=== PATIENT | male | born 1935 | race Caucasian/White ===

== ENCOUNTER 2022-02-17 16:32 | Inpatient (IN) ==
--- NOTE | 2022-02-17 17:02 | Emergency Department Note ---
Weakness HPI General Chief complaint: Weakness Stated complaint: Eval for assisted living Time Seen by Provider: 02/17/22 16:40 Source: EMS Mode of arrival: EMS Limitations: altered mental status History of Present Illness HPI Narrative: Narrative: 86-year-old male presents the emergency department via EMS from home as they are worried that they are unable to care for him at home anymore. Patient has very bad dementia and he actually tries to care for his who is actually wheelchair-bound she says she is actually unable to care for him sound like he has been getting more weak and just not acting as normal they said it is getting harder and harder for him to care for himself as well as care for her at home. It sounds like they had their tipping point here as they wanted him to come to the emergency department for evaluation. Related Data Home Medications Medication Instructions Recorded Confirmed amlodipine 10 mg tablet 5 mg PO DAILY 06/23/17 03/07/19 cetirizine 10 mg capsule (Zyrtec) 10 mg PO PRN PRN Allergy Symptoms 06/23/17 03/07/19 fluoxetine 20 mg tablet (Sarafem) 20 mg PO BID 06/23/17 03/07/19 furosemide 20 mg tablet (Lasix) 20 mg PO DAILY 06/23/17 03/07/19 ipratropium 20 mcg-albuterol 100 2 puff INH TIDP PRN Shortness Of 06/23/17 03/07/19 mcg/actuation mist for inhalation Breath (Combivent Respimat) losartan 100 mg tablet (Cozaar) 100 mg PO DAILY 06/23/17 03/07/19 methocarbamol 750 mg tablet 750 mg PO BID 06/23/17 03/07/19 (Robaxin-750) metoprolol tartrate 50 mg tablet 150 mg PO DAILY 06/23/17 03/07/19 multivit,Ca,min-folic acid 400 1 ea PO DAILY 06/23/17 06/23/17 mcg-vit K 30 was-awvsreqk-orvftk tablet (Century Mature) pravastatin 20 mg tablet 40 mg PO DAILY 06/23/17 03/07/19 (Pravachol) vitamin B comp with C no.4 150 mg 150 mg PO DAILY 06/23/17 03/07/19 tablet (Super B Complex + C) Vitamin D3 400 unit PO DAILY 03/07/19 03/07/19 acetaminophen 300 mg-codeine 30 mg 1 tab PO BID PRN Pain 03/07/19 03/07/19 tablet budesonide-formoterol HFA 80 2 puff IH BID 03/07/19 03/07/19 mcg-4.5 mcg/actuation aerosol inhaler cetirizine 10 mg capsule 10 mg PO DAILY 03/07/19 03/07/19 tiotropium bromide 18 mcg capsule 18 mcg INH BID 03/07/19 03/07/19 with inhalation device Allergies Allergy/AdvReac Type Severity Reaction Status Date / Time Penicillins Allergy Severe Anaphylaxis Verified 02/17/22 16:38 morphine Allergy Intermediate Vomiting Verified 02/17/22 16:38 Review of Systems ROS ROS Narrative: Narrative: All systems ED: reviewed and negative except as stated. PFSH Narrative Patient History Narrative: Narrative: Medical/Surgical/Family History All Active Problems (Updated 02/17/22 @ 18:26 by Abilio Hunt DO) Weakness (Acute) Social History Smoking Status: Never smoker Exam Narrative Narrative: Narrative: Vital signs noted General: Awake. Alert. No distress. Obviously confused Skin: Warm. Dry. No rash. HEENT: NCAT. PERRL. EOMI. No conjunctivitis. No nystagmus. No pharyngitis. Membranes moist. Neck: No PTP. Good ROM. No meningeal signs. No stridor. No thyromegaly. No JVD. Cardiovascular: Tachycardic but regular. No murmur. No rubs. No gallops. Respiratory: No respiratory distress. Breath sounds equal. Lungs clear. Gastrointestinal: Abdomen soft. No tenderness. No distention. Normal bowel sounds. No palpable organomegaly or masses. Back: No deformity. No CVAT. Musculoskeletal: No tenderness. No swelling. No erythema. No edema. Good peripheral pulses x 4 Lymphatic: No palpable adenopathy. Neurological: No focal neurological deficits observed. General Limitations: altered mental status Course Vital Signs Vital signs: Vital Signs Temperature 97.7 F 02/17/22 16:35 Pulse Rate 121 H 02/17/22 16:35 Respiratory Rate 16 02/17/22 16:35 Blood Pressure 127/60 02/17/22 16:35 Pulse Oximetry (%) 97 02/17/22 16:35 Oxygen Delivery Method 02/17/22 16:35 Temperature 97.7 F 02/17/22 16:35 Pulse Rate 131 H 02/17/22 18:17 Respiratory Rate 15 02/17/22 18:17 Blood Pressure 109/83 02/17/22 18:17 Pulse Oximetry (%) 97 02/17/22 18:17 Oxygen Delivery Method 02/17/22 16:35 MDM MDM Narrative Medical decision making narrative: BelievedNarrative: Patient actually looks well on exam but he is obviously confused does have baseline dementia. Is tachycardic otherwise no other acute findings. Does have a hard time caring for himself. I do not understand how he can actually care for himself at home. He does have severe dementia and also has diabetes multiple chronic problems. We will going get basic labs including urinalysis. Labs came back just with mild leukocytosis. He actually we looked and was diagnosed with a urinary tract infection. He is already already on antibiotics after he talked with further. Social work actually got really involved in the case and was able to speak with and the decision was actually made to go hospice so hospice is actually going to talk to them tomorrow and get him admitted into the hospice care center. I think this is actually the best mode o f action for this patient family is happy with this plan. Patient will be discharged home in stable condition. Lab Data Result diagrams: 02/17/22 17:10 Labs: Lab Results 02/17/22 02/17/22 Range/Units 17:10 17:50 WBC 12.9 H (4.5-11.0) K/mcL RBC 4.43 L (4.63-6.08) M/mcL Hgb 12.6 L (13.7-17.5) g/dL Hct 39.8 L (40.1-51.0) % POC Hct 39.0 L (41-55) MCV 89.8 (80.0-100.0) fL MCH 28.4 (26.0-34.0) pg MCHC 31.7 (31.0-36.0) g/dL RDW 13.0 (11.5-14.5) % Plt Count 374 (140-440) K/mcL MPV 9.1 (8.8-12.5) fL Immature Gran % (Auto) 0.5 (0.0-0.5) % Neut % (Auto) 76.4 (38.0-78.0) % Lymph % (Auto) 7.9 L (15.5-49.0) % [place] % (Auto) 12.1 H (1.0-12.0) % Eos % (Auto) 2.9 (0.0-7.0) % Baso % (Auto) 0.2 (0.0-2.0) % Lymph # (Auto) 1.02 L (1.50-4.80) K/mcL [place] # (Auto) 1.55 H (0.10-0.90) K/mcL Eos # (Auto) 0.37 (0.00-0.70) K/mcL Baso # (Auto) 0.03 (0.00-0.30) K/mcL Immature Gran # 0.07 H (0.00-0.05) K/mcl Absolute Neutrophils 9.82 H (1.80-8.00) K/mcL POC Sodium 140 (133-145) POC Potassium 4.1 (3.3-5.1) POC Chloride 100 (96-108) POC Total CO2 29.0 (22-30) POC BUN 22 H (6-20) POC Creatinine 0.9 (0.6-1.2) POC Glucose 76 (70-105) POC WB Ioniz Calcium 1.14 L (1.16-1.32) Discharge Plan Patient/Caregiver Discharge Instructions Pt seen by NEGATIVE DEVELOPER/PA only: No Clinical Impression: Weakness Activity: increase activity as tolerated Instructions: Weakness (ED) Activity Restrictions/Additional Instructions: 1.The examination and treatment you have received in the emergency department was on an emergency basis only. Care in the emergency department does not take the place of regular medical care with a primary care provider. 2.Please contact your primary care provider for further follow up instructions. 3.Return to the emergency department immediately if you become worse, if you develop any new symptoms, or if any problems occur. 4.Call if questions. 5. Hospice should meet with you tomorrow to get him admitted into the hospice program. If anything changes or worsens you know is return to the emergency department Patient Disposition: Hospice - Home Condition: Good Follow up with: Tessa Gayle ARNP [Primary Care Provider] - Prescriptions: No Action methocarbamol [Robaxin-750] 750 MG Tablet 750 mg PO BID amlodipine 10 MG Tablet 5 mg PO DAILY fluoxetine [Sarafem] 20 MG Tablet 20 mg PO BID metoprolol tartrate 50 MG Tablet 150 mg PO DAILY pravastatin [Pravachol] 20 MG Tablet 40 mg PO DAILY furosemide [Lasix] 20 MG Tablet 20 mg PO DAILY losartan [Cozaar] 100 MG Tablet 100 mg PO DAILY vitamin B comp with C no.4 [Super B Complex + C] 150 MG Tablet 150 mg PO DAILY cetirizine [Zyrtec] 10 MG Capsule 10 mg PO PRN PRN (Reason: Allergy Symptoms) ipratropium-albuterol [Combivent Respimat] 1 PUFF Inhaler 2 puff INH TIDP PRN (Reason: Shortness Of Breath) mv,Ca,aup-BR-R2-lycopene-lutn [Century Mature] 1 EACH Tablet 1 ea PO DAILY acetaminophen-codeine 1 TAB tablet 1 tab PO BID PRN (Reason: Pain) tiotropium bromide 18 MCG capsule, w/inhalation device 18 mcg INH BID budesonide-formoterol 10.2 GM HFA aerosol inhaler 2 puff IH BID Vitamin D3 400 UNIT tablet 400 unit PO DAILY cetirizine 10 MG capsule 10 mg PO DAILY
[2022-02-17 17:51] LABS: POC Calcium, Ionized 1.14 (1.16-1.32); POC Creatinine 0.9 (0.6-1.2); POC Potassium 4.1 (3.3-5.1)
[2022-02-17 17:53] LABS: Basophils # (Auto) 0.03 K/mcL (0.00-0.30); Basophils % (Auto) 0.2 % (0.0-2.0); Eosinophils # (Auto) 0.37 K/mcL (0.00-0.70); Eosinophils % (Auto) 2.9 % (0.0-7.0); Hematocrit 39.8 % (40.1-51.0); Hemoglobin 12.6 g/dL (13.7-17.5); Lymphocytes # (Auto) 1.02 K/mcL (1.50-4.80); Lymphocytes % (Auto) 7.9 % (15.5-49.0); Mean Cell Volume 89.8 fL (80.0-100.0); Mean Corpuscular HGB Conc 31.7 g/dL (31.0-36.0); Mean Platelet Volume 9.1 fL (8.8-12.5); Monocytes # (Auto) 1.55 K/mcL (0.10-0.90); Monocytes % (Auto) 12.1 % (1.0-12.0); Neutrophils % (Auto) 76.4 % (38.0-78.0); Platelet Count 374 K/mcL (140-440); RBC 4.43 M/mcL (4.63-6.08); WBC 12.9 K/mcL (4.5-11.0)
[2022-02-17 18:45] LABS: Appearance,Urine CLEAR (Clear); Bilirubin,Urine Negative (Negative); Color,Urine YELLOW; Culture Indicated,Urine No; Glucose,Urine (UA) Negative (Negative); Ketones,Urine Negative (Negative); Leukocyte Esterase,Urine Negative /uL (Negative); Nitrate,Urine Negative (Negative); Protein,Urine Negative (Negative); Specific Gravity,Urine 1.011 (1.000-1.035); Urine Blood Negative (Negative); Urobilinogen,Urine Negative
[2022-02-17] MEDS ORDERED: ACETAMINOPHEN W/CODEINE #3 1 TABLET PO ONE (20:07)
[2022-02-17] MEDS ORDERED: METHOCARBAMOL 750 MG TABLET PO PRN (20:09)
[2022-02-17] MEDS ORDERED: PRAVASTATIN 40 MG TABLET PO SCH (21:00)
--- NOTE | 2022-02-18 11:01 | XRay Report ---
CLINICAL INFORMATION: Elevated white blood cell count COMPARISON: None. TECHNIQUE: Portable FINDINGS: The heart is moderately enlarged. Mediastinum and pulmonary vessels are unremarkable. Moderate patchy infiltrate in the left upper lobe and small patchy infiltrate right upper lobe appreciated. No effusions IMPRESSION: Moderate left upper lobe and small right upper lobe infiltrates. Moderate cardiomegaly Interpreted and Authenticated by: Hima Thapa 02/18/22
[2022-02-18] MEDS ORDERED: 0.9 % SODIUM CHLORIDE 500 ML IV ONE (11:04)
[2022-02-18] MEDS ORDERED: cefTRIAXone 1 GM VIAL IV ONE (11:04)
[2022-02-18] MEDS ORDERED: AZITHROMYCIN 500 MG in DEXTROSE 5% IN WATER 250 ML IV ONE ×2 (11:04→11:18)
--- NOTE | 2022-02-18 11:29 | Emergency Department Note ---
Course Course Course Narrative: Patient is an 86-year-old male signed out to me by Dr. Hunt. Briefly, patient presented due to worsening confusion and weakness. It was reported that patient's labs were reassuring overall, and that hospice as well as placement were discussed. Hospice had not been decided on, and it was reported by case management that they would prefer treatment if there is anything treatable. Vital Signs Vital signs: Vital Signs Temperature 97.7 F 02/17/22 16:35 Pulse Rate 121 H 02/17/22 16:35 Respiratory Rate 16 02/17/22 16:35 Blood Pressure 127/60 02/17/22 16:35 Pulse Oximetry (%) 97 02/17/22 16:35 Oxygen Delivery Method 02/17/22 16:35 Temperature 97.8 F 02/18/22 06:30 Pulse Rate 110 H 02/18/22 10:01 Respiratory Rate 20 02/18/22 03:22 Blood Pressure 109/73 02/18/22 10:01 Pulse Oximetry (%) 95 02/18/22 10:01 Oxygen Delivery Method 02/18/22 06:30 [facility] MDM Narrative Medical decision making narrative: Narrative: Patient is a an 86-year-old male who presents to the emergency department due to weakness. Upon reassessment of labs and vitals there is concern for potential sepsis. A chest x-ray had not been performed, so this was performed. Patient has right-sided infiltrates, and nursing noted that when he was drinking water he did cough, so they became concerned for the possibility of aspiration. It is possible that patient has an aspiration pneumonia at this time. Antibiotics have been ordered. Fluids have also been ordered. We will speak to hospitalist about admission. I have spoken to Dr. Barnes who was agreed to see and evaluate patient for admission. Lab Data Result diagrams: 02/17/22 17:10 02/18/22 12:16 Labs: Lab Results 02/17/22 02/17/22 02/17/22 Range/Units 17:10 17:50 18:06 WBC 12.9 H (4.5-11.0) K/mcL RBC 4.43 L (4.63-6.08) M/mcL Hgb 12.6 L (13.7-17.5) g/dL Hct 39.8 L (40.1-51.0) % POC Hct 39.0 L (41-55) MCV 89.8 (80.0-100.0) fL MCH 28.4 (26.0-34.0) pg MCHC 31.7 (31.0-36.0) g/dL RDW 13.0 (11.5-14.5) % Plt Count 374 (140-440) K/mcL MPV 9.1 (8.8-12.5) fL Immature Gran % (Auto) 0.5 (0.0-0.5) % Neut % (Auto) 76.4 (38.0-78.0) % Lymph % (Auto) 7.9 L (15.5-49.0) % [place] % (Auto) 12.1 H (1.0-12.0) % Eos % (Auto) 2.9 (0.0-7.0) % Baso % (Auto) 0.2 (0.0-2.0) % Lymph # (Auto) 1.02 L (1.50-4.80) K/mcL [place] # (Auto) 1.55 H (0.10-0.90) K/mcL Eos # (Auto) 0.37 (0.00-0.70) K/mcL Baso # (Auto) 0.03 (0.00-0.30) K/mcL Immature Gran # 0.07 H (0.00-0.05) K/mcl Absolute Neutrophils 9.82 H (1.80-8.00) K/mcL POC VBG pH (7.32-7.42) POC VBG pCO2 at Temp (41-51) POC VBG pO2 (25-40) POC VBG HCO3 (24-28) POC VBG Total CO2 (25-29) POC Venous O2 Sat (40-70) POC VBG Base Excess (-2-2) VBG Lactic Acid (0.5-2) POC Sodium 140 (133-145) POC Potassium 4.1 (3.3-5.1) POC Chloride 100 (96-108) POC Total CO2 29.0 (22-30) POC BUN 22 H (6-20) POC Creatinine 0.9 (0.6-1.2) POC Glucose 76 (70-105) POC WB Ioniz Calcium 1.14 L (1.16-1.32) Urine Color Yellow Urine Appearance Clear (Clear) Urine pH 6.0 (5.0-9.0) Ur Specific [place] 1.011 (1.000-1.035) Urine Protein Negative (Negative) mg/dL Urine Glucose (UA) Negative (Negative) mg/dL Urine Ketones Negative (Negative) mg/dL Urine Occult Blood Negative (Negative) mg/dL Urine Nitrate Negative (Negative) Urine Bilirubin Negative (Negative) mg/dL Urine Urobilinogen Negative mg/dL Ur Leukocyte Esterase Negative (Negative) /uL Ur Culture Indicated? No 02/18/22 Range/Units 12:20 WBC (4.5-11.0) K/mcL RBC (4.63-6.08) M/mcL Hgb (13.7-17.5) g/dL Hct (40.1-51.0) % POC Hct (41-55) MCV (80.0-100.0) fL MCH (26.0-34.0) pg MCHC (31.0-36.0) g/dL RDW (11.5-14.5) % Plt Count (140-440) K/mcL MPV (8.8-12.5) fL Immature Gran % (Auto) (0.0-0.5) % Neut % (Auto) (38.0-78.0) % Lymph % (Auto) (15.5-49.0) % [place] % (Auto) (1.0-12.0) % Eos % (Auto) (0.0-7.0) % Baso % (Auto) (0.0-2.0) % Lymph # (Auto) (1.50-4.80) K/mcL [place] # (Auto) (0.10-0.90) K/mcL Eos # (Auto) (0.00-0.70) K/mcL Baso # (Auto) (0.00-0.30) K/mcL Immature Gran # (0.00-0.05) K/mcl Absolute Neutrophils (1.80-8.00) K/mcL POC VBG pH 7.41 (7.32-7.42) POC VBG pCO2 at Temp 44.3 (41-51) POC VBG pO2 20 L (25-40) POC VBG HCO3 27.8 (24-28) POC VBG Total CO2 29.0 (25-29) POC Venous O2 Sat 31.0 L (40-70) POC VBG Base Excess 3.0 H (-2-2) VBG Lactic Acid 0.7 (0.5-2) POC Sodium (133-145) POC Potassium (3.3-5.1) POC Chloride (96-108) POC Total CO2 (22-30) POC BUN (6-20) POC Creatinine (0.6-1.2) POC Glucose (70-105) POC WB Ioniz Calcium (1.16-1.32) Urine Color Urine Appearance (Clear) Urine pH (5.0-9.0) Ur Specific [place] (1.000-1.035) Urine Protein (Negative) mg/dL Urine Glucose (UA) (Negative) mg/dL Urine Ketones (Negative) mg/dL Urine Occult Blood (Negative) mg/dL Urine Nitrate (Negative) Urine Bilirubin (Negative) mg/dL Urine Urobilinogen mg/dL Ur Leukocyte Esterase (Negative) /uL Ur Culture Indicated? Discharge Plan Patient/Caregiver Discharge Instructions Pt seen by LADLE PULLER/PA only: No Clinical Impression: Weakness Activity: increase activity as tolerated Instructions: Weakness (ED) Activity Restrictions/Additional Instructions: 1.The examination and treatment you have received in the emergency department was on an emergency basis only. Care in the emergency department does not take the place of regular medical care with a primary care provider. 2.Please contact your primary care provider for further follow up instructions. 3.Return to the emergency department immediately if you become worse, if you develop any new symptoms, or if any problems occur. 4.Call if questions. 5. Hospice should meet with you tomorrow to get him admitted into the hospice program. If anything changes or worsens you know is return to the emergency department Patient Disposition: Still a Patient Condition: Good Follow up with: Tessa Gayle ARNP [Primary Care Provider] - Prescriptions: No Action methocarbamol [Robaxin-750] 750 MG Tablet 750 mg PO BID amlodipine 10 MG Tablet 5 mg PO DAILY fluoxetine [Sarafem] 20 MG Tablet 20 mg PO BID metoprolol tartrate 50 MG Tablet 150 mg PO DAILY pravastatin [Pravachol] 20 MG Tablet 40 mg PO DAILY furosemide [Lasix] 20 MG Tablet 20 mg PO DAILY losartan [Cozaar] 100 MG Tablet 100 mg PO DAILY vitamin B comp with C no.4 [Super B Complex + C] 150 MG Tablet 150 mg PO DAILY cetirizine [Zyrtec] 10 MG Capsule 10 mg PO PRN PRN (Reason: Allergy Symptoms) ipratropium-albuterol [Combivent Respimat] 1 PUFF Inhaler 2 puff INH TIDP PRN (Reason: Shortness Of Breath) mv,Ca,waf-UW-E0-lycopene-lutn [Century Mature] 1 EACH Tablet 1 ea PO DAILY acetaminophen-codeine 1 TAB tablet 1 tab PO BID PRN (Reason: Pain) tiotropium bromide 18 MCG capsule, w/inhalation device 18 mcg INH BID budesonide-formoterol 10.2 GM HFA aerosol inhaler 2 puff IH BID Vitamin D3 400 UNIT tablet 400 unit PO DAILY cetirizine 10 MG capsule 10 mg PO DAILY
--- NOTE | 2022-02-18 12:36 | Internal Med History&Physical ---
HPI History of Present Illness Patient information: Note initiated : 02/18/22 at 12:30 pm Service Date, if different from initiated Date: [] Patient: Edmond Salas 86 y/o M admitted on for Eval for assisted living. Chief Complaint: [] History of present illness: Mr. Salas is a 86 year old M Presents the ED with worsening confusion on top of dementia and weakness. Recently treated for UTI but the urine looks clear here. Original plan was for home with hospice out of the ED. But it sounds like the family was not comfortable with patient being home felt to be unsafe conditions and they have been try to get APS involved. Further work-up in the ED today they got a chest x-ray which showed infiltrate on left side and mild right. Was noted to have some transient mild hypoxia, unknown baseline but has copd. Sounds like after further discussion with family hospice does not think finally decided on and is reported that they would prefer treatment for anything if possible first. Patient reports a chronic cough and some shortness of breath but at baseline. Patient is a poor historian most history obtained from the chart. Medical history includes dementia COPD hypertension chronic anemia and diastolic heart failure grade 1 with good ejection fraction on an echo in 2019. Review of Systems: Pertinent positives as above. Denies headache/fever/chills/nausea/vomiting/chest or abdominal pain//diarrhea. Remaining 10 point review of system reviewed negative PFSH PFSH All Active Problems (Updated 02/17/22 @ 18:26 by Abilio Hunt DO) Weakness (Acute) Social History smoking status: Never smoker MEDS/ALLERGIES Home Medications and Allergies Home Medications Medication Instructions Recorded Confirmed Type amlodipine 10 mg tablet 5 mg PO DAILY 06/23/17 03/07/19 History cetirizine 10 mg capsule (Zyrtec) 10 mg PO PRN PRN Allergy Symptoms 06/23/17 03/07/19 History fluoxetine 20 mg tablet (Sarafem) 20 mg PO BID 06/23/17 03/07/19 History furosemide 20 mg tablet (Lasix) 20 mg PO DAILY 06/23/17 03/07/19 History ipratropium 20 mcg-albuterol 100 2 puff INH TIDP PRN Shortness Of 06/23/17 03/07/19 History mcg/actuation mist for inhalation Breath (Combivent Respimat) losartan 100 mg tablet (Cozaar) 100 mg PO DAILY 06/23/17 03/07/19 History methocarbamol 750 mg tablet 750 mg PO BID 06/23/17 03/07/19 History (Robaxin-750) metoprolol tartrate 50 mg tablet 150 mg PO DAILY 06/23/17 03/07/19 History multivit,Ca,min-folic acid 400 1 ea PO DAILY 06/23/17 06/23/17 History mcg-vit K 30 yve-parhmfyn-erdfnv tablet ([employer]) pravastatin 20 mg tablet 40 mg PO DAILY 06/23/17 03/07/19 History (Pravachol) vitamin B comp with C no.4 150 mg 150 mg PO DAILY 06/23/17 03/07/19 History tablet (Super B Complex + C) Vitamin D3 400 unit PO DAILY 03/07/19 03/07/19 History acetaminophen 300 mg-codeine 30 mg 1 tab PO BID PRN Pain 03/07/19 03/07/19 History tablet budesonide-formoterol HFA 80 2 puff IH BID 03/07/19 03/07/19 History mcg-4.5 mcg/actuation aerosol inhaler cetirizine 10 mg capsule 10 mg PO DAILY 03/07/19 03/07/19 History tiotropium bromide 18 mcg capsule 18 mcg INH BID 03/07/19 03/07/19 History with inhalation device Allergies Allergy/AdvReac Type Severity Reaction Status Date / Time Penicillins Allergy Severe Anaphylaxis Verified 02/17/22 16:38 morphine AdvReac Mild Vomiting Verified 02/18/22 13:42 EXAM Constitutional Vitals: Temp Pulse Resp BP Pulse Ox O2 Del Method 97.8 F 110 H 20 109/73 95 02/18/22 06:30 02/18/22 10:01 02/18/22 03:22 02/18/22 10:01 02/18/22 10:01 02/18/22 06:30 Exam: General: Alert, Awake, No acute Distress, obese Eyes/N/T: EOMI, PERRL, Head/Neck: neck supple, normocephalic atraumatic CV: Tacky and regular with occasional irregularity,, No murmurs, normal s1/s2 Pulm: Clear b/l, no wheezing/rhonchi/rales Abd: soft, nontender, +BS x4 Ext: no clubbing/cyanosis, 2+ b/l LE edema and LE chronic wounds/ulcers Neuro: Alert, no focal deficits, moves all extremities, CN 2-12 grossly intact, Skin: warm/dry DATA Data Completed and Pending Labs: Labs from last 24 hours 02/18/22 02/18/22 02/18/22 12:20 12:16 12:16 WBC Pending RBC Pending Hgb Pending Hct Pending POC Hct MCV Pending MCH Pending MCHC Pending RDW Pending Plt Count Pending MPV Pending Immature Gran % (Auto) Neut % (Auto) Lymph % (Auto) [place] % (Auto) Eos % (Auto) Baso % (Auto) Lymph # (Auto) [place] # (Auto) Eos # (Auto) Baso # (Auto) Immature Gran # Absolute Neutrophils Platelet Estimate Pending RBC Morphology Pending POC VBG pH 7.41 POC VBG pCO2 at Temp 44.3 POC VBG pO2 20 L POC VBG HCO3 27.8 POC VBG Total CO2 29.0 POC Venous O2 Sat 31.0 L POC VBG Base Excess 3.0 H VBG Lactic Acid 0.7 POC Sodium Sodium Pending POC Potassium Potassium Pending POC Chloride Chloride Pending Carbon Dioxide Pending POC Total CO2 Anion Gap Pending POC BUN BUN Pending Creatinine Pending POC Creatinine GFR Calculation Pending Glucose Pending POC Glucose Uric Acid Pending Calcium Pending POC WB Ioniz Calcium Phosphorus Pending Magnesium Pending Total Bilirubin Pending Direct Bilirubin Pending GGT Pending AST Pending ALT Pending Alkaline Phosphatase Pending Lactate Dehydrogenase Pending C-Reactive Protein Pending Total Protein Pending Albumin Pending Globulin Pending Albumin/Globulin Ratio Pending Triglycerides Pending Procalcitonin Urine Color Urine Appearance Urine pH Ur Specific [place] Urine Protein Urine Glucose (UA) Urine Ketones Urine Occult Blood Urine Nitrate Urine Bilirubin Urine Urobilinogen Ur Leukocyte Esterase Ur Culture Indicated? 02/18/22 02/17/22 02/17/22 12:15 18:06 17:50 WBC RBC Hgb Hct POC Hct 39.0 L MCV MCH MCHC RDW Plt Count MPV Immature Gran % (Auto) Neut % (Auto) Lymph % (Auto) [place] % (Auto) Eos % (Auto) Baso % (Auto) Lymph # (Auto) [place] # (Auto) Eos # (Auto) Baso # (Auto) Immature Gran # Absolute Neutrophils Platelet Estimate RBC Morphology POC VBG pH POC VBG pCO2 at Temp POC VBG pO2 POC VBG HCO3 POC VBG Total CO2 POC Venous O2 Sat POC VBG Base Excess VBG Lactic Acid POC Sodium 140 Sodium POC Potassium 4.1 Potassium POC Chloride 100 Chloride Carbon Dioxide POC Total CO2 29.0 Anion Gap POC BUN 22 H BUN Creatinine POC Creatinine 0.9 GFR Calculation Glucose POC Glucose 76 Uric Acid Calcium POC WB Ioniz Calcium 1.14 L Phosphorus Magnesium Total Bilirubin Direct Bilirubin GGT AST ALT Alkaline Phosphatase Lactate Dehydrogenase C-Reactive Protein Total Protein Albumin Globulin Albumin/Globulin Ratio Triglycerides Procalcitonin Pending Urine Color Yellow Urine Appearance Clear Urine pH 6.0 Ur Specific [place] 1.011 Urine Protein Negative Urine Glucose (UA) Negative Urine Ketones Negative Urine Occult Blood Negative Urine Nitrate Negative Urine Bilirubin Negative Urine Urobilinogen Negative Ur Leukocyte Esterase Negative Ur Culture Indicated? No 02/17/22 17:10 WBC 12.9 H RBC 4.43 L Hgb 12.6 L Hct 39.8 L POC Hct MCV 89.8 MCH 28.4 MCHC 31.7 RDW 13.0 Plt Count 374 MPV 9.1 Immature Gran % (Auto) 0.5 Neut % (Auto) 76.4 Lymph % (Auto) 7.9 L [place] % (Auto) 12.1 H Eos % (Auto) 2.9 Baso % (Auto) 0.2 Lymph # (Auto) 1.02 L [place] # (Auto) 1.55 H Eos # (Auto) 0.37 Baso # (Auto) 0.03 Immature Gran # 0.07 H Absolute Neutrophils 9.82 H Platelet Estimate RBC Morphology POC VBG pH POC VBG pCO2 at Temp POC VBG pO2 POC VBG HCO3 POC VBG Total CO2 POC Venous O2 Sat POC VBG Base Excess VBG Lactic Acid POC Sodium Sodium POC Potassium Potassium POC Chloride Chloride Carbon Dioxide POC Total CO2 Anion Gap POC BUN BUN Creatinine POC Creatinine GFR Calculation Glucose POC Glucose Uric Acid Calcium POC WB Ioniz Calcium Phosphorus Magnesium Total Bilirubin Direct Bilirubin GGT AST ALT Alkaline Phosphatase Lactate Dehydrogenase C-Reactive Protein Total Protein Albumin Globulin Albumin/Globulin Ratio Triglycerides Procalcitonin Urine Color Urine Appearance Urine pH Ur Specific [place] Urine Protein Urine Glucose (UA) Urine Ketones Urine Occult Blood Urine Nitrate Urine Bilirubin Urine Urobilinogen Ur Leukocyte Esterase Ur Culture Indicated? A/P Narrative A/P Narrative: A: *CAP: *Acute hypoxic respiratory failure: transient, on room air *COPD(not on home O2): *Sepsis: *Encephalopathy, acute on chronic, underlying Dementia: 2/2 above *h/o diastlic CHF: *Dementia: *HTN: *Anemia, chronic: *Generalized weakness/deconditioning/failure to thrive *LE wounds/uclers *Obesity: BMI 34 P: -Antibiotics -IS/Acapella, home meds and prn nebs, RT -Wound care -check pct -Home medication reconciliation -PT/OT -CM for placement -ppx: Lovenox Time Spent With Patient Time: Total time spent is greater than 50% in coordination of care (as documented) at patient's floor/unit and/or counseling patient: Total time spent with greater than 50% in coordination of care (as documented) at patient's floor/unit and/or counseling patient:: Greater than 70 minutes
[2022-02-18 13:05] LABS: Hemoglobin 10.8 g/dL (13.7-17.5); Mean Cell Volume 91.1 fL (80.0-100.0); Mean Corpuscular HGB Conc 30.9 g/dL (31.0-36.0); Mean Platelet Volume 9.1 fL (8.8-12.5); Platelet Count 300 K/mcL (140-440); RBC 3.84 M/mcL (4.63-6.08); Red Cell Distribution Width 13.3 % (11.5-14.5); WBC 10.3 K/mcL (4.5-11.0)
[2022-02-18 13:27] LABS: ALT/SGPT 36 U/L (<40); AST/SGOT 66 U/L (<40); Albumin 2.7 gm/dL (3.2-5.2); Albumin/Globulin Ratio 0.7 (1.0-2.3); Alkaline Phosphatase 128 U/L (39-117); Bilirubin,Direct 0.3 mg/dL (<0.3); Bilirubin,Total 0.6 mg/dL (0.1-1.0); Blood Urea Nitrogen 15 mg/dL (8-23); Calcium 8.2 mg/dL (8.6-10.4); Carbon Dioxide 28 mmol/L (22-30); Chloride 99 mmol/L (96-108); Globulin 3.7 gm/dL (2.2-3.7); Glomerular Filtration Rate 76; Glucose 111 mg/dL (70-105); Lactate Dehydrogenase 288 U/L (135-225); Phosphorous 3.2 mg/dL (2.5-4.5); Triglycerides 76 mg/dL (<150); Uric Acid 5.4 mg/dL (2.5-8.0)
[2022-02-18] MEDS ORDERED: POTASSIUM CHLORIDE 40 MEQ in DEXTROSE 5% IN WATER 500 ML IV PRN (13:40)
[2022-02-18] MEDS ORDERED: POLYETHYLENE GLYCOL 3350 17 GM PACKET PO PRN (13:40)
[2022-02-18] MEDS ORDERED: MAGNESIUM SULFATE 2 GM/50 ML BAG IV PRN (13:40)
[2022-02-18] MEDS ORDERED: cefTRIAXone 1 GM in DEXTROSE 5% IN WATER 50 ML IV SCH (13:40)
[2022-02-18] MEDS ORDERED: POTASSIUM CHLORIDE 20 MEQ TABLET PO PRN ×2 (13:40)
[2022-02-18] MEDS ORDERED: ONDANSETRON 4 MG/2 ML VIAL IV PRN (13:40)
[2022-02-18 14:00] LABS: Eosinophils % (Manual) 2 % (0-7); Lymphocytes % 8 % (15-49); Monocytes % (Manual) 10 % (1-12); Platelet Estimate NORMAL (Normal); RBC Morphology NORMAL (Normal); Reactive Lymphocytes 1 % (0-2); Segmented Neutrophils % 79 % (38-78)
[2022-02-18] MEDS: 0.9 % SODIUM CHLORIDE 10 ML SYRINGE IV SCH ×2 (16:38→21:18)
[2022-02-18] MEDS: ACETAMINOPHEN 325 MG TABLET PO PRN (21:17)
[2022-02-18] MEDS: DOCUSATE SODIUM 100 MG CAPSULE PO SCH (21:18)
[2022-02-18] MEDS ORDERED: HALOPERIDOL LACTATE 5 MG/ML VIAL IV PRN (23:48)
[2022-02-19] MEDS: HALOPERIDOL LACTATE 5 MG/ML VIAL IV PRN ×3 (00:04→22:22)
[2022-02-19] MEDS: 0.9 % SODIUM CHLORIDE 10 ML SYRINGE IV SCH ×4 (00:05→20:09)
[2022-02-19] MEDS: HALOPERIDOL LACTATE 5 MG/ML VIAL ONE ×2 (00:16→00:25)
[2022-02-19] MEDS ORDERED: HALOPERIDOL LACTATE 5 MG/ML VIAL ONE (00:27)
[2022-02-19 06:53] LABS: Basophils # (Auto) 0.03 K/mcL (0.00-0.30); Basophils % (Auto) 0.3 % (0.0-2.0); Eosinophils # (Auto) 0.34 K/mcL (0.00-0.70); Eosinophils % (Auto) 3.5 % (0.0-7.0); Hematocrit 34.8 % (40.1-51.0); Hemoglobin 11.2 g/dL (13.7-17.5); Lymphocytes # (Auto) 1.17 K/mcL (1.50-4.80); Lymphocytes % (Auto) 12.1 % (15.5-49.0); Mean Cell Volume 92.6 fL (80.0-100.0); Mean Corpuscular HGB Conc 32.2 g/dL (31.0-36.0); Mean Platelet Volume 9.3 fL (8.8-12.5); Monocytes # (Auto) 1.55 K/mcL (0.10-0.90); Monocytes % (Auto) 16.1 % (1.0-12.0); Neutrophils % (Auto) 67.5 % (38.0-78.0); Platelet Count 290 K/mcL (140-440); RBC 3.76 M/mcL (4.63-6.08); Red Cell Distribution Width 13.7 % (11.5-14.5); WBC 9.6 K/mcL (4.5-11.0)
[2022-02-19 07:13] LABS: ALT/SGPT 38 U/L (<40); AST/SGOT 55 U/L (<40); Albumin 2.9 gm/dL (3.2-5.2); Alkaline Phosphatase 129 U/L (39-117); Bilirubin,Direct 0.2 mg/dL (<0.3); Bilirubin,Total 0.6 mg/dL (0.1-1.0); Blood Urea Nitrogen 15 mg/dL (8-23); Calcium 8.1 mg/dL (8.6-10.4); Carbon Dioxide 28 mmol/L (22-30); Chloride 100 mmol/L (96-108); Glomerular Filtration Rate 67; Glucose 178 mg/dL (70-105); Lactate Dehydrogenase 207 U/L (135-225); Phosphorous 3.2 mg/dL (2.5-4.5); Triglycerides 78 mg/dL (<150); Uric Acid 5.6 mg/dL (2.5-8.0)
[2022-02-19] MEDS: ACETAMINOPHEN 325 MG TABLET PO PRN ×2 (07:27→20:11)
--- NOTE | 2022-02-19 07:51 | Internal Med Progress Note ---
SUBJECTIVE Subjective Patient information: Note initiated : 02/19/22 at 7:47 am Service Date, if different from initiated Date: [] Patient: Edmond Salas 86 y/o M admitted on 02/18/22 for Eval for assisted living. Chief Complaint: [] Interval history: History of present illness: Mr. Salas is a 86 year old M Presents the ED with worsening confusion on top of dementia and weakness. Recently treated for UTI but the urine looks clear here. Original plan was for home with hospice out of the ED. But it sounds like the family was not comfortable with patient being home felt to be unsafe conditions and they have been try to get APS involved. Further work-up in the ED today they got a chest x-ray which showed infiltrate on left side and mild right. Was noted to have some transient mild hypoxia, unknown baseline but has copd. Sounds like after further discussion with family hospice does not think finally decided on and is reported that they would prefer treatment for anything if possible first. Patient reports a chronic cough and some shortness of breath but at baseline. Patient is a poor historian most history obtained from the chart. Medical history includes dementia COPD hypertension chronic anemia and diastolic heart failure grade 1 with good ejection fraction on an echo in 2019. 02/19 Patient sleeping. Likely result from Haldol last night. Haldol was given for sundowning and severe agitation and pulling at lines. Nurse also reports that she feels he is aspirating with liquids. We will place on dysphagia diet order speech therapy evaluation. Likely is infiltrates on chest x-ray from aspiration. Constitutional Vitals: Vital Signs Temp Pulse Resp BP Pulse Ox O2 Del Method 97.4 F 123 H 20 134/73 93 02/19/22 07:12 02/19/22 07:12 02/19/22 07:12 02/19/22 07:12 02/19/22 07:12 02/19/22 07:12 Period Temp Pulse Resp BP Sys/Meza Pulse Ox O2 Del Method O2 Flow Rate Last 24 Hr 97.4 F-98.6 F 81-126 16-20 92-139/51-79 93-100 Room Air-Room Air Intake and Output 02/18/22 02/19/22 02/19/22 21:59 05:59 13:59 Intake Total 480 Output Total 250 575 Balance 230 -575 Weight 122.101 kg Intake & Output: Intake & Output 02/18/22 02/19/22 02/19/22 21:59 05:59 13:59 Intake Total 480 Output Total 250 575 Balance 230 -575 Weight 122.101 kg Intake: Oral 480 Output: Urine Catheter Amount 250 200 Void Amount 375 Other: Meal Dinner Percent of Meal Consumed 75% Feeding Ability Independent Urine Appearance Clear Clear Willis Clear Clear Sediment Urine Color Yellow Yellow [place] Yellow Bright Yellow Urine Odor Normal Normal Willis Normal Exam: General: sleeping, No acute Distress, obese Eyes/N/T: EOMI, Head/Neck: neck supple, CV: irreg irreg, No murmurs, Pulm: Clear b/l, no wheezing/rhonchi/rales Abd: soft, nontender, +BS x4 Ext: no clubbing/cyanosis, 1-2+ b/l LE edema and LE chronic wounds/ulcers Neuro: sleeping, no focal deficits, spontaneously moves all extremities, Skin: warm/dry OBJ DATA Labs CBC & Chem 7: 02/19/22 05:07 02/19/22 05:07 Labs: Abnormal Lab Results 02/19/22 02/19/22 02/18/22 05:07 05:07 12:20 WBC RBC 3.76 L Hgb 11.2 L Hct 34.8 L POC Hct MCHC Lymph % (Auto) 12.1 L [place] % (Auto) 16.1 H Lymph # (Auto) 1.17 L [place] # (Auto) 1.55 H Seg Neutrophils % Lymphocytes % Immature Gran # Absolute Neutrophils POC VBG pO2 20 L POC Venous O2 Sat 31.0 L POC VBG Base Excess 3.0 H POC BUN Glucose 178 H Calcium 8.1 L POC WB Ioniz Calcium Direct Bilirubin AST 55 H Alkaline Phosphatase 129 H Lactate Dehydrogenase C-Reactive Protein Albumin 2.9 L Albumin/Globulin Ratio Procalcitonin 02/18/22 02/18/22 02/18/22 12:16 12:16 12:15 WBC RBC 3.84 L Hgb 10.8 L Hct 35.0 L POC Hct MCHC 30.9 L Lymph % (Auto) [place] % (Auto) Lymph # (Auto) [place] # (Auto) Seg Neutrophils % 79 H Lymphocytes % 8 L Immature Gran # Absolute Neutrophils POC VBG pO2 POC Venous O2 Sat POC VBG Base Excess POC BUN Glucose 111 H Calcium 8.2 L POC WB Ioniz Calcium Direct Bilirubin 0.3 H AST 66 H Alkaline Phosphatase 128 H Lactate Dehydrogenase 288 H C-Reactive Protein 13.70 H Albumin 2.7 L Albumin/Globulin Ratio 0.7 L Procalcitonin 0.11 H 02/17/22 02/17/22 17:50 17:10 WBC 12.9 H RBC 4.43 L Hgb 12.6 L Hct 39.8 L POC Hct 39.0 L MCHC Lymph % (Auto) 7.9 L [place] % (Auto) 12.1 H Lymph # (Auto) 1.02 L [place] # (Auto) 1.55 H Seg Neutrophils % Lymphocytes % Immature Gran # 0.07 H Absolute Neutrophils 9.82 H POC VBG pO2 POC Venous O2 Sat POC VBG Base Excess POC BUN 22 H Glucose Calcium POC WB Ioniz Calcium 1.14 L Direct Bilirubin AST Alkaline Phosphatase Lactate Dehydrogenase C-Reactive Protein Albumin Albumin/Globulin Ratio Procalcitonin Meds: Medications Acetaminophen (Acetaminophen 325 Mg Tablet) 650 mg PO Q6HP PRN; Protocol PRN Reason: Per Pain Protocol/Fever > 101 Last Admin: 02/19/22 07:27 Dose: 650 mg Albuterol/Ipratropium (Ipratropium/Albuterol 3 Ml Ampul.Neb) 3 ml NEB Q4HP PRN PRN Reason: Shortness Of Breath Ceftriaxone Sodium (Ceftriaxone 1 Gm Vial) 1 gm IV Q24H [facility] Docusate Sodium (Docusate Sodium 100 Mg Capsule) 100 mg PO BID [facility] Last Admin: 02/18/22 21:18 Dose: 100 mg Enoxaparin Sodium (Enoxaparin 40 Mg/0.4 Ml Syringe) 40 mg SQ DAILY [facility] Haloperidol Lactate (Haloperidol Lactate 5 Mg/Ml Vial) 2 - 5 mg IV Q4HP PRN PRN Reason: ANXIETY/SEDATION Last Admin: 02/19/22 00:04 Dose: 5 mg Potassium Chloride 40 meq/ (Dextrose) 520 mls @ 130 mls/hr IV UD PRN PRN Reason: Potassium < 3 Magnesium Sulfate (Magnesium Sulfate) 2 gm in 50 mls @ 50 mls/hr IV UD PRN PRN Reason: Magnesium </= 1.6 Azithromycin 500 mg/ Dextrose 250 mls @ 250 mls/hr IV Q24H [facility]; Protocol Stop: 02/20/22 10:59 Ondansetron HCl (Ondansetron 4 Mg/2 Ml Vial) 4 mg IV Q4HP PRN PRN Reason: Nausea And Vomiting Polyethylene Glycol (Polyethylene Glycol 3350 17 Gm Packet) 17 gm PO DAILYP PRN PRN Reason: Constipation Potassium Chloride (Potassium Chloride 20 Meq Tablet) 40 meq PO UD PRN PRN Reason: Potssium is 3-3.5 Potassium Chloride (Potassium Chloride 20 Meq Tablet) 40 meq PO UD PRN PRN Reason: Potassium < 3 Senna (Sennosides 1 Tablet) 2 tab PO DAILYP PRN PRN Reason: Constipation Sodium Chloride (0.9 % Sodium Chloride 10 Ml Syringe) 10 ml IV Q8 GAIL Last Admin: 02/19/22 05:04 Dose: 10 ml A/P Narrative A/P Narrative: A: *Generalized weakness/deconditioning/failure to thrive: *Encephalopathy, acute on chronic, underlying Dementia: 2/2 above *Dementia: *CAP, likely Aspiration: *?Sepsis: *Acute hypoxic respiratory failure: transient in ED, on room air *Afib, suspect chronic vs paroxysmal (new diagnosis) w/RVR: -CHADSVASC=3 *COPD(not on home O2): *h/o diastlic CHF: *Pre-Diabetes: a1c 6.4 *HTN: *CKD II: *Anemia, chronic: *LE wounds/uclers *Obesity: BMI 34 P: -Antibiotics -IS/Acapella, home meds and prn nebs, RT -Wound care -ekg, echo, tele -discuss anticoagulation with pt -cont BB/norvasc -hold lasix and ARB for now -SSI, hold home basal for now and f/u accuchecks -PT/OT -ST eval, dysphagia diet -CM for placement -ppx: Lovenox DNR Time Spent With Patient Time: Total time spent is greater than 50% in coordination of care (as documented) at patient's floor/unit and/or counseling patient: Total time spent with greater than 50% in coordination of care (as documented) at patient's floor/unit and/or counseling patient:: 25 - 35 minutes
[2022-02-19] MEDS ORDERED: DEXTROSE 31 GM ORAL.SUSP PO PRN (07:53)
[2022-02-19] MEDS ORDERED: DEXTROSE 50% 50 ML VIAL IV PRN (07:53)
[2022-02-19] MEDS: IPRATROPIUM/ALBUTEROL 3 ML AMPUL.NEB NEB PRN ×2 (08:35→22:27)
[2022-02-19 08:37] LABS: Hemoglobin A1C 6.4 % Hgb (4.0-6.0)
[2022-02-19] MEDS ORDERED: PRAVASTATIN 20 MG TABLET PO SCH (09:00)
[2022-02-19] MEDS: cefTRIAXone 1 GM VIAL IV SCH (09:35)
[2022-02-19] MEDS: BISOPROLOL 5 MG TABLET PO SCH (09:36)
[2022-02-19] MEDS: amLODIPine 10 MG TABLET PO SCH (09:36)
[2022-02-19] MEDS: MEMANTINE 10 MG TABLET PO SCH ×2 (09:37→20:10)
[2022-02-19] MEDS: METHOCARBAMOL 750 MG TABLET PO SCH (09:37)
[2022-02-19] MEDS: DOCUSATE SODIUM 100 MG CAPSULE PO SCH ×2 (09:38→20:11)
[2022-02-19] MEDS: ENOXAPARIN 40 MG/0.4 ML SYRINGE SQ SCH (09:38)
[2022-02-19] MEDS: OMEPRAZOLE 20 MG CAPSULE PO SCH (09:52)
[2022-02-19] MEDS: TAMSULOSIN 0.4 MG CAPSULE PO SCH ×2 (09:52→20:11)
[2022-02-19] MEDS ORDERED: AZITHROMYCIN 500 MG in DEXTROSE 5% IN WATER 250 ML IV SCH (10:00)
[2022-02-19] MEDS: INSULIN LISPRO 1 UNIT/0.01 ML UNIT SQ SCH ×3 (10:48→20:10)
[2022-02-19] MEDS: FLUoxetine HCL 20 MG CAPSULE PO SCH (10:51)
[2022-02-19] MEDS: ACETAMINOPHEN W/CODEINE #3 1 TABLET PO PRN (13:38)
[2022-02-19] MEDS: METOPROLOL TARTRATE 5 MG/5 ML VIAL IV PRN ×2 (15:08→22:21)
[2022-02-19] MEDS ORDERED: OLANZapine 5 MG TABLET PO PRN (16:00)
[2022-02-19] MEDS ORDERED: OLANZapine 2.5 MG TABLET PO ONE (16:28)
[2022-02-20] MEDS: 0.9 % SODIUM CHLORIDE 10 ML SYRINGE IV SCH ×3 (05:07→20:07)
[2022-02-20 06:33] LABS: Blood Urea Nitrogen 22 mg/dL (8-23); Calcium 8.5 mg/dL (8.6-10.4); Carbon Dioxide 25 mmol/L (22-30); Chloride 102 mmol/L (96-108); Glomerular Filtration Rate 67; Glucose 155 mg/dL (70-105)
[2022-02-20] MEDS: INSULIN LISPRO 1 UNIT/0.01 ML UNIT SQ SCH ×4 (07:52→20:05)
[2022-02-20] MEDS: OMEPRAZOLE 20 MG CAPSULE PO SCH (08:30)
[2022-02-20] MEDS: FLUoxetine HCL 20 MG CAPSULE PO SCH (08:30)
[2022-02-20] MEDS: BISOPROLOL 5 MG TABLET PO SCH (08:30)
[2022-02-20] MEDS: TAMSULOSIN 0.4 MG CAPSULE PO SCH ×2 (08:30→20:07)
[2022-02-20] MEDS: DOCUSATE SODIUM 100 MG CAPSULE PO SCH ×2 (08:31→20:06)
[2022-02-20] MEDS: amLODIPine 10 MG TABLET PO SCH (08:31)
[2022-02-20] MEDS: METHOCARBAMOL 750 MG TABLET PO SCH (08:31)
[2022-02-20] MEDS: ENOXAPARIN 40 MG/0.4 ML SYRINGE SQ SCH (08:32)
[2022-02-20] MEDS: MEMANTINE 10 MG TABLET PO SCH ×2 (08:37→20:06)
[2022-02-20] MEDS: cefTRIAXone 1 GM VIAL IV SCH (08:38)
[2022-02-20] MEDS ORDERED: AZITHROMYCIN 250 MG TABLET PO SCH (09:00)
--- NOTE | 2022-02-20 09:02 | Internal Med Progress Note ---
SUBJECTIVE Subjective Patient information: Note initiated : 02/20/22 at 8:58 am Service Date, if different from initiated Date: [] Patient: Edmond Salas 86 y/o M admitted on 02/18/22 for Eval for assisted living. Chief Complaint: [] Interval history: History of present illness: Mr. Salas is a 86 year old M Presents the ED with worsening confusion on top of dementia and weakness. Recently treated for UTI but the urine looks clear here. Original plan was for home with hospice out of the ED. But it sounds like the family was not comfortable with patient being home felt to be unsafe conditions and they have been try to get APS involved. Further work-up in the ED today they got a chest x-ray which showed infiltrate on left side and mild right. Was noted to have some transient mild hypoxia, unknown baseline but has copd. Sounds like after further discussion with family hospice does not think finally decided on and is reported that they would prefer treatment for anything if possible first. Patient reports a chronic cough and some shortness of breath but at baseline. Patient is a poor historian most history obtained from the chart. Medical history includes dementia COPD hypertension chronic anemia and diastolic heart failure grade 1 with good ejection fraction on an echo in 2019. 02/19 Patient sleeping. Likely result from Haldol last night. Haldol was given for sundowning and severe agitation and pulling at lines. Nurse also reports that she feels he is aspirating with liquids. We will place on dysphagia diet order speech therapy evaluation. Likely is infiltrates on chest x-ray from aspiration. 02/20 Patient sitting up in bed eating breakfast. Did get some Zyprexa last night for agitation. No new complaints this morning. Try to talk with him about his atrial fibrillation but given his dementia patient does not seem to comprehend. Review of Systems: denies headache/fever/chills/nausea/vomiting/chest or abdominal pain/cough/dyspnea/diarrhea. Otherwise see above. Constitutional Vitals: Vital Signs Temp Pulse Resp BP Pulse Ox O2 Del Method 97.8 F 105 H 20 127/65 94 02/20/22 07:43 02/20/22 07:43 02/20/22 07:43 02/20/22 07:43 02/20/22 07:43 02/20/22 07:43 Period Temp Pulse Resp BP Sys/Meza Pulse Ox O2 Del Method O2 Flow Rate Last 24 Hr 97.8 F-99.7 F 93-114 15-20 105-141/59-70 94-96 Room Air-Room Air Intake and Output 02/19/22 02/20/22 02/20/22 21:59 05:59 13:59 Intake Total 350 Output Total 375 750 Balance -375 -400 Weight 123.014 kg Intake & Output: Intake & Output 02/19/22 02/20/22 02/20/22 21:59 05:59 13:59 Intake Total 350 Output Total 375 750 Balance -375 -400 Weight 123.014 kg Intake: GI Tube Flush 350 Output: Urine Catheter Amount 375 750 Other: Urine Appearance Clear Willis Clear Urine Color Yellow Yellow Willis Yellow Urine Odor Normal Exam: General: Awake, no acute Distress, obese Eyes/N/T: EOMI, Head/Neck: neck supple, CV: irreg irreg, No murmurs, Pulm: Clear b/l, no wheezing/rhonchi/rales Abd: soft, nontender, +BS x4 Ext: no clubbing/cyanosis, 1+ b/l LE edema and LE chronic wounds/ulcers Neuro: Alert, no focal deficits, spontaneously moves all extremities, Skin: warm/dry OBJ DATA Labs CBC & Chem 7: 02/19/22 05:07 02/20/22 05:20 Labs: Abnormal Lab Results 02/20/22 02/19/22 02/19/22 05:20 05:07 05:07 WBC RBC Hgb Hct POC Hct MCHC Lymph % (Auto) Parke % (Auto) Lymph # (Auto) Parke # (Auto) Seg Neutrophils % Lymphocytes % Immature Gran # Absolute Neutrophils POC VBG pO2 POC Venous O2 Sat POC VBG Base Excess POC BUN Glucose 155 H 178 H Hemoglobin A1c 6.4 H Calcium 8.5 L 8.1 L POC WB Ioniz Calcium Direct Bilirubin AST 55 H Alkaline Phosphatase 129 H Lactate Dehydrogenase C-Reactive Protein 11.40 H Albumin 2.9 L Albumin/Globulin Ratio Procalcitonin 02/19/22 02/18/22 02/18/22 05:07 12:20 12:16 WBC RBC 3.76 L Hgb 11.2 L Hct 34.8 L POC Hct MCHC Lymph % (Auto) 12.1 L Parke % (Auto) 16.1 H Lymph # (Auto) 1.17 L Parke # (Auto) 1.55 H Seg Neutrophils % Lymphocytes % Immature Gran # Absolute Neutrophils POC VBG pO2 20 L POC Venous O2 Sat 31.0 L POC VBG Base Excess 3.0 H POC BUN Glucose 111 H Hemoglobin A1c Calcium 8.2 L POC WB Ioniz Calcium Direct Bilirubin 0.3 H AST 66 H Alkaline Phosphatase 128 H Lactate Dehydrogenase 288 H C-Reactive Protein 13.70 H Albumin 2.7 L Albumin/Globulin Ratio 0.7 L Procalcitonin 02/18/22 02/18/22 02/17/22 12:16 12:15 17:50 WBC RBC 3.84 L Hgb 10.8 L Hct 35.0 L POC Hct 39.0 L MCHC 30.9 L Lymph % (Auto) Parke % (Auto) Lymph # (Auto) Parke # (Auto) Seg Neutrophils % 79 H Lymphocytes % 8 L Immature Gran # Absolute Neutrophils POC VBG pO2 POC Venous O2 Sat POC VBG Base Excess POC BUN 22 H Glucose Hemoglobin A1c Calcium POC WB Ioniz Calcium 1.14 L Direct Bilirubin AST Alkaline Phosphatase Lactate Dehydrogenase C-Reactive Protein Albumin Albumin/Globulin Ratio Procalcitonin 0.11 H 02/17/22 17:10 WBC 12.9 H RBC 4.43 L Hgb 12.6 L Hct 39.8 L POC Hct MCHC Lymph % (Auto) 7.9 L Parke % (Auto) 12.1 H Lymph # (Auto) 1.02 L Parke # (Auto) 1.55 H Seg Neutrophils % Lymphocytes % Immature Gran # 0.07 H Absolute Neutrophils 9.82 H POC VBG pO2 POC Venous O2 Sat POC VBG Base Excess POC BUN Glucose Hemoglobin A1c Calcium POC WB Ioniz Calcium Direct Bilirubin AST Alkaline Phosphatase Lactate Dehydrogenase C-Reactive Protein Albumin Albumin/Globulin Ratio Procalcitonin Meds: Medications Acetaminophen (Acetaminophen 325 Mg Tablet) 650 mg PO Q6HP PRN; Protocol PRN Reason: Per Pain Protocol/Fever > 101 Last Admin: 02/19/22 20:11 Dose: 650 mg Acetaminophen/Codeine Phosphate (Acetaminophen W/Codeine #3 1 Tablet) 1 tab PO BIDP PRN; Protocol PRN Reason: Pain Last Admin: 02/19/22 13:38 Dose: 1 tab Albuterol/Ipratropium (Ipratropium/Albuterol 3 Ml Ampul.Neb) 3 ml NEB Q4HP PRN PRN Reason: Shortness Of Breath Last Admin: 02/19/22 22:27 Dose: 3 ml Amlodipine Besylate (Amlodipine 10 Mg Tablet) 5 mg PO DAILY FOR[facility]LY [facility], [facility] Last Admin: 02/20/22 08:31 Dose: 5 mg Azithromycin (Azithromycin 250 Mg Tablet) 500 mg PO DAILY [facility]1983 Stop: 02/20/22 12:00 Last Admin: 02/20/22 08:30 Dose: 500 mg Bisoprolol Fumarate (Bisoprolol 5 Mg Tablet) 10 mg PO DAILY [facility] Last Admin: 02/20/22 08:30 Dose: 10 mg Ceftriaxone Sodium (Ceftriaxone 1 Gm Vial) 1 gm IV Q24H [facility] Last Admin: 02/20/22 08:38 Dose: 1 gm Dextrose (Dextrose 50% 50 Ml Vial) 0 ml IV UD PRN PRN Reason: Per Sliding Scale Diagnostic Test (Pha) (Accu-Chek 1 Each Strip) 1 each FS ACHS [facility] Last Admin: 02/20/22 07:51 Dose: 1 each Docusate Sodium (Docusate Sodium 100 Mg Capsule) 100 mg PO BID [facility] Last Admin: 02/20/22 08:31 Dose: 100 mg Enoxaparin Sodium (Enoxaparin 40 Mg/0.4 Ml Syringe) 40 mg SQ DAILY [facility] Last Admin: 02/20/22 08:32 Dose: 40 mg Fluoxetine HCl (Fluoxetine Hcl 20 Mg Capsule) 20 mg PO DAILY [facility] Last Admin: 02/20/22 08:30 Dose: 20 mg Glucose (Dextrose 31 Gm Oral.Susp) 15 gm PO PRN PRN PRN Reason: Hypoglycemia Haloperidol Lactate (Haloperidol Lactate 5 Mg/Ml Vial) 2 - 5 mg IV Q4HP PRN PRN Reason: ANXIETY/SEDATION Last Admin: 02/19/22 22:22 Dose: 2 mg Potassium Chloride 40 meq/ (Dextrose) 520 mls @ 130 mls/hr IV UD PRN PRN Reason: Potassium < 3 Magnesium Sulfate (Magnesium Sulfate) 2 gm in 50 mls @ 50 mls/hr IV UD PRN PRN Reason: Magnesium </= 1.6 Insulin Human Lispro (Insulin Lispro 1 Unit/0.01 Ml Unit) 0 unit SQ ACHS [facility], [facility]; Protocol Last Admin: 02/20/22 07:52 Dose: Not Given Memantine (Memantine 10 Mg Tablet) 5 mg PO BID [facility] Last Admin: 02/20/22 08:37 Dose: 5 mg Methocarbamol (Methocarbamol 750 Mg Tablet) 750 mg PO DAILY [facility] Last Admin: 02/20/22 08:31 Dose: 750 mg Metoprolol Tartrate (Metoprolol Tartrate 5 Mg/5 Ml Vial) 5 mg IV Q2HP PRN PRN Reason: Tachyarrhythmias HR>110 Last Admin: 02/19/22 22:21 Dose: 5 mg Olanzapine (Olanzapine 5 Mg Tablet) 5 mg PO Q8HP PRN PRN Reason: Agitation Last Admin: 02/19/22 20:12 Dose: 5 mg Omeprazole (Omeprazole 20 Mg Capsule) 20 mg PO ACB [facility] Last Admin: 02/20/22 08:30 Dose: 20 mg Ondansetron HCl (Ondansetron 4 Mg/2 Ml Vial) 4 mg IV Q4HP PRN PRN Reason: Nausea And Vomiting Polyethylene Glycol (Polyethylene Glycol 3350 17 Gm Packet) 17 gm PO DAILYP PRN PRN Reason: Constipation Potassium Chloride (Potassium Chloride 20 Meq Tablet) 40 meq PO UD PRN PRN Reason: Potssium is 3-3.5 Potassium Chloride (Potassium Chloride 20 Meq Tablet) 40 meq PO UD PRN PRN Reason: Potassium < 3 Senna (Sennosides 1 Tablet) 2 tab PO DAILYP PRN PRN Reason: Constipation Sodium Chloride (0.9 % Sodium Chloride 10 Ml Syringe) 10 ml IV Q8 [facility] Last Admin: 02/20/22 05:07 Dose: 10 ml Tamsulosin HCl (Tamsulosin 0.4 Mg Capsule) 0.4 mg PO BID [facility] Last Admin: 02/20/22 08:30 Dose: 0.4 mg A/P Narrative A/P Narrative: A: *Generalized weakness/deconditioning/failure to thrive: *Encephalopathy, acute on chronic, underlying Dementia: 2/2 above *Dementia: *CAP, likely Aspiration: *?Sepsis: *Acute hypoxic respiratory failure: transient in ED, on room air *Afib, suspect chronic vs paroxysmal (new diagnosis) w/RVR: -CHADSVASC=5-6 *COPD(not on home O2): *h/o diastlic CHF: *Pre-Diabetes: a1c 6.4 *HTN: *CKD II: *Anemia, chronic: *LE wounds/uclers *Obesity: BMI 34 P: -Antibiotics -IS/Acapella, home IH's and prn nebs, RT -Wound care -echo pending -will initiate anticoagulation for now and defer further decision making to f/u with between pt/famly and PCP -cont BB/norvasc -cont home lasix -SSI, hold home basal for now and f/u accuchecks (minimal coverage needed w/o home lantus) -PT/OT -ST eval, dysphagia diet -CM for placement -ppx: Lovenox DNR Time Spent With Patient Time: Total time spent is greater than 50% in coordination of care (as documented) at patient's floor/unit and/or counseling patient: Total time spent with greater than 50% in coordination of care (as documented) at patient's floor/unit and/or counseling patient:: 25 - 35 minutes
[2022-02-20] MEDS: FUROSEMIDE 20 MG TABLET PO SCH (10:06)
[2022-02-20] MEDS: IPRATROPIUM/ALBUTEROL 3 ML AMPUL.NEB NEB PRN ×2 (10:38→22:53)
--- NOTE | 2022-02-20 11:02 | Discharge Summary ---
Discharge Provider Provider IMPORTANT FOLLOW-UP INFORMATION FOR PCP: Patient information: Note initiated : 02/20/22 at 11:00 am Service Date, if different from initiated Date: [] Patient: Edmond Salas a 86 y/o M admitted on 02/18/22 for Eval for assisted living. Chief Complaint: [] Date of admission: 02/18/22 13:16 Primary care physician: Tessa Gayle Consults: 02/18/22 Consult to Physician [CONS] Stat Comment: Consulting Provider: Ferny Ibarra Reason For Exam: Physician to Consult Consult to Physician [CONS] Stat Comment: Consulting Provider: Ferny Ibarra Reason For Exam: Physician to Consult COURSE Hospital Course Hospital course: History of present illness: Mr. Salas is a 86 year old M Presents the ED with worsening confusion on top of dementia and weakness. Recently treated for UTI but the urine looks clear here. Original plan was for home with hospice out of the ED. But it sounds like the family was not comfortable with patient being home felt to be unsafe conditions and they have been try to get APS involved. Further work-up in the ED today they got a chest x-ray which showed infiltrate on left side and mild right. Was noted to have some transient mild hypoxia, unknown baseline but has copd. Sounds like after further discussion with family hospice does not think finally decided on and is reported that they would prefer treatment for anything if possible first. Patient reports a chronic cough and some shortness of breath but at baseline. Patient is a poor historian most history obtained from the chart. Medical history includes dementia COPD hypertension chronic anemia and diastolic heart failure grade 1 with good ejection fraction on an echo in 2019. 02/19 Patient sleeping. Likely result from Haldol last night. Haldol was given for sundowning and severe agitation and pulling at lines. Nurse also reports that she feels he is aspirating with liquids. We will place on dysphagia diet order speech therapy evaluation. Likely is infiltrates on chest x-ray from aspiration. 02/20 Patient sitting up in bed eating breakfast. Did get some Zyprexa last night for agitation. No new complaints this morning. Try to talk with him about his atrial fibrillation but given his dementia patient does not seem to comprehend. A: *Generalized weakness/deconditioning/failure to thrive: *Encephalopathy, acute on chronic, underlying Dementia: 2/2 above *Dementia: *CAP, likely Aspiration: *?Sepsis: *Acute hypoxic respiratory failure: transient in ED, on room air *Afib, suspect chronic vs paroxysmal (new diagnosis) w/RVR: -CHADSVASC=5-6 *COPD(not on home O2): *h/o diastlic CHF: *Pre-Diabetes: a1c 6.4 *HTN: *CKD II: *Anemia, chronic: *LE wounds/uclers *Obesity: BMI 34 P: -Antibiotics -echo pending -will initiate anticoagulation for now and defer further decision making to f/u with between pt/famly and PCP -ST contreras, dysphagia diet Discharge diagnosis: Generalized weakness deconditioning failure to thrive Secondary discharge diagnosis: Encephalopathy acute on chronic dementia aspiration pneumonia possible sepsis atrial fibrillation COPD diastolic heart failure prediabetes hypertension chronic kidney disease chronic anemia lower extremity wounds obesity Time Spent with Patient Time attestation: Total time spent providing and/or coordinating discharge services: Time spent: Greater than 30 minutes EXAM Constitutional Vitals: Temp Pulse Resp BP Pulse Ox O2 Del Method 97.8 F 105 H 20 127/65 94 02/20/22 07:43 02/20/22 07:43 02/20/22 07:43 02/20/22 07:43 02/20/22 07:43 02/20/22 07:43 Discharge Data Data Completed and Pending Labs on day of discharge: Labs from last 24 hours 02/20/22 05:20 Sodium 139 Potassium 4.3 Chloride 102 Carbon Dioxide 25 Anion Gap 12.0 BUN 22 Creatinine 1.0 GFR Calculation 67 Glucose 155 H Calcium 8.5 L C-Reactive Protein 11.40 H Discharge Plan Patient/Caregiver Discharge Instructions Activity: increase activity as tolerated Diet: Consistent Carbohydrate Instructions: Weakness (ED) Activity Restrictions/Additional Instructions: 1.The examination and treatment you have received in the emergency department was on an emergency basis only. Care in the emergency department does not take the place of regular medical care with a primary care provider. 2.Please contact your primary care provider for further follow up instructions. 3.Return to the emergency department immediately if you become worse, if you develop any new symptoms, or if any problems occur. 4.Call if questions. 5. Hospice should meet with you tomorrow to get him admitted into the hospice program. If anything changes or worsens you know is return to the emergency department Prescriptions: New Eliquis 5 mg Tablet 5 mg PO BID Qty: 60 0RF Continued methocarbamol [Robaxin-750] 750 MG tablet 750 mg PO DAILY amlodipine 10 MG tablet 5 mg PO DAILY fluoxetine [Sarafem] 20 MG tablet 20 mg PO TID pravastatin [Pravachol] 20 MG tablet 40 mg PO DAILY furosemide [Lasix] 20 MG tablet 40 mg PO DAILY Super B Complex + C 150 MG tablet 150 mg PO WEEKLY Combivent Respimat 1 PUFF mist 2 puff INH TIDP PRN (Reason: Shortness Of Breath) Century Mature 1 EACH tablet 1 ea PO DAILY acetaminophen-codeine 1 TAB tablet 1 tab PO BID PRN (Reason: Pain) tiotropium bromide 18 MCG capsule, w/inhalation device 18 mcg INH BID budesonide-formoterol 10.2 GM HFA aerosol inhaler 2 puff IH BID Vitamin D3 400 UNIT tablet 400 unit PO WEEKLY tamsulosin 0.4 mg Capsule 0.4 mg PO BID memantine [Namenda] 5 mg Tablet 5 mg PO BID omeprazole 20 mg Tablet,Delayed Release (Dr/Ec) 20 mg PO QDAY duloxetine 20 mg Capsule, Delayed Rel Sprinkle 20 mg PO BID bisoprolol fumarate 10 mg Tablet 10 mg PO DAILY Discontinued losartan [Cozaar] 100 MG tablet 100 mg PO DAILY cephalexin 500 mg capsule 1 cap PO Q6 No Action insulin glargine [Lantus U-100 Insulin] 100 unit/mL Solution 60 unit SUBCUT QPM Follow Up Plan Follow up with: Tessa Gayle ARNP [Primary Care Provider] - Patient Disposition: Xfer SNF Prognosis: Undetermined Rehab Potential: Fair I certify that the patient requires SNF services: Yes Overall status at discharge: patient is progressing back to baseline
[2022-02-20] MEDS: APIXABAN 5 MG TABLET PO SCH (20:06)
[2022-02-21] MEDS: HALOPERIDOL LACTATE 5 MG/ML VIAL IV PRN (00:16)
[2022-02-21] MEDS: 0.9 % SODIUM CHLORIDE 10 ML SYRINGE IV SCH ×3 (05:08→21:52)
--- NOTE | 2022-02-21 07:04 | EKG ---
[facility] Test Date: 2022-02-19 Pat Name: Edmond Salas Department: MED[facility] Room: 125 Gender: Male [employer]: : 1935 Requested By: Ferny Ibarra Order Number: [id number] Reading MD: Hima Hanson M.D. Measurements Intervals [place] Rate: 121 P: OK: QRS: 50 QRSD: 104 T: 13 QT: 332 QTc: 471 Interpretive Statements Atrial fibrillation with RVR Ventricular premature complex Possible Inferior infarct, old Electronically Signed On 02-21-2022 7:04:34 PDT by Hima Hanson M.D. /[id number]
[2022-02-21] MEDS: INSULIN LISPRO 1 UNIT/0.01 ML UNIT SQ SCH ×4 (07:34→21:53)
--- NOTE | 2022-02-21 07:39 | Internal Med Progress Note ---
SUBJECTIVE Subjective Patient information: Note initiated : 02/21/22 at 7:36 am Service Date, if different from initiated Date: [] Patient: Edmond Salas 86 y/o M admitted on 02/18/22 for Eval for assisted living. Chief Complaint: [] Interval history: History of present illness: Mr. Salas is a 86 year old M Presents the ED with worsening confusion on top of dementia and weakness. Recently treated for UTI but the urine looks clear here. Original plan was for home with hospice out of the ED. But it sounds like the family was not comfortable with patient being home felt to be unsafe conditions and they have been try to get APS involved. Further work-up in the ED today they got a chest x-ray which showed infiltrate on left side and mild right. Was noted to have some transient mild hypoxia, unknown baseline but has copd. Sounds like after further discussion with family hospice does not think finally decided on and is reported that they would prefer treatment for anything if possible first. Patient reports a chronic cough and some shortness of breath but at baseline. Patient is a poor historian most history obtained from the chart. Medical history includes dementia COPD hypertension chronic anemia and diastolic heart failure grade 1 with good ejection fraction on an echo in 2019. 02/19 Patient sleeping. Likely result from Haldol last night. Haldol was given for sundowning and severe agitation and pulling at lines. Nurse also reports that she feels he is aspirating with liquids. We will place on dysphagia diet order speech therapy evaluation. Likely is infiltrates on chest x-ray from aspiration. 02/20 Patient sitting up in bed eating breakfast. Did get some Zyprexa last night for agitation. No new complaints this morning. Try to talk with him about his atrial fibrillation but given his dementia patient does not seem to comprehend. 02/21 Patient sitting up in bed eating breakfast. More talkative today. No overnight event or new complaints. Did not require any Zyprexa last night. Review of Systems: denies headache/fever/chills/nausea/vomiting/chest or abdominal pain/cough/dyspnea/diarrhea. Otherwise see above. Constitutional Vitals: Vital Signs Temp Pulse Resp BP Pulse Ox O2 Del Method 100 F H 95 H 15 132/111 96 02/21/22 03:55 02/21/22 03:55 02/21/22 03:55 02/21/22 03:55 02/21/22 03:55 02/21/22 03:55 Period Temp Pulse Resp BP Sys/Meza Pulse Ox O2 Del Method O2 Flow Rate Last 24 Hr 97.6 F-100 F 95-108 15- 105-132/55-111 92-96 Room Air-Room Air Intake and Output 02/20/22 02/21/22 02/21/22 21:59 05:59 13:59 Intake Total 550 Output Total 250 650 Balance -250 -100 Weight 124.103 kg Intake & Output: Intake & Output 02/20/22 02/21/22 02/21/22 21:59 05:59 13:59 Intake Total 550 Output Total 250 650 Balance -250 -100 Weight 124.103 kg Intake: GI Tube Flush 550 Output: Urine Catheter Amount 650 Void Amount 250 Other: Meal Dinner Percent of Meal Consumed 100% Feeding Ability Assist with Tray Set Up Urine Appearance Clear Clear Urine Color Yellow Yellow Urine Odor Normal Exam: General: Awake, no acute Distress, obese Eyes/N/T: EOMI, Head/Neck: neck supple, CV: irreg irreg, No murmurs, Pulm: Clear b/l, no wheezing/rhonchi/rales Abd: soft, nontender, +BS x4 Ext: no clubbing/cyanosis, 1-2+ b/l LE edema and LE chronic wounds/ulcers Neuro: Alert, no focal deficits, spontaneously moves all extremities, Skin: warm/dry OBJ DATA Labs CBC & Chem 7: 02/19/22 05:07 02/20/22 05:20 Labs: Abnormal Lab Results 02/20/22 02/19/22 02/19/22 05:20 05:07 05:07 RBC Hgb Hct MCHC Lymph % (Auto) Trinity % (Auto) Lymph # (Auto) Trinity # (Auto) Seg Neutrophils % Lymphocytes % POC VBG pO2 POC Venous O2 Sat POC VBG Base Excess Glucose 155 H 178 H Hemoglobin A1c 6.4 H Calcium 8.5 L 8.1 L Direct Bilirubin AST 55 H Alkaline Phosphatase 129 H Lactate Dehydrogenase C-Reactive Protein 11.40 H Albumin 2.9 L Albumin/Globulin Ratio Procalcitonin 02/19/22 02/18/22 02/18/22 05:07 12:20 12:16 RBC 3.76 L Hgb 11.2 L Hct 34.8 L MCHC Lymph % (Auto) 12.1 L Trinity % (Auto) 16.1 H Lymph # (Auto) 1.17 L Trinity # (Auto) 1.55 H Seg Neutrophils % Lymphocytes % POC VBG pO2 20 L POC Venous O2 Sat 31.0 L POC VBG Base Excess 3.0 H Glucose 111 H Hemoglobin A1c Calcium 8.2 L Direct Bilirubin 0.3 H AST 66 H Alkaline Phosphatase 128 H Lactate Dehydrogenase 288 H C-Reactive Protein 13.70 H Albumin 2.7 L Albumin/Globulin Ratio 0.7 L Procalcitonin 02/18/22 02/18/22 12:16 12:15 RBC 3.84 L Hgb 10.8 L Hct 35.0 L MCHC 30.9 L Lymph % (Auto) Trinity % (Auto) Lymph # (Auto) Trinity # (Auto) Seg Neutrophils % 79 H Lymphocytes % 8 L POC VBG pO2 POC Venous O2 Sat POC VBG Base Excess Glucose Hemoglobin A1c Calcium Direct Bilirubin AST Alkaline Phosphatase Lactate Dehydrogenase C-Reactive Protein Albumin Albumin/Globulin Ratio Procalcitonin 0.11 H Meds: Medications Acetaminophen (Acetaminophen 325 Mg Tablet) 650 mg PO Q6HP PRN; Protocol PRN Reason: Per Pain Protocol/Fever > 101 Last Admin: 02/19/22 20:11 Dose: 650 mg Acetaminophen/Codeine Phosphate (Acetaminophen W/Codeine #3 1 Tablet) 1 tab PO BIDP PRN; Protocol PRN Reason: Pain Last Admin: 02/19/22 13:38 Dose: 1 tab Albuterol/Ipratropium (Ipratropium/Albuterol 3 Ml Ampul.Neb) 3 ml NEB Q4HP PRN PRN Reason: Shortness Of Breath Last Admin: 02/20/22 22:53 Dose: 3 ml Amlodipine Besylate (Amlodipine 10 Mg Tablet) 5 mg PO DAILY [facility] Last Admin: 02/20/22 08:31 Dose: 5 mg Apixaban (Apixaban 5 Mg Tablet) 5 mg PO BID [facility] Last Admin: 02/20/22 20:06 Dose: 5 mg Bisoprolol Fumarate (Bisoprolol 5 Mg Tablet) 10 mg PO DAILY [facility] Last Admin: 02/20/22 08:30 Dose: 10 mg Ceftriaxone Sodium (Ceftriaxone 1 Gm Vial) 1 gm IV Q24H [facility] Last Admin: 02/20/22 08:38 Dose: 1 gm Dextrose (Dextrose 50% 50 Ml Vial) 0 ml IV UD PRN PRN Reason: Per Sliding Scale Diagnostic Test (Pha) (Accu-Chek 1 Each Strip) 1 each FS ACHS [facility] Last Admin: 02/21/22 07:29 Dose: 1 each Docusate Sodium (Docusate Sodium 100 Mg Capsule) 100 mg PO BID [facility] Last Admin: 02/20/22 20:06 Dose: 100 mg Fluoxetine HCl (Fluoxetine Hcl 20 Mg Capsule) 20 mg PO DAILY [facility] Last Admin: 02/20/22 08:30 Dose: 20 mg Furosemide (Furosemide 20 Mg Tablet) 40 mg PO DAILY [facility] Last Admin: 02/20/22 10:06 Dose: 40 mg Glucose (Dextrose 31 Gm Oral.Susp) 15 gm PO PRN PRN PRN Reason: Hypoglycemia Haloperidol Lactate (Haloperidol Lactate 5 Mg/Ml Vial) 2 - 5 mg IV Q4HP PRN PRN Reason: ANXIETY/SEDATION Last Admin: 02/21/22 00:16 Dose: 2 mg Potassium Chloride 40 meq/ (Dextrose) 520 mls @ 130 mls/hr IV UD PRN PRN Reason: Potassium < 3 Magnesium Sulfate (Magnesium Sulfate) 2 gm in 50 mls @ 50 mls/hr IV UD PRN PRN Reason: Magnesium </= 1.6 Insulin Human Lispro (Insulin Lispro 1 Unit/0.01 Ml Unit) 0 unit SQ ACHS [facility]; Protocol Last Admin: 02/21/22 07:34 Dose: 2 units Memantine (Memantine 10 Mg Tablet) 5 mg PO BID [facility] Last Admin: 02/20/22 20:06 Dose: 5 mg Methocarbamol (Methocarbamol 750 Mg Tablet) 750 mg PO DAILY [facility] Last Admin: 02/20/22 08:31 Dose: 750 mg Metoprolol Tartrate (Metoprolol Tartrate 5 Mg/5 Ml Vial) 5 mg IV Q2HP PRN PRN Reason: Tachyarrhythmias HR>110 Last Admin: 02/19/22 22:21 Dose: 5 mg Olanzapine (Olanzapine 5 Mg Tablet) 5 mg PO Q8HP PRN PRN Reason: Agitation Last Admin: 02/19/22 20:12 Dose: 5 mg Omeprazole (Omeprazole 20 Mg Capsule) 20 mg PO ACB [facility] Last Admin: 02/20/22 08:30 Dose: 20 mg Ondansetron HCl (Ondansetron 4 Mg/2 Ml Vial) 4 mg IV Q4HP PRN PRN Reason: Nausea And Vomiting Polyethylene Glycol (Polyethylene Glycol 3350 17 Gm Packet) 17 gm PO DAILYP PRN PRN Reason: Constipation Potassium Chloride (Potassium Chloride 20 Meq Tablet) 40 meq PO UD PRN PRN Reason: Potssium is 3-3.5 Potassium Chloride (Potassium Chloride 20 Meq Tablet) 40 meq PO UD PRN PRN Reason: Potassium < 3 Senna (Sennosides 1 Tablet) 2 tab PO DAILYP PRN PRN Reason: Constipation Sodium Chloride (0.9 % Sodium Chloride 10 Ml Syringe) 10 ml IV Q8 [facility] Last Admin: 02/21/22 05:08 Dose: 10 ml Tamsulosin HCl (Tamsulosin 0.4 Mg Capsule) 0.4 mg PO BID [facility] Last Admin: 02/20/22 20:07 Dose: 0.4 mg A/P Narrative A/P Narrative: A: *Generalized weakness/deconditioning/failure to thrive: *Encephalopathy, acute on chronic, underlying Dementia: 2/2 above *Dementia: *CAP, likely Aspiration: *?Sepsis: *Acute hypoxic respiratory failure: transient in ED, on room air *Afib, suspect chronic vs paroxysmal (new diagnosis) w/RVR: -CHADSVASC=5-6 *COPD(not on home O2): *h/o diastlic CHF: *Pre-Diabetes: a1c 6.4 *HTN: *CKD II: *Anemia, chronic: *LE wounds/uclers *Obesity: BMI 34 P: -Antibiotics -IS/Acapella, home IH's and prn nebs, RT -Wound care -echo pending -will initiate anticoagulation for now and defer further decision making to f/u with between pt/famly and PCP -cont BB/norvasc -cont home lasix -SSI, restart home basal at lower dose -PT/OT -ST eval, dysphagia diet -CM for placement -ppx: Lovenox DNR Time Spent With Patient Time: Total time spent is greater than 50% in coordination of care (as documented) at patient's floor/unit and/or counseling patient: Total time spent with greater than 50% in coordination of care (as documented) at patient's floor/unit and/or counseling patient:: 25 - 35 minutes
[2022-02-21] MEDS: METHOCARBAMOL 750 MG TABLET PO SCH (09:02)
[2022-02-21] MEDS: TAMSULOSIN 0.4 MG CAPSULE PO SCH ×2 (09:02→22:11)
[2022-02-21] MEDS: BISOPROLOL 5 MG TABLET PO SCH (09:02)
[2022-02-21] MEDS: DOCUSATE SODIUM 100 MG CAPSULE PO SCH ×3 (09:02→22:02)
[2022-02-21] MEDS: OMEPRAZOLE 20 MG CAPSULE PO SCH (09:02)
[2022-02-21] MEDS: APIXABAN 5 MG TABLET PO SCH ×2 (09:02→22:02)
[2022-02-21] MEDS: MEMANTINE 10 MG TABLET PO SCH ×2 (09:02→22:02)
[2022-02-21] MEDS: FLUoxetine HCL 20 MG CAPSULE PO SCH (09:02)
[2022-02-21] MEDS: amLODIPine 10 MG TABLET PO SCH (09:04)
[2022-02-21] MEDS: FUROSEMIDE 20 MG TABLET PO SCH (09:05)
[2022-02-21] MEDS: cefTRIAXone 1 GM VIAL IV SCH (09:46)
[2022-02-21] MEDS ORDERED: QUEtiapine 25 MG TABLET PO SCH ×2 (15:30→21:00)
--- NOTE | 2022-02-21 17:49 | General Surgery Consult Note ---
HPI Date of Consult Consult Date: 02/21/22 Requesting physician: Ferny Ibarra Primary Care Provider: Tessa Gayle Consult Narrative Patient Information: Note initiated : 02/21/22 at 5:49 pm Service Date, if different from initiated Date: [] Patient: Edmond Salas 86 y/o M admitted on 02/18/22 for Weakness/Eval for assisted living. Chief Complaint: [] Reason for consult: Evaluation for posterior buttock and sacral skin wounds. cc:: 86/M I saw this gentleman along with nursing staff in room 125. Examined wounds. Reviewed admission HP and subsequent progress notes: CC: Ferny Ibarra PFSH PFSH All Active Problems Weakness (Acute) Social History smoking status: Never smoker MEDS/ALLERGIES Home Medications and Allergies Home Medications Medication Instructions Recorded Confirmed Type amlodipine 10 mg tablet 5 mg PO DAILY 06/23/17 02/18/22 History fluoxetine 20 mg tablet (Sarafem) 20 mg PO TID 06/23/17 02/18/22 History furosemide 20 mg tablet (Lasix) 40 mg PO DAILY 06/23/17 02/18/22 History ipratropium 20 mcg-albuterol 100 2 puff INH TIDP PRN Shortness Of 06/23/17 02/18/22 History mcg/actuation mist for inhalation Breath (Combivent Respimat) methocarbamol 750 mg tablet 750 mg PO DAILY 06/23/17 02/18/22 History (Robaxin-750) multivit,Ca,min-folic acid 400 1 ea PO DAILY 06/23/17 02/18/22 History mcg-vit K 30 [id number]-[id number] tablet ([employer]) pravastatin 20 mg tablet 40 mg PO DAILY 06/23/17 02/18/22 History (Pravachol) vitamin B comp with C no.4 150 mg 150 mg PO WEEKLY 06/23/17 02/18/22 History tablet (Super B Complex + C) Vitamin D3 400 unit PO WEEKLY 03/07/19 02/18/22 History acetaminophen 300 mg-codeine 30 mg 1 tab PO BID PRN Pain 03/07/19 02/18/22 History tablet budesonide-formoterol HFA 80 2 puff IH BID 03/07/19 03/07/19 History mcg-4.5 mcg/actuation aerosol inhaler tiotropium bromide 18 mcg capsule 18 mcg INH BID 03/07/19 03/07/19 History with inhalation device bisoprolol fumarate 10 mg tablet 10 mg PO DAILY 02/18/22 02/18/22 History duloxetine 20 mg capsule,delayed 20 mg PO BID 02/18/22 02/18/22 History release sprinkle insulin glargine 100 unit/mL 60 unit subcut QPM 02/18/22 02/18/22 History subcutaneous solution (Lantus U-100 Insulin) memantine 5 mg tablet (Namenda) 5 mg PO BID 02/18/22 02/18/22 History omeprazole 20 mg tablet,delayed 20 mg PO QDAY 02/18/22 02/18/22 History release tamsulosin 0.4 mg capsule 0.4 mg PO BID 02/18/22 02/18/22 History apixaban 5 mg tablet (Eliquis) 5 mg PO BID #60 tabs 02/20/22 Rx Allergies Allergy/AdvReac Type Severity Reaction Status Date / Time Penicillins Allergy Severe Anaphylaxis Verified 02/17/22 16:38 morphine AdvReac Mild Vomiting Verified 02/18/22 13:42 Physical Examination Vital Signs Vital signs: Temp Pulse Resp BP Pulse Ox O2 Del Method 98.8 F 93 H 22 111/79 95 02/21/22 16:00 02/21/22 16:00 02/21/22 11:43 02/21/22 16:00 02/21/22 16:00 02/21/22 16:00 General physical appearance General physical exam: well developed, well nourished, no distress and no pain Eyes Eye exam: PERRL ENT ENT exam: normal pinna, normal nares and no congestion Head Head exam IM: Present atraumatic and normocephalic Neck Neck exam: no masses and no venous distension Cardiovascular Cardiovascular exam IM: Present normal rate and rhythm Respiratory Respiratory exam: normal respiratory effort and clear to auscultation Abdomen Abdomen: Present soft, non tender and bowel sounds Genitourinary Genitourinary (Male): Present normal penis with no external lesions and other (Willis catheter, Clear urine.) Integumentary Integumentary: Present other (Moisture associated stage 1 dermatitis / epidermal ulcers both posterior buttocks scrotal skin) Neurologic Neurologic: Present confused and other (Heavy set, deconditioning, moves all limbs. ) Psychiatric Psychiatric: Present other (Responds to simple questions. Wants to be left alone.) Results Labs Result diagrams: 02/19/22 05:07 02/20/22 05:20 Labs: All other labs normal. A/P Narrative A/P Narrative: assessment: Multiple comorbidities optimally managed. Patient's family want all treatment given to him. Awaits placement ?? Plan of Treatment: Plan: Agree with current skin care, Off loading TAPS (Turn and position schedule) Clean with Chlorhexidine or Hibiclens buttocks, genitalia and perineal skin daily and PRN Antifungal powder on bedsheets Antifungal creme to skin of affected sites BID Will reassess with wound care nurse in AM Time Spent With Patient Time: Total time spent is greater than 50% in coordination of care (as documented) at patient's floor/unit and/or counseling patient: Total time spent with greater than 50% in coordination of care (as documented) at patient's floor/unit and/or counseling patient:: 25 - 35 minutes
[2022-02-21] MEDS: INSULIN GLARGINE, HUMAN 1 UNIT/0.01 ML SQ SCH (22:10)
[2022-02-21] MEDS: QUEtiapine 25 MG TABLET PO SCH (22:38)
[2022-02-21] MEDS: ACETAMINOPHEN 325 MG TABLET PO PRN (22:42)
[2022-02-22] MEDS: 0.9 % SODIUM CHLORIDE 10 ML SYRINGE IV SCH ×3 (05:12→21:53)
--- NOTE | 2022-02-22 07:39 | Internal Med Progress Note ---
SUBJECTIVE Subjective Patient information: Note initiated : 02/22/22 at 7:38 am Service Date, if different from initiated Date: [] Patient: Edmond Salas 86 y/o M admitted on 02/18/22 for Weakness/Eval for assisted living. Chief Complaint: [] Interval history: History of present illness: Mr. Salas is a 86 year old M Presents the ED with worsening confusion on top of dementia and weakness. Recently treated for UTI but the urine looks clear here. Original plan was for home with hospice out of the ED. But it sounds like the family was not comf ortable with patient being home felt to be unsafe conditions and they have been try to get APS involved. Further work-up in the ED today they got a chest x-ray which showed infiltrate on left side and mild right. Was noted to have some transient mild hypoxia, unknown baseline but has copd. Sounds like after further discussion with family hospice does not think finally decided on and is reported that they would prefer treatment for anything if possible first. Patient reports a chronic cough and some shortness of breath but at baseline. Patient is a poor historian most history obtained from the chart. Medical history includes dementia COPD hypertension chronic anemia and diastolic heart failure grade 1 with good ejection fraction on an echo in 2019. 02/19 Patient sleeping. Likely result from Haldol last night. Haldol was given for and severe agitation and pulling at lines. Nurse also reports that she feels he is aspirating with liquids. We will place on dysphagia diet order speech therapy evaluation. Likely is infiltrates on chest x-ray from aspiration. 02/20 Patient sitting up in bed eating breakfast. Did get some Zyprexa last night for agitation. No new complaints this morning. Try to talk with him about his atrial fibrillation but given his dementia patien t does not seem to comprehend. 02/21 Patient sitting up in bed eating breakfast. More talkative today. No overnight event or new complaints. Did not require any Zyprexa last night. 02/22 Patient sleeping. Calm overnight. Started Seroquel yesterday evening seem to respond well to it. Review of Systems: denies headache/fever/chills/nausea/vomiting/chest or abdominal pain/cough/dyspnea/diarrhea. Otherwise see above. Constitutional Vitals: Vital Signs Temp Pulse Resp BP Pulse Ox O2 Del Method 97.6 F 97 H 16 98/60 92 02/22/22 03:21 02/22/22 03:21 02/22/22 03:21 02/22/22 03:21 02/22/22 03:21 02/22/22 03:21 Period Temp Pulse Resp BP Sys/Meza Pulse Ox O2 Del Method O2 Flow Rate Last 24 Hr 97.6 F-98.8 F 88-104 16- 98-121/58-79 92-96 Room Air-Room Air Intake and Output 02/21/22 02/22/22 02/22/22 21:59 05:59 13:59 Intake Total 20 Output Total 600 375 Balance -600 -355 Weight 127.414 kg Intake & Output: Intake & Output 02/21/22 02/22/22 02/22/22 21:59 05:59 13:59 Intake Total 20 Output Total 600 375 Balance -600 -355 Weight 127.414 kg Intake: Oral 20 Output: Urine Catheter Amount 600 375 Other: Urine Appearance Clear Cloudy Sediment Willis Clear Urine Color Yellow Light Joan Willis Dark Yellow Urine Odor Willis Normal Exam: General: Sleeping, no acute Distress, obese Eyes/N/T: EOMI, Head/Neck: neck supple, CV: irreg irreg, No murmurs, Pulm: Clear b/l, no wheezing/rhonchi/rales Abd: soft, nontender, +BS x4 Ext: no clubbing/cyanosis, 1+ b/l LE edema and LE chronic wounds/ulcers Neuro: Sleeping, no focal deficits, spontaneously moves all extremities, Skin: warm/dry OBJ DATA Labs CBC & Chem 7: 02/19/22 05:07 02/20/22 05:20 Labs: Abnormal Lab Results 02/20/22 02/19/22 05:20 05:07 Glucose 155 H Hemoglobin A1c 6.4 H Calcium 8.5 L C-Reactive Protein 11.40 H Meds: Medications Acetaminophen (Acetaminophen 325 Mg Tablet) 650 mg PO Q6HP PRN; Protocol PRN Reason: Per Pain Protocol/Fever > 101 Last Admin: 02/21/22 22:42 Dose: 650 mg Acetaminophen/Codeine Phosphate (Acetaminophen W/Codeine #3 1 Tablet) 1 tab PO BIDP PRN; Protocol PRN Reason: Pain Last Admin: 02/19/22 13:38 Dose: 1 tab Albuterol/Ipratropium (Ipratropium/Albuterol 3 Ml Ampul.Neb) 3 ml NEB Q4HP PRN PRN Reason: Shortness Of Breath Last Admin: 02/20/22 22:53 Dose: 3 ml Amlodipine Besylate (Amlodipine 10 Mg Tablet) 5 mg PO DAILY [facility] Last Admin: 02/21/22 09:04 Dose: Not Given Apixaban (Apixaban 5 Mg Tablet) 5 mg PO BID [facility] Last Admin: 02/21/22 22:02 Dose: 5 mg Bisoprolol Fumarate (Bisoprolol 5 Mg Tablet) 10 mg PO DAILY [facility] Last Admin: 02/21/22 09:02 Dose: 10 mg Ceftriaxone Sodium (Ceftriaxone 1 Gm Vial) 1 gm IV Q24H [facility] Last Admin: 02/21/22 09:46 Dose: 1 gm Dextrose (Dextrose 50% 50 Ml Vial) 0 ml IV UD PRN PRN Reason: Per Sliding Scale Diagnostic Test (Pha) (Accu-Chek 1 Each Strip) 1 each FS ACHS [facility] Last Admin: 02/21/22 21:53 Dose: 1 each Docusate Sodium (Docusate Sodium 100 Mg Capsule) 100 mg PO BID [facility] Last Admin: 02/21/22 22:02 Dose: 100 mg Fluoxetine HCl (Fluoxetine Hcl 20 Mg Capsule) 20 mg PO DAILY [facility] Last Admin: 02/21/22 09:02 Dose: 20 mg Furosemide (Furosemide 20 Mg Tablet) 40 mg PO DAILY [facility] Last Admin: 02/21/22 09:05 Dose: Not Given Glucose (Dextrose 31 Gm Oral.Susp) 15 gm PO PRN PRN PRN Reason: Hypoglycemia Potassium Chloride 40 meq/ (Dextrose) 520 mls @ 130 mls/hr IV UD PRN PRN Reason: Potassium < 3 Magnesium Sulfate (Magnesium Sulfate) 2 gm in 50 mls @ 50 mls/hr IV UD PRN PRN Reason: Magnesium </= 1.6 Insulin Glargine (Insulin Glargine, Human 1 Unit/0.01 Ml) 10 unit SQ QPM [facility] Last Admin: 02/21/22 22:10 Dose: 10 units Insulin Human Lispro (Insulin Lispro 1 Unit/0.01 Ml Unit) 0 unit SQ ACHS [facility]; Protocol Last Admin: 02/21/22 21:53 Dose: 4 units Memantine (Memantine 10 Mg Tablet) 5 mg PO BID [facility] Last Admin: 02/21/22 22:02 Dose: 5 mg Methocarbamol (Methocarbamol 750 Mg Tablet) 750 mg PO DAILY [facility] Last Admin: 02/21/22 09:02 Dose: 750 mg Metoprolol Tartrate (Metoprolol Tartrate 5 Mg/5 Ml Vial) 5 mg IV Q2HP PRN PRN Reason: Tachyarrhythmias HR>110 Last Admin: 02/19/22 22:21 Dose: 5 mg Omeprazole (Omeprazole 20 Mg Capsule) 20 mg PO ACB [facility] Last Admin: 02/21/22 09:02 Dose: 20 mg Ondansetron HCl (Ondansetron 4 Mg/2 Ml Vial) 4 mg IV Q4HP PRN PRN Reason: Nausea And Vomiting Polyethylene Glycol (Polyethylene Glycol 3350 17 Gm Packet) 17 gm PO DAILYP PRN PRN Reason: Constipation Potassium Chloride (Potassium Chloride 20 Meq Tablet) 40 meq PO UD PRN PRN Reason: Potssium is 3-3.5 Potassium Chloride (Potassium Chloride 20 Meq Tablet) 40 meq PO UD PRN PRN Reason: Potassium < 3 Quetiapine Fumarate (Quetiapine 25 Mg Tablet) 25 mg PO HS [facility] Last Admin: 02/21/22 22:38 Dose: 25 mg Senna (Sennosides 1 Tablet) 2 tab PO DAILYP PRN PRN Reason: Constipation Sodium Chloride (0.9 % Sodium Chloride 10 Ml Syringe) 10 ml IV Q8 [facility] Last Admin: 02/22/22 05:12 Dose: 10 ml Tamsulosin HCl (Tamsulosin 0.4 Mg Capsule) 0.4 mg PO BID [facility] Last Admin: 02/21/22 22:11 Dose: 0.4 mg A/P Narrative A/P Narrative: A: *Generalized weakness/deconditioning/failure to thrive: *Encephalopathy, acute on chronic, underlying Dementia: 2/2 above *Dementia with sundowning: *CAP, likely Aspiration: *Oropharyngeal Dysphagia, Mod: *?Sepsis: *Acute hypoxic respiratory failure: transient in ED, on room air *Afib, suspect chronic vs paroxysmal (new diagnosis) w/RVR: -CHADSVASC=5-6 -echo with good EF *COPD(not on home O2): *h/o diastlic CHF: *Pre-Diabetes: a1c 6.4 *HTN: *CKD II: *Anemia, chronic: *LE wounds/uclers *Obesity: BMI 34 P: -Antibiotics -IS/Acapella, home IH's and prn nebs, RT -Wound care -seroquel qhs -will initiate anticoagulation for now and defer further decision making to f/u between family and PCP, pt unable to participate in his own medical decision making -cont BB/norvasc -cont home lasix -SSI, restart home basal at lower dose -PT/OT -ST eval, dysphagia diet -CM for placement -ppx: Lovenox DNR Time Spent With Patient Time: Total time spent is greater than 50% in coordination of care (as documented) at patient's floor/unit and/or counseling patient: Total time spent with greater than 50% in coordination of care (as documented) at patient's floor/unit and/or counseling patient:: 25 - 35 minutes
[2022-02-22] MEDS: INSULIN LISPRO 1 UNIT/0.01 ML UNIT SQ SCH ×4 (08:42→21:53)
[2022-02-22] MEDS: cefTRIAXone 1 GM VIAL IV SCH (08:42)
[2022-02-22] MEDS: MEMANTINE 10 MG TABLET PO SCH ×2 (08:43→21:53)
[2022-02-22] MEDS: BISOPROLOL 5 MG TABLET PO SCH (08:43)
[2022-02-22] MEDS: ACETAMINOPHEN 325 MG TABLET PO PRN (08:43)
[2022-02-22] MEDS: FLUoxetine HCL 20 MG CAPSULE PO SCH (08:43)
[2022-02-22] MEDS: OMEPRAZOLE 20 MG CAPSULE PO SCH (08:44)
[2022-02-22] MEDS: SENNOSIDES 1 TABLET PO PRN (08:44)
[2022-02-22] MEDS: DOCUSATE SODIUM 100 MG CAPSULE PO SCH (08:44)
[2022-02-22] MEDS: amLODIPine 10 MG TABLET PO SCH (08:44)
[2022-02-22] MEDS: FUROSEMIDE 20 MG TABLET PO SCH (08:44)
[2022-02-22] MEDS: APIXABAN 5 MG TABLET PO SCH ×2 (08:44→21:53)
[2022-02-22] MEDS: METHOCARBAMOL 750 MG TABLET PO SCH (08:44)
[2022-02-22] MEDS: TAMSULOSIN 0.4 MG CAPSULE PO SCH ×2 (08:44→21:53)
[2022-02-22] MEDS: ACETAMINOPHEN W/CODEINE #3 1 TABLET PO PRN (13:20)
--- NOTE | 2022-02-22 13:43 | General Surgery Progress Note ---
SUBJECTIVE Subjective Patient information: Note initiated : 02/22/22 at 1:38 pm Service Date, if different from initiated Date: [] Patient: Edmond Salas 86 y/o M admitted on 02/18/22 for Weakness/Eval for assisted living. Chief Complaint: [] Additional PMFSH (Level 3 Only): 02/22/2022 No changes JUAREZ. Patient at his baseline. Constitutional Vitals: Vital Signs Temp Pulse Resp BP Pulse Ox O2 Del Method 97.6 F 97 H 16 130/71 92 02/22/22 12:00 02/22/22 12:00 02/22/22 12:00 02/22/22 12:00 02/22/22 12:00 02/22/22 12:00 Period Temp Pulse Resp BP Sys/Meza Pulse Ox O2 Del Method O2 Flow Rate Last 24 Hr 97.3 F-98.8 F 88-97 16-20 98-130/58-79 92-97 Room Air-Room Air Intake and Output 02/21/22 02/22/22 02/22/22 21:59 05:59 13:59 Intake Total 20 840 Output Total 600 375 Balance -600 -355 840 Weight 280 lb 14.4 oz Intake & Output: Intake & Output 02/21/22 02/22/22 02/22/22 21:59 05:59 13:59 Intake Total 20 840 Output Total 600 375 Balance -600 -355 840 Weight 280 lb 14.4 oz Intake: Oral 20 360 GI Tube Flush 480 Output: Urine Catheter Amount 600 375 Other: Meal Lunch Percent of Meal Consumed 50% Feeding Ability Assist with Tray Set Up Urine Appearance Clear Cloudy Sediment Willis Clear Clear Urine Color Yellow Light Joan Willis Dark Yellow Dark Yellow Urine Odor Willis Normal Stool Size Large Stool Color Brown Stool Consistency Formed # Bowel Movements 1 Exam: 02/22/2022 No changes JUAREZ. Moisture associated Stage 1 dermatitis Buttocks and scrotal region Responding to skin care. A/P Narrative A/P Narrative: Assessment. Moisture associated dermatitis, Epidermal skin tear / abrasion Lower buttocks, scrtoum and perineal region. Plan of Treatment: Plan: Continue topical skin care as per wound care nurse. Time Spent With Patient Time: Total time spent is greater than 50% in coordination of care (as documented) at patient's floor/unit and/or counseling patient:
[2022-02-22] MEDS: INSULIN GLARGINE, HUMAN 1 UNIT/0.01 ML SQ SCH (21:52)
[2022-02-22] MEDS: QUEtiapine 25 MG TABLET PO SCH (21:53)
[2022-02-23] MEDS: DOCUSATE SODIUM 100 MG CAPSULE PO SCH ×3 (00:07→20:02)
[2022-02-23] MEDS: ACETAMINOPHEN W/CODEINE #3 1 TABLET PO PRN ×2 (02:05→21:35)
[2022-02-23] MEDS: 0.9 % SODIUM CHLORIDE 10 ML SYRINGE IV SCH ×3 (05:15→20:03)
[2022-02-23 06:58] LABS: Basophils # (Auto) 0.04 K/mcL (0.00-0.30); Basophils % (Auto) 0.5 % (0.0-2.0); Eosinophils # (Auto) 0.58 K/mcL (0.00-0.70); Eosinophils % (Auto) 7.7 % (0.0-7.0); Hematocrit 33.6 % (40.1-51.0); Hemoglobin 10.6 g/dL (13.7-17.5); Lymphocytes # (Auto) 0.89 K/mcL (1.50-4.80); Lymphocytes % (Auto) 11.8 % (15.5-49.0); Mean Cell Volume 90.6 fL (80.0-100.0); Mean Corpuscular HGB Conc 31.5 g/dL (31.0-36.0); Mean Platelet Volume 9.4 fL (8.8-12.5); Monocytes # (Auto) 1.15 K/mcL (0.10-0.90); Monocytes % (Auto) 15.3 % (1.0-12.0); Neutrophils % (Auto) 63.9 % (38.0-78.0); Platelet Count 315 K/mcL (140-440); RBC 3.71 M/mcL (4.63-6.08); Red Cell Distribution Width 13.3 % (11.5-14.5); WBC 7.5 K/mcL (4.5-11.0)
[2022-02-23 07:38] LABS: ALT/SGPT 22 U/L (<40); AST/SGOT 23 U/L (<40); Albumin 2.7 gm/dL (3.2-5.2); Alkaline Phosphatase 109 U/L (39-117); Bilirubin,Total 0.3 mg/dL (0.1-1.0); Blood Urea Nitrogen 16 mg/dL (8-23); Calcium 8.2 mg/dL (8.6-10.4); Carbon Dioxide 29 mmol/L (22-30); Chloride 104 mmol/L (96-108); Globulin 2.6 gm/dL (2.2-3.7); Glomerular Filtration Rate 80; Glucose 160 mg/dL (70-105)
[2022-02-23] MEDS: INSULIN LISPRO 1 UNIT/0.01 ML UNIT SQ SCH ×4 (07:50→20:02)
[2022-02-23] MEDS: OMEPRAZOLE 20 MG CAPSULE PO SCH (07:50)
[2022-02-23] MEDS: FLUoxetine HCL 20 MG CAPSULE PO SCH (08:56)
[2022-02-23] MEDS: FUROSEMIDE 20 MG TABLET PO SCH (08:59)
[2022-02-23] MEDS: TAMSULOSIN 0.4 MG CAPSULE PO SCH ×2 (08:59→20:02)
[2022-02-23] MEDS: APIXABAN 5 MG TABLET PO SCH ×2 (09:01→20:02)
[2022-02-23] MEDS: MEMANTINE 10 MG TABLET PO SCH ×2 (09:01→20:03)
[2022-02-23] MEDS: amLODIPine 10 MG TABLET PO SCH (09:03)
[2022-02-23] MEDS: BISOPROLOL 5 MG TABLET PO SCH ×2 (09:06→13:35)
[2022-02-23] MEDS: METHOCARBAMOL 750 MG TABLET PO SCH (09:08)
[2022-02-23] MEDS: cefTRIAXone 1 GM VIAL IV SCH (09:33)
[2022-02-23] MEDS: ACETAMINOPHEN 325 MG TABLET PO PRN (13:36)
--- NOTE | 2022-02-23 14:06 | Internal Med Progress Note ---
SUBJECTIVE Subjective Patient information: Note initiated : 02/23/22 at 1:58 pm Service Date, if different from initiated Date: [] Patient: Edmond Salas 86 y/o M admitted on 02/18/22 for Weakness/Eval for assisted living. Chief Complaint: [] Interval history: Mr. Salas is a 86 year old M Presents the ED with worsening confusion on top of dementia and weakness. Recently treated for UTI but the urine looks clear here. Original plan was for home with hospice out of the ED. But it sounds like the family was not comfortable with patient being home felt to be unsafe conditions and they have been try to get APS involved. Further work-up in the ED today they got a chest x-ray which showed infiltrate on left side and mild right. Was noted to have some transient mild hypoxia, unknown baseline but has copd. Sounds like after further discussion with family hospice does not think finally decided on and is reported that they would prefer treatment for anything if possible first. Patient reports a chronic cough and some shortness of breath but at baseline. Patient is a poor historian most history obtained from the chart. Medical history includes dementia COPD hypertension chronic anemia and diastolic heart failure grade 1 with good ejection fraction on an echo in 2019. 02/19 Patient sleeping. Likely result from Haldol last night. Haldol was given for sundowning and severe agitation and pulling at lines. Nurse also reports that she feels he is aspirating with liquids. We will place on dysphagia diet order speech therapy evaluation. Likely is infiltrates on chest x-ray from aspiration. 02/20 Patient sitting up in bed eating breakfast. Did get some Zyprexa last night for agitation. No new complaints this morning. Try to talk with him about his atrial fibrillation but given his dementia patient does not seem to comprehend. 02/21 Patient sitting up in bed eating breakfast. More talkative today. No overnight event or new complaints. Did not require any Zyprexa last night. 02/22 Patient sleeping. Calm overnight. Started Seroquel yesterday evening seem to respond well to it. 02/23: Afebrile overnight. No major overnight events. Subjective not obtained due to patient's clinical situations. Medically stable awaiting placement. Constitutional Vitals: Vital Signs Temp Pulse Resp BP Pulse Ox O2 Del Method 36.4 C 92 H 20 113/75 98 02/23/22 12:00 02/23/22 12:00 02/23/22 12:00 02/23/22 12:00 02/23/22 12:00 02/23/22 12:00 Period Temp Pulse Resp BP Sys/Meza Pulse Ox O2 Del Method O2 Flow Rate Last 24 Hr 36.2 C-36.7 C 86-98 20-24 110-136/57-82 95-98 Room Air-Room Air Intake and Output 02/22/22 02/23/22 02/23/22 21:59 05:59 13:59 Intake Total 480 Output Total 475 475 Balance -475 5 Weight 130 kg Intake & Output: Intake & Output 02/22/22 02/23/22 02/23/22 21:59 05:59 13:59 Intake Total 480 Output Total 475 475 Balance -475 5 Weight 130 kg Intake: Oral 480 Output: Urine Catheter Amount 475 475 Other: Meal Dinner Percent of Meal Consumed Refused Urine Appearance Clear Cloudy Sediment Willis Clear Urine Color Yellow Yellow Willis Yellow Urine Odor Normal Stool Size Smear Large Stool Color Brown Brown Stool Consistency Soft Soft Formed # Bowel Movements 1 1 Head Head exam: Present atraumatic and normal inspection Eye Eye exam: Present normal appearance ENT ENT exam: Present mucous membranes moist, normal exam and normal external ear exam Neck Neck exam: Present normal inspection Respiratory Respiratory exam: Present normal respiratory exam Cardiovascular Cardiovascular exam: Present irregular rhythm GI/Abdominal GI/Abdominal exam: Present normal bowel sounds Back Exam Back exam: Present normal inspection Neurological Exam Neurological exam: Present alert and altered; Absent oriented X3 Additional comments: oriented X1 to person only Skin Skin exam: Present intact and warm Additional comments: Stage 1 decubitus ulcer in buttlock OBJ DATA Labs CBC & Chem 7: 02/23/22 05:06 02/23/22 05:06 Labs: Abnormal Lab Results 02/23/22 02/23/22 05:06 05:06 RBC 3.71 L Hgb 10.6 L Hct 33.6 L Immature Gran % (Auto) 0.8 H Lymph % (Auto) 11.8 L [place] % (Auto) 15.3 H Eos % (Auto) 7.7 H Lymph # (Auto) 0.89 L [place] # (Auto) 1.15 H Immature Gran # 0.06 H Glucose 160 H Calcium 8.2 L Total Protein 5.3 L Albumin 2.7 L Meds: Medications Acetaminophen (Acetaminophen 325 Mg Tablet) 650 mg PO Q6HP PRN; Protocol PRN Reason: Per Pain Protocol/Fever > 101 Last Admin: 02/23/22 13:36 Dose: 650 mg Acetaminophen/Codeine Phosphate (Acetaminophen W/Codeine #3 1 Tablet) 1 tab PO BIDP PRN; Protocol PRN Reason: Pain Last Admin: 02/23/22 02:05 Dose: 1 tab Albuterol/Ipratropium (Ipratropium/Albuterol 3 Ml Ampul.Neb) 3 ml NEB Q4HP PRN PRN Reason: Shortness Of Breath Last Admin: 02/20/22 22:53 Dose: 3 ml Amlodipine Besylate (Amlodipine 10 Mg Tablet) 5 mg PO DAILY [facility] Last Admin: 02/23/22 09:03 Dose: Not Given Apixaban (Apixaban 5 Mg Tablet) 5 mg PO BID [facility] Last Admin: 02/23/22 09:01 Dose: 5 mg Bisoprolol Fumarate (Bisoprolol 5 Mg Tablet) 10 mg PO DAILY [facility] Last Admin: 02/23/22 13:35 Dose: 10 mg Ceftriaxone Sodium (Ceftriaxone 1 Gm Vial) 1 gm IV Q24H [facility] Stop: 02/24/22 09:01 Last Admin: 02/23/22 09:33 Dose: 1 gm Dextrose (Dextrose 50% 50 Ml Vial) 0 ml IV UD PRN PRN Reason: Per Sliding Scale Diagnostic Test (Pha) (Accu-Chek 1 Each Strip) 1 each FS ACHS [facility] Last Admin: 02/23/22 11:42 Dose: 1 each Docusate Sodium (Docusate Sodium 100 Mg Capsule) 100 mg PO BID [facility] Last Admin: 02/23/22 09:06 Dose: 100 mg Fluoxetine HCl (Fluoxetine Hcl 20 Mg Capsule) 20 mg PO DAILY [facility] Last Admin: 02/23/22 08:56 Dose: 20 mg Furosemide (Furosemide 20 Mg Tablet) 40 mg PO DAILY [facility] Last Admin: 02/23/22 08:59 Dose: 40 mg Glucose (Dextrose 31 Gm Oral.Susp) 15 gm PO PRN PRN PRN Reason: Hypoglycemia Potassium Chloride 40 meq/ (Dextrose) 520 mls @ 130 mls/hr IV UD PRN PRN Reason: Potassium < 3 Magnesium Sulfate (Magnesium Sulfate) 2 gm in 50 mls @ 50 mls/hr IV UD PRN PRN Reason: Magnesium </= 1.6 Insulin Glargine (Insulin Glargine, Human 1 Unit/0.01 Ml) 10 unit SQ QPM [facility] Last Admin: 02/22/22 21:52 Dose: 10 units Insulin Human Lispro (Insulin Lispro 1 Unit/0.01 Ml Unit) 0 unit SQ ACHS [facility]; Protocol Last Admin: 02/23/22 11:52 Dose: 2 units Memantine (Memantine 10 Mg Tablet) 5 mg PO BID [facility] Last Admin: 02/23/22 09:01 Dose: 5 mg Methocarbamol (Methocarbamol 750 Mg Tablet) 750 mg PO DAILY [facility] Last Admin: 02/23/22 09:08 Dose: 750 mg Metoprolol Tartrate (Metoprolol Tartrate 5 Mg/5 Ml Vial) 5 mg IV Q2HP PRN PRN Reason: Tachyarrhythmias HR>110 Last Admin: 02/19/22 22:21 Dose: 5 mg Omeprazole (Omeprazole 20 Mg Capsule) 20 mg PO ACB [facility] Last Admin: 02/23/22 07:50 Dose: 20 mg Ondansetron HCl (Ondansetron 4 Mg/2 Ml Vial) 4 mg IV Q4HP PRN PRN Reason: Nausea And Vomiting Polyethylene Glycol (Polyethylene Glycol 3350 17 Gm Packet) 17 gm PO DAILYP PRN PRN Reason: Constipation Last Admin: 02/22/22 08:43 Dose: 17 gm Potassium Chloride (Potassium Chloride 20 Meq Tablet) 40 meq PO UD PRN PRN Reason: Potssium is 3-3.5 Potassium Chloride (Potassium Chloride 20 Meq Tablet) 40 meq PO UD PRN PRN Reason: Potassium < 3 Quetiapine Fumarate (Quetiapine 25 Mg Tablet) 50 mg PO [facility] Senna (Sennosides 1 Tablet) 2 tab PO DAILYP PRN PRN Reason: Constipation Last Admin: 02/22/22 08:44 Dose: 2 tab Sodium Chloride (0.9 % Sodium Chloride 10 Ml Syringe) 10 ml IV Q8 [facility] Last Admin: 02/23/22 12:54 Dose: Not Given Tamsulosin HCl (Tamsulosin 0.4 Mg Capsule) 0.4 mg PO BID [facility] Last Admin: 02/23/22 08:59 Dose: 0.4 mg A/P Assessment and plan (1) Obesity (BMI 30.0-34.9): Status: Acute (2) Decubitus ulcer of buttock, stage 1: Status: Acute (3) Failure to thrive in adult: Status: Acute (4) Dementia: Status: Acute (5) Anemia, normocytic normochromic: Status: Acute (6) Paroxysmal atrial fibrillation with RVR: Status: Acute (7) Essential hypertension: Status: Acute (8) Aspiration pneumonia: Status: Acute (9) Prediabetes: Status: Acute (10) Diastolic CHF: Status: Acute Narrative A/P Narrative: Assessment and Plans: 1. Dementia and adult failure to thrive: Dietitian consulted Physical therapy recs. SNF placement, pending Reached medical stability Memantine 2. Aspiration pneumonia: SLT recs. level 6 dysphagia diet Tolerating room air Cultures no growth to date Day 10/05 Rocephin cbc w/ auto diff in the morning to trend WBC 3. Stage 1 decubitus ulcer in buttock: Wound care team consulted. Dr. Soares to assisted wound cleaning and wound care 4. Anemia, normocytic normochromic: cbc w/ auto diff in the morning to trend H/H 5. Paroxysmal atrial fibrillation: Bisoprolol as rate control Eliquis 6. h/o Diastolic CHF: Bisoprolol Lasix PO 7. h/o essential hypertension: Currently borderline low blood pressure: holding Amlodipine Continue Bisoprolol as part of the treatment for atrial fibrillation and for CHF , respectively 8. Prediabetes: HgA1c 6.4 Lantus 10 unit qPM SSI AC HS Accu Chek AC HS Hypoglycemia protocol 9. Obesity: Not possible to corporate counselor patient regarding life style modifications due to dementia GI ppx: Prilosec DVT ppx: Eliquis Code status: DNR Prognosis: stable Disposition: inpatient med surg; pending SNF placement Plan of Treatment: Plan: Continue topical skin care as per wound care nurse. Time Spent With Patient Time: Total time spent is greater than 50% in coordination of care (as documented) at patient's floor/unit and/or counseling patient: Total time spent with greater than 50% in coordination of care (as documented) at patient's floor/unit and/or counseling patient:: 35 - 50 minutes
[2022-02-23] MEDS: INSULIN GLARGINE, HUMAN 1 UNIT/0.01 ML SQ SCH (20:02)
[2022-02-23] MEDS: QUEtiapine 25 MG TABLET PO SCH (20:03)
[2022-02-24] MEDS: 0.9 % SODIUM CHLORIDE 10 ML SYRINGE IV SCH ×3 (05:42→22:00)
[2022-02-24 06:24] LABS: Basophils # (Auto) 0.02 K/mcL (0.00-0.30); Basophils % (Auto) 0.3 % (0.0-2.0); Eosinophils % (Auto) 7.8 % (0.0-7.0); Hematocrit 35.2 % (40.1-51.0); Hemoglobin 10.9 g/dL (13.7-17.5); Lymphocytes # (Auto) 1.22 K/mcL (1.50-4.80); Lymphocytes % (Auto) 15.8 % (15.5-49.0); Mean Cell Volume 89.6 fL (80.0-100.0); Mean Platelet Volume 9.2 fL (8.8-12.5); Monocytes # (Auto) 1.12 K/mcL (0.10-0.90); Monocytes % (Auto) 14.5 % (1.0-12.0); Neutrophils % (Auto) 61.1 % (38.0-78.0); Platelet Count 308 K/mcL (140-440); RBC 3.93 M/mcL (4.63-6.08); Red Cell Distribution Width 13.2 % (11.5-14.5); WBC 7.7 K/mcL (4.5-11.0)
[2022-02-24 06:54] LABS: ALT/SGPT 20 U/L (<40); AST/SGOT 20 U/L (<40); Albumin 2.8 gm/dL (3.2-5.2); Alkaline Phosphatase 107 U/L (39-117); Bilirubin,Total 0.3 mg/dL (0.1-1.0); Blood Urea Nitrogen 12 mg/dL (8-23); Calcium 8.6 mg/dL (8.6-10.4); Carbon Dioxide 30 mmol/L (22-30); Chloride 101 mmol/L (96-108); Globulin 2.8 gm/dL (2.2-3.7); Glomerular Filtration Rate 80; Glucose 138 mg/dL (70-105)
[2022-02-24] MEDS: INSULIN LISPRO 1 UNIT/0.01 ML UNIT SQ SCH ×4 (07:07→21:52)
[2022-02-24] MEDS: OMEPRAZOLE 20 MG CAPSULE PO SCH (07:39)
[2022-02-24] MEDS: BISOPROLOL 5 MG TABLET PO SCH (07:59)
[2022-02-24] MEDS: APIXABAN 5 MG TABLET PO SCH ×2 (07:59→19:47)
[2022-02-24] MEDS: FLUoxetine HCL 20 MG CAPSULE PO SCH (07:59)
[2022-02-24] MEDS: TAMSULOSIN 0.4 MG CAPSULE PO SCH ×2 (07:59→19:47)
[2022-02-24] MEDS: METHOCARBAMOL 750 MG TABLET PO SCH (07:59)
[2022-02-24] MEDS: FUROSEMIDE 20 MG TABLET PO SCH (07:59)
[2022-02-24] MEDS: MEMANTINE 10 MG TABLET PO SCH ×2 (07:59→19:47)
[2022-02-24] MEDS: DOCUSATE SODIUM 100 MG CAPSULE PO SCH ×2 (07:59→19:46)
[2022-02-24] MEDS: cefTRIAXone 1 GM VIAL IV SCH (09:47)
--- NOTE | 2022-02-24 10:49 | Internal Med Progress Note ---
SUBJECTIVE Subjective Patient information: Note initiated : 02/24/22 at 10:46 am Service Date, if different from initiated Date: [] Patient: Edmond Salas a 86 y/o M admitted on 02/18/22 for Weakness/Eval for assisted living. Chief Complaint: [] Interval history: Mr. Salas is a 86 year old M Presents the ED with worsening confusion on top of dementia and weakness. Recently treated for UTI but the urine looks clear here. Original plan was for home with hospice out of the ED. But it sounds like the family was not comfortable with patient being home felt to be unsafe conditions and they have been try to get APS involved. Further work-up in the ED today they got a chest x-ray which showed infiltrate on left side and mild right. Was noted to have some transient mild hypoxia, unknown baseline but has copd. Sounds like after further discussion with family hospice does not think finally decided on and is reported that they would prefer treatment for anything if possible first. Patient reports a chronic cough and some shortness of breath but at baseline. Patient is a poor historian most history obtained from the chart. Medical history includes dementia COPD hypertension chronic anemia and diastolic heart failure grade 1 with good ejection fraction on an echo in 2019. 02/19 Patient sleeping. Likely result from Haldol last night. Haldol was given for sundowning and severe agitation and pulling at lines. Nurse also reports that she feels he is aspirating with liquids. We will place on dysphagia diet order speech therapy evaluation. Likely is infiltrates on chest x-ray from aspiration. 02/20 Patient sitting up in bed eating breakfast. Did get some Zyprexa last night for agitation. No new complaints this morning. Try to talk with him about his atrial fibrillation but given his dementia patient does not seem to comprehend. 02/21 Patient sitting up in bed eating breakfast. More talkative today. No overnight event or new complaints. Did not require any Zyprexa last night. 02/22 Patient sleeping. Calm overnight. Started Seroquel yesterday evening seem to respond well to it. 02/23: Afebrile overnight. No major overnight events. Subjective not obtained due to patient's clinical situations. Medically stable awaiting placement. 02/24: Afebrile overnight. No major overnight events. Subjective not obtained due to patient's clinical situations. Medically stable awaiting placement. Constitutional Vitals: Vital Signs Temp Pulse Resp BP Pulse Ox O2 Del Method 36.4 C 83 20 124/53 94 02/24/22 08:00 02/24/22 08:00 02/24/22 08:00 02/24/22 08:00 02/24/22 08:00 02/24/22 08:00 Period Temp Pulse Resp BP Sys/Meza Pulse Ox O2 Del Method O2 Flow Rate Last 24 Hr 36.4 C-36.8 C 76-110 14-22 106-133/53-79 94-98 Room Air-Room Air Intake and Output 02/23/22 02/24/22 02/24/22 21:59 05:59 13:59 Intake Total 1920 0 Output Total 1200 700 Balance 720 -700 Weight 130.272 kg Intake & Output: Intake & Output 02/23/22 02/24/22 02/24/22 21:59 05:59 13:59 Intake Total 1920 0 Output Total 1200 700 Balance 720 -700 Weight 130.272 kg Intake: Oral 1920 0 Output: Urine Catheter Amount 700 Void Amount 1200 Other: Meal Lunch Percent of Meal Consumed 25% Feeding Ability Assist with Tray Set Up Urine Appearance Clear Clear Sediment Willis Clear Clear Urine Color Yellow Dark Yellow Willis Yellow Yellow Urine Odor Normal # Bowel Movements 0 Head Head exam: Present atraumatic and normal inspection Eye Eye exam: Present normal appearance ENT ENT exam: Present mucous membranes moist, normal exam and normal external ear exam Neck Neck exam: Present normal inspection Respiratory Respiratory exam: Present normal respiratory exam Cardiovascular Cardiovascular exam: Present irregular rhythm GI/Abdominal GI/Abdominal exam: Present normal bowel sounds Back Exam Back exam: Present normal inspection Neurological Exam Neurological exam: Present alert and altered; Absent oriented X3 Additional comments: Oriented X1 to person only Skin Skin exam: Present intact and warm OBJ DATA Labs CBC & Chem 7: 02/24/22 05:25 02/24/22 05:25 Labs: Abnormal Lab Results 02/24/22 02/24/22 02/23/22 05:25 05:25 05:06 RBC 3.93 L Hgb 10.9 L Hct 35.2 L Immature Gran % (Auto) Lymph % (Auto) [place] % (Auto) 14.5 H Eos % (Auto) 7.8 H Lymph # (Auto) 1.22 L [place] # (Auto) 1.12 H Immature Gran # Anion Gap 6.0 L Glucose 138 H 160 H Calcium 8.2 L Total Protein 5.6 L 5.3 L Albumin 2.8 L 2.7 L 02/23/22 05:06 RBC 3.71 L Hgb 10.6 L Hct 33.6 L Immature Gran % (Auto) 0.8 H Lymph % (Auto) 11.8 L [place] % (Auto) 15.3 H Eos % (Auto) 7.7 H Lymph # (Auto) 0.89 L [place] # (Auto) 1.15 H Immature Gran # 0.06 H Anion Gap Glucose Calcium Total Protein Albumin Meds: Medications Acetaminophen (Acetaminophen 325 Mg Tablet) 650 mg PO Q6HP PRN; Protocol PRN Reason: Per Pain Protocol/Fever > 101 Last Admin: 02/23/22 13:36 Dose: 650 mg Acetaminophen/Codeine Phosphate (Acetaminophen W/Codeine #3 1 Tablet) 1 tab PO BIDP PRN; Protocol PRN Reason: Pain Last Admin: 02/23/22 21:35 Dose: 1 tab Albuterol/Ipratropium (Ipratropium/Albuterol 3 Ml Ampul.Neb) 3 ml NEB Q4HP PRN PRN Reason: Shortness Of Breath Last Admin: 02/20/22 22:53 Dose: 3 ml Apixaban (Apixaban 5 Mg Tablet) 5 mg PO BID [facility] Last Admin: 02/24/22 07:59 Dose: 5 mg Bisoprolol Fumarate (Bisoprolol 5 Mg Tablet) 10 mg PO DAILY [facility] Last Admin: 02/24/22 07:59 Dose: 10 mg Dextrose (Dextrose 50% 50 Ml Vial) 0 ml IV UD PRN PRN Reason: Per Sliding Scale Diagnostic Test (Pha) (Accu-Chek 1 Each Strip) 1 each FS ACHS [facility] Last Admin: 02/24/22 07:07 Dose: 1 each Docusate Sodium (Docusate Sodium 100 Mg Capsule) 100 mg PO BID [facility] Last Admin: 02/24/22 07:59 Dose: 100 mg Fluoxetine HCl (Fluoxetine Hcl 20 Mg Capsule) 20 mg PO DAILY [facility] Last Admin: 02/24/22 07:59 Dose: 20 mg Furosemide (Furosemide 20 Mg Tablet) 40 mg PO DAILY [facility] Last Admin: 02/24/22 07:59 Dose: 40 mg Glucose (Dextrose 31 Gm Oral.Susp) 15 gm PO PRN PRN PRN Reason: Hypoglycemia Potassium Chloride 40 meq/ (Dextrose) 520 mls @ 130 mls/hr IV UD PRN PRN Reason: Potassium < 3 Magnesium Sulfate (Magnesium Sulfate) 2 gm in 50 mls @ 50 mls/hr IV UD PRN PRN Reason: Magnesium </= 1.6 Insulin Glargine (Insulin Glargine, Human 1 Unit/0.01 Ml) 10 unit SQ QPM [facility] Last Admin: 02/23/22 20:02 Dose: 10 units Insulin Human Lispro (Insulin Lispro 1 Unit/0.01 Ml Unit) 0 unit SQ ACHS [facility]; Protocol Last Admin: 02/24/22 07:07 Dose: Not Given Memantine (Memantine 10 Mg Tablet) 5 mg PO BID [facility] Last Admin: 02/24/22 07:59 Dose: 5 mg Methocarbamol (Methocarbamol 750 Mg Tablet) 750 mg PO DAILY [facility] Last Admin: 02/24/22 07:59 Dose: 750 mg Metoprolol Tartrate (Metoprolol Tartrate 5 Mg/5 Ml Vial) 5 mg IV Q2HP PRN PRN Reason: Tachyarrhythmias HR>110 Last Admin: 02/19/22 22:21 Dose: 5 mg Omeprazole (Omeprazole 20 Mg Capsule) 20 mg PO ACB [facility] Last Admin: 02/24/22 07:39 Dose: 20 mg Ondansetron HCl (Ondansetron 4 Mg/2 Ml Vial) 4 mg IV Q4HP PRN PRN Reason: Nausea And Vomiting Polyethylene Glycol (Polyethylene Glycol 3350 17 Gm Packet) 17 gm PO DAILYP PRN PRN Reason: Constipation Last Admin: 02/22/22 08:43 Dose: 17 gm Potassium Chloride (Potassium Chloride 20 Meq Tablet) 40 meq PO UD PRN PRN Reason: Potssium is 3-3.5 Potassium Chloride (Potassium Chloride 20 Meq Tablet) 40 meq PO UD PRN PRN Reason: Potassium < 3 Quetiapine Fumarate (Quetiapine 25 Mg Tablet) 50 mg PO HS [facility] Last Admin: 02/23/22 20:03 Dose: 50 mg Senna (Sennosides 1 Tablet) 2 tab PO DAILYP PRN PRN Reason: Constipation Last Admin: 02/22/22 08:44 Dose: 2 tab Sodium Chloride (0.9 % Sodium Chloride 10 Ml Syringe) 10 ml IV Q8 [facility] Last Admin: 02/24/22 05:42 Dose: 10 ml Tamsulosin HCl (Tamsulosin 0.4 Mg Capsule) 0.4 mg PO BID [facility] Last Admin: 02/24/22 07:59 Dose: 0.4 mg A/P Assessment and plan (1) Obesity (BMI 30.0-34.9): Status: Acute (2) Decubitus ulcer of buttock, stage 1: Status: Acute (3) Failure to thrive in adult: Status: Acute (4) Dementia: Status: Acute (5) Anemia, normocytic normochromic: Status: Acute (6) Paroxysmal atrial fibrillation with RVR: Status: Acute (7) Essential hypertension: Status: Acute (8) Aspiration pneumonia: Status: Acute (9) Prediabetes: Status: Acute (10) Diastolic CHF: Status: Acute Narrative A/P Narrative: Assessment and Plans: 1. Dementia and adult failure to thrive: Dietitian consulted Physical therapy recs. SNF placement, pending Reached medical stability Memantine 2. Aspiration pneumonia: SLT recs. level 6 dysphagia diet Tolerating room air Cultures no growth to date Day 11/04 Rocephin cbc w/ auto diff in the morning to trend WBC 3. Stage 1 decubitus ulcer in buttock: Wound care team consulted. Dr. Soares to assisted wound cleaning and wound care 4. Anemia, normocytic normochromic: cbc w/ auto diff in the morning to trend H/H 5. Paroxysmal atrial fibrillation: Bisoprolol as rate control Eliquis 6. h/o Diastolic CHF: Bisoprolol Lasix PO 7. h/o essential hypertension: Currently borderline low blood pressure: holding Amlodipine Continue Bisoprolol as part of the treatment for atrial fibrillation and for CHF, respectively 8. Prediabetes: HgA1c 6.4 Lantus 10 unit qPM SSI AC HS Accu Chek AC HS Hypoglycemia protocol 9. Obesity: Not possible to general counselor patient regarding life style modifications due to phong ntia GI ppx: Prilosec DVT ppx: Eliquis Code status: DNR Prognosis: stable Disposition: inpatient med surg; pending SNF placement Plan of Treatment: Plan: Continue topical skin care as per wound care nurse. Time Spent With Patient Time: Total time spent is greater than 50% in coordination of care (as documented) at patient's floor/unit and/or counseling patient: Total time spent with greater than 50% in coordination of care (as documented) at patient's floor/unit and/or counseling patient:: 25 - 35 minutes
[2022-02-24] MEDS: QUEtiapine 25 MG TABLET PO SCH (19:46)
[2022-02-24] MEDS: ACETAMINOPHEN W/CODEINE #3 1 TABLET PO PRN (19:56)
[2022-02-24] MEDS: INSULIN GLARGINE, HUMAN 1 UNIT/0.01 ML SQ SCH (21:52)
[2022-02-25] MEDS: 0.9 % SODIUM CHLORIDE 10 ML SYRINGE IV SCH ×3 (05:33→20:16)
[2022-02-25 06:53] LABS: Basophils # (Auto) 0.03 K/mcL (0.00-0.30); Basophils % (Auto) 0.4 % (0.0-2.0); Eosinophils # (Auto) 0.52 K/mcL (0.00-0.70); Eosinophils % (Auto) 6.4 % (0.0-7.0); Hematocrit 36.3 % (40.1-51.0); Hemoglobin 11.2 g/dL (13.7-17.5); Lymphocytes # (Auto) 1.21 K/mcL (1.50-4.80); Lymphocytes % (Auto) 14.9 % (15.5-49.0); Mean Cell Volume 89.9 fL (80.0-100.0); Mean Corpuscular HGB Conc 30.9 g/dL (31.0-36.0); Mean Platelet Volume 9.5 fL (8.8-12.5); Monocytes # (Auto) 1.08 K/mcL (0.10-0.90); Monocytes % (Auto) 13.3 % (1.0-12.0); Neutrophils % (Auto) 64.6 % (38.0-78.0); Platelet Count 327 K/mcL (140-440); RBC 4.04 M/mcL (4.63-6.08); Red Cell Distribution Width 13.2 % (11.5-14.5); WBC 8.1 K/mcL (4.5-11.0)
[2022-02-25 07:31] LABS: ALT/SGPT 19 U/L (<40); AST/SGOT 19 U/L (<40); Albumin 2.9 gm/dL (3.2-5.2); Albumin/Globulin Ratio 0.8 (1.0-2.3); Alkaline Phosphatase 128 U/L (39-117); Bilirubin,Total 0.4 mg/dL (0.1-1.0); Blood Urea Nitrogen 9 mg/dL (8-23); Calcium 8.7 mg/dL (8.6-10.4); Carbon Dioxide 31 mmol/L (22-30); Chloride 100 mmol/L (96-108); Globulin 3.7 gm/dL (2.2-3.7); Glomerular Filtration Rate 80; Glucose 142 mg/dL (70-105)
[2022-02-25] MEDS: OMEPRAZOLE 20 MG CAPSULE PO SCH (08:10)
[2022-02-25] MEDS: INSULIN LISPRO 1 UNIT/0.01 ML UNIT SQ SCH ×4 (08:15→20:17)
[2022-02-25] MEDS: MEMANTINE 10 MG TABLET PO SCH ×2 (10:12→20:18)
[2022-02-25] MEDS: TAMSULOSIN 0.4 MG CAPSULE PO SCH ×2 (10:12→20:18)
[2022-02-25] MEDS: METHOCARBAMOL 750 MG TABLET PO SCH (10:12)
[2022-02-25] MEDS: BISOPROLOL 5 MG TABLET PO SCH (10:12)
[2022-02-25] MEDS: FLUoxetine HCL 20 MG CAPSULE PO SCH (10:12)
[2022-02-25] MEDS: DOCUSATE SODIUM 100 MG CAPSULE PO SCH ×2 (10:12→20:18)
[2022-02-25] MEDS: FUROSEMIDE 20 MG TABLET PO SCH (10:12)
[2022-02-25] MEDS: APIXABAN 5 MG TABLET PO SCH ×2 (10:13→20:18)
--- NOTE | 2022-02-25 11:17 | Internal Med Progress Note ---
SUBJECTIVE Subjective Patient information: Note initiated : 02/25/22 at 11:15 am Service Date, if different from initiated Date: [] Patient: Edmond Salas a 86 y/o M admitted on 02/18/22 for Weakness/Eval for assisted living. Chief Complaint: [] Interval history: Mr. Salas is a 86 year old M Presents the ED with worsening confusion on top of dementia and weakness. Recently treated for UTI but the urine looks clear here. Original plan was for home with hospice out of the ED. But it sounds like the family was not comfortable with patient being home felt to be unsafe conditions and they have been try to get APS involved. Further work-up in the ED today they got a chest x-ray which showed infiltrate on left side and mild right. Was noted to have some transient mild hypoxia, unknown baseline but has copd. Sounds like after further discussion with family hospice does not think finally decided on and is reported that they would prefer treatment for anything if possible first. Patient reports a chronic cough and some shortness of breath but at baseline. Patient is a poor historian most history obtained from the chart. Medical history includes dementia COPD hypertension chronic anemia and diastolic heart failure grade 1 with good ejection fraction on an echo in 2019. 02/19 Patient sleeping. Likely result from Haldol last night. Haldol was given for sundowning and severe agitation and pulling at lines. Nurse also reports that she feels he is aspirating with liquids. We will place on dysphagia diet order speech therapy evaluation. Likely is infiltrates on chest x-ray from aspiration. 02/20 Patient sitting up in bed eating breakfast. Did get some Zyprexa last night for agitation. No new complaints this morning. Try to talk with him about his atrial fibrillation but given his dementia patient does not seem to comprehend. 02/21 Patient sitting up in bed eating breakfast. More talkative today. No overnight event or new complaints. Did not require any Zyprexa last night. 02/22 Patient sleeping. Calm overnight. Started Seroquel yesterday evening seem to respond well to it. 02/23: Afebrile overnight. No major overnight events. Subjective not obtained due to patient's clinical situations. Medically stable awaiting placement. 02/24: Afebrile overnight. No major overnight events. Subjective not obtained due to patient's clinical situations. Medically stable awaiting placement. 10/28: Afebrile overnight. No major overnight events. Subjective not obtained due to patient's clinical situations. Medically stable awaiting placement. Constitutional Vitals: Vital Signs Temp Pulse Resp BP Pulse Ox O2 Del Method O2 Flow Rate 36.5 C 84 16 122/59 97 0 02/25/22 07:10 02/24/22 16:00 02/25/22 07:10 02/25/22 07:10 02/25/22 07:10 02/25/22 07:10 02/25/22 04:00 Period Temp Pulse Resp BP Sys/Meza Pulse Ox O2 Del Method O2 Flow Rate Last 24 Hr 36.3 C-36.8 C 80-84 16-20 107-128/55-65 93-97 Room Air-Room Air 0-0 Intake and Output 02/24/22 02/25/22 02/25/22 21:59 05:59 13:59 Intake Total 1040 50 Output Total 250 Balance 1040 -200 Weight 126.099 kg Intake & Output: Intake & Output 02/24/22 02/25/22 02/25/22 21:59 05:59 13:59 Intake Total 1040 50 Output Total 250 Balance 1040 -200 Weight 126.099 kg Intake: Oral 1040 50 Output: Urine Catheter Amount 250 Other: Meal Lunch Percent of Meal Consumed 100% Urine Appearance Clear Clear Willis Clear Urine Color Dark Yellow Dark Yellow [place] Dark Yellow Head Head exam: Present atraumatic and normal inspection Eye Eye exam: Present normal appearance ENT ENT exam: Present mucous membranes moist, normal exam and normal external ear e xam Neck Neck exam: Present normal inspection Respiratory Respiratory exam: Present normal respiratory exam Cardiovascular Cardiovascular exam: Present irregular rhythm GI/Abdominal GI/Abdominal exam: Present normal bowel sounds Back Exam Back exam: Present normal inspection Neurological Exam Neurological exam: Present alert and altered; Absent oriented X3 Additional comments: oriented X 1 to person only Skin Skin exam: Present intact and warm OBJ DATA Labs CBC & Chem 7: 02/25/22 05:30 02/25/22 05:30 Labs: Abnormal Lab Results 02/25/22 02/25/22 02/24/22 05:30 05:30 05:25 RBC 4.04 L Hgb 11.2 L Hct 36.3 L MCHC 30.9 L Immature Gran % (Auto) Lymph % (Auto) 14.9 L [place] % (Auto) 13.3 H Eos % (Auto) Lymph # (Auto) 1.21 L [place] # (Auto) 1.08 H Immature Gran # Carbon Dioxide 31 H Anion Gap 6.0 L 6.0 L Glucose 142 H 138 H Calcium Alkaline Phosphatase 128 H Total Protein 5.6 L Albumin 2.9 L 2.8 L Albumin/Globulin Ratio 0.8 L 02/24/22 02/23/22 02/23/22 05:25 05:06 05:06 RBC 3.93 L 3.71 L Hgb 10.9 L 10.6 L Hct 35.2 L 33.6 L MCHC Immature Gran % (Auto) 0.8 H Lymph % (Auto) 11.8 L [place] % (Auto) 14.5 H 15.3 H Eos % (Auto) 7.8 H 7.7 H Lymph # (Auto) 1.22 L 0.89 L [place] # (Auto) 1.12 H 1.15 H Immature Gran # 0.06 H Carbon Dioxide Anion Gap Glucose 160 H Calcium 8.2 L Alkaline Phosphatase Total Protein 5.3 L Albumin 2.7 L Albumin/Globulin Ratio Meds: Medications Acetaminophen (Acetaminophen 325 Mg Tablet) 650 mg PO Q6HP PRN; Protocol PRN Reason: Per Pain Protocol/Fever > 101 Last Admin: 02/23/22 13:36 Dose: 650 mg Acetaminophen/Codeine Phosphate (Acetaminophen W/Codeine #3 1 Tablet) 1 tab PO BIDP PRN; Protocol PRN Reason: Pain Last Admin: 02/24/22 19:56 Dose: 1 tab Albuterol/Ipratropium (Ipratropium/Albuterol 3 Ml Ampul.Neb) 3 ml NEB Q4HP PRN PRN Reason: Shortness Of Breath Last Admin: 02/20/22 22:53 Dose: 3 ml Apixaban (Apixaban 5 Mg Tablet) 5 mg PO BID GAIL Last Admin: 02/25/22 10:13 Dose: 5 mg Bisoprolol Fumarate (Bisoprolol 5 Mg Tablet) 10 mg PO DAILY REPLACED BY [facility] Last Admin: 02/25/22 10:12 Dose: 10 mg Dextrose (Dextrose 50% 50 Ml Vial) 0 ml IV UD PRN PRN Reason: Per Sliding Scale Diagnostic Test (Pha) (Accu-Chek 1 Each Strip) 1 each FS ACHS REPLACED BY [facility] Last Admin: 02/25/22 08:11 Dose: 1 each Docusate Sodium (Docusate Sodium 100 Mg Capsule) 100 mg PO BID REPLACED BY [facility] Last Admin: 02/25/22 10:12 Dose: 100 mg Fluoxetine HCl (Fluoxetine Hcl 20 Mg Capsule) 20 mg PO DAILY REPLACED BY [facility] Last Admin: 02/25/22 10:12 Dose: 20 mg Furosemide (Furosemide 20 Mg Tablet) 40 mg PO DAILY REPLACED BY [facility] Last Admin: 02/25/22 10:12 Dose: 40 mg Glucose (Dextrose 31 Gm Oral.Susp) 15 gm PO PRN PRN PRN Reason: Hypoglycemia Potassium Chloride 40 meq/ (Dextrose) 520 mls @ 130 mls/hr IV UD PRN PRN Reason: Potassium < 3 Magnesium Sulfate (Magnesium Sulfate) 2 gm in 50 mls @ 50 mls/hr IV UD PRN PRN Reason: Magnesium </= 1.6 Insulin Glargine (Insulin Glargine, Human 1 Unit/0.01 Ml) 10 unit SQ QPM REPLACED BY [facility] Last Admin: 02/24/22 21:52 Dose: 10 units Insulin Human Lispro (Insulin Lispro 1 Unit/0.01 Ml Unit) 0 unit SQ [facility]; Protocol Last Admin: 02/25/22 08:15 Dose: Not Given Memantine (Memantine 10 Mg Tablet) 5 mg PO BID REPLACED BY [facility] Last Admin: 02/25/22 10:12 Dose: 5 mg Methocarbamol (Methocarbamol 750 Mg Tablet) 750 mg PO DAILY REPLACED BY [facility] Last Admin: 02/25/22 10:12 Dose: 750 mg Metoprolol Tartrate (Metoprolol Tartrate 5 Mg/5 Ml Vial) 5 mg IV Q2HP PRN PRN Reason: Tachyarrhythmias HR>110 Last Admin: 02/19/22 22:21 Dose: 5 mg Omeprazole (Omeprazole 20 Mg Capsule) 20 mg PO ACB REPLACED BY [facility] Last Admin: 02/25/22 08:10 Dose: 20 mg Ondansetron HCl (Ondansetron 4 Mg/2 Ml Vial) 4 mg IV Q4HP PRN PRN Reason: Nausea And Vomiting Polyethylene Glycol (Polyethylene Glycol 3350 17 Gm Packet) 17 gm PO DAILYP PRN PRN Reason: Constipation Last Admin: 02/22/22 08:43 Dose: 17 gm Potassium Chloride (Potassium Chloride 20 Meq Tablet) 40 meq PO UD PRN PRN Reason: Potssium is 3-3.5 Potassium Chloride (Potassium Chloride 20 Meq Tablet) 40 meq PO UD PRN PRN Reason: Potassium < 3 Quetiapine Fumarate (Quetiapine 25 Mg Tablet) 50 mg PO HS REPLACED BY [facility] Last Admin: 02/24/22 19:46 Dose: 50 mg Senna (Sennosides 1 Tablet) 2 tab PO DAILYP PRN PRN Reason: Constipation Last Admin: 02/22/22 08:44 Dose: 2 tab Sodium Chloride (0.9 % Sodium Chloride 10 Ml Syringe) 10 ml IV Q8 REPLACED BY [facility] Last Admin: 02/25/22 05:33 Dose: Not Given Tamsulosin HCl (Tamsulosin 0.4 Mg Capsule) 0.4 mg PO BID REPLACED BY [facility] Last Admin: 02/25/22 10:12 Dose: 0.4 mg A/P Assessment and plan (1) Obesity (BMI 30.0-34.9): Status: Acute (2) Decubitus ulcer of buttock, stage 1: Status: Acute (3) Failure to thrive in adult: Status: Acute (4) Dementia: Status: Acute (5) Anemia, normocytic normochromic: Status: Acute (6) Paroxysmal atrial fibrillation with RVR: Status: Acute (7) Essential hypertension: Status: Acute (8) Aspiration pneumonia: Status: Acute (9) Prediabetes: Status: Acute (10) Diastolic CHF: Status: Acute Narrative A/P Narrative: Assessment and Plans: 1. Dementia and adult failure to thrive: Dietitian consulted Physical therapy recs. SNF placement, pending Reached medical stability Memantine 2. Aspiration pneumonia: SLT recs. level 6 dysphagia diet Tolerating room air Cultures no growth to date Day 11/04 Rocephin cbc w/ auto diff in the morning to trend WBC 3. Stage 1 decubitus ulcer in buttock: Wound care team consulted. Dr. Rodger jarvis assisted wound cleaning and wound care 4. Anemia, normocytic normochromic: cbc w/ auto diff in the morning to trend H/H 5. Paroxysmal atrial fibrillation: Bisoprolol as rate control Eliquis 6. h/o Diastolic CHF: Bisoprolol Lasix PO 7. h/o essential hypertension: Currently borderline low blood pressure: holding Amlodipine Continue Bisoprolol as part of the treatment for atrial fibrillation and for CHF, respectively 8. Prediabetes: HgA1c 6.4 Lantus 10 unit qPM SSI AC HS Accu Chek AC HS Hypoglycemia protocol 9. Obesity: Not possible to industrial relations counselor patient regarding life style modifications due to dementia GI ppx: Prilosec DVT ppx: Eliquis Code status: DNR Prognosis: stable Disposition: inpatient med surg; pending SNF placement Plan of Treatment: Plan: Continue topical skin care as per wound care nurse. Time Spent With Patient Time: Total time spent is greater than 50% in coordination of care (as documented) at patient's floor/unit and/or counseling patient: Total time spent with greater than 50% in coordination of care (as documented) at patient's floor/unit and/or counseling patient:: 25 - 35 minutes
[2022-02-25] MEDS: ACETAMINOPHEN W/CODEINE #3 1 TABLET PO PRN (11:49)
[2022-02-25] MEDS: INSULIN GLARGINE, HUMAN 1 UNIT/0.01 ML SQ SCH (20:17)
[2022-02-25] MEDS: QUEtiapine 25 MG TABLET PO SCH (20:19)
[2022-02-26] MEDS: 0.9 % SODIUM CHLORIDE 10 ML SYRINGE IV SCH ×3 (05:03→20:08)
[2022-02-26 06:58] LABS: Basophils # (Auto) 0.05 K/mcL (0.00-0.30); Basophils % (Auto) 0.6 % (0.0-2.0); Eosinophils % (Auto) 5.8 % (0.0-7.0); Hematocrit 35.3 % (40.1-51.0); Hemoglobin 10.8 g/dL (13.7-17.5); Lymphocytes # (Auto) 1.17 K/mcL (1.50-4.80); Lymphocytes % (Auto) 13.5 % (15.5-49.0); Mean Cell Volume 91.2 fL (80.0-100.0); Mean Corpuscular HGB Conc 30.6 g/dL (31.0-36.0); Mean Platelet Volume 9.5 fL (8.8-12.5); Monocytes # (Auto) 1.18 K/mcL (0.10-0.90); Monocytes % (Auto) 13.6 % (1.0-12.0); Neutrophils % (Auto) 66.2 % (38.0-78.0); Platelet Count 335 K/mcL (140-440); RBC 3.87 M/mcL (4.63-6.08); Red Cell Distribution Width 13.2 % (11.5-14.5); WBC 8.7 K/mcL (4.5-11.0)
[2022-02-26 07:36] LABS: ALT/SGPT 14 U/L (<40); AST/SGOT 20 U/L (<40); Albumin 2.6 gm/dL (3.2-5.2); Albumin/Globulin Ratio 0.7 (1.0-2.3); Alkaline Phosphatase 118 U/L (39-117); Bilirubin,Total 0.4 mg/dL (0.1-1.0); Blood Urea Nitrogen 9 mg/dL (8-23); Calcium 8.6 mg/dL (8.6-10.4); Carbon Dioxide 27 mmol/L (22-30); Chloride 99 mmol/L (96-108); Globulin 3.6 gm/dL (2.2-3.7); Glomerular Filtration Rate 80; Glucose 110 mg/dL (70-105)
[2022-02-26] MEDS: INSULIN LISPRO 1 UNIT/0.01 ML UNIT SQ SCH ×4 (08:01→20:07)
[2022-02-26] MEDS: OMEPRAZOLE 20 MG CAPSULE PO SCH (08:01)
[2022-02-26] MEDS: METHOCARBAMOL 750 MG TABLET PO SCH (08:33)
[2022-02-26] MEDS: MEMANTINE 10 MG TABLET PO SCH ×2 (08:33→20:08)
[2022-02-26] MEDS: TAMSULOSIN 0.4 MG CAPSULE PO SCH ×2 (08:33→20:08)
[2022-02-26] MEDS: BISOPROLOL 5 MG TABLET PO SCH (08:33)
[2022-02-26] MEDS: FUROSEMIDE 20 MG TABLET PO SCH (08:33)
[2022-02-26] MEDS: FLUoxetine HCL 20 MG CAPSULE PO SCH (08:33)
[2022-02-26] MEDS: ACETAMINOPHEN W/CODEINE #3 1 TABLET PO PRN (08:34)
[2022-02-26] MEDS: APIXABAN 5 MG TABLET PO SCH ×2 (08:35→20:08)
[2022-02-26] MEDS: DOCUSATE SODIUM 100 MG CAPSULE PO SCH ×2 (08:35→20:08)
--- NOTE | 2022-02-26 10:55 | Internal Med Progress Note ---
SUBJECTIVE Subjective Patient information: Note initiated : 02/26/22 at 10:52 am Service Date, if different from initiated Date: [] Patient: Edmond Salas a 86 y/o M admitted on 02/18/22 for Weakness/Eval for assisted living. Chief Complaint: [] Interval history: Mr. Salas is a 86 year old M Presents the ED with worsening confusion on top of dementia and weakness. Recently treated for UTI but the urine looks clear here. Original plan was for home with hospice out of the ED. But it sounds like the family was not comfortable with patient being home felt to be unsafe conditions and they have been try to get APS involved. Further work-up in the ED today they got a chest x-ray which showed infiltrate on left side and mild right. Was noted to have some transient mild hypoxia, unknown baseline but has copd. Sounds like after further discussion with family hospice does not think finally decided on and is reported that they would prefer treatment for anything if possible first. Patient reports a chronic cough and some shortness of breath but at baseline. Patient is a poor historian most history obtained from the chart. Medical history includes dementia COPD hypertension chronic anemia and diastolic heart failure grade 1 with good ejection fraction on an echo in 2019. 02/19 Patient sleeping. Likely result from Haldol last night. Haldol was given for sundowning and severe agitation and pulling at lines. Nurse also reports that she feels he is aspirating with liquids. We will place on dysphagia diet order speech therapy evaluation. Likely is infiltrates on chest x-ray from aspiration. 02/20 Patient sitting up in bed eating breakfast. Did get some Zyprexa last night for agitation. No new complaints this morning. Try to talk with him about his atrial fibrillation but given his dementia patient does not seem to comprehend. 02/21 Patient sitting up in bed eating breakfast. More talkative today. No overnight event or new complaints. Did not require any Zyprexa last night. 02/22 Patient sleeping. Calm overnight. Started Seroquel yesterday evening seem to respond well to it. 02/23: Afebrile overnight. No major overnight events. Subjective not obtained due to patient's clinical situations. Medically stable awaiting placement. 02/24: Afebrile overnight. No major overnight events. Subjective not obtained due to patient's clinical situations. Medically stable awaiting placement. 02/25: Afebrile overnight. No major overnight events. Subjective not obtained due to patient's clinical situations. Medically stable awaiting placement. 02/26: Afebrile overnight. No major overnight events. Subjective not obtained due to patient's clinical situations. Medically stable awaiting placement. Constitutional Vitals: Vital Signs Temp Pulse Resp BP Pulse Ox O2 Del Method O2 Flow Rate 36.6 C 95 H 14 129/59 97 0 02/26/22 07:00 02/26/22 07:00 02/26/22 07:00 02/26/22 07:00 02/26/22 07:00 02/26/22 03:14 02/25/22 04:00 Period Temp Pulse Resp BP Sys/Meza Pulse Ox O2 Del Method O2 Flow Rate Last 24 Hr 36.5 C-36.7 C 85-100 14-20 98-140/56-84 97-99 Room Air-Room Air Intake and Output 02/25/22 02/26/22 02/26/22 21:59 05:59 13:59 Intake Total 500 Output Total 800 650 Balance -800 -150 Weight 126.189 kg Intake & Output: Intake & Output 02/25/22 02/26/22 02/26/22 21:59 05:59 13:59 Intake Total 500 Output Total 800 650 Balance -800 -150 Weight 126.189 kg Intake: GI Tube Flush 500 Output: Urine Catheter Amount 800 650 Other: Urine Appearance Clear Urine Color Yellow Yellow Urine Odor Normal Head Head exam: Present atraumatic and normal inspection Eye Eye exam: Present normal appearance ENT ENT exam: Present mucous membranes moist, normal exam and normal external ear exam Neck Neck exam: Present normal inspection Respiratory Respiratory exam: Present normal respiratory exam Cardiovascular Cardiovascular exam: Present irregular rhythm GI/Abdominal GI/Abdominal exam: Present normal bowel sounds Back Exam Back exam: Present normal inspection Neurological Exam Neurological exam: Present alert and altered; Absent oriented X3 Additional comments: oriented X1 to person only Skin Skin exam: Present warm; Absent intact Additional comments: Stage 1 buttock ulcer OBJ DATA Labs CBC & Chem 7: 02/26/22 05:57 02/26/22 05:57 Labs: Abnormal Lab Results 02/26/22 02/26/22 02/25/22 05:57 05:57 05:30 RBC 3.87 L Hgb 10.8 L Hct 35.3 L MCHC 30.6 L Lymph % (Auto) 13.5 L [place] % (Auto) 13.6 H Eos % (Auto) Lymph # (Auto) 1.17 L [place] # (Auto) 1.18 H Carbon Dioxide 31 H Anion Gap 6.0 L Glucose 110 H 142 H Alkaline Phosphatase 118 H 128 H Total Protein Albumin 2.6 L 2.9 L Albumin/Globulin Ratio 0.7 L 0.8 L 02/25/22 02/24/22 02/24/22 05:30 05:25 05:25 RBC 4.04 L 3.93 L Hgb 11.2 L 10.9 L Hct 36.3 L 35.2 L MCHC 30.9 L Lymph % (Auto) 14.9 L [place] % (Auto) 13.3 H 14.5 H Eos % (Auto) 7.8 H Lymph # (Auto) 1.21 L 1.22 L [place] # (Auto) 1.08 H 1.12 H Carbon Dioxide Anion Gap 6.0 L Glucose 138 H Alkaline Phosphatase Total Protein 5.6 L Albumin 2.8 L Albumin/Globulin Ratio Meds: Medications Acetaminophen (Acetaminophen 325 Mg Tablet) 650 mg PO Q6HP PRN; Protocol PRN Reason: Per Pain Protocol/Fever > 101 Last Admin: 02/23/22 13:36 Dose: 650 mg Acetaminophen/Codeine Phosphate (Acetaminophen W/Codeine #3 1 Tablet) 1 tab PO BIDP PRN; Protocol PRN Reason: Pain Last Admin: 02/26/22 08:34 Dose: 1 tab Albuterol/Ipratropium (Ipratropium/Albuterol 3 Ml Ampul.Neb) 3 ml NEB Q4HP PRN PRN Reason: Shortness Of Breath Last Admin: 02/20/22 22:53 Dose: 3 ml Apixaban (Apixaban 5 Mg Tablet) 5 mg PO BID GAIL Last Admin: 02/26/22 08:35 Dose: 5 mg Bisoprolol Fumarate (Bisoprolol 5 Mg Tablet) 10 mg PO DAILY [facility] Last Admin: 02/26/22 08:33 Dose: 10 mg Dextrose (Dextrose 50% 50 Ml Vial) 0 ml IV UD PRN PRN Reason: Per Sliding Scale Diagnostic Test (Pha) (Accu-Chek 1 Each Strip) 1 each FS ACHS [facility] Last Admin: 02/26/22 08:00 Dose: 1 each Docusate Sodium (Docusate Sodium 100 Mg Capsule) 100 mg PO BID [facility] Last Admin: 02/26/22 08:35 Dose: 100 mg Fluoxetine HCl (Fluoxetine Hcl 20 Mg Capsule) 20 mg PO DAILY [facility] Last Admin: 02/26/22 08:33 Dose: 20 mg Furosemide (Furosemide 20 Mg Tablet) 40 mg PO DAILY [facility] Last Admin: 02/26/22 08:33 Dose: 40 mg Glucose (Dextrose 31 Gm Oral.Susp) 15 gm PO PRN PRN PRN Reason: Hypoglycemia Potassium Chloride 40 meq/ (Dextrose) 520 mls @ 130 mls/hr IV UD PRN PRN Reason: Potassium < 3 Magnesium Sulfate (Magnesium Sulfate) 2 gm in 50 mls @ 50 mls/hr IV UD PRN PRN Reason: Magnesium </= 1.6 Insulin Glargine (Insulin Glargine, Human 1 Unit/0.01 Ml) 10 unit SQ QPM [facility] Last Admin: 02/25/22 20:17 Dose: 10 units Insulin Human Lispro (Insulin Lispro 1 Unit/0.01 Ml Unit) 0 unit SQ ACHS [facility]; Protocol Last Admin: 02/26/22 08:01 Dose: Not Given Memantine (Memantine 10 Mg Tablet) 5 mg PO BID [facility] Last Admin: 02/26/22 08:33 Dose: 5 mg Methocarbamol (Methocarbamol 750 Mg Tablet) 750 mg PO DAILY [facility] Last Admin: 02/26/22 08:33 Dose: 750 mg Metoprolol Tartrate (Metoprolol Tartrate 5 Mg/5 Ml Vial) 5 mg IV Q2HP PRN PRN Reason: Tachyarrhythmias HR>110 Last Admin: 02/19/22 22:21 Dose: 5 mg Omeprazole (Omeprazole 20 Mg Capsule) 20 mg PO ACB [facility] Last Admin: 02/26/22 08:01 Dose: 20 mg Ondansetron HCl (Ondansetron 4 Mg/2 Ml Vial) 4 mg IV Q4HP PRN PRN Reason: Nausea And Vomiting Polyethylene Glycol (Polyethylene Glycol 3350 17 Gm Packet) 17 gm PO DAILYP PRN PRN Reason: Constipation Last Admin: 02/22/22 08:43 Dose: 17 gm Potassium Chloride (Potassium Chloride 20 Meq Tablet) 40 meq PO UD PRN PRN Reason: Potssium is 3-3.5 Potassium Chloride (Potassium Chloride 20 Meq Tablet) 40 meq PO UD PRN PRN Reason: Potassium < 3 Quetiapine Fumarate (Quetiapine 25 Mg Tablet) 50 mg PO HS [facility] Last Admin: 02/25/22 20:19 Dose: 50 mg Senna (Sennosides 1 Tablet) 2 tab PO DAILYP PRN PRN Reason: Constipation Last Admin: 02/22/22 08:44 Dose: 2 tab Sodium Chloride (0.9 % Sodium Chloride 10 Ml Syringe) 10 ml IV Q8 [facility] Last Admin: 02/26/22 05:03 Dose: 10 ml Tamsulosin HCl (Tamsulosin 0.4 Mg Capsule) 0.4 mg PO BID [facility] Last Admin: 02/26/22 08:33 Dose: 0.4 mg A/P Assessment and plan (1) Obesity (BMI 30.0-34.9): Status: Acute (2) Decubitus ulcer of buttock, stage 1: Status: Acute (3) Failure to thrive in adult: Status: Acute (4) Dementia: Status: Acute (5) Anemia, normocytic normochromic: Status: Acute (6) Paroxysmal atrial fibrillation with RVR: Status: Acute (7) Essential hypertension: Status: Acute (8) Aspiration pneumonia: Status: Acute (9) Prediabetes: Status: Acute (10) Diastolic CHF: Status: Acute Narrative A/P Narrative: Assessment and Plans: 1. Dementia and adult failure to thrive: Dietitian consulted Physical therapy recs. SNF placement, pending Reached medical stability Continue Memantine 2. Aspiration pneumonia: SLT recs. level 6 dysphagia diet Tolerating room air Cultures no growth to date Finished 7 days of Rocephin therapy cbc w/ auto diff in the morning to trend WBC 3. Stage 1 decubitus ulcer in buttock: Wound care team consulted. Dr. Rodger jarvis assisted wound cleaning and wound care 4. Anemia, normocytic normochromic: cbc w/ auto diff in the morning to trend H/H 5. Paroxysmal atrial fibrillation: Bisoprolol as rate control Eliquis 6. h/o Diastolic CHF: Bisoprolol Lasix PO 7. h/o essential hypertension: Currently borderline low blood pressure: holding Amlodipine Continue Bisoprolol as part of the treatment for atrial fibrillation and for CHF, respectively 8. Prediabetes: HgA1c 6.4 Lantus 10 unit qPM SSI AC HS Accu Chek AC HS Hypoglycemia protocol 9. Obesity: Not possible to counseling center director patient regarding life style modifications due to dementia GI ppx: Prilosec DVT ppx: Eliquis Code status: DNR Prognosis: stable Disposition: inpatient med surg; pending SNF placement Plan of Treatment: Plan: Continue topical skin care as per wound care nurse. Time Spent With Patient Time: Total time spent is greater than 50% in coordination of care (as documented) at patient's floor/unit and/or counseling patient: Total time spent with greater than 50% in coordination of care (as documented) at patient's floor/unit and/or counseling patient:: 25 - 35 minutes
[2022-02-26] MEDS: INSULIN GLARGINE, HUMAN 1 UNIT/0.01 ML SQ SCH (20:07)
[2022-02-26] MEDS: QUEtiapine 25 MG TABLET PO SCH (20:08)
[2022-02-27] MEDS: 0.9 % SODIUM CHLORIDE 10 ML SYRINGE IV SCH ×3 (05:08→20:03)
[2022-02-27 07:13] LABS: Basophils # (Auto) 0.05 K/mcL (0.00-0.30); Basophils % (Auto) 0.6 % (0.0-2.0); Eosinophils # (Auto) 0.58 K/mcL (0.00-0.70); Eosinophils % (Auto) 6.9 % (0.0-7.0); Hematocrit 39.6 % (40.1-51.0); Lymphocytes # (Auto) 1.28 K/mcL (1.50-4.80); Lymphocytes % (Auto) 15.2 % (15.5-49.0); Mean Cell Volume 91.9 fL (80.0-100.0); Mean Corpuscular HGB Conc 30.3 g/dL (31.0-36.0); Mean Platelet Volume 9.4 fL (8.8-12.5); Monocytes # (Auto) 1.16 K/mcL (0.10-0.90); Monocytes % (Auto) 13.8 % (1.0-12.0); Neutrophils % (Auto) 63.1 % (38.0-78.0); Platelet Count 374 K/mcL (140-440); RBC 4.31 M/mcL (4.63-6.08); Red Cell Distribution Width 13.3 % (11.5-14.5); WBC 8.4 K/mcL (4.5-11.0)
[2022-02-27] MEDS: INSULIN LISPRO 1 UNIT/0.01 ML UNIT SQ SCH ×4 (07:52→20:01)
[2022-02-27] MEDS: OMEPRAZOLE 20 MG CAPSULE PO SCH (07:54)
[2022-02-27 07:56] LABS: ALT/SGPT 15 U/L (<40); AST/SGOT 20 U/L (<40); Albumin 2.9 gm/dL (3.2-5.2); Albumin/Globulin Ratio 0.7 (1.0-2.3); Alkaline Phosphatase 132 U/L (39-117); Bilirubin,Total 0.3 mg/dL (0.1-1.0); Blood Urea Nitrogen 11 mg/dL (8-23); Calcium 8.8 mg/dL (8.6-10.4); Carbon Dioxide 30 mmol/L (22-30); Chloride 100 mmol/L (96-108); Glomerular Filtration Rate 80; Glucose 125 mg/dL (70-105)
[2022-02-27] MEDS: MEMANTINE 10 MG TABLET PO SCH ×2 (09:02→20:02)
[2022-02-27] MEDS: BISOPROLOL 5 MG TABLET PO SCH (09:02)
[2022-02-27] MEDS: FUROSEMIDE 20 MG TABLET PO SCH (09:03)
[2022-02-27] MEDS: FLUoxetine HCL 20 MG CAPSULE PO SCH (09:03)
[2022-02-27] MEDS: DOCUSATE SODIUM 100 MG CAPSULE PO SCH ×2 (09:03→20:02)
[2022-02-27] MEDS: ACETAMINOPHEN W/CODEINE #3 1 TABLET PO PRN ×2 (09:03→17:42)
[2022-02-27] MEDS: METHOCARBAMOL 750 MG TABLET PO SCH (09:03)
[2022-02-27] MEDS: TAMSULOSIN 0.4 MG CAPSULE PO SCH ×2 (09:03→20:02)
[2022-02-27] MEDS: APIXABAN 5 MG TABLET PO SCH ×2 (09:03→20:02)
--- NOTE | 2022-02-27 11:33 | Internal Med Progress Note ---
SUBJECTIVE Subjective Patient information: Note initiated : 02/27/22 at 11:31 am Service Date, if different from initiated Date: [] Patient: Edmond Salas a 86 y/o M admitted on 02/18/22 for Weakness/Eval for assisted living. Chief Complaint: [] Interval history: Mr. Salas is a 86 year old M Presents the ED with worsening confusion on top of dementia and weakness. Recently treated for UTI but the urine looks clear here. Original plan was for home with hospice out of the ED. But it sounds like the family was not comfortable with patient being home felt to be unsafe conditions and they have been try to get APS involved. Further work-up in the ED today they got a chest x-ray which showed infiltrate on left side and mild right. Was noted to have some transient mild hypoxia, unknown baseline but has copd. Sounds like after further discussion with family hospice does not think finally decided on and is reported that they would prefer treatment for anything if possible first. Patient reports a chronic cough and some shortness of breath but at baseline. Patient is a poor historian most history obtained from the chart. Medical history includes dementia COPD hypertension chronic anemia and diastolic heart failure grade 1 with good ejection fraction on an echo in 2019. 02/19 Patient sleeping. Likely result from Haldol last night. Haldol was given for sundowning and severe agitation and pulling at lines. Nurse also reports that she feels he is aspirating with liquids. We will place on dysphagia diet order speech therapy evaluation. Likely is infiltrates on chest x-ray from aspiration. 02/20 Patient sitting up in bed eating breakfast. Did get some Zyprexa last night for agitation. No new complaints this morning. Try to talk with him about his atrial fibrillation but given his dementia patient does not seem to comprehend. 02/21 Patient sitting up in bed eating breakfast. More talkative today. No overnight event or new complaints. Did not require any Zyprexa last night. 02/22 Patient sleeping. Calm overnight. Started Seroquel yesterday evening seem to respond well to it. 02/23: Afebrile overnight. No major overnight events. Subjective not obtained due to patient's clinical situations. Medically stable awaiting placement. 02/24: Afebrile overnight. No major overnight events. Subjective not obtained due to patient's clinical situations. Medically stable awaiting placement. 02/25: Afebrile overnight. No major overnight events. Subjective not obtained due to patient's clinical situations. Medically stable awaiting placement. 02/26: Afebrile overnight. No major overnight events. Subjective not obtained due to patient's clinical situations. Medically stable awaiting placement. 02/27: Afebrile overnight. No major overnight events. Subjective not obtained due to patient's clinical situations. Medically stable awaiting placement. Constitutional Vitals: Vital Signs Temp Pulse Resp BP Pulse Ox O2 Del Method O2 Flow Rate 35.9 C L 95 H 20 170/73 97 0 02/27/22 07:00 02/27/22 02:59 02/27/22 07:00 02/27/22 07:00 02/27/22 07:00 02/27/22 07:00 02/25/22 04:00 Period Temp Pulse Resp BP Sys/Meza Pulse Ox O2 Del Method O2 Flow Rate Last 24 Hr 35.9 C-37.3 C 84-95 14-20 123-170/56-81 97-98 Room Air-Room Air Intake and Output 02/26/22 02/27/22 02/27/22 21:59 05:59 13:59 Intake Total 300 150 Output Total 1200 750 Balance -900 -600 Weight 126.325 kg Intake & Output: Intake & Output 02/26/22 02/27/22 02/27/22 21:59 05:59 13:59 Intake Total 300 150 Output Total 1200 750 Balance -900 -600 Weight 126.325 kg Intake: GI Tube Flush 300 150 Output: Urine Catheter Amount 1200 Void Amount 750 Other: Urine Appearance Clear Urine Color Yellow Head Head exam: Present atraumatic and normal inspection Eye Eye exam: Present normal appearance ENT ENT exam: Present mucous membranes moist, normal exam and normal external ear exam Neck Neck exam: Present normal inspection Respiratory Respiratory exam: Present normal respiratory exam Cardiovascular Cardiovascular exam: Present irregular rhythm GI/Abdominal GI/Abdominal exam: Present normal bowel sounds Back Exam Back exam: Present normal inspection Neurological Exam Neurological exam: Present alert and altered; Absent oriented X3 Additional comments: oriented X1 to person only Skin Skin exam: Present intact and warm OBJ DATA Labs CBC & Chem 7: 02/27/22 05:35 02/27/22 05:35 Labs: Abnormal Lab Results 02/27/22 02/27/22 02/26/22 05:35 05:35 05:57 RBC 4.31 L Hgb 12.0 L Hct 39.6 L MCHC 30.3 L Lymph % (Auto) 15.2 L [place] % (Auto) 13.8 H Lymph # (Auto) 1.28 L [place] # (Auto) 1.16 H Carbon Dioxide Anion Gap Glucose 125 H 110 H Alkaline Phosphatase 132 H 118 H Albumin 2.9 L 2.6 L Globulin 4.0 H Albumin/Globulin Ratio 0.7 L 0.7 L 02/26/22 02/25/22 02/25/22 05:57 05:30 05:30 RBC 3.87 L 4.04 L Hgb 10.8 L 11.2 L Hct 35.3 L 36.3 L MCHC 30.6 L 30.9 L Lymph % (Auto) 13.5 L 14.9 L [place] % (Auto) 13.6 H 13.3 H Lymph # (Auto) 1.17 L 1.21 L [place] # (Auto) 1.18 H 1.08 H Carbon Dioxide 31 H Anion Gap 6.0 L Glucose 142 H Alkaline Phosphatase 128 H Albumin 2.9 L Globulin Albumin/Globulin Ratio 0.8 L Meds: Medications Acetaminophen (Acetaminophen 325 Mg Tablet) 650 mg PO Q6HP PRN; Protocol PRN Reason: Per Pain Protocol/Fever > 101 Last Admin: 02/23/22 13:36 Dose: 650 mg Acetaminophen/Codeine Phosphate (Acetaminophen W/Codeine #3 1 Tablet) 1 tab PO BIDP PRN; Protocol PRN Reason: Pain Last Admin: 02/27/22 09:03 Dose: 1 tab Albuterol/Ipratropium (Ipratropium/Albuterol 3 Ml Ampul.Neb) 3 ml NEB Q4HP PRN PRN Reason: Shortness Of Breath Last Admin: 02/20/22 22:53 Dose: 3 ml Apixaban (Apixaban 5 Mg Tablet) 5 mg PO BID GAIL Last Admin: 02/27/22 09:03 Dose: 5 mg Bisoprolol Fumarate (Bisoprolol 5 Mg Tablet) 10 mg PO DAILY GAIL Last Admin: 02/27/22 09:02 Dose: 10 mg Dextrose (Dextrose 50% 50 Ml Vial) 0 ml IV UD PRN PRN Reason: Per Sliding Scale Diagnostic Test (Pha) (Accu-Chek 1 Each Strip) 1 each FS ACHS GAIL Last Admin: 02/27/22 07:51 Dose: 1 each Docusate Sodium (Docusate Sodium 100 Mg Capsule) 100 mg PO BID [facility] Last Admin: 02/27/22 09:03 Dose: 100 mg Fluoxetine HCl (Fluoxetine Hcl 20 Mg Capsule) 20 mg PO DAILY [facility] Last Admin: 02/27/22 09:03 Dose: 20 mg Furosemide (Furosemide 20 Mg Tablet) 40 mg PO DAILY [facility] Last Admin: 02/27/22 09:03 Dose: 40 mg Glucose (Dextrose 31 Gm Oral.Susp) 15 gm PO PRN PRN PRN Reason: Hypoglycemia Potassium Chloride 40 meq/ (Dextrose) 520 mls @ 130 mls/hr IV UD PRN PRN Reason: Potassium < 3 Magnesium Sulfate (Magnesium Sulfate) 2 gm in 50 mls @ 50 mls/hr IV UD PRN PRN Reason: Magnesium </= 1.6 Insulin Glargine (Insulin Glargine, Human 1 Unit/0.01 Ml) 10 unit SQ QPM [facility] Last Admin: 02/26/22 20:07 Dose: 10 units Insulin Human Lispro (Insulin Lispro 1 Unit/0.01 Ml Unit) 0 unit SQ [facility]; Protocol Last Admin: 02/27/22 07:52 Dose: Not Given Memantine (Memantine 10 Mg Tablet) 5 mg PO BID [facility] Last Admin: 02/27/22 09:02 Dose: 5 mg Methocarbamol (Methocarbamol 750 Mg Tablet) 750 mg PO DAILY [facility] Last Admin: 02/27/22 09:03 Dose: 750 mg Metoprolol Tartrate (Metoprolol Tartrate 5 Mg/5 Ml Vial) 5 mg IV Q2HP PRN PRN Reason: Tachyarrhythmias HR>110 Last Admin: 02/19/22 22:21 Dose: 5 mg Omeprazole (Omeprazole 20 Mg Capsule) 20 mg PO ACB [facility] Last Admin: 02/27/22 07:54 Dose: 20 mg Ondansetron HCl (Ondansetron 4 Mg/2 Ml Vial) 4 mg IV Q4HP PRN PRN Reason: Nausea And Vomiting Polyethylene Glycol (Polyethylene Glycol 3350 17 Gm Packet) 17 gm PO DAILYP PRN PRN Reason: Constipation Last Admin: 02/22/22 08:43 Dose: 17 gm Potassium Chloride (Potassium Chloride 20 Meq Tablet) 40 meq PO UD PRN PRN Reason: Potssium is 3-3.5 Potassium Chloride (Potassium Chloride 20 Meq Tablet) 40 meq PO UD PRN PRN Reason: Potassium < 3 Quetiapine Fumarate (Quetiapine 25 Mg Tablet) 50 mg PO HS [facility] Last Admin: 02/26/22 20:08 Dose: 50 mg Senna (Sennosides 1 Tablet) 2 tab PO DAILYP PRN PRN Reason: Constipation Last Admin: 02/22/22 08:44 Dose: 2 tab Sodium Chloride (0.9 % Sodium Chloride 10 Ml Syringe) 10 ml IV Q8 [facility] Last Admin: 02/27/22 05:08 Dose: 10 ml Tamsulosin HCl (Tamsulosin 0.4 Mg Capsule) 0.4 mg PO BID [facility] Last Admin: 02/27/22 09:03 Dose: 0.4 mg A/P Assessment and plan (1) Obesity (BMI 30.0-34.9): Status: Acute (2) Decubitus ulcer of buttock, stage 1: Status: Acute (3) Failure to thrive in adult: Status: Acute (4) Dementia: Status: Acute (5) Anemia, normocytic normochromic: Status: Acute (6) Paroxysmal atrial fibrillation with RVR: Status: Acute (7) Essential hypertension: Status: Acute (8) Aspiration pneumonia: Status: Acute (9) Prediabetes: Status: Acute (10) Diastolic CHF: Status: Acute Narrative A/P Narrative: Assessment and Plans: 1. Dementia and adult failure to thrive: Dietitian consulted Physical therapy recs. SNF placement, pending Reached medical stability Continue Memantine 2. Aspiration pneumonia: SLT recs. level 6 dysphagia diet Tolerating room air Cultures no growth to date Finished 7 days of Rocephin therapy cbc w/ auto diff in the morning to trend WBC 3. Stage 1 decubitus ulcer in buttock: Wound care team consulted. Dr. Rodger jarvis assisted wound cleaning and wound care 4. Anemia, normocytic normochromic: cbc w/ auto diff in the morning to trend H/H 5. Paroxysmal atrial fibrillation: Bisoprolol as rate control Eliquis 6. h/o Diastolic CHF: Bisoprolol Lasix PO 7. h/o essential hypertension: Resume Amlodipine Continue Bisoprolol as part of the treatment for atrial fibrillation and for CHF, respectively 8. Prediabetes: HgA1c 6.4 Lantus 10 unit qPM SSI AC HS Accu Chek AC HS Hypoglycemia protocol 9. Obesity: Not possible to retirement plan counselor patient regarding life style modifications due to dementia GI ppx: Prilosec DVT ppx: Eliquis Code status: DNR Prognosis: stable Disposition: inpatient med surg; pending SNF placement Plan of Treatment: Plan: Continue topical skin care as per wound care nurse. Time Spent With Patient Time: Total time spent is greater than 50% in coordination of care (as documented) at patient's floor/unit and/or counseling patient: Total time spent with greater than 50% in coordination of care (as documented) at patient's floor/unit and/or counseling patient:: 25 - 35 minutes
[2022-02-27] MEDS: amLODIPine 5 MG TABLET PO SCH (12:33)
[2022-02-27] MEDS: INSULIN GLARGINE, HUMAN 1 UNIT/0.01 ML SQ SCH (20:01)
[2022-02-27] MEDS: QUEtiapine 25 MG TABLET PO SCH (20:02)
[2022-02-27] MEDS: Budesonide-Formoterol 10.2 GM HFA aerosol inhaler INH SCH (20:03)
[2022-02-28] MEDS: 0.9 % SODIUM CHLORIDE 10 ML SYRINGE IV SCH ×3 (05:04→20:12)
[2022-02-28 07:01] LABS: Basophils # (Auto) 0.05 K/mcL (0.00-0.30); Basophils % (Auto) 0.5 % (0.0-2.0); Eosinophils % (Auto) 5.2 % (0.0-7.0); Hematocrit 36.8 % (40.1-51.0); Hemoglobin 11.7 g/dL (13.7-17.5); Lymphocytes # (Auto) 1.27 K/mcL (1.50-4.80); Lymphocytes % (Auto) 13.2 % (15.5-49.0); Mean Cell Volume 89.1 fL (80.0-100.0); Mean Corpuscular HGB Conc 31.8 g/dL (31.0-36.0); Mean Platelet Volume 9.3 fL (8.8-12.5); Monocytes # (Auto) 1.23 K/mcL (0.10-0.90); Monocytes % (Auto) 12.8 % (1.0-12.0); Platelet Count 382 K/mcL (140-440); RBC 4.13 M/mcL (4.63-6.08); Red Cell Distribution Width 13.2 % (11.5-14.5); WBC 9.6 K/mcL (4.5-11.0)
[2022-02-28] MEDS: INSULIN LISPRO 1 UNIT/0.01 ML UNIT SQ SCH ×4 (07:22→20:10)
[2022-02-28] MEDS: OMEPRAZOLE 20 MG CAPSULE PO SCH (07:30)
[2022-02-28 07:49] LABS: ALT/SGPT 14 U/L (<40); AST/SGOT 20 U/L (<40); Albumin 2.7 gm/dL (3.2-5.2); Albumin/Globulin Ratio 0.7 (1.0-2.3); Alkaline Phosphatase 125 U/L (39-117); Bilirubin,Total 0.3 mg/dL (0.1-1.0); Blood Urea Nitrogen 13 mg/dL (8-23); Calcium 8.7 mg/dL (8.6-10.4); Carbon Dioxide 31 mmol/L (22-30); Chloride 100 mmol/L (96-108); Globulin 3.8 gm/dL (2.2-3.7); Glomerular Filtration Rate 76; Glucose 120 mg/dL (70-105)
[2022-02-28] MEDS: DOCUSATE SODIUM 100 MG CAPSULE PO SCH ×2 (08:52→20:11)
[2022-02-28] MEDS: MEMANTINE 10 MG TABLET PO SCH ×2 (08:52→20:12)
[2022-02-28] MEDS: amLODIPine 5 MG TABLET PO SCH (08:52)
[2022-02-28] MEDS: APIXABAN 5 MG TABLET PO SCH ×2 (08:52→20:11)
[2022-02-28] MEDS: METHOCARBAMOL 750 MG TABLET PO SCH (08:52)
[2022-02-28] MEDS: FLUoxetine HCL 20 MG CAPSULE PO SCH (08:52)
[2022-02-28] MEDS: TAMSULOSIN 0.4 MG CAPSULE PO SCH ×2 (08:53→20:11)
[2022-02-28] MEDS: FUROSEMIDE 20 MG TABLET PO SCH (08:53)
[2022-02-28] MEDS: BISOPROLOL 5 MG TABLET PO SCH (08:53)
[2022-02-28] MEDS: ACETAMINOPHEN W/CODEINE #3 1 TABLET PO PRN (08:54)
[2022-02-28] MEDS: Budesonide-Formoterol 10.2 GM HFA aerosol inhaler INH SCH ×2 (08:54→20:13)
--- NOTE | 2022-02-28 12:18 | Internal Med Progress Note ---
SUBJECTIVE Subjective Patient information: Note initiated : 02/28/22 at 12:17 pm Service Date, if different from initiated Date: [] Patient: Edmond Salas a 86 y/o M admitted on 02/18/22 for Weakness/Eval for assisted living. Chief Complaint: [] Interval history: Mr. Salas is a 86 year old M Presents the ED with worsening confusion on top of dementia and weakness. Recently treated for UTI but the urine looks clear here. Original plan was for home with hospice out of the ED. But it sounds like the family was not comfortable with patient being home felt to be unsafe conditions and they have been try to get APS involved. Further work-up in the ED today they got a chest x-ray which showed infiltrate on left side and mild right. Was noted to have some transient mild hypoxia, unknown baseline but has copd. Sounds like after further discussion with family hospice does not think finally decided on and is reported that they would prefer treatment for anything if possible first. Patient reports a chronic cough and some shortness of breath but at baseline. Patient is a poor historian most history obtained from the chart. Medical history includes dementia COPD hypertension chronic anemia and diastolic heart failure grade 1 with good ejection fraction on an echo in 2019. 02/19 Patient sleeping. Likely result from Haldol last night. Haldol was given for sundowning and severe agitation and pulling at lines. Nurse also reports that she feels he is aspirating with liquids. We will place on dysphagia diet order speech therapy evaluation. Likely is infiltrates on chest x-ray from aspiration. 02/20 Patient sitting up in bed eating breakfast. Did get some Zyprexa last night for agitation. No new complaints this morning. Try to talk with him about his atrial fibrillation but given his dementia patient does not seem to comprehend. 02/21 Patient sitting up in bed eating breakfast. More talkative today. No overnight event or new complaints. Did not require any Zyprexa last night. 02/22 Patient sleeping. Calm overnight. Started Seroquel yesterday evening seem to respond well to it. 02/23: Afebrile overnight. No major overnight events. Subjective not obtained due to patient's clinical situations. Medically stable awaiting placement. 02/24: Afebrile overnight. No major overnight events. Subjective not obtained due to patient's clinical situations. Medically stable awaiting placement. 02/25: Afebrile overnight. No major overnight events. Subjective not obtained due to patient's clinical situations. Medically stable awaiting placement. 02/26: Afebrile overnight. No major overnight events. Subjective not obtained due to patient's clinical situations. Medically stable awaiting placement. 02/27: Afebrile overnight. No major overnight events. Subjective not obtained due to patient's clinical situations. Medically stable awaiting placement. 02/28: Afebrile overnight. No major overnight events. Subjective not obtained due to patient's clinical situations. Medically stable awaiting placement. Constitutional Vitals: Vital Signs Temp Pulse Resp BP Pulse Ox O2 Del Method O2 Flow Rate 36.2 C 98 H 16 113/51 94 0 02/28/22 11:23 02/28/22 11:23 02/28/22 11:23 02/28/22 11:23 02/28/22 11:23 02/28/22 11:23 02/25/22 04:00 Period Temp Pulse Resp BP Sys/Meza Pulse Ox O2 Del Method O2 Flow Rate Last 24 Hr 36.2 C-36.8 C 89-98 15-20 96-134/43-59 92-98 Room Air-Room Air Intake and Output 02/27/22 02/28/22 02/28/22 21:59 05:59 13:59 Intake Total 200 200 50 Output Total 750 Balance 200 -550 50 Weight 127.505 kg Intake & Output: Intake & Output 02/27/22 02/28/22 02/28/22 21:59 05:59 13:59 Intake Total 200 200 50 Output Total 750 Balance 200 -550 50 Weight 127.505 kg Intake: Oral 200 50 GI Tube Flush 200 Output: Urine Catheter Amount 750 Other: Meal Dinner Breakfast Percent of Meal Consumed 100% 5% Feeding Ability Independent Needs Supervision Urine Appearance Clear Willis Sediment Urine Color Yellow Yellow [place] Dark Yellow Head Head exam: Present atraumatic and normal inspection Eye Eye exam: Present normal appearance ENT ENT exam: Present mucous membranes moist, normal exam and normal external ear exam Neck Neck exam: Present normal inspection Respiratory Respiratory exam: Present normal respiratory exam Cardiovascular Cardiovascular exam: Present irregular rhythm GI/Abdominal GI/Abdominal exam: Present normal bowel sounds Back Exam Back exam: Present normal inspection Neurological Exam Neurological exam: Present alert and altered; Absent oriented X3 Additional comments: oriented X1 to person only Skin Skin exam: Present intact and warm OBJ DATA Labs CBC & Chem 7: 02/28/22 05:49 02/28/22 05:49 Labs: Abnormal Lab Results 02/28/22 02/28/22 02/27/22 05:49 05:49 05:35 RBC 4.13 L Hgb 11.7 L Hct 36.8 L MCHC Lymph % (Auto) 13.2 L [place] % (Auto) 12.8 H Lymph # (Auto) 1.27 L [place] # (Auto) 1.23 H Carbon Dioxide 31 H Glucose 120 H 125 H Alkaline Phosphatase 125 H 132 H Albumin 2.7 L 2.9 L Globulin 3.8 H 4.0 H Albumin/Globulin Ratio 0.7 L 0.7 L 02/27/22 02/26/22 02/26/22 05:35 05:57 05:57 RBC 4.31 L 3.87 L Hgb 12.0 L 10.8 L Hct 39.6 L 35.3 L MCHC 30.3 L 30.6 L Lymph % (Auto) 15.2 L 13.5 L [place] % (Auto) 13.8 H 13.6 H Lymph # (Auto) 1.28 L 1.17 L [place] # (Auto) 1.16 H 1.18 H Carbon Dioxide Glucose 110 H Alkaline Phosphatase 118 H Albumin 2.6 L Globulin Albumin/Globulin Ratio 0.7 L Meds: Medications Acetaminophen (Acetaminophen 325 Mg Tablet) 650 mg PO Q6HP PRN; Protocol PRN Reason: Per Pain Protocol/Fever > 101 Last Admin: 02/23/22 13:36 Dose: 650 mg Acetaminophen/Codeine Phosphate (Acetaminophen W/Codeine #3 1 Tablet) 1 tab PO BIDP PRN; Protocol PRN Reason: Pain Last Admin: 02/28/22 08:54 Dose: 1 tab Albuterol/Ipratropium (Ipratropium/Albuterol 3 Ml Ampul.Neb) 3 ml NEB Q4HP PRN PRN Reason: Shortness Of Breath Last Admin: 02/20/22 22:53 Dose: 3 ml Amlodipine Besylate (Amlodipine 5 Mg Tablet) 5 mg PO DAILY [facility] Last Admin: 02/28/22 08:52 Dose: 5 mg Apixaban (Apixaban 5 Mg Tablet) 5 mg PO BID [facility] Last Admin: 02/28/22 08:52 Dose: 5 mg Bisoprolol Fumarate (Bisoprolol 5 Mg Tablet) 10 mg PO DAILY [facility] Last Admin: 02/28/22 08:53 Dose: 10 mg Dextrose (Dextrose 50% 50 Ml Vial) 0 ml IV UD PRN PRN Reason: Per Sliding Scale Diagnostic Test (Pha) (Accu-Chek 1 Each Strip) 1 each FS ACHS [facility] Last Admin: 02/28/22 12:07 Dose: 1 each Docusate Sodium (Docusate Sodium 100 Mg Capsule) 100 mg PO BID [facility] Last Admin: 02/28/22 08:52 Dose: 100 mg Fluoxetine HCl (Fluoxetine Hcl 20 Mg Capsule) 20 mg PO DAILY [facility] Last Admin: 02/28/22 08:52 Dose: 20 mg Furosemide (Furosemide 20 Mg Tablet) 40 mg PO DAILY [facility] Last Admin: 02/28/22 08:53 Dose: 40 mg Glucose (Dextrose 31 Gm Oral.Susp) 15 gm PO PRN PRN PRN Reason: Hypoglycemia Potassium Chloride 40 meq/ (Dextrose) 520 mls @ 130 mls/hr IV UD PRN PRN Reason: Potassium < 3 Magnesium Sulfate (Magnesium Sulfate) 2 gm in 50 mls @ 50 mls/hr IV UD PRN PRN Reason: Magnesium </= 1.6 Insulin Glargine (Insulin Glargine, Human 1 Unit/0.01 Ml) 10 unit SQ QPM [facility] Last Admin: 02/27/22 20:01 Dose: 10 units Insulin Human Lispro (Insulin Lispro 1 Unit/0.01 Ml Unit) 0 unit SQ ACHS [facility]; Protocol Last Admin: 02/28/22 12:08 Dose: Not Given Memantine (Memantine 10 Mg Tablet) 5 mg PO BID [facility] Last Admin: 02/28/22 08:52 Dose: 5 mg Methocarbamol (Methocarbamol 750 Mg Tablet) 750 mg PO DAILY [facility] Last Admin: 02/28/22 08:52 Dose: 750 mg Metoprolol Tartrate (Metoprolol Tartrate 5 Mg/5 Ml Vial) 5 mg IV Q2HP PRN PRN Reason: Tachyarrhythmias HR>110 Last Admin: 02/19/22 22:21 Dose: 5 mg Omeprazole (Omeprazole 20 Mg Capsule) 20 mg PO ACB [facility] Last Admin: 02/28/22 07:30 Dose: 20 mg Ondansetron HCl (Ondansetron 4 Mg/2 Ml Vial) 4 mg IV Q4HP PRN PRN Reason: Nausea And Vomiting Budesonide- Formoterol 10.2 Gm Hfa Aerosol Inhaler 2 dose INH BID [facility] Last Admin: 02/28/22 08:54 Dose: Not Given Polyethylene Glycol (Polyethylene Glycol 3350 17 Gm Packet) 17 gm PO DAILYP PRN PRN Reason: Constipation Last Admin: 02/22/22 08:43 Dose: 17 gm Potassium Chloride (Potassium Chloride 20 Meq Tablet) 40 meq PO UD PRN PRN Reason: Potssium is 3-3.5 Potassium Chloride (Potassium Chloride 20 Meq Tablet) 40 meq PO UD PRN PRN Reason: Potassium < 3 Quetiapine Fumarate (Quetiapine 25 Mg Tablet) 50 mg PO HS [facility] Last Admin: 02/27/22 20:02 Dose: 50 mg Senna (Sennosides 1 Tablet) 2 tab PO DAILYP PRN PRN Reason: Constipation Last Admin: 02/22/22 08:44 Dose: 2 tab Sodium Chloride (0.9 % Sodium Chloride 10 Ml Syringe) 10 ml IV Q8 [facility] Last Admin: 02/28/22 05:04 Dose: 10 ml Tamsulosin HCl (Tamsulosin 0.4 Mg Capsule) 0.4 mg PO BID [facility] Last Admin: 02/28/22 08:53 Dose: 0.4 mg A/P Assessment and plan (1) Obesity (BMI 30.0-34.9): Status: Acute (2) Decubitus ulcer of buttock, stage 1: Status: Acute (3) Failure to thrive in adult: Status: Acute (4) Dementia: Status: Acute (5) Anemia, normocytic normochromic: Status: Acute (6) Paroxysmal atrial fibrillation with RVR: Status: Acute (7) Essential hypertension: Status: Acute (8) Aspiration pneumonia: Status: Acute (9) Prediabetes: Status: Acute (10) Diastolic CHF: Status: Acute Narrative A/P Narrative: Assessment and Plans: 1. Dementia and adult failure to thrive: Dietitian consulted Physical therapy recs. SNF placement, pending Reached medical stability Continue Memantine 2. Aspiration pneumonia: SLT recs. level 6 dysphagia diet Tolerating room air Cultures no growth to date Finished 7 days of Rocephin therapy 3. Stage 1 decubitus ulcer in buttock: Wound care team consulted. Dr. Soares to assisted wound cleaning and wound care 4. Anemia, normocytic normochromic: H/H stable 5. Paroxysmal atrial fibrillation: Bisoprolol as rate control Eliquis 6. h/o Diastolic CHF: Bisoprolol Lasix PO 7. h/o essential hypertension: Resume Amlodipine Continue Bisoprolol as part of the treatment for atrial fibrillation and for CHF, respectively 8. Prediabetes: HgA1c 6.4 Lantus 10 unit qPM SSI AC HS Accu Chek AC HS Hypoglycemia protocol 9. Obesity: Not possible to alcohol and drug counselor patient regarding life style modifications due to dementia GI ppx: Prilosec DVT ppx: Eliquis Code status: DNR Prognosis: stable Disposition: inpatient med surg; pending SNF placement Plan of Treatment: Plan: Continue topical skin care as per wound care nurse. Time Spent With Patient Time: Total time spent is greater than 50% in coordination of care (as documented) at patient's floor/unit and/or counseling patient: Total time spent with greater than 50% in coordination of care (as documented) at patient's floor/unit and/or counseling patient:: 25 - 35 minutes
[2022-02-28] MEDS: INSULIN GLARGINE, HUMAN 1 UNIT/0.01 ML SQ SCH (20:11)
[2022-02-28] MEDS: QUEtiapine 25 MG TABLET PO SCH (20:11)
[2022-02-28] MEDS: ACETAMINOPHEN 325 MG TABLET PO PRN (20:16)
[2022-03-01] MEDS: 0.9 % SODIUM CHLORIDE 10 ML SYRINGE IV SCH ×3 (05:13→20:40)
[2022-03-01] MEDS: INSULIN LISPRO 1 UNIT/0.01 ML UNIT SQ SCH ×4 (07:49→20:39)
[2022-03-01] MEDS: OMEPRAZOLE 20 MG CAPSULE PO SCH (07:49)
[2022-03-01] MEDS: DOCUSATE SODIUM 100 MG CAPSULE PO SCH ×2 (08:47→20:38)
[2022-03-01] MEDS: MEMANTINE 10 MG TABLET PO SCH ×2 (08:47→20:40)
[2022-03-01] MEDS: amLODIPine 5 MG TABLET PO SCH (08:47)
[2022-03-01] MEDS: FUROSEMIDE 20 MG TABLET PO SCH (08:47)
[2022-03-01] MEDS: METHOCARBAMOL 750 MG TABLET PO SCH (08:48)
[2022-03-01] MEDS: TAMSULOSIN 0.4 MG CAPSULE PO SCH ×2 (08:48→20:44)
[2022-03-01] MEDS: BISOPROLOL 5 MG TABLET PO SCH (08:48)
[2022-03-01] MEDS: FLUoxetine HCL 20 MG CAPSULE PO SCH (08:48)
[2022-03-01] MEDS: APIXABAN 5 MG TABLET PO SCH ×2 (08:48→20:37)
[2022-03-01] MEDS: Budesonide-Formoterol 10.2 GM HFA aerosol inhaler INH SCH ×2 (08:49→20:40)
[2022-03-01] MEDS: ACETAMINOPHEN W/CODEINE #3 1 TABLET PO PRN (09:17)
--- NOTE | 2022-03-01 10:09 | Internal Med Progress Note ---
SUBJECTIVE Subjective Patient information: Note initiated : 03/01/22 at 10:07 am Service Date, if different from initiated Date: [] Patient: Edmond Salas a 86 y/o M admitted on 02/18/22 for Weakness/Eval for assisted living. Chief Complaint: [] Interval history: Mr. Salas is a 86 year old M Presents the ED with worsening confusion on top of dementia and weakness. Recently treated for UTI but the urine looks clear here. Original plan was for home with hospice out of the ED. But it sounds like the family was not comfortable with patient being home felt to be unsafe conditions and they have been try to get APS involved. Further work-up in the ED today they got a chest x-ray which showed infiltrate on left side and mild right. Was noted to have some transient mild hypoxia, unknown baseline but has copd. Sounds like after further discussion with family hospice does not think finally decided on and is reported that they would prefer treatment for anything if possible first. Patient reports a chronic cough and some shortness of breath but at baseline. Patient is a poor historian most history obtained from the chart. Medical history includes dementia COPD hypertension chronic anemia and diastolic heart failure grade 1 with good ejection fraction on an echo in 2019. 02/19 Patient sleeping. Likely result from Haldol last night. Haldol was given for sundowning and severe agitation and pulling at lines. Nurse also reports that she feels he is aspirating with liquids. We will place on dysphagia diet order speech therapy evaluation. Likely is infiltrates on chest x-ray from aspiration. 02/20 Patient sitting up in bed eating breakfast. Did get some Zyprexa last night for agitation. No new complaints this morning. Try to talk with him about his atrial fibrillation but given his dementia patient does not seem to comprehend. 02/21 Patient sitting up in bed eating breakfast. More talkative today. No overnight event or new complaints. Did not require any Zyprexa last night. 02/22 Patient sleeping. Calm overnight. Started Seroquel yesterday evening seem to respond well to it. 02/23: Afebrile overnight. No major overnight events. Subjective not obtained due to patient's clinical situations. Medically stable awaiting placement. 02/24: Afebrile overnight. No major overnight events. Subjective not obtained due to patient's clinical situations. Medically stable awaiting placement. 02/25: Afebrile overnight. No major overnight events. Subjective not obtained due to patient's clinical situations. Medically stable awaiting placement. 02/26: Afebrile overnight. No major overnight events. Subjective not obtained due to patient's clinical situations. Medically stable awaiting placement. 02/27: Afebrile overnight. No major overnight events. Subjective not obtained due to patient's clinical situations. Medically stable awaiting placement. 02/28: Afebrile overnight. No major overnight events. Subjective not obtained due to patient's clinical situations. Medically stable awaiting placement. 03/01: Patient is very pleasant to stuffs. Not posting danger to self or stuffs. Medically ready to be discharged to SNF. Constitutional Vitals: Vital Signs Temp Pulse Resp BP Pulse Ox O2 Del Method O2 Flow Rate 36.1 C L 91 H 16 131/98 97 0 03/01/22 07:51 03/01/22 07:51 03/01/22 07:51 03/01/22 07:51 03/01/22 07:51 03/01/22 07:51 02/25/22 04:00 Period Temp Pulse Resp BP Sys/Meza Pulse Ox O2 Del Method O2 Flow Rate Last 24 Hr 35.9 C-36.5 C 91-98 14-20 98-131/51-98 93-98 Room Air-Room Air Intake and Output 02/28/22 03/01/22 03/01/22 21:59 05:59 13:59 Intake Total 250 200 Output Total 207 300 Balance -1825 -100 Weight 120.519 kg Intake & Output: Intake & Output 02/28/22 03/01/22 03/01/22 21:59 05:59 13:59 Intake Total 250 200 Output Total 2074 300 Balance -1825 -100 Weight 120.519 kg Intake: Nourishment/Supplement quantity 200 (ml) Oral 50 200 Output: Urine Catheter Amount 2074 300 Other: Meal Lunch Breakfast Percent of Meal Consumed 15% 25% Feeding Ability Needs Supervision Needs Supervision Nourishment/Supplement name Ensure Enlive Urine Appearance Clear Clear Sediment Urine Color Yellow Dark Yellow Urine Odor Normal Strong Head Head exam: Present atraumatic and normal inspection Eye Eye exam: Present normal appearance ENT ENT exam: Present mucous membranes moist, normal exam and normal external ear exam Neck Neck exam: Present normal inspection Respiratory Respiratory exam: Present normal respiratory exam Cardiovascular Cardiovascular exam: Present irregular rhythm GI/Abdominal GI/Abdominal exam: Present normal bowel sounds Back Exam Back exam: Present normal inspection Neurological Exam Neurological exam: Present alert; Absent oriented X3 Additional comments: oriented X1 to person only Skin Skin exam: Present intact and warm OBJ DATA Labs CBC & Chem 7: 02/28/22 05:49 02/28/22 05:49 Labs: Abnormal Lab Results 02/28/22 02/28/22 02/27/22 05:49 05:49 05:35 RBC 4.13 L Hgb 11.7 L Hct 36.8 L MCHC Lymph % (Auto) 13.2 L [place] % (Auto) 12.8 H Lymph # (Auto) 1.27 L [place] # (Auto) 1.23 H Carbon Dioxide 31 H Glucose 120 H 125 H Alkaline Phosphatase 125 H 132 H Albumin 2.7 L 2.9 L Globulin 3.8 H 4.0 H Albumin/Globulin Ratio 0.7 L 0.7 L 02/27/22 05:35 RBC 4.31 L Hgb 12.0 L Hct 39.6 L MCHC 30.3 L Lymph % (Auto) 15.2 L [place] % (Auto) 13.8 H Lymph # (Auto) 1.28 L [place] # (Auto) 1.16 H Carbon Dioxide Glucose Alkaline Phosphatase Albumin Globulin Albumin/Globulin Ratio Meds: Medications Acetaminophen (Acetaminophen 325 Mg Tablet) 650 mg PO Q6HP PRN; Protocol PRN Reason: Per Pain Protocol/Fever > 101 Last Admin: 02/28/22 20:16 Dose: 650 mg Acetaminophen/Codeine Phosphate (Acetaminophen W/Codeine #3 1 Tablet) 1 tab PO BIDP PRN; Protocol PRN Reason: Pain Last Admin: 03/01/22 09:17 Dose: 1 tab Albuterol/Ipratropium (Ipratropium/Albuterol 3 Ml Ampul.Neb) 3 ml NEB Q4HP PRN PRN Reason: Shortness Of Breath Last Admin: 02/20/22 22:53 Dose: 3 ml Amlodipine Besylate (Amlodipine 5 Mg Tablet) 5 mg PO DAILY GAIL Last Admin: 03/01/22 08:47 Dose: 5 mg Apixaban (Apixaban 5 Mg Tablet) 5 mg PO BID GAIL Last Admin: 03/01/22 08:48 Dose: 5 mg Bisoprolol Fumarate (Bisoprolol 5 Mg Tablet) 10 mg PO DAILY [facility] Last Admin: 03/01/22 08:48 Dose: 10 mg Dextrose (Dextrose 50% 50 Ml Vial) 0 ml IV UD PRN PRN Reason: Per Sliding Scale Diagnostic Test (Pha) (Accu-Chek 1 Each Strip) 1 each FS ACHS [facility] Last Admin: 03/01/22 07:49 Dose: 1 each Docusate Sodium (Docusate Sodium 100 Mg Capsule) 100 mg PO BID [facility] Last Admin: 03/01/22 08:47 Dose: 100 mg Fluoxetine HCl (Fluoxetine Hcl 20 Mg Capsule) 20 mg PO DAILY [facility] Last Admin: 03/01/22 08:48 Dose: 20 mg Furosemide (Furosemide 20 Mg Tablet) 40 mg PO DAILY [facility] Last Admin: 03/01/22 08:47 Dose: 40 mg Glucose (Dextrose 31 Gm Oral.Susp) 15 gm PO PRN PRN PRN Reason: Hypoglycemia Potassium Chloride 40 meq/ (Dextrose) 520 mls @ 130 mls/hr IV UD PRN PRN Reason: Potassium < 3 Magnesium Sulfate (Magnesium Sulfate) 2 gm in 50 mls @ 50 mls/hr IV UD PRN PRN Reason: Magnesium </= 1.6 Insulin Glargine (Insulin Glargine, Human 1 Unit/0.01 Ml) 10 unit SQ QPM [facility] Last Admin: 02/28/22 20:11 Dose: 10 units Insulin Human Lispro (Insulin Lispro 1 Unit/0.01 Ml Unit) 0 unit SQ ACHS [facility]; Protocol Last Admin: 03/01/22 07:49 Dose: Not Given Memantine (Memantine 10 Mg Tablet) 5 mg PO BID [facility] Last Admin: 03/01/22 08:47 Dose: 5 mg Methocarbamol (Methocarbamol 750 Mg Tablet) 750 mg PO DAILY [facility] Last Admin: 03/01/22 08:48 Dose: 750 mg Metoprolol Tartrate (Metoprolol Tartrate 5 Mg/5 Ml Vial) 5 mg IV Q2HP PRN PRN Reason: Tachyarrhythmias HR>110 Last Admin: 02/19/22 22:21 Dose: 5 mg Omeprazole (Omeprazole 20 Mg Capsule) 20 mg PO ACB [facility] Last Admin: 03/01/22 07:49 Dose: 20 mg Ondansetron HCl (Ondansetron 4 Mg/2 Ml Vial) 4 mg IV Q4HP PRN PRN Reason: Nausea And Vomiting Budesonide- Formoterol 10.2 Gm Hfa Aerosol Inhaler 2 dose INH BID [facility] Last Admin: 03/01/22 08:49 Dose: Not Given Polyethylene Glycol (Polyethylene Glycol 3350 17 Gm Packet) 17 gm PO DAILYP PRN PRN Reason: Constipation Last Admin: 02/22/22 08:43 Dose: 17 gm Potassium Chloride (Potassium Chloride 20 Meq Tablet) 40 meq PO UD PRN PRN Reason: Potssium is 3-3.5 Potassium Chloride (Potassium Chloride 20 Meq Tablet) 40 meq PO UD PRN PRN Reason: Potassium < 3 Quetiapine Fumarate (Quetiapine 25 Mg Tablet) 50 mg PO HS [facility] Last Admin: 02/28/22 20:11 Dose: 50 mg Senna (Sennosides 1 Tablet) 2 tab PO DAILYP PRN PRN Reason: Constipation Last Admin: 02/22/22 08:44 Dose: 2 tab Sodium Chloride (0.9 % Sodium Chloride 10 Ml Syringe) 10 ml IV Q8 [facility] Last Admin: 03/01/22 05:13 Dose: 10 ml Tamsulosin HCl (Tamsulosin 0.4 Mg Capsule) 0.4 mg PO BID [facility] Last Admin: 03/01/22 08:48 Dose: 0.4 mg A/P Assessment and plan (1) Obesity (BMI 30.0-34.9): Status: Acute (2) Decubitus ulcer of buttock, stage 1: Status: Acute (3) Failure to thrive in adult: Status: Acute (4) Dementia: Status: Acute (5) Anemia, normocytic normochromic: Status: Acute (6) Paroxysmal atrial fibrillation with RVR: Status: Acute (7) Essential hypertension: Status: Acute (8) Aspiration pneumonia: Status: Acute (9) Prediabetes: Status: Acute (10) Diastolic CHF: Status: Acute Narrative A/P Narrative: Assessment and Plans: 1. Dementia and adult failure to thrive: Dietitian consulted Physical therapy recs. SNF placement, pending Reached medical stability Continue Memantine 2. Aspiration pneumonia: SLT recs. level 6 dysphagia diet Tolerating room air Cultures no growth to date Finished 7 days of Rocephin therapy 3. Stage 1 decubitus ulcer in buttock: Wound care team consulted. Dr. Rodger to assisted wound cleaning and wound care 4. Anemia, normocytic normochromic: H/H stable 5. Paroxysmal atrial fibrillation: Bisoprolol as rate control Eliquis 6. h/o Diastolic CHF: Bisoprolol Lasix PO 7. h/o essential hypertension: Resume Amlodipine Continue Bisoprolol as part of the treatment for atrial fibrillation and for CHF, respectively 8. Prediabetes: HgA1c 6.4 Lantus 10 unit qPM SSI AC HS Accu Chek AC HS Hypoglycemia protocol 9. Obesity: Not possible to school counsellor patient regarding life style modifications due to dementia GI ppx: Prilosec DVT ppx: Eliquis Code status: DNR Prognosis: stable Disposition: inpatient med surg; pending SNF placement Plan of Treatment: Plan: Continue topical skin care as per wound care nurse. Time Spent With Patient Time: Total time spent is greater than 50% in coordination of care (as documented) at patient's floor/unit and/or counseling patient:
[2022-03-01] MEDS ORDERED: KETOROLAC 30 MG/ML VIAL IV PRN (11:26)
[2022-03-01] MEDS: traMADol 50 MG TABLET PO PRN ×3 (12:01→22:30)
[2022-03-01] MEDS: ACETAMINOPHEN 325 MG TABLET PO PRN (13:21)
--- NOTE | 2022-03-01 16:05 | Internal Med Progress Note ---
SUBJECTIVE Subjective Patient information: Note initiated : 03/01/22 at 4:00 pm Service Date, if different from initiated Date: [] Patient: Edmond Salas a 86 y/o M admitted on 02/18/22 for Weakness/Eval for assisted living. Chief Complaint: [] Interval history: History of present illness: Mr. Salas is a 86 year old M Presents the ED with worsening confusion on top of dementia and weakness. Recently treated for UTI but the urine looks clear here. Original plan was for home with hospice out of the ED. But it sounds like the family was not comf ortable with patient being home felt to be unsafe conditions and they have been try to get APS involved. Further work-up in the ED today they got a chest x-ray which showed infiltrate on left side and mild right. Was noted to have some transient mild hypoxia, unknown baseline but has copd. Sounds like after further discussion with family hospice does not think finally decided on and is reported that they would prefer treatment for anything if possible first. Patient reports a chronic cough and some shortness of breath but at baseline. Patient is a poor historian most history obtained from the chart. Medical history includes dementia COPD hypertension chronic anemia and diastolic heart failure grade 1 with good ejection fraction on an echo in 2019. 02/19 Patient sleeping. Likely result from Haldol last night. Haldol was given for and severe agitation and pulling at lines. Nurse also reports that she feels he is aspirating with liquids. We will place on dysphagia diet order speech therapy evaluation. Likely is infiltrates on chest x-ray from aspiration. 02/20 Patient sitting up in bed eating breakfast. Did get some Zyprexa last night for agitation. No new complaints this morning. Try to talk with him about his atrial fibrillation but given his dementia patien t does not seem to comprehend. 02/21 Patient sitting up in bed eating breakfast. More talkative today. No overnight event or new complaints. Did not require any Zyprexa last night. 02/22 Patient sleeping. Calm overnight. Started Seroquel yesterday evening seem to respond well to it. 02/23: Afebrile overnight. No major overnight events. Subjective not obtained due to patient's clinical situations. Medically stable awaiting placement. 02/24: Afebrile overnight. No major overnight events. Subjective not obtained due to patient's clinical situations. Medically stable awaiting placement. 02/25: Afebrile overnight. No major overnight events. Subjective not obtained due to patient's clinical situations. Medically stable awaiting placement. 02/26: Afebrile overnight. No major overnight events. Subjective not obtained due to patient's clinical situations. Medically stable awaiting placement. 02/27: Afebrile overnight. No major overnight events. Subjective not obtained due to patient's clinical situations. Medically stable awaiting placement. 02/28: Afebrile overnight. No major overnight events. Subjective not obtained due to patient's clinical situations. Medically stable awaiting placement. 03/01: Patient is very pleasant to stuffs. Not posting danger to self or stuffs. Medically ready to be discharged to SNF. 03/02 Review of Systems: denies headache/fever/chills/nausea/vomiting/chest or abdominal pain/cough/dyspnea/diarrhea. Otherwise see above. Constitutional Vitals: Vital Signs Temp Pulse Resp BP Pulse Ox O2 Del Method O2 Flow Rate 97.0 F 72 20 120/80 93 0 03/01/22 12:00 03/01/22 12:00 03/01/22 12:00 03/01/22 12:00 03/01/22 12:00 03/01/22 12:00 02/25/22 04:00 Period Temp Pulse Resp BP Sys/Meza Pulse Ox O2 Del Method O2 Flow Rate Last 24 Hr 96.6 F-97.7 F 72-95 16-20 98-131/54-98 93-98 Room Air-Room Air Intake and Output 03/01/22 03/01/22 03/01/22 05:59 13:59 21:59 Intake Total 200 Output Total 300 Balance -100 Intake & Output: Intake & Output 03/01/22 03/01/22 03/01/22 05:59 13:59 21:59 Intake Total 200 Output Total 300 Balance -100 Intake: Oral 200 Output: Urine Catheter Amount 300 Other: Meal Breakfast Percent of Meal Consumed 25% Feeding Ability Needs Supervision Urine Appearance Clear Urine Color Dark Yellow Urine Odor Strong Exam: General: Sleeping, no acute Distress, obese Eyes/N/T: EOMI, Head/Neck: neck supple, CV: irreg irreg, No murmurs, Pulm: Clear b/l, no wheezing/rhonchi/rales Abd: soft, nontender, +BS x4 Ext: no clubbing/cyanosis, 1+ b/l LE edema and LE chronic wounds/ulcers Neuro: Sleeping, no focal deficits, spontaneously moves all extremities, Skin: warm/dry OBJ DATA Labs CBC & Chem 7: 02/28/22 05:49 02/28/22 05:49 Labs: Abnormal Lab Results 02/28/22 02/28/22 02/27/22 05:49 05:49 05:35 RBC 4.13 L Hgb 11.7 L Hct 36.8 L MCHC Lymph % (Auto) 13.2 L [place] % (Auto) 12.8 H Lymph # (Auto) 1.27 L [place] # (Auto) 1.23 H Carbon Dioxide 31 H Glucose 120 H 125 H Alkaline Phosphatase 125 H 132 H Albumin 2.7 L 2.9 L Globulin 3.8 H 4.0 H Albumin/Globulin Ratio 0.7 L 0.7 L 02/27/22 05:35 RBC 4.31 L Hgb 12.0 L Hct 39.6 L MCHC 30.3 L Lymph % (Auto) 15.2 L [place] % (Auto) 13.8 H Lymph # (Auto) 1.28 L [place] # (Auto) 1.16 H Carbon Dioxide Glucose Alkaline Phosphatase Albumin Globulin Albumin/Globulin Ratio Meds: Medications Acetaminophen (Acetaminophen 325 Mg Tablet) 650 mg PO Q6HP PRN; Protocol PRN Reason: Per Pain Protocol/Fever > 101 Last Admin: 03/01/22 13:21 Dose: 650 mg Acetaminophen/Codeine Phosphate (Acetaminophen W/Codeine #3 1 Tablet) 1 tab PO BIDP PRN; Protocol PRN Reason: Pain Last Admin: 03/01/22 09:17 Dose: 1 tab Albuterol/Ipratropium (Ipratropium/Albuterol 3 Ml Ampul.Neb) 3 ml NEB Q4HP PRN PRN Reason: Shortness Of Breath Last Admin: 02/20/22 22:53 Dose: 3 ml Amlodipine Besylate (Amlodipine 5 Mg Tablet) 5 mg PO DAILY [facility] Last Admin: 03/01/22 08:47 Dose: 5 mg Apixaban (Apixaban 5 Mg Tablet) 5 mg PO BID [facility] Last Admin: 03/01/22 08:48 Dose: 5 mg Bisoprolol Fumarate (Bisoprolol 5 Mg Tablet) 10 mg PO DAILY [facility] Last Admin: 03/01/22 08:48 Dose: 10 mg Dextrose (Dextrose 50% 50 Ml Vial) 0 ml IV UD PRN PRN Reason: Per Sliding Scale Diagnostic Test (Pha) (Accu-Chek 1 Each Strip) 1 each FS ACHS [facility] Last Admin: 03/01/22 11:54 Dose: 1 each Docusate Sodium (Docusate Sodium 100 Mg Capsule) 100 mg PO BID [facility] Last Admin: 03/01/22 08:47 Dose: 100 mg Fluoxetine HCl (Fluoxetine Hcl 20 Mg Capsule) 20 mg PO DAILY [facility] Last Admin: 03/01/22 08:48 Dose: 20 mg Furosemide (Furosemide 20 Mg Tablet) 40 mg PO DAILY [facility] Last Admin: 03/01/22 08:47 Dose: 40 mg Glucose (Dextrose 31 Gm Oral.Susp) 15 gm PO PRN PRN PRN Reason: Hypoglycemia Potassium Chloride 40 meq/ (Dextrose) 520 mls @ 130 mls/hr IV UD PRN PRN Reason: Potassium < 3 Magnesium Sulfate (Magnesium Sulfate) 2 gm in 50 mls @ 50 mls/hr IV UD PRN PRN Reason: Magnesium </= 1.6 Insulin Glargine (Insulin Glargine, Human 1 Unit/0.01 Ml) 10 unit SQ QPM [facility] Last Admin: 02/28/22 20:11 Dose: 10 units Insulin Human Lispro (Insulin Lispro 1 Unit/0.01 Ml Unit) 0 unit SQ [facility]; Protocol Last Admin: 03/01/22 12:01 Dose: 2 units Ketorolac Tromethamine (Ketorolac 30 Mg/Ml Vial) 30 mg IV Q6HP PRN PRN Reason: Per Pain Protocol Stop: 03/03/22 11:26 Memantine (Memantine 10 Mg Tablet) 5 mg PO BID [facility] Last Admin: 03/01/22 08:47 Dose: 5 mg Methocarbamol (Methocarbamol 750 Mg Tablet) 750 mg PO DAILY [facility] Last Admin: 03/01/22 08:48 Dose: 750 mg Metoprolol Tartrate (Metoprolol Tartrate 5 Mg/5 Ml Vial) 5 mg IV Q2HP PRN PRN Reason: Tachyarrhythmias HR>110 Last Admin: 02/19/22 22:21 Dose: 5 mg Omeprazole (Omeprazole 20 Mg Capsule) 20 mg PO ACB [facility] Last Admin: 03/01/22 07:49 Dose: 20 mg Ondansetron HCl (Ondansetron 4 Mg/2 Ml Vial) 4 mg IV Q4HP PRN PRN Reason: Nausea And Vomiting Budesonide- Formoterol 10.2 Gm Hfa Aerosol Inhaler 2 dose INH BID [facility] Last Admin: 03/01/22 08:49 Dose: Not Given Polyethylene Glycol (Polyethylene Glycol 3350 17 Gm Packet) 17 gm PO DAILYP PRN PRN Reason: Constipation Last Admin: 02/22/22 08:43 Dose: 17 gm Potassium Chloride (Potassium Chloride 20 Meq Tablet) 40 meq PO UD PRN PRN Reason: Potssium is 3-3.5 Potassium Chloride (Potassium Chloride 20 Meq Tablet) 40 meq PO UD PRN PRN Reason: Potassium < 3 Quetiapine Fumarate (Quetiapine 25 Mg Tablet) 50 mg PO HS [facility] Last Admin: 02/28/22 20:11 Dose: 50 mg Senna (Sennosides 1 Tablet) 2 tab PO DAILYP PRN PRN Reason: Constipation Last Admin: 02/22/22 08:44 Dose: 2 tab Sodium Chloride (0.9 % Sodium Chloride 10 Ml Syringe) 10 ml IV Q8 [facility] Last Admin: 03/01/22 12:11 Dose: Not Given Tamsulosin HCl (Tamsulosin 0.4 Mg Capsule) 0.4 mg PO BID [facility] Last Admin: 03/01/22 08:48 Dose: 0.4 mg Tramadol HCl (Tramadol 50 Mg Tablet) 50 mg PO Q4-6HP PRN; Protocol PRN Reason: Pain Last Admin: 03/01/22 12:01 Dose: 50 mg A/P Narrative A/P Narrative: A: *Generalized weakness/deconditioning/failure to thrive: *Encephalopathy, acute on chronic, underlying Dementia: 2/2 above *Dementia with sundowning: *CAP, likely Aspiration: *Oropharyngeal Dysphagia, Mod: *?Sepsis: *Acute hypoxic respiratory failure: transient in ED, on room air *Afib, paroxysmal (new diagnosis) w/RVR: -CHADSVASC=5-6 -echo with good EF *COPD(not on home O2): *h/o diastlic CHF: *Pre-Diabetes: a1c 6.4 *HTN: *CKD II: *Anemia, chronic: *LE wounds/ulcers/buttock decubitus: *Obesity: BMI 34 P: -Antibiotics finished -IS/Acapella, home IH's and prn nebs, RT -Wound care -seroquel qhs -will initiate anticoagulation for now and defer further decision making to f/u between family and PCP, pt unable to participate in his own medical decision marcelo ing -cont BB/norvasc -cont home lasix -SSI, restarted home basal at lower dose -PT/OT -ST eval, dysphagia diet -CM for placement -ppx: eliquis / ppi DNR Time Spent With Patient Time: Total time spent is greater than 50% in coordination of care (as documented) at patient's floor/unit and/or counseling patient:
[2022-03-01] MEDS: QUEtiapine 25 MG TABLET PO SCH (20:38)
[2022-03-01] MEDS: INSULIN GLARGINE, HUMAN 1 UNIT/0.01 ML SQ SCH (20:39)
[2022-03-02] MEDS: traMADol 50 MG TABLET PO PRN ×3 (02:52→21:34)
[2022-03-02] MEDS: 0.9 % SODIUM CHLORIDE 10 ML SYRINGE IV SCH ×3 (05:12→21:25)
[2022-03-02] MEDS: INSULIN LISPRO 1 UNIT/0.01 ML UNIT SQ SCH ×4 (07:38→21:31)
[2022-03-02] MEDS: OMEPRAZOLE 20 MG CAPSULE PO SCH (08:02)
--- NOTE | 2022-03-02 09:09 | Internal Med Progress Note ---
SUBJECTIVE Subjective Patient information: Note initiated : 03/02/22 at 9:09 am Service Date, if different from initiated Date: [] Patient: Edmond Salas 86 y/o M admitted on 02/18/22 for Weakness/Eval for assisted living. Chief Complaint: [] Interval history: History of present illness: Mr. Salas is a 86 year old M Presents the ED with worsening confusion on top of dementia and weakness. Recently treated for UTI but the urine looks clear here. Original plan was for home with hospice out of the ED. But it sounds like the family was not comf ortable with patient being home felt to be unsafe conditions and they have been try to get APS involved. Further work-up in the ED today they got a chest x-ray which showed infiltrate on left side and mild right. Was noted to have some transient mild hypoxia, unknown baseline but has copd. Sounds like after further discussion with family hospice does not think finally decided on and is reported that they would prefer treatment for anything if possible first. Patient reports a chronic cough and some shortness of breath but at baseline. Patient is a poor historian most history obtained from the chart. Medical history includes dementia COPD hypertension chronic anemia and diastolic heart failure grade 1 with good ejection fraction on an echo in 2019. 02/19 Patient sleeping. Likely result from Haldol last night. Haldol was given for and severe agitation and pulling at lines. Nurse also reports that she feels he is aspirating with liquids. We will place on dysphagia diet order speech therapy evaluation. Likely is infiltrates on chest x-ray from aspiration. 02/20 Patient sitting up in bed eating breakfast. Did get some Zyprexa last night for agitation. No new complaints this morning. Try to talk with him about his atrial fibrillation but given his dementia patien t does not seem to comprehend. 02/21 Patient sitting up in bed eating breakfast. More talkative today. No overnight event or new complaints. Did not require any Zyprexa last night. 02/22 Patient sleeping. Calm overnight. Started Seroquel yesterday evening seem to respond well to it. 02/23: Afebrile overnight. No major overnight events. Subjective not obtained due to patient's clinical situations. Medically stable awaiting placement. 02/24: Afebrile overnight. No major overnight events. Subjective not obtained due to patient's clinical situations. Medically stable awaiting placement. 02/25: Afebrile overnight. No major overnight events. Subjective not obtained due to patient's clinical situations. Medically stable awaiting placement. 02/26: Afebrile overnight. No major overnight events. Subjective not obtained due to patient's clinical situations. Medically stable awaiting placement. 02/27: Afebrile overnight. No major overnight events. Subjective not obtained due to patient's clinical situations. Medically stable awaiting placement. 02/28: Afebrile overnight. No major overnight events. Subjective not obtained due to patient's clinical situations. Medically stable awaiting placement. 03/01: Patient is very pleasant to stuffs. Not posting danger to self or stuffs. Medically ready to be discharged to SNF. 03/02 No overnight event or new complaints. Review of Systems: denies headache/fever/chills/nausea/vomiting/chest or abdominal pain/cough/dyspn ea/diarrhea. Otherwise see above. Constitutional Vitals: Vital Signs Temp Pulse Resp BP Pulse Ox O2 Del Method O2 Flow Rate 97.0 F 69 22 121/58 92 0 03/02/22 08:00 03/02/22 08:00 03/02/22 08:00 03/02/22 08:00 03/02/22 08:00 03/02/22 08:00 02/25/22 04:00 Period Temp Pulse Resp BP Sys/Meza Pulse Ox O2 Del Method O2 Flow Rate Last 24 Hr 96.5 F-97.1 F 69-90 14-22 98-123/58-80 92-99 Room Air-Room Air Intake and Output 03/01/22 03/02/22 03/02/22 21:59 05:59 13:59 Intake Total 400 300 Output Total 400 400 Balance 0 -100 Weight 118.478 kg Intake & Output: Intake & Output 03/01/22 03/02/22 03/02/22 21:59 05:59 13:59 Intake Total 400 300 Output Total 400 400 Balance 0 -100 Weight 118.478 kg Intake: Oral 400 300 Output: Urine Catheter Amount 400 400 Other: Urine Appearance Clear Urine Color Yellow Yellow [place] Urine Odor Normal Exam: General: Sleeping, no acute Distress, obese Eyes/N/T: EOMI, Head/Neck: neck supple, CV: irreg irreg, No murmurs, Pulm: Clear b/l, no wheezing/rhonchi/rales Abd: soft, nontender, +BS x4 Ext: no clubbing/cyanosis, b/l LE edema improved and LE chronic wounds/ulcers Neuro: Sleeping, no focal deficits, spontaneously moves all extremities, Skin: warm/dry OBJ DATA Labs CBC & Chem 7: 02/28/22 05:49 02/28/22 05:49 Labs: Abnormal Lab Results 02/28/22 02/28/22 05:49 05:49 RBC 4.13 L Hgb 11.7 L Hct 36.8 L Lymph % (Auto) 13.2 L [place] % (Auto) 12.8 H Lymph # (Auto) 1.27 L [place] # (Auto) 1.23 H Carbon Dioxide 31 H Glucose 120 H Alkaline Phosphatase 125 H Albumin 2.7 L Globulin 3.8 H Albumin/Globulin Ratio 0.7 L Meds: Medications Acetaminophen (Acetaminophen 325 Mg Tablet) 650 mg PO Q6HP PRN; Protocol PRN Reason: Per Pain Protocol/Fever > 101 Last Admin: 03/01/22 13:21 Dose: 650 mg Acetaminophen/Codeine Phosphate (Acetaminophen W/Codeine #3 1 Tablet) 1 tab PO BIDP PRN; Protocol PRN Reason: Pain Last Admin: 03/01/22 09:17 Dose: 1 tab Albuterol/Ipratropium (Ipratropium/Albuterol 3 Ml Ampul.Neb) 3 ml NEB Q4HP PRN PRN Reason: Shortness Of Breath Last Admin: 02/20/22 22:53 Dose: 3 ml Amlodipine Besylate (Amlodipine 5 Mg Tablet) 5 mg PO DAILY [facility] Last Admin: 03/01/22 08:47 Dose: 5 mg Apixaban (Apixaban 5 Mg Tablet) 5 mg PO BID [facility] Last Admin: 03/01/22 20:37 Dose: 5 mg Bisoprolol Fumarate (Bisoprolol 5 Mg Tablet) 10 mg PO DAILY [facility] Last Admin: 03/01/22 08:48 Dose: 10 mg Dextrose (Dextrose 50% 50 Ml Vial) 0 ml IV UD PRN PRN Reason: Per Sliding Scale Diagnostic Test (Pha) (Accu-Chek 1 Each Strip) 1 each FS ACHS [facility] Last Admin: 03/02/22 07:38 Dose: 1 each Docusate Sodium (Docusate Sodium 100 Mg Capsule) 100 mg PO BID [facility] Last Admin: 03/01/22 20:38 Dose: 100 mg Fluoxetine HCl (Fluoxetine Hcl 20 Mg Capsule) 20 mg PO DAILY [facility] Last Admin: 03/01/22 08:48 Dose: 20 mg Furosemide (Furosemide 20 Mg Tablet) 40 mg PO DAILY [facility] Last Admin: 03/01/22 08:47 Dose: 40 mg Glucose (Dextrose 31 Gm Oral.Susp) 15 gm PO PRN PRN PRN Reason: Hypoglycemia Potassium Chloride 40 meq/ (Dextrose) 520 mls @ 130 mls/hr IV UD PRN PRN Reason: Potassium < 3 Magnesium Sulfate (Magnesium Sulfate) 2 gm in 50 mls @ 50 mls/hr IV UD PRN PRN Reason: Magnesium </= 1.6 Insulin Glargine (Insulin Glargine, Human 1 Unit/0.01 Ml) 10 unit SQ QPM [facility] Last Admin: 03/01/22 20:39 Dose: 10 units Insulin Human Lispro (Insulin Lispro 1 Unit/0.01 Ml Unit) 0 unit SQ ACHS [facility]; Protocol Last Admin: 03/02/22 07:38 Dose: Not Given Ketorolac Tromethamine (Ketorolac 30 Mg/Ml Vial) 30 mg IV Q6HP PRN PRN Reason: Per Pain Protocol Stop: 03/03/22 11:26 Memantine (Memantine 10 Mg Tablet) 5 mg PO BID [facility] Last Admin: 03/01/22 20:40 Dose: 5 mg Methocarbamol (Methocarbamol 750 Mg Tablet) 750 mg PO DAILY [facility] Last Admin: 03/01/22 08:48 Dose: 750 mg Metoprolol Tartrate (Metoprolol Tartrate 5 Mg/5 Ml Vial) 5 mg IV Q2HP PRN PRN Reason: Tachyarrhythmias HR>110 Last Admin: 02/19/22 22:21 Dose: 5 mg Omeprazole (Omeprazole 20 Mg Capsule) 20 mg PO ACB [facility] Last Admin: 03/02/22 08:02 Dose: 20 mg Ondansetron HCl (Ondansetron 4 Mg/2 Ml Vial) 4 mg IV Q4HP PRN PRN Reason: Nausea And Vomiting Budesonide- Formoterol 10.2 Gm Hfa Aerosol Inhaler 2 dose INH BID [facility] Last Admin: 03/01/22 20:40 Dose: Not Given Polyethylene Glycol (Polyethylene Glycol 3350 17 Gm Packet) 17 gm PO DAILYP PRN PRN Reason: Constipation Last Admin: 02/22/22 08:43 Dose: 17 gm Potassium Chloride (Potassium Chloride 20 Meq Tablet) 40 meq PO UD PRN PRN Reason: Potssium is 3-3.5 Potassium Chloride (Potassium Chloride 20 Meq Tablet) 40 meq PO UD PRN PRN Reason: Potassium < 3 Quetiapine Fumarate (Quetiapine 25 Mg Tablet) 50 mg PO HS [facility] Last Admin: 03/01/22 20:38 Dose: 50 mg Senna (Sennosides 1 Tablet) 2 tab PO DAILYP PRN PRN Reason: Constipation Last Admin: 02/22/22 08:44 Dose: 2 tab Sodium Chloride (0.9 % Sodium Chloride 10 Ml Syringe) 10 ml IV Q8 [facility] Last Admin: 03/02/22 05:12 Dose: 10 ml Tamsulosin HCl (Tamsulosin 0.4 Mg Capsule) 0.4 mg PO BID [facility] Last Admin: 03/01/22 20:44 Dose: 0.4 mg Tramadol HCl (Tramadol 50 Mg Tablet) 50 mg PO Q4-6HP PRN; Protocol PRN Reason: Pain Last Admin: 03/02/22 02:52 Dose: 50 mg A/P Narrative A/P Narrative: A: *Generalized weakness/deconditioning/failure to thrive: *Encephalopathy, acute on chronic, underlying Dementia: 2/2 above *Dementia with sundowning: *CAP, likely Aspiration: *Oropharyngeal Dysphagia, Mod: *?Sepsis: *Acute hypoxic respiratory failure: transient in ED, on room air *Afib, paroxysmal (new diagnosis) w/RVR: -CHADSVASC=5-6 -echo with good EF *COPD(not on home O2): *h/o diastlic CHF: *Pre-Diabetes: a1c 6.4 *HTN: *CKD II: *Anemia, chronic: *LE wounds/ulcers/buttock decubitus: *Obesity: BMI 34 P: -Antibiotics finished -IS/Acapella, home IH's and prn nebs, RT -Wound care -seroquel qhs -will initiate anticoagulation for now and defer further decision making to f/u between family and PCP, pt unable to participate in his own medical decision making -cont BB/norvasc -cont home lasix -SSI, restarted home basal at lower dose -PT/OT -ST eval, dysphagia diet -CM for placement -ppx: eliquis / ppi DNR Time Spent With Patient Time: Total time spent is greater than 50% in coordination of care (as documented) at patient's floor/unit and/or counseling patient:
[2022-03-02] MEDS: FUROSEMIDE 20 MG TABLET PO SCH (10:07)
[2022-03-02] MEDS: METHOCARBAMOL 750 MG TABLET PO SCH (10:07)
[2022-03-02] MEDS: FLUoxetine HCL 20 MG CAPSULE PO SCH (10:08)
[2022-03-02] MEDS: MEMANTINE 10 MG TABLET PO SCH ×2 (10:08→21:31)
[2022-03-02] MEDS: DOCUSATE SODIUM 100 MG CAPSULE PO SCH ×2 (10:08→21:31)
[2022-03-02] MEDS: amLODIPine 5 MG TABLET PO SCH (10:09)
[2022-03-02] MEDS: APIXABAN 5 MG TABLET PO SCH ×2 (10:09→21:31)
[2022-03-02] MEDS: BISOPROLOL 5 MG TABLET PO SCH (10:09)
[2022-03-02] MEDS: Budesonide-Formoterol 10.2 GM HFA aerosol inhaler INH SCH ×2 (10:10→22:59)
[2022-03-02] MEDS: TAMSULOSIN 0.4 MG CAPSULE PO SCH ×2 (10:12→21:34)
[2022-03-02] MEDS: QUEtiapine 25 MG TABLET PO SCH (21:31)
[2022-03-02] MEDS: INSULIN GLARGINE, HUMAN 1 UNIT/0.01 ML SQ SCH (21:31)
[2022-03-03] MEDS: 0.9 % SODIUM CHLORIDE 10 ML SYRINGE IV SCH ×2 (05:29→15:32)
[2022-03-03] MEDS: OMEPRAZOLE 20 MG CAPSULE PO SCH (08:08)
--- NOTE | 2022-03-03 08:17 | Internal Med Progress Note ---
SUBJECTIVE Subjective Patient information: Note initiated : 03/03/22 at 8:17 am Service Date, if different from initiated Date: [] Patient: Edmond Salas a 86 y/o M admitted on 02/18/22 for Weakness/Eval for assisted living. Chief Complaint: [] Interval history: History of present illness: Mr. Salas is a 86 year old M Presents the ED with worsening confusion on top of dementia and weakness. Recently treated for UTI but the urine looks clear here. Original plan was for home with hospice out of the ED. But it sounds like the family was not comf ortable with patient being home felt to be unsafe conditions and they have been try to get APS involved. Further work-up in the ED today they got a chest x-ray which showed infiltrate on left side and mild right. Was noted to have some transient mild hypoxia, unknown baseline but has copd. Sounds like after further discussion with family hospice does not think finally decided on and is reported that they would prefer treatment for anything if possible first. Patient reports a chronic cough and some shortness of breath but at baseline. Patient is a poor historian most history obtained from the chart. Medical history includes dementia COPD hypertension chronic anemia and diastolic heart failure grade 1 with good ejection fraction on an echo in 2019. 02/19 Patient sleeping. Likely result from Haldol last night. Haldol was given for and severe agitation and pulling at lines. Nurse also reports that she feels he is aspirating with liquids. We will place on dysphagia diet order speech therapy evaluation. Likely is infiltrates on chest x-ray from aspiration. 02/20 Patient sitting up in bed eating breakfast. Did get some Zyprexa last night for agitation. No new complaints this morning. Try to talk with him about his atrial fibrillation but given his dementia patien t does not seem to comprehend. 02/21 Patient sitting up in bed eating breakfast. More talkative today. No overnight event or new complaints. Did not require any Zyprexa last night. 02/22 Patient sleeping. Calm overnight. Started Seroquel yesterday evening seem to respond well to it. 02/23: Afebrile overnight. No major overnight events. Subjective not obtained due to patient's clinical situations. Medically stable awaiting placement. 02/24: Afebrile overnight. No major overnight events. Subjective not obtained due to patient's clinical situations. Medically stable awaiting placement. 02/25: Afebrile overnight. No major overnight events. Subjective not obtained due to patient's clinical situations. Medically stable awaiting placement. 02/26: Afebrile overnight. No major overnight events. Subjective not obtained due to patient's clinical situations. Medically stable awaiting placement. 02/27: Afebrile overnight. No major overnight events. Subjective not obtained due to patient's clinical situations. Medically stable awaiting placement. 02/28: Afebrile overnight. No major overnight events. Subjective not obtained due to patient's clinical situations. Medically stable awaiting placement. 03/01: Patient is very pleasant to stuffs. Not posting danger to self or stuffs. Medically ready to be discharged to SNF. 03/02 No overnight event or new complaints. 03/03 No new complaints. No overnight events. Vital signs stable. Blood pressure occasionally a bit soft. Decrease Norvasc. Review of Systems: denies headache/fever/chills/nausea/vomiting/chest or abdominal pain/cough/dyspnea/diarrhea. Otherwise see above. Constitutional Vitals: Vital Signs Temp Pulse Resp BP Pulse Ox O2 Del Method O2 Flow Rate 96.9 F L 82 18 99/62 94 0 03/03/22 04:08 03/03/22 04:08 03/03/22 04:08 03/03/22 04:08 03/03/22 04:08 03/03/22 04:08 02/25/22 04:00 Period Temp Pulse Resp BP Sys/Meza Pulse Ox O2 Del Method O2 Flow Rate Last 24 Hr 96.9 F-98.1 F 82-91 16-20 90-121/56-76 94-98 Room Air-Room Air Intake and Output 03/02/22 03/03/22 03/03/22 21:59 05:59 13:59 Intake Total 240 125 Output Total 600 300 Balance -360 -175 Weight 119.794 kg Intake & Output: Intake & Output 03/02/22 03/03/22 03/03/22 21:59 05:59 13:59 Intake Total 240 125 Output Total 600 300 Balance -360 -175 Weight 119.794 kg Intake: Oral 240 125 Output: Urine Catheter Amount 600 300 Other: Meal applesaauce Percent of Meal Consumed 100% Feeding Ability Total Assistance Urine Appearance Clear [place] Clear Urine Color Light [place] Yellow [place] Dark Yellow Urine Odor Strong Exam: General: Sleeping, no acute Distress, obese Eyes/N/T: EOMI, Head/Neck: neck supple, CV: irreg irreg, No murmurs, Pulm: Clear b/l, no wheezing/rhonchi/rales Abd: soft, nontender, +BS x4 Ext: no clubbing/cyanosis, b/l LE edema improved and LE chronic wounds/ulcers Neuro: Sleeping, no focal deficits, spontaneously moves all extremities, Skin: warm/dry OBJ DATA Labs CBC & Chem 7: 02/28/22 05:49 02/28/22 05:49 Meds: Medications Acetaminophen (Acetaminophen 325 Mg Tablet) 650 mg PO Q6HP PRN; Protocol PRN Reason: Per Pain Protocol/Fever > 101 Last Admin: 03/01/22 13:21 Dose: 650 mg Acetaminophen/Codeine Phosphate (Acetaminophen W/Codeine #3 1 Tablet) 1 tab PO BIDP PRN; Protocol PRN Reason: Pain Last Admin: 03/01/22 09:17 Dose: 1 tab Albuterol/Ipratropium (Ipratropium/Albuterol 3 Ml Ampul.Neb) 3 ml NEB Q4HP PRN PRN Reason: Shortness Of Breath Last Admin: 02/20/22 22:53 Dose: 3 ml Amlodipine Besylate (Amlodipine 5 Mg Tablet) 5 mg PO DAILY [facility] Last Admin: 03/02/22 10:09 Dose: 5 mg Apixaban (Apixaban 5 Mg Tablet) 5 mg PO BID [facility] Last Admin: 03/02/22 21:31 Dose: 5 mg Bisoprolol Fumarate (Bisoprolol 5 Mg Tablet) 10 mg PO DAILY [facility] Last Admin: 03/02/22 10:09 Dose: 10 mg Dextrose (Dextrose 50% 50 Ml Vial) 0 ml IV UD PRN PRN Reason: Per Sliding Scale Diagnostic Test (Pha) (Accu-Chek 1 Each Strip) 1 each FS ACHS [facility] Last Admin: 03/03/22 08:11 Dose: 1 each Docusate Sodium (Docusate Sodium 100 Mg Capsule) 100 mg PO BID [facility] Last Admin: 03/02/22 21:31 Dose: 100 mg Fluoxetine HCl (Fluoxetine Hcl 20 Mg Capsule) 20 mg PO DAILY [facility] Last Admin: 03/02/22 10:08 Dose: 20 mg Furosemide (Furosemide 20 Mg Tablet) 40 mg PO DAILY [facility] Last Admin: 03/02/22 10:07 Dose: 40 mg Glucose (Dextrose 31 Gm Oral.Susp) 15 gm PO PRN PRN PRN Reason: Hypoglycemia Potassium Chloride 40 meq/ (Dextrose) 520 mls @ 130 mls/hr IV UD PRN PRN Reason: Potassium < 3 Magnesium Sulfate (Magnesium Sulfate) 2 gm in 50 mls @ 50 mls/hr IV UD PRN PRN Reason: Magnesium </= 1.6 Insulin Glargine (Insulin Glargine, Human 1 Unit/0.01 Ml) 10 unit SQ QPM [facility] Last Admin: 03/02/22 21:31 Dose: 10 units Insulin Human Lispro (Insulin Lispro 1 Unit/0.01 Ml Unit) 0 unit SQ ACHS [facility]; Protocol Last Admin: 03/02/22 21:31 Dose: 4 units Ketorolac Tromethamine (Ketorolac 30 Mg/Ml Vial) 30 mg IV Q6HP PRN PRN Reason: Per Pain Protocol Stop: 03/03/22 11:26 Memantine (Memantine 10 Mg Tablet) 5 mg PO BID [facility] Last Admin: 03/02/22 21:31 Dose: 5 mg Methocarbamol (Methocarbamol 750 Mg Tablet) 750 mg PO DAILY [facility] Last Admin: 03/02/22 10:07 Dose: 750 mg Metoprolol Tartrate (Metoprolol Tartrate 5 Mg/5 Ml Vial) 5 mg IV Q2HP PRN PRN Reason: Tachyarrhythmias HR>110 Last Admin: 02/19/22 22:21 Dose: 5 mg Omeprazole (Omeprazole 20 Mg Capsule) 20 mg PO ACB [facility] Last Admin: 03/03/22 08:08 Dose: 20 mg Ondansetron HCl (Ondansetron 4 Mg/2 Ml Vial) 4 mg IV Q4HP PRN PRN Reason: Nausea And Vomiting Budesonide- Formoterol 10.2 Gm Hfa Aerosol Inhaler 2 dose INH BID [facility] Last Admin: 03/02/22 22:59 Dose: Not Given Polyethylene Glycol (Polyethylene Glycol 3350 17 Gm Packet) 17 gm PO DAILYP PRN PRN Reason: Constipation Last Admin: 02/22/22 08:43 Dose: 17 gm Potassium Chloride (Potassium Chloride 20 Meq Tablet) 40 meq PO UD PRN PRN Reason: Potssium is 3-3.5 Potassium Chloride (Potassium Chloride 20 Meq Tablet) 40 meq PO UD PRN PRN Reason: Potassium < 3 Quetiapine Fumarate (Quetiapine 25 Mg Tablet) 50 mg PO HS [facility] Last Admin: 03/02/22 21:31 Dose: 50 mg Senna (Sennosides 1 Tablet) 2 tab PO DAILYP PRN PRN Reason: Constipation Last Admin: 02/22/22 08:44 Dose: 2 tab Sodium Chloride (0.9 % Sodium Chloride 10 Ml Syringe) 10 ml IV Q8 [facility] Last Admin: 03/03/22 05:29 Dose: Not Given Tamsulosin HCl (Tamsulosin 0.4 Mg Capsule) 0.4 mg PO BID [facility] Last Admin: 03/02/22 21:34 Dose: 0.4 mg Tramadol HCl (Tramadol 50 Mg Tablet) 50 mg PO Q4-6HP PRN; Protocol PRN Reason: Pain Last Admin: 03/02/22 21:34 Dose: 50 mg A/P Narrative A/P Narrative: A: *Generalized weakness/deconditioning/failure to thrive: *Encephalopathy, acute on chronic, underlying Dementia: 2/2 above *Dementia with sundowning: *CAP, likely Aspiration: *Oropharyngeal Dysphagia, Mod: *?Sepsis: *Acute hypoxic respiratory failure: transient in ED, on room air *Afib, paroxysmal (new diagnosis) w/RVR: improved -CHADSVASC=5-6 -echo with good EF *COPD(not on home O2): *h/o diastlic CHF: *Pre-Diabetes: a1c 6.4 *HTN: *CKD II: *Anemia, chronic: *LE wounds/ulcers/buttock decubitus: *Obesity: BMI 34 P: -Antibiotics finished -IS/Acapella, home IH's and prn nebs, RT -Wound care -seroquel qhs -will initiate anticoagulation for now and defer further decision making to f/u between family and PCP, pt unable to participate in his own medical decision making -cont BB/norvasc(decrease for some soft BPs) -cont home lasix -SSI, restarted home basal at lower dose -PT/OT -ST eval, dysphagia diet -CM for placement -ppx: eliquis / ppi DNR Time Spent With Patient Time: Total time spent is greater than 50% in coordination of care (as documented) at patient's floor/unit and/or counseling patient:
[2022-03-03] MEDS: INSULIN LISPRO 1 UNIT/0.01 ML UNIT SQ SCH ×4 (08:27→22:07)
[2022-03-03] MEDS: TAMSULOSIN 0.4 MG CAPSULE PO SCH ×2 (09:19→21:40)
[2022-03-03] MEDS: DOCUSATE SODIUM 100 MG CAPSULE PO SCH ×2 (09:20→21:39)
[2022-03-03] MEDS: MEMANTINE 10 MG TABLET PO SCH ×2 (09:20→21:40)
[2022-03-03] MEDS: FLUoxetine HCL 20 MG CAPSULE PO SCH (09:21)
[2022-03-03] MEDS: METHOCARBAMOL 750 MG TABLET PO SCH (09:21)
[2022-03-03] MEDS: BISOPROLOL 5 MG TABLET PO SCH (09:21)
[2022-03-03] MEDS: FUROSEMIDE 20 MG TABLET PO SCH (09:21)
[2022-03-03] MEDS: APIXABAN 5 MG TABLET PO SCH ×2 (09:22→21:40)
[2022-03-03] MEDS: ACETAMINOPHEN W/CODEINE #3 1 TABLET PO PRN ×2 (09:22→13:34)
[2022-03-03] MEDS: traMADol 50 MG TABLET PO PRN ×3 (09:22→21:39)
[2022-03-03] MEDS: amLODIPine 5 MG TABLET PO SCH ×2 (09:43→12:03)
[2022-03-03] MEDS: Budesonide-Formoterol 10.2 GM HFA aerosol inhaler INH SCH ×2 (09:43→22:07)
--- NOTE | 2022-03-03 14:37 | Tele-Psychiatry Consult Note ---
Consult Note Narrative: Name: Edmond Coley: 1935 DateandTime: 03/03/2022 4:35:33 PM Location [facility] the [facility] IPLocation of the doctor: Shahana Length of consult: 50 minutes This evaluation was conducted via video telepsychiatry with the assistance of onsite staff Reason for consult: Medication recommendations Requested by: Inpatient attending provider History of Present Illness: Chart reviewed and appreciated, case discussed with supervisor char house Neeru. 86 y/o male with history of dementia, admitted on 02/18 for pneumonia, acute respiratory failure, and weakness/deconditioning/failure to thrive. Family is no longer able to care for pt at this point so long-term placement is being sought. However, placement has been difficult because pt continues to have some agitation episodes intermittently, including impulsivity, sometimes combative behavior or pulling out lines. No report of overt violent behavior. Pt sometimes goes 1-2 days without incident. He has not required any IM medications recently. Sleep varies, but last night pt slept well. Neeru notes that pt's agitation tends to occur in afternoon to evening hours. Sometimes can be triggered by direct care, but other times has no clear trigger. Per MAR, pt does not currently have any prn medications ordered. He is on Seroquel at bedtime, also on Prozac. It appears that pt was on both Prozac and Cymbalta at home but Cymbalta is held. Pt seen and examined, is calm and attempts to cooperate but is quite confused and unable to provide much meaningful history. On-site staff assists with repeating questions but pt still has poor response. Pt reports feeling "okay" today. Pt states that he is not sure of his birthday, not sure of where he is. When asked about thoughts to harm self or others, pt shakes his head and mumbles, per staff he stated that he does not know. When asked about sleep, pt responds with essentially word salad. Spoke with pt's , she reports that pt's prior baseline was very similar to current present ation, other than less frequent agitation/aggression. Pt's dementia has advanced to the point that he is not able to converse logically. She notes that pt had intermittent visual hallucinations, thinking people were in the house or out in the yard. Pt would sometimes be up all night so was unable to sleep, had to stay up and watch him. Pt does have prior history of depression, for which he wa s taking Prozac (Cymbalta is not an active medication). No history of psych admissions or suicidality for pt. notes that pt has pattern of getting more aggressive sometimes when blood sugar is low, so stability there is important. Discussed pt's current medications and recommendation to increase Seroquel. Also discussed black box warning for dementia patients, expresses understanding and is okay with continuing it. Collateral Contacted: YesCollateral name:Tisha Esteban phone number: [phone] relationship to the patient: Sleep issues?: YesSleep Quantity:VariableSleep Quality:Slept well last night per staff, but up more often the night before. Psychiatric History/Treatment History: Past diagnoses: Dementia, depression Hospitalizations: No Current Treatment:YesMedication management:YesMedications:ProzacTherapy:No Suicide Assessment: PSS-3: 1) Over the past 2 weeks have you felt down, depressed or hopeless?Unknown-NA Description:Unable to complete due to pt's mental status 2) Over the past 2 weeks have you had thoughts of killing yourself?Unknown-NA 3) Have you ever in your life attempted to kill yourself?Unknown-NA Within the past 6 months? [facility] Safety Assessment: Risk Factors Stressors: Unable to obtain due to pt's mental status Attempts/Self-injury: No Impulsivity:YesDescription:Related to dementia Drug/Alcohol History:Unknown-NA Trauma History:Unknown-NA Access to firearms:No HI/Violence/Property destruction:YesDescription:Aggressive behavior related to dementia Legal: Unknown-NA Family Psych History:Unknown-NA Family History of suicide:Unknown-NA Protective Factors: Can handle stress well?Unknown-NA Hindu?Unknown-NA External: Social supports/ Therapeutic relationships: YesDescription: Relationship history: Living situation: Pt was living at home with prior to admission. Employment: No Education: Unable to obtain Responsibility to family/children/work: No Future orientation:Unknown-NA Health History: Medical History: CHF, chronic anemia, HTN, COPD Medications & Freq: Psychiatric medications include: Prozac 20 mg daily Seroquel 50 mg qHS Namenda 5 mg BID -Please see chart for full list of current medications. Allergies: PCN, Morphine Mental Status Exam: Appearance and Attire:Well groomed, Appears stated age, Sitting up in bed Psychomotor agitation:No abnormality Attitude and behavior:Pleasantly confused, calm, attempts to cooperate Speech:Very low volume, mostly mumbling and often incoherent Mood:Neutral Affect:Stable Thought process:Illogical Thought content:Poverty of content Perception:Does not appear to be responding to internal stimuli currently Intel:Unable to assess Abstract:Unable to assess Language:Unable to assess Orientation:Oriented to self (name only) Sense:Alert Knowledge:Unable to assess Memory:Unable to assess Insight:Impaired Judgement:Impaired Gait:Not assessed Impression/Risk Assessment: Current Suicide Risk Elevated?No Current Violence Risk Elevated?No Issues with ability to care for self?Yes Description:Related to current physical condition and cognitive status Summary: 86 y/o male with history of dementia and depression, admitted for CAP, acute respiratory failure, and weakness/deconditioning/failure to thrive. Family is no longer able to care for pt at this point so long-term placement is being sought. However, placement has been difficult because pt continues to have some agitation episodes intermittently, including impulsivity, sometimes combative behavior or pulling out lines. No report of overt violent behavior. On exam, pt is poorly oriented, unable to converse appropriately and is extremely confused but is pleasant/calm and attempts to answer questions. Based on staff report, behaviors are not occurring every day and seems to be most often in afternoon/evenings with typical pattern. Based on 's report, current presentation is consistent with prior baseline, other than agitation occurring less frequently when he was at home. Pt has history of hallucinations but no evidence of psychosis on exam today. Diagnosis: F03.91 Unspecified dementia with behavioral disturbance CPT Codes: 48718 - Psychiatric Diagnostic Evaluation with Medical Services Treatment Plan: General: Agree with plan for placement at a long-term care facility. Recommend consistency of staff and routine as much as possible, and allow for maximal periods of uninterrupted sleep. Level of Care: Medically admitted Psychiatric Clearance: Description:N/A Observation level Continue current level of monitoring. Pharmacological: Recommend increasing scheduled Seroquel to 25 mg daily at 14:00hrs and 50 mg qHS, and adding Seroquel 12.5 mg q6H prn agitation. If prn dose is given as agitation starts to rise, it may help prevent more prolonged or escalating agitation. Patient psychotic?No Therapy: N/A Follow up needed while in the hospital?: YesNumber of times:Please re-consult in 48 hours for further recommendations, or sooner if clinically indicated. Discussed plan with onsite customer care team coach: Yes Who assembly stock supervisor Neeru
[2022-03-03] MEDS: QUEtiapine 25 MG TABLET PO SCH (21:39)
[2022-03-03] MEDS: SENNOSIDES 1 TABLET PO PRN (21:39)
[2022-03-03] MEDS: INSULIN GLARGINE, HUMAN 1 UNIT/0.01 ML SQ SCH (22:13)
[2022-03-04] MEDS: OMEPRAZOLE 20 MG CAPSULE PO SCH (07:17)
[2022-03-04] MEDS: INSULIN LISPRO 1 UNIT/0.01 ML UNIT SQ SCH ×4 (07:53→20:16)
--- NOTE | 2022-03-04 07:58 | Internal Med Progress Note ---
SUBJECTIVE Subjective Patient information: Note initiated : 03/04/22 at 7:58 am Service Date, if different from initiated Date: [] Patient: Edmond Salas a 86 y/o M admitted on 02/18/22 for Weakness/Eval for assisted living-PNA,Sepsis. Chief Complaint: [] Interval history: History of present illness: Mr. Salas is a 86 year old M Presents the ED with worsening confusion on top of dementia and weakness. Recently treated for UTI but the urine looks clear here. Original plan was for home with hospice out of the ED. But it sounds like the family was not comfortable with patient being home felt to be unsafe conditions and they have been try to get APS involved. Further work-up in the ED today they got a chest x-ray which showed infiltrate on left side and mild right. Was noted to have some transient mild hypoxia, unknown baseline but has copd. Sounds like after further discussion with family hospice does not think finally decided on and is reported that they would prefer treatment for anything if possible first. Patient reports a chronic cough and some shortness of breath but at baseline. Patient is a poor historian most history obtained from the chart. Medical history includes dementia COPD hypertension chronic anemia and diastolic heart failure grade 1 with good ejection fraction on an echo in 2019. 02/19 Patient sleeping. Likely result from Haldol last night. Haldol was given for and severe agitation and pulling at lines. Nurse also reports that she feels he is aspirating with liquids. We will place on dysphagia diet order speech therapy evaluation. Likely is infiltrates on chest x-ray from aspiration. 02/20 Patient sitting up in bed eating breakfast. Did get some Zyprexa last night for agitation. No new complaints this morning. Try to talk with him about his atrial fibrillation but given his dementia patient does not seem to comprehend. 02/21 Patient sitting up in bed eating breakfast. More talkative today. No overnight event or new complaints. Did not require any Zyprexa last night. 02/22 Patient sleeping. Calm overnight. Started Seroquel yesterday evening seem to respond well to it. 02/23: Afebrile overnight. No major overnight events. Subjective not obtained due to patient's clinical situations. Medically stable awaiting placement. 02/24: Afebrile overnight. No major overnight events. Subjective not obtained due to patient's clinical situations. Medically stable awaiting placement. 02/25: Afebrile overnight. No major overnight events. Subjective not obtained due to patient's clinical situations. Medically stable awaiting placement. 02/26: Afebrile overnight. No major overnight events. Subjective not obtained due to patient's clinical situations. Medically stable awaiting placement. 02/27: Afebrile overnight. No major overnight events. Subjective not obtained due to patient's clinical situations. Medically stable awaiting placement. 02/28: Afebrile overnight. No major overnight events. Subjective not obtained due to patient's clinical situations. Medically stable awaiting placement. 03/01: Patient is very pleasant to stuffs. Not posting danger to self or stuffs. Medically ready to be discharged to SNF. 03/02 No overnight event or new complaints. 03/03 No new complaints. No overnight events. Vital signs stable. Blood pressure occasionally a bit soft. Decrease Norvasc. 03/04 No change overnight. Vital signs stable. Blood pressure good after decreasing Norvasc. Review of Systems: denies headache/fever/chills/nausea/vomiting/chest or abdominal pain/cough/dyspnea/diarrhea. Otherwise see above. Constitutional Vitals: Vital Signs Temp Pulse Resp BP Pulse Ox O2 Del Method O2 Flow Rate 98.3 F 83 20 110/66 94 0 03/04/22 03:10 03/04/22 03:10 03/04/22 03:10 03/04/22 03:10 03/04/22 03:10 03/04/22 03:10 02/25/22 04:00 Period Temp Pulse Resp BP Sys/Meza Pulse Ox O2 Del Method O2 Flow Rate Last 24 Hr 96.5 F-98.3 F 72-91 16-20 103-123/52-79 94-98 Room Air-Room A ir Intake and Output 03/03/22 03/04/22 03/04/22 21:59 05:59 13:59 Intake Total 680 360 Output Total 300 350 Balance 380 10 Weight 118.206 kg Intake & Output: Intake & Output 03/03/22 03/04/22 03/04/22 21:59 05:59 13:59 Intake Total 680 360 Output Total 300 350 Balance 380 10 Weight 118.206 kg Intake: Oral 680 360 Output: Urine Catheter Amount 300 350 Other: Meal Nourishment/Supplement Percent of Meal Consumed 100% Feeding Ability Total Assistance Urine Appearance Clear Clear Willis Clear Clear Urine Color Dark Joan Dark Joan Willis Dark Joan Dark Joan Exam: General: awake, no acute Distress, obese Eyes/N/T: EOMI, Head/Neck: neck supple, CV: irreg irreg, No murmurs, Pulm: Clear b/l, no wheezing/rhonchi/rales Abd: soft, nontender, +BS x4 Ext: no clubbing/cyanosis, b/l LE edema improved and LE chronic wounds/ulcers Neuro: alert, no focal deficits, spontaneously moves all extremities, Skin: warm/dry OBJ DATA Labs CBC & Chem 7: 02/28/22 05:49 02/28/22 05:49 Meds: Medications Acetaminophen (Acetaminophen 325 Mg Tablet) 650 mg PO Q6HP PRN; Protocol PRN Reason: Per Pain Protocol/Fever > 101 Last Admin: 03/01/22 13:21 Dose: 650 mg Acetaminophen/Codeine Phosphate (Acetaminophen W/Codeine #3 1 Tablet) 1 tab PO BIDP PRN; Protocol PRN Reason: Pain Last Admin: 03/03/22 13:34 Dose: 1 tab Albuterol/Ipratropium (Ipratropium/Albuterol 3 Ml Ampul.Neb) 3 ml NEB Q4HP PRN PRN Reason: Shortness Of Breath Last Admin: 02/20/22 22:53 Dose: 3 ml Amlodipine Besylate (Amlodipine 5 Mg Tablet) 2.5 mg PO DAILY [facility] Last Admin: 03/03/22 12:03 Dose: Not Given Apixaban (Apixaban 5 Mg Tablet) 5 mg PO BID [facility] Last Admin: 03/03/22 21:40 Dose: 5 mg Bisoprolol Fumarate (Bisoprolol 5 Mg Tablet) 10 mg PO DAILY [facility] Last Admin: 03/03/22 09:21 Dose: 10 mg Dextrose (Dextrose 50% 50 Ml Vial) 0 ml IV UD PRN PRN Reason: Per Sliding Scale Diagnostic Test (Pha) (Accu-Chek 1 Each Strip) 1 each FS ACHS [facility] Last Admin: 03/04/22 07:17 Dose: 1 each Docusate Sodium (Docusate Sodium 100 Mg Capsule) 100 mg PO BID [facility] Last Admin: 03/03/22 21:39 Dose: 100 mg Fluoxetine HCl (Fluoxetine Hcl 20 Mg Capsule) 20 mg PO DAILY [facility] Last Admin: 03/03/22 09:21 Dose: 20 mg Furosemide (Furosemide 20 Mg Tablet) 40 mg PO DAILY [facility] Last Admin: 03/03/22 09:21 Dose: 40 mg Glucose (Dextrose 31 Gm Oral.Susp) 15 gm PO PRN PRN PRN Reason: Hypoglycemia Potassium Chloride 40 meq/ (Dextrose) 520 mls @ 130 mls/hr IV UD PRN PRN Reason: Potassium < 3 Magnesium Sulfate (Magnesium Sulfate) 2 gm in 50 mls @ 50 mls/hr IV UD PRN PRN Reason: Magnesium </= 1.6 Insulin Glargine (Insulin Glargine, Human 1 Unit/0.01 Ml) 10 unit SQ QPM [facility] Last Admin: 03/03/22 22:13 Dose: 10 units Insulin Human Lispro (Insulin Lispro 1 Unit/0.01 Ml Unit) 0 unit SQ ACHS [facility]; Protocol Last Admin: 03/04/22 07:53 Dose: Not Given Memantine (Memantine 10 Mg Tablet) 5 mg PO BID [facility] Last Admin: 03/03/22 21:40 Dose: 5 mg Methocarbamol (Methocarbamol 750 Mg Tablet) 750 mg PO DAILY [facility] Last Admin: 03/03/22 09:21 Dose: 750 mg Metoprolol Tartrate (Metoprolol Tartrate 5 Mg/5 Ml Vial) 5 mg IV Q2HP PRN PRN Reason: Tachyarrhythmias HR>110 Last Admin: 02/19/22 22:21 Dose: 5 mg Omeprazole (Omeprazole 20 Mg Capsule) 20 mg PO ACB [facility] Last Admin: 03/04/22 07:17 Dose: 20 mg Ondansetron HCl (Ondansetron 4 Mg/2 Ml Vial) 4 mg IV Q4HP PRN PRN Reason: Nausea And Vomiting Budesonide- Formoterol 10.2 Gm Hfa Aerosol Inhaler 2 dose INH BID [facility] Last Admin: 03/03/22 22:07 Dose: Not Given Polyethylene Glycol (Polyethylene Glycol 3350 17 Gm Packet) 17 gm PO DAILYP PRN PRN Reason: Constipation Last Admin: 02/22/22 08:43 Dose: 17 gm Potassium Chloride (Potassium Chloride 20 Meq Tablet) 40 meq PO UD PRN PRN Reason: Potssium is 3-3.5 Potassium Chloride (Potassium Chloride 20 Meq Tablet) 40 meq PO UD PRN PRN Reason: Potassium < 3 Quetiapine Fumarate (Quetiapine 25 Mg Tablet) 50 mg PO HS GAIL Last Admin: 03/03/22 21:39 Dose: 50 mg Senna (Sennosides 1 Tablet) 2 tab PO DAILYP PRN PRN Reason: Constipation Last Admin: 03/03/22 21:39 Dose: 2 tab Tamsulosin HCl (Tamsulosin 0.4 Mg Capsule) 0.4 mg PO BID GAIL Last Admin: 03/03/22 21:40 Dose: 0.4 mg Tramadol HCl (Tramadol 50 Mg Tablet) 50 mg PO Q4-6HP PRN; Protocol PRN Reason: Pain Last Admin: 03/03/22 21:39 Dose: 50 mg A/P Narrative A/P Narrative: A: *Generalized weakness/deconditioning/failure to thrive: *Encephalopathy, acute on chronic, underlying Dementia: 2/2 above *Dementia with sundowning: *CAP, likely Aspiration: *Oropharyngeal Dysphagia, Mod: *?Sepsis: *Acute hypoxic respiratory failure: transient in ED, on room air *Afib, paroxysmal (new diagnosis) w/RVR: improved -CHADSVASC=5-6 -echo with good EF *COPD(not on home O2): *h/o diastlic CHF: *Pre-Diabetes: a1c 6.4 *HTN: *CKD II: *Anemia, chronic: *LE wounds/ulcers/buttock decubitus: *Obesity: BMI 34 P: -Antibiotics finished -IS/Acapella, home IH's and prn nebs, RT -Wound care -seroquel qhs -will initiate anticoagulation for now and defer further decision making to f/u between family and PCP, pt unable to participate in his own medical decision making -cont BB/norvasc(decrease for some soft BPs) -cont home lasix -SSI, restarted home basal at lower dose -PT/OT -ST eval, dysphagia diet -CM for placement -ppx: eliquis / ppi DNR Time Spent With Patient Time: Total time spent is greater than 50% in coordination of care (as documented) at patient's floor/unit and/or counseling patient:
[2022-03-04] MEDS: APIXABAN 5 MG TABLET PO SCH ×2 (09:43→20:24)
[2022-03-04] MEDS: DOCUSATE SODIUM 100 MG CAPSULE PO SCH ×2 (09:43→20:24)
[2022-03-04] MEDS: MEMANTINE 10 MG TABLET PO SCH ×2 (09:44→20:25)
[2022-03-04] MEDS: METHOCARBAMOL 750 MG TABLET PO SCH (09:44)
[2022-03-04] MEDS: Budesonide-Formoterol 10.2 GM HFA aerosol inhaler INH SCH ×2 (09:44→20:25)
[2022-03-04] MEDS: TAMSULOSIN 0.4 MG CAPSULE PO SCH ×2 (09:44→20:24)
[2022-03-04] MEDS: FUROSEMIDE 20 MG TABLET PO SCH (09:44)
[2022-03-04] MEDS: BISOPROLOL 5 MG TABLET PO SCH (09:44)
[2022-03-04] MEDS: FLUoxetine HCL 20 MG CAPSULE PO SCH (09:44)
[2022-03-04] MEDS: amLODIPine 5 MG TABLET PO SCH (09:44)
[2022-03-04] MEDS: traMADol 50 MG TABLET PO PRN ×3 (11:37→22:02)
[2022-03-04] MEDS ORDERED: QUEtiapine 25 MG TABLET PO SCH (14:00)
[2022-03-04] MEDS: INSULIN GLARGINE, HUMAN 1 UNIT/0.01 ML SQ SCH (20:23)
[2022-03-04] MEDS: SENNOSIDES 1 TABLET PO PRN (20:24)
[2022-03-04] MEDS: QUEtiapine 25 MG TABLET PO SCH (20:24)
[2022-03-04] MEDS: QUEtiapine 25 MG TABLET PO PRN (23:21)
[2022-03-05] MEDS: ACETAMINOPHEN W/CODEINE #3 1 TABLET PO PRN ×2 (01:27→07:25)
[2022-03-05] MEDS: traMADol 50 MG TABLET PO PRN ×3 (07:25→21:32)
[2022-03-05] MEDS: OMEPRAZOLE 20 MG CAPSULE PO SCH (07:26)
[2022-03-05] MEDS: INSULIN LISPRO 1 UNIT/0.01 ML UNIT SQ SCH ×4 (07:26→21:14)
--- NOTE | 2022-03-05 08:49 | Internal Med Progress Note ---
SUBJECTIVE Subjective Patient information: Note initiated : 03/05/22 at 8:49 am Service Date, if different from initiated Date: [] Patient: Edmond Salas a 86 y/o M admitted on 02/18/22 for Weakness/Eval for assisted living-PNA,Sepsis. Chief Complaint: [] Interval history: History of present illness: Mr. Salas is a 86 year old M Presents the ED with worsening confusion on top of dementia and weakness. Recently treated for UTI but the urine looks clear here. Original plan was for home with hospice out of the ED. But it sounds like the family was not comfortable with patient being home felt to be unsafe conditions and they have been try to get APS involved. Further work-up in the ED today they got a chest x-ray which showed infiltrate on left side and mild right. Was noted to have some transient mild hypoxia, unknown baseline but has copd. Sounds like after further discussion with family hospice does not think finally decided on and is reported that they would prefer treatment for anything if possible first. Patient reports a chronic cough and some shortness of breath but at baseline. Patient is a poor historian most history obtained from the chart. Medical history includes dementia COPD hypertension chronic anemia and diastolic heart failure grade 1 with good ejection fraction on an echo in 2019. 02/19 Patient sleeping. Likely result from Haldol last night. Haldol was given for and severe agitation and pulling at lines. Nurse also reports that she feels he is aspirating with liquids. We will place on dysphagia diet order speech therapy evaluation. Likely is infiltrates on chest x-ray from aspiration. 02/20 Patient sitting up in bed eating breakfast. Did get some Zyprexa last night for agitation. No new complaints this morning. Try to talk with him about his atrial fibrillation but given his dementia patient does not seem to comprehend. 02/21 Patient sitting up in bed eating breakfast. More talkative today. No overnight event or new complaints. Did not require any Zyprexa last night. 02/22 Patient sleeping. Calm overnight. Started Seroquel yesterday evening seem to respond well to it. 02/23: Afebrile overnight. No major overnight events. Subjective not obtained due to patient's clinical situations. Medically stable awaiting placement. 02/24: Afebrile overnight. No major overnight events. Subjective not obtained due to patient's clinical situations. Medically stable awaiting placement. 02/25: Afebrile overnight. No major overnight events. Subjective not obtained due to patient's clinical situations. Medically stable awaiting placement. 02/26: Afebrile overnight. No major overnight events. Subjective not obtained due to patient's clinical situations. Medically stable awaiting placement. 02/27: Afebrile overnight. No major overnight events. Subjective not obtained due to patient's clinical situations. Medically stable awaiting placement. 02/28: Afebrile overnight. No major overnight events. Subjective not obtained due to patient's clinical situations. Medically stable awaiting placement. 03/01: Patient is very pleasant to stuffs. Not posting danger to self or stuffs. Medically ready to be discharged to SNF. 03/02 No overnight event or new complaints. 03/03 No new complaints. No overnight events. Vital signs stable. Blood pressure occasionally a bit soft. Decrease Norvasc. 03/04 No change overnight. Vital signs stable. Blood pressure good after decreasing Norvasc. 03/05 Patient stable seems to be doing well. No overnight event or new complaints. Blood pressure good. Review of Systems: denies headache/fever/chills/nausea/vomiting/chest or abdominal pain/cough/dyspnea/diarrhea. Otherwise see above. Constitutional Vitals: Vital Signs Temp Pulse Resp BP Pulse Ox O2 Del Method O2 Flow Rate 97.3 F 79 14 113/62 95 0 03/05/22 07:44 03/05/22 07:44 03/05/22 07:44 03/05/22 07:44 03/05/22 07:44 03/05/22 07:44 02/25/22 04:00 Period Temp Pulse Resp BP Sys/Meza Pulse Ox O2 Del Method O2 Flow Rate Last 24 Hr 97.3 F-98.6 F 78-91 14-20 92-114/49-67 94-96 Room Air-Room Air Intake and Output 03/04/22 03/05/22 03/05/22 21:59 05:59 13:59 Intake Total 600 480 240 Output Total 400 350 Balance 200 130 240 Weight 117.753 kg Intake & Output: Intake & Output 03/04/22 03/05/22 03/05/22 21:59 05:59 13:59 Intake Total 600 480 240 Output Total 400 350 Balance 200 130 240 Weight 117.753 kg Intake: Oral 600 480 240 Output: Urine Catheter Amount 400 350 Other: Meal Dinner Breakfast Percent of Meal Consumed 75% 25% Feeding Ability Total Assistance Total Assistance Urine Appearance Clear Clear Willis Clear Clear Urine Color Dark Yellow Light Joan Willis Dark Joan Dark Yellow Exam: General: awake, no acute Distress, obese Eyes/N/T: EOMI, Head/Neck: neck supple, CV: irreg irreg, No murmurs, Pulm: Clear b/l, no wheezing/rhonchi/rales Abd: soft, nontender, +BS x4 Ext: no clubbing/cyanosis, b/l LE edema improved and LE chronic wounds/ulcers Neuro: alert, no focal deficits, spontaneously moves all extremities, Skin: warm/dry OBJ DATA Labs CBC & Chem 7: 02/28/22 05:49 02/28/22 05:49 Meds: Medications Acetaminophen (Acetaminophen 325 Mg Tablet) 650 mg PO Q6HP PRN; Protocol PRN Reason: Per Pain Protocol/Fever > 101 Last Admin: 03/01/22 13:21 Dose: 650 mg Acetaminophen/Codeine Phosphate (Acetaminophen W/Codeine #3 1 Tablet) 1 tab PO BIDP PRN; Protocol PRN Reason: Pain Last Admin: 03/05/22 07:25 Dose: 1 tab Albuterol/Ipratropium (Ipratropium/Albuterol 3 Ml Ampul.Neb) 3 ml NEB Q4HP PRN PRN Reason: Shortness Of Breath Last Admin: 02/20/22 22:53 Dose: 3 ml Amlodipine Besylate (Amlodipine 5 Mg Tablet) 2.5 mg PO DAILY [facility] Last Admin: 03/04/22 09:44 Dose: 2.5 mg Apixaban (Apixaban 5 Mg Tablet) 5 mg PO BID [facility] Last Admin: 03/04/22 20:24 Dose: 5 mg Bisoprolol Fumarate (Bisoprolol 5 Mg Tablet) 10 mg PO DAILY [facility] Last Admin: 03/04/22 09:44 Dose: 10 mg Dextrose (Dextrose 50% 50 Ml Vial) 0 ml IV UD PRN PRN Reason: Per Sliding Scale Diagnostic Test (Pha) (Accu-Chek 1 Each Strip) 1 each FS ACHS [facility] Last Admin: 03/05/22 07:18 Dose: 1 each Docusate Sodium (Docusate Sodium 100 Mg Capsule) 100 mg PO BID [facility] Last Admin: 03/04/22 20:24 Dose: 100 mg Fluoxetine HCl (Fluoxetine Hcl 20 Mg Capsule) 20 mg PO DAILY [facility] Last Admin: 03/04/22 09:44 Dose: 20 mg Furosemide (Furosemide 20 Mg Tablet) 40 mg PO DAILY [facility] Last Admin: 03/04/22 09:44 Dose: 40 mg Glucose (Dextrose 31 Gm Oral.Susp) 15 gm PO PRN PRN PRN Reason: Hypoglycemia Potassium Chloride 40 meq/ (Dextrose) 520 mls @ 130 mls/hr IV UD PRN PRN Reason: Potassium < 3 Magnesium Sulfate (Magnesium Sulfate) 2 gm in 50 mls @ 50 mls/hr IV UD PRN PRN Reason: Magnesium </= 1.6 Insulin Glargine (Insulin Glargine, Human 1 Unit/0.01 Ml) 10 unit SQ QPM [facility] Last Admin: 03/04/22 20:23 Dose: 10 units Insulin Human Lispro (Insulin Lispro 1 Unit/0.01 Ml Unit) 0 unit SQ ACHS [facility]; Protocol Last Admin: 03/05/22 07:26 Dose: 2 units Memantine (Memantine 10 Mg Tablet) 5 mg PO BID [facility] Last Admin: 03/04/22 20:25 Dose: 5 mg Methocarbamol (Methocarbamol 750 Mg Tablet) 750 mg PO DAILY [facility] Last Admin: 03/04/22 09:44 Dose: 750 mg Metoprolol Tartrate (Metoprolol Tartrate 5 Mg/5 Ml Vial) 5 mg IV Q2HP PRN PRN Reason: Tachyarrhythmias HR>110 Last Admin: 02/19/22 22:21 Dose: 5 mg Omeprazole (Omeprazole 20 Mg Capsule) 20 mg PO ACB [facility] Last Admin: 03/05/22 07:26 Dose: 20 mg Ondansetron HCl (Ondansetron 4 Mg/2 Ml Vial) 4 mg IV Q4HP PRN PRN Reason: Nausea And Vomiting Budesonide- Formoterol 10.2 Gm Hfa Aerosol Inhaler 2 dose INH BID [facility] Last Admin: 03/04/22 20:25 Dose: Not Given Polyethylene Glycol (Polyethylene Glycol 3350 17 Gm Packet) 17 gm PO DAILYP PRN PRN Reason: Constipation Last Admin: 02/22/22 08:43 Dose: 17 gm Potassium Chloride (Potassium Chloride 20 Meq Tablet) 40 meq PO UD PRN PRN Reason: Potssium is 3-3.5 Potassium Chloride (Potassium Chloride 20 Meq Tablet) 40 meq PO UD PRN PRN Reason: Potassium < 3 Quetiapine Fumarate (Quetiapine 25 Mg Tablet) 50 mg PO HS [facility] Last Admin: 03/04/22 20:24 Dose: 50 mg Quetiapine Fumarate (Quetiapine 25 Mg Tablet) 12.5 mg PO Q6HP PRN PRN Reason: agitation Last Admin: 03/04/22 23:21 Dose: 12.5 mg Quetiapine Fumarate (Quetiapine 25 Mg Tablet) 25 mg PO 0900 [facility] Senna (Sennosides 1 Tablet) 2 tab PO DAILYP PRN PRN Reason: Constipation Last Admin: 03/04/22 20:24 Dose: 2 tab Tamsulosin HCl (Tamsulosin 0.4 Mg Capsule) 0.4 mg PO BID [facility] Last Admin: 03/04/22 20:24 Dose: 0.4 mg Tramadol HCl (Tramadol 50 Mg Tablet) 50 mg PO Q4-6HP PRN; Protocol PRN Reason: Pain Last Admin: 03/05/22 07:25 Dose: 50 mg A/P Narrative A/P Narrative: A: *Generalized weakness/deconditioning/failure to thrive: *Encephalopathy, acute on chronic, underlying Dementia: 2/2 above *Dementia with sundowning: *CAP, likely Aspiration: *Oropharyngeal Dysphagia, Mod: *?Sepsis: *Acute hypoxic respiratory failure: transient in ED, on room air *Afib, paroxysmal (new diagnosis) w/RVR: improved -CHADSVASC=5-6 -echo with good EF *COPD(not on home O2): *h/o diastlic CHF: *Pre-Diabetes: a1c 6.4 *HTN: *CKD II: *Anemia, chronic: *LE wounds/ulcers/buttock decubitus: *Obesity: BMI 34 P: -Antibiotics finished -IS/Acapella, home IH's and prn nebs, RT -Wound care -per telepsych, increased seroquel to 25@1400 and 50 qhs and 12.5 q6h prn -will initiate anticoagulation for now and defer further decision making to f/u between family and PCP, pt unable to participate in his own medical decision making -cont BB/norvannac(decrease for some soft BPs) -cont home lasix -SSI, restarted home basal at lower dose -PT/OT -ST eval, dysphagia diet -CM for placement -ppx: eliquis / ppi DNR Time Spent With Patient Time: Total time spent is greater than 50% in coordination of care (as documented) at patient's floor/unit and/or counseling patient:
[2022-03-05] MEDS: amLODIPine 5 MG TABLET PO SCH (09:13)
[2022-03-05] MEDS: METHOCARBAMOL 750 MG TABLET PO SCH (09:13)
[2022-03-05] MEDS: TAMSULOSIN 0.4 MG CAPSULE PO SCH ×2 (09:13→21:09)
[2022-03-05] MEDS: FUROSEMIDE 20 MG TABLET PO SCH (09:14)
[2022-03-05] MEDS: APIXABAN 5 MG TABLET PO SCH ×2 (09:14→21:09)
[2022-03-05] MEDS: FLUoxetine HCL 20 MG CAPSULE PO SCH (09:14)
[2022-03-05] MEDS: BISOPROLOL 5 MG TABLET PO SCH (09:14)
[2022-03-05] MEDS: MEMANTINE 10 MG TABLET PO SCH ×2 (09:15→21:09)
[2022-03-05] MEDS: QUEtiapine 25 MG TABLET PO SCH ×2 (09:15→21:09)
[2022-03-05] MEDS: DOCUSATE SODIUM 100 MG CAPSULE PO SCH ×2 (09:16→21:09)
[2022-03-05] MEDS: Budesonide-Formoterol 10.2 GM HFA aerosol inhaler INH SCH ×2 (09:16→21:20)
[2022-03-05] MEDS: IPRATROPIUM/ALBUTEROL 3 ML AMPUL.NEB NEB PRN (09:50)
[2022-03-05] MEDS: ACETAMINOPHEN 325 MG TABLET PO PRN (14:15)
[2022-03-05] MEDS: INSULIN GLARGINE, HUMAN 1 UNIT/0.01 ML SQ SCH (21:19)
[2022-03-06] MEDS: INSULIN LISPRO 1 UNIT/0.01 ML UNIT SQ SCH ×4 (07:05→20:14)
[2022-03-06] MEDS: OMEPRAZOLE 20 MG CAPSULE PO SCH (07:43)
[2022-03-06] MEDS: ACETAMINOPHEN 325 MG TABLET PO PRN (07:43)
[2022-03-06] MEDS: IPRATROPIUM/ALBUTEROL 3 ML AMPUL.NEB NEB PRN ×2 (07:59→20:44)
--- NOTE | 2022-03-06 07:59 | Internal Med Progress Note ---
SUBJECTIVE Subjective Patient information: Note initiated : 03/06/22 at 7:59 am Service Date, if different from initiated Date: [] Patient: Edmond Salas a 86 y/o M admitted on 02/18/22 for Weakness/Eval for assisted living-PNA,Sepsis. Chief Complaint: [] Interval history: History of present illness: Mr. Salas is a 86 year old M Presents the ED with worsening confusion on top of dementia and weakness. Recently treated for UTI but the urine looks clear here. Original plan was for home with hospice out of the ED. But it sounds like the family was not comfortable with patient being home felt to be unsafe conditions and they have been try to get APS involved. Further work-up in the ED today they got a chest x-ray which showed infiltrate on left side and mild right. Was noted to have some transient mild hypoxia, unknown baseline but has copd. Sounds like after further discussion with family hospice does not think finally decided on and is reported that they would prefer treatment for anything if possible first. Patient reports a chronic cough and some shortness of breath but at baseline. Patient is a poor historian most history obtained from the chart. Medical history includes dementia COPD hypertension chronic anemia and diastolic heart failure grade 1 with good ejection fraction on an echo in 2019. 02/19 Patient sleeping. Likely result from Haldol last night. Haldol was given for and severe agitation and pulling at lines. Nurse also reports that she feels he is aspirating with liquids. We will place on dysphagia diet order speech therapy evaluation. Likely is infiltrates on chest x-ray from aspiration. 02/20 Patient sitting up in bed eating breakfast. Did get some Zyprexa last night for agitation. No new complaints this morning. Try to talk with him about his atrial fibrillation but given his dementia patient does not seem to comprehend. 02/21 Patient sitting up in bed eating breakfast. More talkative today. No overnight event or new complaints. Did not require any Zyprexa last night. 02/22 Patient sleeping. Calm overnight. Started Seroquel yesterday evening seem to respond well to it. 02/23: Afebrile overnight. No major overnight events. Subjective not obtained due to patient's clinical situations. Medically stable awaiting placement. 02/24: Afebrile overnight. No major overnight events. Subjective not obtained due to patient's clinical situations. Medically stable awaiting placement. 02/25: Afebrile overnight. No major overnight events. Subjective not obtained due to patient's clinical situations. Medically stable awaiting placement. 02/26: Afebrile overnight. No major overnight events. Subjective not obtained due to patient's clinical situations. Medically stable awaiting placement. 02/27: Afebrile overnight. No major overnight events. Subjective not obtained due to patient's clinical situations. Medically stable awaiting placement. 02/28: Afebrile overnight. No major overnight events. Subjective not obtained due to patient's clinical situations. Medically stable awaiting placement. 03/01: Patient is very pleasant to stuffs. Not posting danger to self or stuffs. Medically ready to be discharged to SNF. 03/02 No overnight event or new complaints. 03/03 No new complaints. No overnight events. Vital signs stable. Blood pressure occasionally a bit soft. Decrease Norvasc. 03/04 No change overnight. Vital signs stable. Blood pressure good after decreasing Norvasc. 03/05 Patient stable seems to be doing well. No overnight event or new complaints. Blood pressure good. 03/06 Patient sitting up in bed eating breakfast. Pleasant. Although he does not like his breakfast. Review of Systems: denies headache/fever/chills/nausea/vomiting/chest or abdominal pain/cough/dyspnea/diarrhea. Otherwise see above. Constitutional Vitals: Vital Signs Temp Pulse Resp BP Pulse Ox O2 Del Method O2 Flow Rate 97.4 F 86 18 118/54 97 0 03/06/22 07:00 03/06/22 07:00 03/06/22 07:00 03/06/22 07:00 03/06/22 07:00 03/06/22 07:00 02/25/22 04:00 Period Temp Pulse Resp BP Sys/Meza Pulse Ox O2 Del Method O2 Flow Rate Last 24 Hr 97.3 F-98.1 F 79-86 14-18 114-119/54-78 92-97 Room Air-Room Air Intake and Output 03/05/22 03/06/22 03/06/22 22:59 05:59 13:59 Intake Total Output Total Balance Weight Intake & Output: Intake & Output 03/05/22 03/06/22 03/06/22 22:59 05:59 13:59 Intake Total Output Total Balance Weight Intake: Oral Output: Urine Catheter Amount Other: Meal Percent of Meal Consumed Feeding Ability Urine Appearance Willis Urine Color Willis Urine Odor Willis Exam: General: awake, no acute Distress, obese Eyes/N/T: EOMI, Head/Neck: neck supple, CV: irreg irreg, No murmurs, Pulm: Clear b/l, no wheezing/rhonchi/rales Abd: soft, nontender, +BS x4 Ext: no clubbing/cyanosis, b/l LE edema improved and LE chronic wounds/ulcers Neuro: alert, no focal deficits, spontaneously moves all extremities, Skin: warm/dry OBJ DATA Labs CBC & Chem 7: 02/28/22 05:49 02/28/22 05:49 Meds: Medications Acetaminophen (Acetaminophen 325 Mg Tablet) 650 mg PO Q6HP PRN; Protocol PRN Reason: Per Pain Protocol/Fever > 101 Last Admin: 03/06/22 07:43 Dose: 650 mg Acetaminophen/Codeine Phosphate (Acetaminophen W/Codeine #3 1 Tablet) 1 tab PO BIDP PRN; Protocol PRN Reason: Pain Last Admin: 03/05/22 07:25 Dose: 1 tab Albuterol/Ipratropium (Ipratropium/Albuterol 3 Ml Ampul.Neb) 3 ml NEB Q4HP PRN PRN Reason: Shortness Of Breath Last Admin: 03/05/22 09:50 Dose: 3 ml Amlodipine Besylate (Amlodipine 5 Mg Tablet) 2.5 mg PO DAILY [facility] Last Admin: 03/05/22 09:13 Dose: 2.5 mg Apixaban (Apixaban 5 Mg Tablet) 5 mg PO BID [facility] Last Admin: 03/05/22 21:09 Dose: 5 mg Bisoprolol Fumarate (Bisoprolol 5 Mg Tablet) 10 mg PO DAILY [facility] Last Admin: 03/05/22 09:14 Dose: 10 mg Dextrose (Dextrose 50% 50 Ml Vial) 0 ml IV UD PRN PRN Reason: Per Sliding Scale Diagnostic Test (Pha) (Accu-Chek 1 Each Strip) 1 each FS ACHS [facility] Last Admin: 03/06/22 07:05 Dose: 1 each Docusate Sodium (Docusate Sodium 100 Mg Capsule) 100 mg PO BID [facility] Last Admin: 03/05/22 21:09 Dose: 100 mg Fluoxetine HCl (Fluoxetine Hcl 20 Mg Capsule) 20 mg PO DAILY [facility] Last Admin: 03/05/22 09:14 Dose: 20 mg Furosemide (Furosemide 20 Mg Tablet) 40 mg PO DAILY [facility] Last Admin: 03/05/22 09:14 Dose: 40 mg Glucose (Dextrose 31 Gm Oral.Susp) 15 gm PO PRN PRN PRN Reason: Hypoglycemia Potassium Chloride 40 meq/ (Dextrose) 520 mls @ 130 mls/hr IV UD PRN PRN Reason: Potassium < 3 Magnesium Sulfate (Magnesium Sulfate) 2 gm in 50 mls @ 50 mls/hr IV UD PRN PRN Reason: Magnesium </= 1.6 Insulin Glargine (Insulin Glargine, Human 1 Unit/0.01 Ml) 10 unit SQ QPM [facility] Last Admin: 03/05/22 21:19 Dose: 10 units Insulin Human Lispro (Insulin Lispro 1 Unit/0.01 Ml Unit) 0 unit SQ ACHS [facility]; Protocol Last Admin: 03/06/22 07:05 Dose: Not Given Memantine (Memantine 10 Mg Tablet) 5 mg PO BID [facility] Last Admin: 03/05/22 21:09 Dose: 5 mg Methocarbamol (Methocarbamol 750 Mg Tablet) 750 mg PO DAILY [facility] Last Admin: 03/05/22 09:13 Dose: 750 mg Metoprolol Tartrate (Metoprolol Tartrate 5 Mg/5 Ml Vial) 5 mg IV Q2HP PRN PRN Reason: Tachyarrhythmias HR>110 Last Admin: 02/19/22 22:21 Dose: 5 mg Omeprazole (Omeprazole 20 Mg Capsule) 20 mg PO ACB [facility] Last Admin: 03/06/22 07:43 Dose: 20 mg Ondansetron HCl (Ondansetron 4 Mg/2 Ml Vial) 4 mg IV Q4HP PRN PRN Reason: Nausea And Vomiting Budesonide- Formoterol 10.2 Gm Hfa Aerosol Inhaler 2 dose INH BID [facility] Last Admin: 03/05/22 21:20 Dose: Not Given Polyethylene Glycol (Polyethylene Glycol 3350 17 Gm Packet) 17 gm PO DAILYP PRN PRN Reason: Constipation Last Admin: 02/22/22 08:43 Dose: 17 gm Potassium Chloride (Potassium Chloride 20 Meq Tablet) 40 meq PO UD PRN PRN Reason: Potssium is 3-3.5 Potassium Chloride (Potassium Chloride 20 Meq Tablet) 40 meq PO UD PRN PRN Reason: Potassium < 3 Quetiapine Fumarate (Quetiapine 25 Mg Tablet) 50 mg PO HS [facility] Last Admin: 03/05/22 21:09 Dose: 50 mg Quetiapine Fumarate (Quetiapine 25 Mg Tablet) 12.5 mg PO Q6HP PRN PRN Reason: agitation Last Admin: 03/04/22 23:21 Dose: 12.5 mg Quetiapine Fumarate (Quetiapine 25 Mg Tablet) 25 mg PO 0900 [facility] Last Admin: 03/05/22 09:15 Dose: 25 mg Senna (Sennosides 1 Tablet) 2 tab PO DAILYP PRN PRN Reason: Constipation Last Admin: 03/04/22 20:24 Dose: 2 tab Tamsulosin HCl (Tamsulosin 0.4 Mg Capsule) 0.4 mg PO BID [facility] Last Admin: 03/05/22 21:09 Dose: 0.4 mg Tramadol HCl (Tramadol 50 Mg Tablet) 50 mg PO Q4-6HP PRN; Protocol PRN Reason: Pain Last Admin: 03/05/22 21:32 Dose: 50 mg A/P Narrative A/P Narrative: A: *Generalized weakness/deconditioning/failure to thrive: *Encephalopathy, acute on chronic, underlying Dementia: 2/2 above *Dementia with sundowning: *CAP, likely Aspiration: *Oropharyngeal Dysphagia, Mod: *?Sepsis: *Acute hypoxic respiratory failure: transient in ED, on room air *Afib, paroxysmal (new diagnosis) w/RVR: improved -CHADSVASC=5-6 -echo with good EF *COPD(not on home O2): *h/o diastlic CHF: *Pre-Diabetes: a1c 6.4 *HTN: *CKD II: *Anemia, chronic: *LE wounds/ulcers/buttock decubitus: *Obesity: BMI 34 P: -Antibiotics finished -IS/Acapella, home IH's and prn nebs, RT -Wound care -per telepsych, increased seroquel to 25@1400 and 50 qhs and 12.5 q6h prn -will initiate anticoagulation for now and defer further decision making to f/u between family and PCP, pt unable to participate in his own medical decision making -cont BB/norvasc(decrease for some soft BPs) -cont home lasix -SSI, restarted home basal at lower dose -PT/OT -ST eval, dysphagia diet -CM for placement -ppx: eliquis / ppi DNR Time Spent With Patient Time: Total time spent is greater than 50% in coordination of care (as documented) at patient's floor/unit and/or counseling patient:
[2022-03-06] MEDS: MEMANTINE 10 MG TABLET PO SCH ×2 (08:08→19:59)
[2022-03-06] MEDS: DOCUSATE SODIUM 100 MG CAPSULE PO SCH ×2 (08:08→19:59)
[2022-03-06] MEDS: FUROSEMIDE 20 MG TABLET PO SCH (08:09)
[2022-03-06] MEDS: BISOPROLOL 5 MG TABLET PO SCH (08:09)
[2022-03-06] MEDS: METHOCARBAMOL 750 MG TABLET PO SCH (08:10)
[2022-03-06] MEDS: QUEtiapine 25 MG TABLET PO SCH ×2 (08:10→20:00)
[2022-03-06] MEDS: FLUoxetine HCL 20 MG CAPSULE PO SCH (08:10)
[2022-03-06] MEDS: TAMSULOSIN 0.4 MG CAPSULE PO SCH ×2 (08:10→19:59)
[2022-03-06] MEDS: APIXABAN 5 MG TABLET PO SCH ×2 (08:10→19:59)
[2022-03-06] MEDS: amLODIPine 5 MG TABLET PO SCH (08:11)
[2022-03-06] MEDS: Budesonide-Formoterol 10.2 GM HFA aerosol inhaler INH SCH ×2 (08:11→19:53)
[2022-03-06] MEDS: traMADol 50 MG TABLET PO PRN ×2 (13:17→20:58)
--- NOTE | 2022-03-06 15:09 | Internal Med Progress Note ---
SUBJECTIVE Subjective Patient information: Note initiated : 03/06/22 at 3:07 pm Service Date, if different from initiated Date: [] Patient: Edmond Salas 86 y/o M admitted on 02/18/22 for Weakness/Eval for assisted living-PNA,Sepsis. Chief Complaint: [] Interval history: 03/07 No significant events overnight, awaiting placement. Physical exam Head: Atraumatic, normal inspection. Eyes: normal appearance, no scleral icterus. Neck: full ROM Respiratory: no respiratory distress. Cardiovascular: normal rate GI/Abdominal: soft, nontender, no guarding. Extremities: full range of motion, nontender. Neurological: CN II-XII intact, intact motor, intact sensation. Psychiatric: Impaired cognition and memory. Skin: warm, normal color Constitutional Vitals: Vital Signs Temp Pulse Resp BP Pulse Ox O2 Del Method O2 Flow Rate 97.5 F 84 16 112/59 97 0 03/06/22 11:00 03/06/22 11:00 03/06/22 11:00 03/06/22 11:00 03/06/22 11:00 03/06/22 11:00 02/25/22 04:00 Period Temp Pulse Resp BP Sys/Meza Pulse Ox O2 Del Method O2 Flow Rate Last 24 Hr 97.3 F-98.1 F 79-86 16-18 112-119/54-64 94-99 Room Air-Room Air Intake and Output 03/06/22 03/06/22 03/06/22 05:59 13:59 21:59 Intake Total 600 Output Total Balance 600 Intake & Output: Intake & Output 03/06/22 03/06/22 03/06/22 05:59 13:59 21:59 Intake Total 600 Output Total Balance 600 Intake: Oral 600 Output: Urine Catheter Amount Other: Meal Lunch Percent of Meal Consumed 50% Feeding Ability Assist with Tray Set Up Urine Appearance Urine Color Urine Odor Willis Normal OBJ DATA Labs CBC & Chem 7: 02/28/22 05:49 02/28/22 05:49 Meds: Medications Acetaminophen (Acetaminophen 325 Mg Tablet) 650 mg PO Q6HP PRN; Protocol PRN Reason: Per Pain Protocol/Fever > 101 Last Admin: 03/06/22 07:43 Dose: 650 mg Acetaminophen/Codeine Phosphate (Acetaminophen W/Codeine #3 1 Tablet) 1 tab PO BIDP PRN; Protocol PRN Reason: Pain Last Admin: 03/05/22 07:25 Dose: 1 tab Albuterol/Ipratropium (Ipratropium/Albuterol 3 Ml Ampul.Neb) 3 ml NEB Q4HP PRN PRN Reason: Shortness Of Breath Last Admin: 03/06/22 07:59 Dose: 3 ml Amlodipine Besylate (Amlodipine 5 Mg Tablet) 2.5 mg PO DAILY [facility] Last Admin: 03/06/22 08:11 Dose: 2.5 mg Apixaban (Apixaban 5 Mg Tablet) 5 mg PO BID [facility] Last Admin: 03/06/22 08:10 Dose: 5 mg Bisoprolol Fumarate (Bisoprolol 5 Mg Tablet) 10 mg PO DAILY [facility] Last Admin: 03/06/22 08:09 Dose: 10 mg Dextrose (Dextrose 50% 50 Ml Vial) 0 ml IV UD PRN PRN Reason: Per Sliding Scale Diagnostic Test (Pha) (Accu-Chek 1 Each Strip) 1 each FS ACHS [facility] Last Admin: 03/06/22 11:42 Dose: 1 each Docusate Sodium (Docusate Sodium 100 Mg Capsule) 100 mg PO BID [facility] Last Admin: 03/06/22 08:08 Dose: 100 mg Fluoxetine HCl (Fluoxetine Hcl 20 Mg Capsule) 20 mg PO DAILY [facility] Last Admin: 03/06/22 08:10 Dose: 20 mg Furosemide (Furosemide 20 Mg Tablet) 40 mg PO DAILY [facility] Last Admin: 03/06/22 08:09 Dose: 40 mg Glucose (Dextrose 31 Gm Oral.Susp) 15 gm PO PRN PRN PRN Reason: Hypoglycemia Potassium Chloride 40 meq/ (Dextrose) 520 mls @ 130 mls/hr IV UD PRN PRN Reason: Potassium < 3 Magnesium Sulfate (Magnesium Sulfate) 2 gm in 50 mls @ 50 mls/hr IV UD PRN PRN Reason: Magnesium </= 1.6 Insulin Glargine (Insulin Glargine, Human 1 Unit/0.01 Ml) 10 unit SQ QPM [facility] Last Admin: 03/05/22 21:19 Dose: 10 units Insulin Human Lispro (Insulin Lispro 1 Unit/0.01 Ml Unit) 0 unit SQ ACHS [facility]; Protocol Last Admin: 03/06/22 11:42 Dose: Not Given Memantine (Memantine 10 Mg Tablet) 5 mg PO BID [facility] Last Admin: 03/06/22 08:08 Dose: 5 mg Methocarbamol (Methocarbamol 750 Mg Tablet) 750 mg PO DAILY [facility] Last Admin: 03/06/22 08:10 Dose: 750 mg Metoprolol Tartrate (Metoprolol Tartrate 5 Mg/5 Ml Vial) 5 mg IV Q2HP PRN PRN Reason: Tachyarrhythmias HR>110 Last Admin: 02/19/22 22:21 Dose: 5 mg Omeprazole (Omeprazole 20 Mg Capsule) 20 mg PO ACB [facility] Last Admin: 03/06/22 07:43 Dose: 20 mg Ondansetron HCl (Ondansetron 4 Mg/2 Ml Vial) 4 mg IV Q4HP PRN PRN Reason: Nausea And Vomiting Budesonide- Formoterol 10.2 Gm Hfa Aerosol Inhaler 2 dose INH BID [facility] Last Admin: 03/06/22 08:11 Dose: Not Given Polyethylene Glycol (Polyethylene Glycol 3350 17 Gm Packet) 17 gm PO DAILYP PRN PRN Reason: Constipation Last Admin: 02/22/22 08:43 Dose: 17 gm Potassium Chloride (Potassium Chloride 20 Meq Tablet) 40 meq PO UD PRN PRN Reason: Potssium is 3-3.5 Potassium Chloride (Potassium Chloride 20 Meq Tablet) 40 meq PO UD PRN PRN Reason: Potassium < 3 Quetiapine Fumarate (Quetiapine 25 Mg Tablet) 50 mg PO HS [facility] Last Admin: 03/05/22 21:09 Dose: 50 mg Quetiapine Fumarate (Quetiapine 25 Mg Tablet) 12.5 mg PO Q6HP PRN PRN Reason: agitation Last Admin: 03/04/22 23:21 Dose: 12.5 mg Quetiapine Fumarate (Quetiapine 25 Mg Tablet) 25 mg PO 0900 [facility] Last Admin: 03/06/22 08:10 Dose: 25 mg Senna (Sennosides 1 Tablet) 2 tab PO DAILYP PRN PRN Reason: Constipation Last Admin: 03/04/22 20:24 Dose: 2 tab Tamsulosin HCl (Tamsulosin 0.4 Mg Capsule) 0.4 mg PO BID [facility] Last Admin: 03/06/22 08:10 Dose: 0.4 mg Tramadol HCl (Tramadol 50 Mg Tablet) 50 mg PO Q4-6HP PRN; Protocol PRN Reason: Pain Last Admin: 03/06/22 13:17 Dose: 50 mg A/P Narrative A/P Narrative: A: *Generalized weakness/deconditioning/failure to thrive: *Encephalopathy, acute on chronic, underlying Dementia: 2/2 above *Dementia with sundowning: *CAP, likely Aspiration: *Oropharyngeal Dysphagia, Mod: *?Sepsis: *Acute hypoxic respiratory failure: transient in ED, on room air *Afib, paroxysmal (new diagnosis) w/RVR: improved -CHADSVASC=5-6 -echo with good EF *COPD(not on home O2): *h/o diastlic CHF: *Pre-Diabetes: a1c 6.4 *HTN: *CKD II: *Anemia, chronic: *LE wounds/ulcers/buttock decubitus: *Obesity: BMI 34 P: -Antibiotics finished -IS/Acapella, home IH's and prn nebs, RT -Wound care -per telepsych, increased seroquel to 25@1400 and 50 qhs and 12.5 q6h prn -will initiate anticoagulation for now and defer further decision making to f/u between family and PCP, pt unable to participate in his own medical decision making -cont BB/norvasc(decrease for some soft BPs) -cont home lasix -SSI, restarted home basal at lower dose -PT/OT -ST eval, dysphagia diet -CM for placement -ppx: eliquis / ppi DNR Time Spent With Patient Time: Total time spent is greater than 50% in coordination of care (as documented) at patient's floor/unit and/or counseling patient:
[2022-03-06] MEDS: QUEtiapine 25 MG TABLET PO PRN (20:00)
[2022-03-06] MEDS: INSULIN GLARGINE, HUMAN 1 UNIT/0.01 ML SQ SCH (20:14)
[2022-03-07] MEDS: INSULIN LISPRO 1 UNIT/0.01 ML UNIT SQ SCH ×4 (07:23→21:57)
[2022-03-07] MEDS: FUROSEMIDE 20 MG TABLET PO SCH (08:15)
[2022-03-07] MEDS: OMEPRAZOLE 20 MG CAPSULE PO SCH (08:15)
[2022-03-07] MEDS: BISOPROLOL 5 MG TABLET PO SCH (08:15)
[2022-03-07] MEDS: FLUoxetine HCL 20 MG CAPSULE PO SCH (08:16)
[2022-03-07] MEDS: DOCUSATE SODIUM 100 MG CAPSULE PO SCH ×2 (08:16→21:45)
[2022-03-07] MEDS: MEMANTINE 10 MG TABLET PO SCH ×2 (08:16→22:04)
[2022-03-07] MEDS: APIXABAN 5 MG TABLET PO SCH ×2 (08:16→21:45)
[2022-03-07] MEDS: amLODIPine 5 MG TABLET PO SCH (08:16)
[2022-03-07] MEDS: TAMSULOSIN 0.4 MG CAPSULE PO SCH ×2 (08:16→21:45)
[2022-03-07] MEDS: METHOCARBAMOL 750 MG TABLET PO SCH (08:16)
[2022-03-07] MEDS: QUEtiapine 25 MG TABLET PO SCH ×2 (08:16→21:45)
[2022-03-07] MEDS: Budesonide-Formoterol 10.2 GM HFA aerosol inhaler INH SCH ×2 (08:17→21:57)
[2022-03-07] MEDS: INSULIN GLARGINE, HUMAN 1 UNIT/0.01 ML SQ SCH (21:56)
[2022-03-07] MEDS: traMADol 50 MG TABLET PO PRN (22:04)
[2022-03-08] MEDS: INSULIN LISPRO 1 UNIT/0.01 ML UNIT SQ SCH ×4 (07:17→20:18)
[2022-03-08] MEDS: METHOCARBAMOL 750 MG TABLET PO SCH (08:06)
[2022-03-08] MEDS: BISOPROLOL 5 MG TABLET PO SCH (08:06)
[2022-03-08] MEDS: FLUoxetine HCL 20 MG CAPSULE PO SCH (08:06)
[2022-03-08] MEDS: FUROSEMIDE 20 MG TABLET PO SCH (08:06)
[2022-03-08] MEDS: QUEtiapine 25 MG TABLET PO SCH ×2 (08:06→20:10)
[2022-03-08] MEDS: amLODIPine 5 MG TABLET PO SCH (08:07)
[2022-03-08] MEDS: APIXABAN 5 MG TABLET PO SCH ×2 (08:07→20:10)
[2022-03-08] MEDS: TAMSULOSIN 0.4 MG CAPSULE PO SCH ×2 (08:07→20:10)
[2022-03-08] MEDS: MEMANTINE 10 MG TABLET PO SCH ×2 (08:07→20:10)
[2022-03-08] MEDS: DOCUSATE SODIUM 100 MG CAPSULE PO SCH ×2 (08:07→20:10)
[2022-03-08] MEDS: Budesonide-Formoterol 10.2 GM HFA aerosol inhaler INH SCH ×2 (08:08→20:13)
[2022-03-08] MEDS: OMEPRAZOLE 20 MG CAPSULE PO SCH (08:11)
--- NOTE | 2022-03-08 11:47 | General Surgery Progress Note ---
SUBJECTIVE Subjective Patient information: Note initiated : 03/08/22 at 11:41 am Service Date, if different from initiated Date: [] Patient: Edmond Salas 86 y/o M admitted on 02/18/22 for Weakness/Eval for assisted living-PNA,Sepsis. Chief Complaint: [] Additional PMFSH (Level 3 Only): Wound care f/u. Patient seen with Chris Nunez and Ondina Cramer Wound Care Nurses. progress reviewed and wound sites examined. Constitutional Vitals: Vital Signs Temp Pulse Resp BP Pulse Ox O2 Del Method O2 Flow Rate 97.2 F 69 16 113/67 99 0 03/08/22 08:02 03/08/22 08:02 03/08/22 08:02 03/08/22 08:02 03/08/22 08:02 03/08/22 08:02 02/25/22 04:00 Period Temp Pulse Resp BP Sys/Meza Pulse Ox O2 Del Method O2 Flow Rate Last 24 Hr 97.0 F-98.3 F 57-79 16-20 97-128/52-67 91-99 Room Air-Room Air Intake and Output 03/07/22 03/08/22 03/08/22 21:59 05:59 13:59 Intake Total 400 200 Output Total 775 200 Balance -375 0 Weight 256 lb 11.2 oz Intake & Output: Intake & Output 03/07/22 03/08/22 03/08/22 21:59 05:59 13:59 Intake Total 400 200 Output Total 775 200 Balance -375 0 Weight 256 lb 11.2 oz Intake: Oral 400 200 Output: Urine Catheter Amount 775 200 Other: Urine Appearance Clear Clear Willis Clear Clear Urine Color Yellow Yellow Willis Yellow Yellow Urine Odor Normal Exam: AVSS, JUAREZ unremarkable, at his baseline. SKIN exam Perineal skin abrasion / MASD have resolved. MASD scrotal region has healed. Left leg Skin scales dermatitis sites improving. A/P Narrative A/P Narrative: Assessment: Satisfactory progress and wound healing. Needs ongoing skin evaluation and care. Plan of Treatment: Plan: Continue skin care as outlined per wound nurse, Will sign off at this time. Time Spent With Patient Time: Total time spent is greater than 50% in coordination of care (as documented) at patient's floor/unit and/or counseling patient:
--- NOTE | 2022-03-08 13:02 | Internal Med Progress Note ---
SUBJECTIVE Subjective Patient information: Note initiated : 03/08/22 at 1:00 pm Service Date, if different from initiated Date: [] Patient: Edmond Salas 86 y/o M admitted on 02/18/22 for Weakness/Eval for assisted living-PNA,Sepsis. Chief Complaint: [] Interval history: 03/07 No significant events overnight, awaiting placement. 03/08 Resting comfortably, awaiting placement. Physical exam Head: Atraumatic, normal inspection. Respiratory: no respiratory distress. Cardiovascular: normal rate GI/Abdominal: soft, nontender, no guarding. Extremities: full range of motion, nontender. Neurological: CN II-XII intact, intact motor, intact sensation. Skin: warm, normal color Constitutional Vitals: Vital Signs Temp Pulse Resp BP Pulse Ox O2 Del Method O2 Flow Rate 97.2 F 69 16 113/67 99 0 03/08/22 08:02 03/08/22 08:02 03/08/22 08:02 03/08/22 08:02 03/08/22 08:02 03/08/22 08:02 02/25/22 04:00 Period Temp Pulse Resp BP Sys/Meza Pulse Ox O2 Del Method O2 Flow Rate Last 24 Hr 97.0 F-98.3 F 57-79 16-20 97-128/52-67 94-99 Room Air-Room Air Intake and Output 03/07/22 03/08/22 03/08/22 21:59 05:59 13:59 Intake Total 400 200 Output Total 775 200 Balance -375 0 Weight 116.437 kg Intake & Output: Intake & Output 03/07/22 03/08/22 03/08/22 21:59 05:59 13:59 Intake Total 400 200 Output Total 775 200 Balance -375 0 Weight 116.437 kg Intake: Oral 400 200 Output: Urine Catheter Amount 775 200 Other: Urine Appearance Clear Clear Willis Clear Clear Urine Color Yellow Yellow Willis Yellow Yellow Urine Odor Normal OBJ DATA Labs CBC & Chem 7: 02/28/22 05:49 02/28/22 05:49 Meds: Medications Acetaminophen (Acetaminophen 325 Mg Tablet) 650 mg PO Q6HP PRN; Protocol PRN Reason: Per Pain Protocol/Fever > 101 Last Admin: 03/06/22 07:43 Dose: 650 mg Acetaminophen/Codeine Phosphate (Acetaminophen W/Codeine #3 1 Tablet) 1 tab PO BIDP PRN; Protocol PRN Reason: Pain Last Admin: 03/05/22 07:25 Dose: 1 tab Albuterol/Ipratropium (Ipratropium/Albuterol 3 Ml Ampul.Neb) 3 ml NEB Q4HP PRN PRN Reason: Shortness Of Breath Last Admin: 03/06/22 20:44 Dose: 3 ml Amlodipine Besylate (Amlodipine 5 Mg Tablet) 2.5 mg PO DAILY [facility] Last Admin: 03/08/22 08:07 Dose: 2.5 mg Apixaban (Apixaban 5 Mg Tablet) 5 mg PO BID [facility] Last Admin: 03/08/22 08:07 Dose: 5 mg Bisoprolol Fumarate (Bisoprolol 5 Mg Tablet) 10 mg PO DAILY [facility] Last Admin: 03/08/22 08:06 Dose: 10 mg Dextrose (Dextrose 50% 50 Ml Vial) 0 ml IV UD PRN PRN Reason: Per Sliding Scale Diagnostic Test (Pha) (Accu-Chek 1 Each Strip) 1 each FS ACHS [facility] Last Admin: 03/08/22 11:14 Dose: 1 each Docusate Sodium (Docusate Sodium 100 Mg Capsule) 100 mg PO BID [facility] Last Admin: 03/08/22 08:07 Dose: 100 mg Fluoxetine HCl (Fluoxetine Hcl 20 Mg Capsule) 20 mg PO DAILY [facility] Last Admin: 03/08/22 08:06 Dose: 20 mg Furosemide (Furosemide 20 Mg Tablet) 40 mg PO DAILY [facility] Last Admin: 03/08/22 08:06 Dose: 40 mg Glucose (Dextrose 31 Gm Oral.Susp) 15 gm PO PRN PRN PRN Reason: Hypoglycemia Potassium Chloride 40 meq/ (Dextrose) 520 mls @ 130 mls/hr IV UD PRN PRN Reason: Potassium < 3 Magnesium Sulfate (Magnesium Sulfate) 2 gm in 50 mls @ 50 mls/hr IV UD PRN PRN Reason: Magnesium </= 1.6 Insulin Glargine (Insulin Glargine, Human 1 Unit/0.01 Ml) 10 unit SQ QPM [facility] Last Admin: 03/07/22 21:56 Dose: 10 units Insulin Human Lispro (Insulin Lispro 1 Unit/0.01 Ml Unit) 0 unit SQ ACHS [facility]; Protocol Last Admin: 03/08/22 11:25 Dose: 2 units Memantine (Memantine 10 Mg Tablet) 5 mg PO BID [facility] Last Admin: 03/08/22 08:07 Dose: 5 mg Methocarbamol (Methocarbamol 750 Mg Tablet) 750 mg PO DAILY [facility] Last Admin: 03/08/22 08:06 Dose: 750 mg Metoprolol Tartrate (Metoprolol Tartrate 5 Mg/5 Ml Vial) 5 mg IV Q2HP PRN PRN Reason: Tachyarrhythmias HR>110 Last Admin: 02/19/22 22:21 Dose: 5 mg Omeprazole (Omeprazole 20 Mg Capsule) 20 mg PO ACB [facility] Last Admin: 03/08/22 08:11 Dose: 20 mg Ondansetron HCl (Ondansetron 4 Mg/2 Ml Vial) 4 mg IV Q4HP PRN PRN Reason: Nausea And Vomiting Budesonide- Formoterol 10.2 Gm Hfa Aerosol Inhaler 2 dose INH BID [facility] Last Admin: 03/08/22 08:08 Dose: Not Given Polyethylene Glycol (Polyethylene Glycol 3350 17 Gm Packet) 17 gm PO DAILYP PRN PRN Reason: Constipation Last Admin: 02/22/22 08:43 Dose: 17 gm Potassium Chloride (Potassium Chloride 20 Meq Tablet) 40 meq PO UD PRN PRN Reason: Potssium is 3-3.5 Potassium Chloride (Potassium Chloride 20 Meq Tablet) 40 meq PO UD PRN PRN Reason: Potassium < 3 Quetiapine Fumarate (Quetiapine 25 Mg Tablet) 50 mg PO HS [facility] Last Admin: 03/07/22 21:45 Dose: 50 mg Quetiapine Fumarate (Quetiapine 25 Mg Tablet) 12.5 mg PO Q6HP PRN PRN Reason: agitation Last Admin: 03/06/22 20:00 Dose: 12.5 mg Quetiapine Fumarate (Quetiapine 25 Mg Tablet) 25 mg PO 0900 [facility] Last Admin: 03/08/22 08:06 Dose: 25 mg Senna (Sennosides 1 Tablet) 2 tab PO DAILYP PRN PRN Reason: Constipation Last Admin: 03/04/22 20:24 Dose: 2 tab Tamsulosin HCl (Tamsulosin 0.4 Mg Capsule) 0.4 mg PO BID [facility] Last Admin: 03/08/22 08:07 Dose: 0.4 mg Tramadol HCl (Tramadol 50 Mg Tablet) 50 mg PO Q4-6HP PRN; Protocol PRN Reason: Pain Last Admin: 03/07/22 22:04 Dose: 50 mg A/P Narrative A/P Narrative: A: *Generalized weakness/deconditioning/failure to thrive: *Advanced dementia *Treated community-acquired pneumonia, likely secondary to aspiration *Oropharyngeal Dysphagia, moderate *Resolved encephalopathy *Resolved acute hypoxic respiratory failure *Afib, paroxysmal (new diagnosis) w/RVR: improved -CHADSVASC=5-6 -echo with good EF *COPD(not on home O2): *h/o diastlic CHF: *Pre-Diabetes: a1c 6.4 *HTN: *CKD II: *Anemia, chronic: *LE wounds/ulcers/buttock decubitus: *Obesity: BMI 34 P: -Awaiting placement. -IS/Acapella, home IH's and prn nebs, RT -Wound care -per telepsych, increased seroquel to 25@1400 and 50 qhs and 12.5 q6h prn -Eliquis twice daily while inpatient, will defer further decision making to f/u between family and PCP, pt unable to participate in his own medical decision making -cont BB/norvasc(decrease for some soft BPs) -cont home lasix -SSI, restarted home basal at lower dose -PT/OT -ST ben, dysphagia diet -CM for placement -ppx: eliquis / ppi DNR Plan of Treatment: Plan: Continue skin care as outlined per wound nurse, Will sign off at this time. Time Spent With Patient Time: Total time spent is greater than 50% in coordination of care (as documented) at patient's floor/unit and/or counseling patient:
[2022-03-08] MEDS: traMADol 50 MG TABLET PO PRN (16:30)
[2022-03-08] MEDS: INSULIN GLARGINE, HUMAN 1 UNIT/0.01 ML SQ SCH (20:18)
[2022-03-09] MEDS: traMADol 50 MG TABLET PO PRN ×2 (00:04→07:15)
[2022-03-09] MEDS: ACETAMINOPHEN 325 MG TABLET PO PRN (05:31)
[2022-03-09] MEDS: INSULIN LISPRO 1 UNIT/0.01 ML UNIT SQ SCH ×4 (07:07→20:34)
[2022-03-09] MEDS: OMEPRAZOLE 20 MG CAPSULE PO SCH (07:16)
[2022-03-09] MEDS: amLODIPine 5 MG TABLET PO SCH ×2 (10:11→10:50)
[2022-03-09] MEDS: BISOPROLOL 5 MG TABLET PO SCH ×2 (10:11→10:50)
[2022-03-09] MEDS: FLUoxetine HCL 20 MG CAPSULE PO SCH ×2 (10:11→10:52)
[2022-03-09] MEDS: FUROSEMIDE 20 MG TABLET PO SCH ×2 (10:11→10:51)
[2022-03-09] MEDS: METHOCARBAMOL 750 MG TABLET PO SCH ×2 (10:12→10:52)
[2022-03-09] MEDS: MEMANTINE 10 MG TABLET PO SCH ×3 (10:12→20:09)
[2022-03-09] MEDS: DOCUSATE SODIUM 100 MG CAPSULE PO SCH ×3 (10:12→20:09)
[2022-03-09] MEDS: QUEtiapine 25 MG TABLET PO SCH ×3 (10:12→20:09)
[2022-03-09] MEDS: APIXABAN 5 MG TABLET PO SCH ×3 (10:12→20:09)
[2022-03-09] MEDS: TAMSULOSIN 0.4 MG CAPSULE PO SCH ×3 (10:12→20:09)
[2022-03-09] MEDS: Budesonide-Formoterol 10.2 GM HFA aerosol inhaler INH SCH ×2 (10:48→21:40)
--- NOTE | 2022-03-09 13:05 | Internal Med Progress Note ---
SUBJECTIVE Subjective Patient information: Note initiated : 03/09/22 at 1:04 pm Service Date, if different from initiated Date: [] Patient: Edmond Salas 86 y/o M admitted on 02/18/22 for Weakness/Eval for assisted living-PNA,Sepsis. Chief Complaint: [] Interval history: 03/07 No significant events overnight, awaiting placement. 03/08 Resting comfortably, awaiting placement. 03/09 Awaiting placement. Physical exam Head: Atraumatic, normal inspection. Respiratory: no respiratory distress. Cardiovascular: normal rate GI/Abdominal: soft, nontender, no guarding. Extremities: full range of motion, nontender. Neurological: CN II-XII intact, intact motor, intact sensation. Skin: warm, normal color Constitutional Vitals: Vital Signs Temp Pulse Resp BP Pulse Ox O2 Del Method O2 Flow Rate 97.4 F 86 17 111/54 96 0 03/09/22 11:41 03/09/22 11:41 03/09/22 11:41 03/09/22 11:41 03/09/22 08:00 03/09/22 11:41 02/25/22 04:00 Period Temp Pulse Resp BP Sys/Meza Pulse Ox O2 Del Method O2 Flow Rate Last 24 Hr 97.3 F-98.3 F 79-86 16-20 90-122/54-66 91-97 Room Air-Room Air Intake and Output 03/08/22 03/09/22 03/09/22 21:59 05:59 13:59 Intake Total 200 Output Total 1075 650 Balance -1075 -450 Weight 116.619 kg Intake & Output: Intake & Output 03/08/22 03/09/22 03/09/22 21:59 05:59 13:59 Intake Total 200 Output Total 1075 650 Balance -1075 -450 Weight 116.619 kg Intake: Oral 200 Output: Urine Catheter Amount 1075 650 Other: Meal Lunch Percent of Meal Consumed 100% Feeding Ability Independent Urine Appearance Clear Clear Willis Clear Urine Color Yellow Yellow Willis Pale Yellow Urine Odor Normal Normal Willis Normal OBJ DATA Labs CBC & Chem 7: 02/28/22 05:49 02/28/22 05:49 Meds: Medications Acetaminophen (Acetaminophen 325 Mg Tablet) 650 mg PO Q6HP PRN; Protocol PRN Reason: Per Pain Protocol/Fever > 101 Last Admin: 03/09/22 05:31 Dose: 650 mg Acetaminophen/Codeine Phosphate (Acetaminophen W/Codeine #3 1 Tablet) 1 tab PO BIDP PRN; Protocol PRN Reason: Pain Last Admin: 03/05/22 07:25 Dose: 1 tab Albuterol/Ipratropium (Ipratropium/Albuterol 3 Ml Ampul.Neb) 3 ml NEB Q4HP PRN PRN Reason: Shortness Of Breath Last Admin: 03/06/22 20:44 Dose: 3 ml Amlodipine Besylate (Amlodipine 5 Mg Tablet) 2.5 mg PO DAILY [facility] Last Admin: 03/09/22 10:50 Dose: Not Given Apixaban (Apixaban 5 Mg Tablet) 5 mg PO BID [facility] Last Admin: 03/09/22 10:51 Dose: Not Given Bisoprolol Fumarate (Bisoprolol 5 Mg Tablet) 10 mg PO DAILY [facility] Last Admin: 03/09/22 10:50 Dose: Not Given Dextrose (Dextrose 50% 50 Ml Vial) 0 ml IV UD PRN PRN Reason: Per Sliding Scale Diagnostic Test (Pha) (Accu-Chek 1 Each Strip) 1 each FS ACHS [facility] Last Admin: 03/09/22 11:18 Dose: 1 each Docusate Sodium (Docusate Sodium 100 Mg Capsule) 100 mg PO BID [facility] Last Admin: 03/09/22 10:48 Dose: Not Given Fluoxetine HCl (Fluoxetine Hcl 20 Mg Capsule) 20 mg PO DAILY [facility] Last Admin: 03/09/22 10:52 Dose: Not Given Furosemide (Furosemide 20 Mg Tablet) 40 mg PO DAILY [facility] Last Admin: 03/09/22 10:51 Dose: Not Given Glucose (Dextrose 31 Gm Oral.Susp) 15 gm PO PRN PRN PRN Reason: Hypoglycemia Potassium Chloride 40 meq/ (Dextrose) 520 mls @ 130 mls/hr IV UD PRN PRN Reason: Potassium < 3 Magnesium Sulfate (Magnesium Sulfate) 2 gm in 50 mls @ 50 mls/hr IV UD PRN PRN Reason: Magnesium </= 1.6 Insulin Glargine (Insulin Glargine, Human 1 Unit/0.01 Ml) 10 unit SQ QPM [facility] Last Admin: 03/08/22 20:18 Dose: 10 units Insulin Human Lispro (Insulin Lispro 1 Unit/0.01 Ml Unit) 0 unit SQ ACHS [facility]; Protocol Last Admin: 03/09/22 11:18 Dose: Not Given Memantine (Memantine 10 Mg Tablet) 5 mg PO BID [facility] Last Admin: 03/09/22 10:50 Dose: Not Given Methocarbamol (Methocarbamol 750 Mg Tablet) 750 mg PO DAILY [facility] Last Admin: 03/09/22 10:52 Dose: Not Given Metoprolol Tartrate (Metoprolol Tartrate 5 Mg/5 Ml Vial) 5 mg IV Q2HP PRN PRN Reason: Tachyarrhythmias HR>110 Last Admin: 02/19/22 22:21 Dose: 5 mg Omeprazole (Omeprazole 20 Mg Capsule) 20 mg PO ACB [facility] Last Admin: 03/09/22 07:16 Dose: 20 mg Ondansetron HCl (Ondansetron 4 Mg/2 Ml Vial) 4 mg IV Q4HP PRN PRN Reason: Nausea And Vomiting Budesonide- Formoterol 10.2 Gm Hfa Aerosol Inhaler 2 dose INH BID [facility] Last Admin: 03/09/22 10:48 Dose: Not Given Polyethylene Glycol (Polyethylene Glycol 3350 17 Gm Packet) 17 gm PO DAILYP PRN PRN Reason: Constipation Last Admin: 02/22/22 08:43 Dose: 17 gm Potassium Chloride (Potassium Chloride 20 Meq Tablet) 40 meq PO UD PRN PRN Reason: Potssium is 3-3.5 Potassium Chloride (Potassium Chloride 20 Meq Tablet) 40 meq PO UD PRN PRN Reason: Potassium < 3 Quetiapine Fumarate (Quetiapine 25 Mg Tablet) 50 mg PO HS [facility] Last Admin: 03/08/22 20:10 Dose: 50 mg Quetiapine Fumarate (Quetiapine 25 Mg Tablet) 12.5 mg PO Q6HP PRN PRN Reason: agitation Last Admin: 03/06/22 20:00 Dose: 12.5 mg Quetiapine Fumarate (Quetiapine 25 Mg Tablet) 25 mg PO 0900 [facility] Last Admin: 03/09/22 10:50 Dose: Not Given Senna (Sennosides 1 Tablet) 2 tab PO DAILYP PRN PRN Reason: Constipation Last Admin: 03/04/22 20:24 Dose: 2 tab Tamsulosin HCl (Tamsulosin 0.4 Mg Capsule) 0.4 mg PO BID [facility] Last Admin: 03/09/22 10:48 Dose: Not Given A/P Narrative A/P Narrative: A: *Generalized weakness/deconditioning/failure to thrive: *Advanced dementia with intermittent behavioral disturbances *Treated community-acquired pneumonia, likely secondary to aspiration *Oropharyngeal Dysphagia, moderate *Resolved encephalopathy *Resolved acute hypoxic respiratory failure *Afib, paroxysmal (new diagnosis) w/RVR: improved -CHADSVASC=5-6 -echo with good EF *COPD(not on home O2): *h/o diastlic CHF: *Pre-Diabetes: a1c 6.4 *HTN: *CKD II: *Anemia, chronic: *LE wounds/ulcers/buttock decubitus: *Obesity: BMI 34 P: -Awaiting placement. -IS/Acapella, home IH's and prn nebs, RT -Wound care -per telepsych, increased Seroquel to 25@1400 and 50 qhs and 12.5 q6h prn -Eliquis twice daily while inpatient, will defer further decision making to f/u between family and PCP, pt unable to participate in his own medical decision making -cont BB/norvasc(decrease for some soft BPs) -cont home lasix -SSI -Lantus 10 units at bedtime, significantly lower Lantus dose than prior to admission. -PT/OT -ST eval, dysphagia diet -CM for placement -ppx: eliquis / ppi DNR Plan of Treatment: Plan: Continue skin care as outlined per wound nurse, Will sign off at this time. Time Spent With Patient Time: Total time spent is greater than 50% in coordination of care (as documented) at patient's floor/unit and/or counseling patient:
[2022-03-09] MEDS: INSULIN GLARGINE, HUMAN 1 UNIT/0.01 ML SQ SCH (21:40)
[2022-03-10] MEDS: OMEPRAZOLE 20 MG CAPSULE PO SCH (07:53)
[2022-03-10] MEDS: INSULIN LISPRO 1 UNIT/0.01 ML UNIT SQ SCH ×4 (07:59→21:02)
[2022-03-10] MEDS: MEMANTINE 10 MG TABLET PO SCH ×2 (10:27→20:53)
[2022-03-10] MEDS: amLODIPine 5 MG TABLET PO SCH (10:28)
[2022-03-10] MEDS: APIXABAN 5 MG TABLET PO SCH ×2 (10:29→20:53)
[2022-03-10] MEDS: FUROSEMIDE 20 MG TABLET PO SCH (10:29)
[2022-03-10] MEDS: TAMSULOSIN 0.4 MG CAPSULE PO SCH ×2 (10:30→20:53)
[2022-03-10] MEDS: FLUoxetine HCL 20 MG CAPSULE PO SCH (10:46)
[2022-03-10] MEDS: METHOCARBAMOL 750 MG TABLET PO SCH (10:46)
[2022-03-10] MEDS: DOCUSATE SODIUM 100 MG CAPSULE PO SCH ×2 (10:46→20:51)
[2022-03-10] MEDS: BISOPROLOL 5 MG TABLET PO SCH (10:46)
[2022-03-10] MEDS: QUEtiapine 25 MG TABLET PO SCH ×2 (10:47→20:52)
[2022-03-10] MEDS: Budesonide-Formoterol 10.2 GM HFA aerosol inhaler INH SCH ×2 (10:47→21:04)
--- NOTE | 2022-03-10 18:57 | Internal Med Progress Note ---
SUBJECTIVE Subjective Patient information: Note initiated : 03/10/22 at 6:55 pm Service Date, if different from initiated Date: [] Patient: Edmond Salas 86 y/o M admitted on 02/18/22 for Weakness/Eval for assisted living-PNA,Sepsis. Chief Complaint: [] Interval history: 03/07 No significant events overnight, awaiting placement. 03/08 Resting comfortably, awaiting placement. 03/09 Awaiting placement. 03/10 The patient pulled out his Willis yesterday evening, replaced. Still awaiting placement. Physical exam Head: Atraumatic, normal inspection. Respiratory: no respiratory distress. Cardiovascular: normal rate GI/Abdominal: soft, nontender, no guarding. Extremities: full range of motion, nontender. Neurological: CN II-XII intact, intact motor, intact sensation. Psychiatric: Impaired cognition Skin: warm, normal color Constitutional Vitals: Vital Signs Temp Pulse Resp BP Pulse Ox O2 Del Method O2 Flow Rate 97.1 F 82 14 112/64 94 0 03/10/22 16:00 03/10/22 16:00 03/10/22 16:00 03/10/22 16:00 03/10/22 16:00 03/10/22 16:00 02/25/22 04:00 Period Temp Pulse Resp BP Sys/Meza Pulse Ox O2 Del Method O2 Flow Rate Last 24 Hr 96.9 F-98.2 F 81-93 12-14 109-138/52-73 93-99 Room Air-Room Air Intake and Output 03/10/22 03/10/22 03/10/22 05:59 13:59 21:59 Intake Total 410 360 Output Total 1 1025 Balance 409 -665 Intake & Output: Intake & Output 03/10/22 03/10/22 03/10/22 05:59 13:59 21:59 Intake Total 410 360 Output Total 1 1025 Balance 409 -665 Intake: Nourishment/Supplement quantity 240 (ml) Oral 410 120 Output: Urine Catheter Amount 1025 # of times incontinent of urine 1 Other: Meal Dinner Percent of Meal Consumed 25% Feeding Ability Assist with Tray Set Up Nourishment/Supplement name Ensure Urine Appearance Clear Willis Clear Urine Color Light Joan Willis Dark Joan # Voids 1 OBJ DATA Labs CBC & Chem 7: 02/28/22 05:49 02/28/22 05:49 Meds: Medications Acetaminophen (Acetaminophen 325 Mg Tablet) 650 mg PO Q6HP PRN; Protocol PRN Reason: Per Pain Protocol/Fever > 101 Last Admin: 03/09/22 05:31 Dose: 650 mg Acetaminophen/Codeine Phosphate (Acetaminophen W/Codeine #3 1 Tablet) 1 tab PO BIDP PRN; Protocol PRN Reason: Pain Last Admin: 03/05/22 07:25 Dose: 1 tab Albuterol/Ipratropium (Ipratropium/Albuterol 3 Ml Ampul.Neb) 3 ml NEB Q4HP PRN PRN Reason: Shortness Of Breath Last Admin: 03/06/22 20:44 Dose: 3 ml Amlodipine Besylate (Amlodipine 5 Mg Tablet) 2.5 mg PO DAILY [facility] Last Admin: 03/10/22 10:28 Dose: 2.5 mg Apixaban (Apixaban 5 Mg Tablet) 5 mg PO BID [facility] Last Admin: 03/10/22 10:29 Dose: 5 mg Bisoprolol Fumarate (Bisoprolol 5 Mg Tablet) 10 mg PO DAILY [facility] Last Admin: 03/10/22 10:46 Dose: 10 mg Dextrose (Dextrose 50% 50 Ml Vial) 0 ml IV UD PRN PRN Reason: Per Sliding Scale Diagnostic Test (Pha) (Accu-Chek 1 Each Strip) 1 each FS ACHS [facility] Last Admin: 03/10/22 16:59 Dose: 1 each Docusate Sodium (Docusate Sodium 100 Mg Capsule) 100 mg PO BID [facility] Last Admin: 03/10/22 10:46 Dose: 100 mg Fluoxetine HCl (Fluoxetine Hcl 20 Mg Capsule) 20 mg PO DAILY [facility] Last Admin: 03/10/22 10:46 Dose: 20 mg Furosemide (Furosemide 20 Mg Tablet) 40 mg PO DAILY [facility] Last Admin: 03/10/22 10:29 Dose: 40 mg Glucose (Dextrose 31 Gm Oral.Susp) 15 gm PO PRN PRN PRN Reason: Hypoglycemia Potassium Chloride 40 meq/ (Dextrose) 520 mls @ 130 mls/hr IV UD PRN PRN Reason: Potassium < 3 Magnesium Sulfate (Magnesium Sulfate) 2 gm in 50 mls @ 50 mls/hr IV UD PRN PRN Reason: Magnesium </= 1.6 Insulin Glargine (Insulin Glargine, Human 1 Unit/0.01 Ml) 10 unit SQ QPM [facility] Last Admin: 03/09/22 21:40 Dose: 10 units Insulin Human Lispro (Insulin Lispro 1 Unit/0.01 Ml Unit) 0 unit SQ [facility]; Protocol Last Admin: 03/10/22 17:00 Dose: Not Given Memantine (Memantine 10 Mg Tablet) 5 mg PO BID [facility] Last Admin: 03/10/22 10:27 Dose: 5 mg Methocarbamol (Methocarbamol 750 Mg Tablet) 750 mg PO DAILY [facility] Last Admin: 03/10/22 10:46 Dose: 750 mg Metoprolol Tartrate (Metoprolol Tartrate 5 Mg/5 Ml Vial) 5 mg IV Q2HP PRN PRN Reason: Tachyarrhythmias HR>110 Last Admin: 02/19/22 22:21 Dose: 5 mg Omeprazole (Omeprazole 20 Mg Capsule) 20 mg PO ACB [facility] Last Admin: 03/10/22 07:53 Dose: 20 mg Ondansetron HCl (Ondansetron 4 Mg/2 Ml Vial) 4 mg IV Q4HP PRN PRN Reason: Nausea And Vomiting Budesonide- Formoterol 10.2 Gm Hfa Aerosol Inhaler 2 dose INH BID [facility] Last Admin: 03/10/22 10:47 Dose: Not Given Polyethylene Glycol (Polyethylene Glycol 3350 17 Gm Packet) 17 gm PO DAILYP PRN PRN Reason: Constipation Last Admin: 02/22/22 08:43 Dose: 17 gm Potassium Chloride (Potassium Chloride 20 Meq Tablet) 40 meq PO UD PRN PRN Reason: Potssium is 3-3.5 Potassium Chloride (Potassium Chloride 20 Meq Tablet) 40 meq PO UD PRN PRN Reason: Potassium < 3 Quetiapine Fumarate (Quetiapine 25 Mg Tablet) 50 mg PO [facility] Last Admin: 03/09/22 20:09 Dose: 50 mg Quetiapine Fumarate (Quetiapine 25 Mg Tablet) 12.5 mg PO Q6HP PRN PRN Reason: agitation Last Admin: 03/06/22 20:00 Dose: 12.5 mg Quetiapine Fumarate (Quetiapine 25 Mg Tablet) 25 mg PO 0900 [facility] Last Admin: 03/10/22 10:47 Dose: 25 mg Senna (Sennosides 1 Tablet) 2 tab PO DAILYP PRN PRN Reason: Constipation Last Admin: 03/04/22 20:24 Dose: 2 tab Tamsulosin HCl (Tamsulosin 0.4 Mg Capsule) 0.4 mg PO BID [facility] Last Admin: 03/10/22 10:30 Dose: 0.4 mg A/P Narrative A/P Narrative: A: *Generalized weakness/deconditioning/failure to thrive: *Advanced dementia with intermittent behavioral disturbances *Treated community-acquired pneumonia, likely secondary to aspiration *Oropharyngeal Dysphagia, moderate *Resolved encephalopathy *Resolved acute hypoxic respiratory failure *Afib, paroxysmal (new diagnosis) w/RVR: improved -CHADSVASC=5-6 -echo with good EF *COPD(not on home O2): *h/o diastlic CHF: *Pre-Diabetes: a1c 6.4 *HTN: *CKD II: *Anemia, chronic: *LE wounds/ulcers/buttock decubitus: *Obesity: BMI 34 P: -Awaiting placement. -IS/Acapella, home IH's and prn nebs, RT -Wound care -per telepsych, increased Seroquel to 25@1400 and 50 qhs and 12.5 q6h prn -Eliquis twice daily while inpatient, will defer further decision making to f/u between family and PCP, pt unable to participate in his own medical decision making -cont BB/norvasc(decrease for some soft BPs) -cont home lasix -SSI -Lantus 10 units at bedtime, significantly lower Lantus dose than prior to admission. -PT/OT -ST eval, dysphagia diet -CM for placement -Willis catheter for wound healing -ppx: eliquis / ppi DNR Plan of Treatment: Plan: Continue skin care as outlined per wound nurse, Will sign off at this time. Time Spent With Patient Time: Total time spent is greater than 50% in coordination of care (as documented) at patient's floor/unit and/or counseling patient:
[2022-03-10] MEDS: ACETAMINOPHEN 325 MG TABLET PO PRN (20:52)
[2022-03-10] MEDS: SENNOSIDES 1 TABLET PO PRN (20:52)
[2022-03-10] MEDS: INSULIN GLARGINE, HUMAN 1 UNIT/0.01 ML SQ SCH (21:02)
[2022-03-11] MEDS: ACETAMINOPHEN 325 MG TABLET PO PRN (06:38)
[2022-03-11] MEDS: QUEtiapine 25 MG TABLET PO SCH ×2 (08:22→20:18)
[2022-03-11] MEDS: amLODIPine 5 MG TABLET PO SCH (08:23)
[2022-03-11] MEDS: MEMANTINE 10 MG TABLET PO SCH ×2 (08:23→20:18)
[2022-03-11] MEDS: METHOCARBAMOL 750 MG TABLET PO SCH (08:23)
[2022-03-11] MEDS: BISOPROLOL 5 MG TABLET PO SCH (08:23)
[2022-03-11] MEDS: APIXABAN 5 MG TABLET PO SCH ×2 (08:24→20:18)
[2022-03-11] MEDS: DOCUSATE SODIUM 100 MG CAPSULE PO SCH ×2 (08:24→20:18)
[2022-03-11] MEDS: FUROSEMIDE 20 MG TABLET PO SCH (08:24)
[2022-03-11] MEDS: FLUoxetine HCL 20 MG CAPSULE PO SCH (08:24)
[2022-03-11] MEDS: INSULIN LISPRO 1 UNIT/0.01 ML UNIT SQ SCH ×4 (08:24→20:16)
[2022-03-11] MEDS: TAMSULOSIN 0.4 MG CAPSULE PO SCH ×2 (08:24→20:17)
[2022-03-11] MEDS: Budesonide-Formoterol 10.2 GM HFA aerosol inhaler INH SCH ×2 (08:26→20:09)
[2022-03-11] MEDS: OMEPRAZOLE 20 MG CAPSULE PO SCH (08:26)
--- NOTE | 2022-03-11 08:33 | Internal Med Progress Note ---
SUBJECTIVE Subjective Patient information: Note initiated : 03/11/22 at 8:32 am Service Date, if different from initiated Date: [] Patient: Edmond Salas 86 y/o M admitted on 02/18/22 for Weakness/Eval for assisted living-PNA,Sepsis. Chief Complaint: [] Interval history: 03/07 No significant events overnight, awaiting placement. 03/08 Resting comfortably, awaiting placement. 03/09 Awaiting placement. 03/10 The patient pulled out his Willis yesterday evening, replaced. Still awaiting placement. 03/11 No significant events overnight, occasionally agitated however redirectable. Awaiting placement. Physical exam Head: Atraumatic, normal inspection. Respiratory: no respiratory distress. Cardiovascular: normal rate GI/Abdominal: soft, nontender, no guarding. Extremities: full range of motion, nontender. Neurological: CN II-XII intact, intact motor, intact sensation. Psychiatric: Impaired cognition Skin: warm, normal color Constitutional Vitals: Vital Signs Temp Pulse Resp BP Pulse Ox O2 Del Method O2 Flow Rate 97.9 F 76 14 128/75 97 0 03/11/22 07:16 03/11/22 07:16 03/11/22 07:16 03/11/22 07:16 03/11/22 07:16 03/11/22 07:16 02/25/22 04:00 Period Temp Pulse Resp BP Sys/Meza Pulse Ox O2 Del Method O2 Flow Rate Last 24 Hr 97.0 F-98.3 F 76-89 14-16 107-135/59-75 94-98 Room Air-Room Air Intake and Output 03/10/22 03/11/22 03/11/22 21:59 05:59 13:59 Intake Total 360 480 Output Total 1025 550 Balance -665 -550 480 Weight 116.437 kg Intake & Output: Intake & Output 03/10/22 03/11/22 03/11/22 21:59 05:59 13:59 Intake Total 360 480 Output Total 1025 550 Balance -665 -550 480 Weight 116.437 kg Intake: Nourishment/Supplement quantity 240 (ml) Oral 120 480 Output: Urine Catheter Amount 1025 550 Other: Meal Dinner Percent of Meal Consumed 25% Feeding Ability Assist with Tray Set Up Nourishment/Supplement name Ensure Urine Appearance Clear Urine Color Yellow Dark Yellow Willis Yellow Stool Size Smear Stool Color Brown OBJ DATA Labs CBC & Chem 7: 02/28/22 05:49 02/28/22 05:49 Meds: Medications Acetaminophen (Acetaminophen 325 Mg Tablet) 650 mg PO Q6HP PRN; Protocol PRN Reason: Per Pain Protocol/Fever > 101 Last Admin: 03/11/22 06:38 Dose: 650 mg Acetaminophen/Codeine Phosphate (Acetaminophen W/Codeine #3 1 Tablet) 1 tab PO BIDP PRN; Protocol PRN Reason: Pain Last Admin: 03/05/22 07:25 Dose: 1 tab Albuterol/Ipratropium (Ipratropium/Albuterol 3 Ml Ampul.Neb) 3 ml NEB Q4HP PRN PRN Reason: Shortness Of Breath Last Admin: 03/06/22 20:44 Dose: 3 ml Amlodipine Besylate (Amlodipine 5 Mg Tablet) 2.5 mg PO DAILY [facility] Last Admin: 03/11/22 08:23 Dose: 2.5 mg Apixaban (Apixaban 5 Mg Tablet) 5 mg PO BID [facility] Last Admin: 03/11/22 08:24 Dose: 5 mg Bisoprolol Fumarate (Bisoprolol 5 Mg Tablet) 10 mg PO DAILY [facility] Last Admin: 03/11/22 08:23 Dose: 10 mg Dextrose (Dextrose 50% 50 Ml Vial) 0 ml IV UD PRN PRN Reason: Per Sliding Scale Diagnostic Test (Pha) (Accu-Chek 1 Each Strip) 1 each FS ACHS [facility] Last Admin: 03/11/22 08:24 Dose: 1 each Docusate Sodium (Docusate Sodium 100 Mg Capsule) 100 mg PO BID [facility] Last Admin: 03/11/22 08:24 Dose: 100 mg Fluoxetine HCl (Fluoxetine Hcl 20 Mg Capsule) 20 mg PO DAILY [facility] Last Admin: 03/11/22 08:24 Dose: 20 mg Furosemide (Furosemide 20 Mg Tablet) 40 mg PO DAILY [facility] Last Admin: 03/11/22 08:24 Dose: 40 mg Glucose (Dextrose 31 Gm Oral.Susp) 15 gm PO PRN PRN PRN Reason: Hypoglycemia Potassium Chloride 40 meq/ (Dextrose) 520 mls @ 130 mls/hr IV UD PRN PRN Reason: Potassium < 3 Magnesium Sulfate (Magnesium Sulfate) 2 gm in 50 mls @ 50 mls/hr IV UD PRN PRN Reason: Magnesium </= 1.6 Insulin Glargine (Insulin Glargine, Human 1 Unit/0.01 Ml) 10 unit SQ QPM [facility] Last Admin: 03/10/22 21:02 Dose: 10 units Insulin Human Lispro (Insulin Lispro 1 Unit/0.01 Ml Unit) 0 unit SQ [facility]; Protocol Last Admin: 03/11/22 08:24 Dose: Not Given Memantine (Memantine 10 Mg Tablet) 5 mg PO BID [facility] Last Admin: 03/11/22 08:23 Dose: 5 mg Methocarbamol (Methocarbamol 750 Mg Tablet) 750 mg PO DAILY [facility] Last Admin: 03/11/22 08:23 Dose: 750 mg Metoprolol Tartrate (Metoprolol Tartrate 5 Mg/5 Ml Vial) 5 mg IV Q2HP PRN PRN Reason: Tachyarrhythmias HR>110 Last Admin: 02/19/22 22:21 Dose: 5 mg Omeprazole (Omeprazole 20 Mg Capsule) 20 mg PO ACB [facility] Last Admin: 03/11/22 08:26 Dose: 20 mg Ondansetron HCl (Ondansetron 4 Mg/2 Ml Vial) 4 mg IV Q4HP PRN PRN Reason: Nausea And Vomiting Budesonide- Formoterol 10.2 Gm Hfa Aerosol Inhaler 2 dose INH BID [facility] Last Admin: 03/11/22 08:26 Dose: Not Given Polyethylene Glycol (Polyethylene Glycol 3350 17 Gm Packet) 17 gm PO DAILYP PRN PRN Reason: Constipation Last Admin: 02/22/22 08:43 Dose: 17 gm Potassium Chloride (Potassium Chloride 20 Meq Tablet) 40 meq PO UD PRN PRN Reason: Potssium is 3-3.5 Potassium Chloride (Potassium Chloride 20 Meq Tablet) 40 meq PO UD PRN PRN Reason: Potassium < 3 Quetiapine Fumarate (Quetiapine 25 Mg Tablet) 50 mg PO HS [facility] Last Admin: 03/10/22 20:52 Dose: 50 mg Quetiapine Fumarate (Quetiapine 25 Mg Tablet) 12.5 mg PO Q6HP PRN PRN Reason: agitation Last Admin: 03/06/22 20:00 Dose: 12.5 mg Quetiapine Fumarate (Quetiapine 25 Mg Tablet) 25 mg PO 0900 [facility] Last Admin: 03/11/22 08:22 Dose: 25 mg Senna (Sennosides 1 Tablet) 2 tab PO DAILYP PRN PRN Reason: Constipation Last Admin: 03/10/22 20:52 Dose: 2 tab Tamsulosin HCl (Tamsulosin 0.4 Mg Capsule) 0.4 mg PO BID [facility] Last Admin: 03/11/22 08:24 Dose: 0.4 mg A/P Narrative A/P Narrative: A: *Generalized weakness/deconditioning/failure to thrive: *Advanced dementia with intermittent behavioral disturbances *Treated community-acquired pneumonia, likely secondary to aspiration *Oropharyngeal Dysphagia, moderate *Resolved encephalopathy *Resolved acute hypoxic respiratory failure *Afib, paroxysmal (new diagnosis) w/RVR: improved -CHADSVASC=5-6 -echo with good EF *COPD(not on home O2): *h/o diastlic CHF: *Pre-Diabetes: a1c 6.4 *HTN: *CKD II: *Anemia, chronic: *LE wounds/ulcers/buttock decubitus: *Obesity: BMI 34 P: -Awaiting placement. -IS/Acapella, home IH's and prn nebs, RT -Wound care -per telepsych, increased Seroquel to 25@1400 and 50 qhs and 12.5 q6h prn -Eliquis twice daily while inpatient, will defer further decision making to f/u between family and PCP, pt unable to participate in his own medical decision making -cont BB/norvasc(decrease for some soft BPs) -cont home lasix -SSI -Lantus 10 units at bedtime, significantly lower Lantus dose than prior to admission. -PT/OT -ST eval, dysphagia diet -CM for placement -Willis catheter for wound healing -ppx: eliquis / ppi DNR Plan of Treatment: Plan: Continue skin care as outlined per wound nurse, Will sign off at this time. Time Spent With Patient Time: Total time spent is greater than 50% in coordination of care (as documented) at patient's floor/unit and/or counseling patient:
--- NOTE | 2022-03-11 13:19 | Internal Med Progress Note ---
SUBJECTIVE Subjective Patient information: Note initiated : 03/11/22 at 1:16 pm Service Date, if different from initiated Date: [] Patient: Edmond Salas a 86 y/o M admitted on 02/18/22 for Weakness/Eval for assisted living-PNA,Sepsis. Chief Complaint: [] Interval history: History of present illness: Mr. Salas is a 86 year old M Presents the ED with worsening confusion on top of dementia and weakness. Recently treated for UTI but the urine looks clear here. Original plan was for home with hospice out of the ED. But it sounds like the family was not comfortable with patient being home felt to be unsafe conditions and they have been try to get APS involved. Further work-up in the ED today they got a chest x-ray which showed infiltrate on left side and mild right. Was noted to have some transient mild hypoxia, unknown baseline but has copd. Sounds like after further discussion with family hospice does not think finally decided on and is reported that they would prefer treatment for anything if possible first. Patient reports a chronic cough and some shortness of breath but at baseline. Patient is a poor historian most history obtained from the chart. Medical history includes dementia COPD hypertension chronic anemia and diastolic heart failure grade 1 with good ejection fraction on an echo in 2019. 02/19 Patient sleeping. Likely result from Haldol last night. Haldol was given for and severe agitation and pulling at lines. Nurse also reports that she feels he is aspirating with liquids. We will place on dysphagia diet order speech therapy evaluation. Likely is infiltrates on chest x-ray from aspiration. 02/20 Patient sitting up in bed eating breakfast. Did get some Zyprexa last night for agitation. No new complaints this morning. Try to talk with him about his atrial fibrillation but given his dementia patient does not seem to comprehend. 02/21 Patient sitting up in bed eating breakfast. More talkative today. No overnight event or new complaints. Did not require any Zyprexa last night. 02/22 Patient sleeping. Calm overnight. Started Seroquel yesterday evening seem to respond well to it. 02/23: Afebrile overnight. No major overnight events. Subjective not obtained due to patient's clinical situations. Medically stable awaiting placement. 02/24: Afebrile overnight. No major overnight events. Subjective not obtained due to patient's clinical situations. Medically stable awaiting placement. 02/25: Afebrile overnight. No major overnight events. Subjective not obtained due to patient's clinical situations. Medically stable awaiting placement. 02/26: Afebrile overnight. No major overnight events. Subjective not obtained due to patient's clinical situations. Medically stable awaiting placement. 02/27: Afebrile overnight. No major overnight events. Subjective not obtained due to patient's clinical situations. Medically stable awaiting placement. 02/28: Afebrile overnight. No major overnight events. Subjective not obtained due to patient's clinical situations. Medically stable awaiting placement. 03/01: Patient is very pleasant to stuffs. Not posting danger to self or stuffs. Medically ready to be discharged to SNF. 03/02 No overnight event or new complaints. 03/03 No new complaints. No overnight events. Vital signs stable. Blood pressure occasionally a bit soft. Decrease Norvasc. 03/04 No change overnight. Vital signs stable. Blood pressure good after decreasing Norvasc. 03/05 Patient stable seems to be doing well. No overnight event or new complaints. Blood pressure good. 03/06 Patient sitting up in bed eating breakfast. Pleasant. Although he does not like his breakfast. 03/07 No significant events overnight, awaiting placement. 03/08 Resting comfortably, awaiting placement. 03/09 Awaiting placement. 03/10 The patient pulled out his Willis yesterday evening, replaced. Still awaiting placement. 03/11 No significant events overnight, occasionally agitated however redirectable. Awaiting placement. Review of Systems: denies headache/fever/chills/nausea/vomiting/chest or abdominal pain/cough/dyspnea/diarrhea. Otherwise see above. Constitutional Vitals: Vital Signs Temp Pulse Resp BP Pulse Ox O2 Del Method O2 Flow Rate 98.3 F 82 12 123/52 95 0 03/11/22 11:32 03/11/22 11:32 03/11/22 11:32 03/11/22 11:32 03/11/22 11:32 03/11/22 11:32 02/25/22 04:00 Period Temp Pulse Resp BP Sys/Emza Pulse Ox O2 Del Method O2 Flow Rate Last 24 Hr 97.1 F-98.3 F 76-89 12-16 107-128/52-75 94-98 Room Air-Room Air Intake and Output 03/11/22 03/11/22 03/11/22 03:59 11:59 19:59 Intake Total 480 Output Total 550 Balance -70 Weight 116.437 kg Intake & Output: Intake & Output 03/11/22 03/11/22 03/11/22 03:59 11:59 19:59 Intake Total 480 Output Total 550 Balance -70 Weight 116.437 kg Intake: Oral 480 Output: Urine Catheter Amount 550 Other: Urine Appearance Willis Clear Urine Color Dark Yellow Willis Light Joan Exam: General: awake, no acute Distress, obese Eyes/N/T: EOMI, Head/Neck: neck supple, CV: irreg irreg, No murmurs, Pulm: Clear b/l, no wheezing/rhonchi/rales Abd: soft, nontender, +BS x4 Ext: no clubbing/cyanosis, b/l LE edema improved and LE chronic wounds/ulcers Neuro: alert, no focal deficits, spontaneously moves all extremities, Skin: warm/dry OBJ DATA Labs CBC & Chem 7: 02/28/22 05:49 02/28/22 05:49 Meds: Medications Acetaminophen (Acetaminophen 325 Mg Tablet) 650 mg PO Q6HP PRN; Protocol PRN Reason: Per Pain Protocol/Fever > 101 Last Admin: 03/11/22 06:38 Dose: 650 mg Acetaminophen/Codeine Phosphate (Acetaminophen W/Codeine #3 1 Tablet) 1 tab PO BIDP PRN; Protocol PRN Reason: Pain Last Admin: 03/05/22 07:25 Dose: 1 tab Albuterol/Ipratropium (Ipratropium/Albuterol 3 Ml Ampul.Neb) 3 ml NEB Q4HP PRN PRN Reason: Shortness Of Breath Last Admin: 03/06/22 20:44 Dose: 3 ml Amlodipine Besylate (Amlodipine 5 Mg Tablet) 2.[address] [facility] Last Admin: 03/11/22 08:23 Dose: 2.5 mg Apixaban (Apixaban 5 Mg Tablet) 5 mg PO BID [facility] Last Admin: 03/11/22 08:24 Dose: 5 mg Bisoprolol Fumarate (Bisoprolol 5 Mg Tablet) [address] [facility] Last Admin: 03/11/22 08:23 Dose: 10 mg Dextrose (Dextrose 50% 50 Ml Vial) 0 ml IV UD PRN PRN Reason: Per Sliding Scale Diagnostic Test (Pha) (Accu-Chek 1 Each Strip) [address] [facility] Last Admin: 03/11/22 11:56 Dose: 1 each Docusate Sodium (Docusate Sodium 100 Mg Capsule) [address] [facility] Last Admin: 03/11/22 08:24 Dose: 100 mg Fluoxetine HCl (Fluoxetine Hcl 20 Mg Capsule) [address] [facility] Last Admin: 03/11/22 08:24 Dose: 20 mg Furosemide (Furosemide 20 Mg Tablet) [address] [facility] Last Admin: 03/11/22 08:24 Dose: 40 mg Glucose (Dextrose 31 Gm Oral.Susp) 15 gm PO PRN PRN PRN Reason: Hypoglycemia Potassium Chloride 40 meq/ (Dextrose) 520 mls @ 130 mls/hr IV UD PRN PRN Reason: Potassium < 3 Magnesium Sulfate (Magnesium Sulfate) 2 gm in 50 mls @ 50 mls/hr IV UD PRN PRN Reason: Magnesium </= 1.6 Insulin Glargine (Insulin Glargine, Human 1 Unit/0.01 Ml) [address] [facility] Last Admin: 03/10/22 21:02 Dose: 10 units Insulin Human Lispro (Insulin Lispro 1 Unit/0.01 Ml Unit) 0 unit SQ [facility]; Protocol Last Admin: 03/11/22 11:58 Dose: 4 units Memantine (Memantine 10 Mg Tablet) [address] [facility] Last Admin: 03/11/22 08:23 Dose: 5 mg Methocarbamol (Methocarbamol 750 Mg Tablet) [address] [facility] Last Admin: 03/11/22 08:23 Dose: 750 mg Metoprolol Tartrate (Metoprolol Tartrate 5 Mg/5 Ml Vial) 5 mg IV Q2HP PRN PRN Reason: Tachyarrhythmias HR>110 Last Admin: 02/19/22 22:21 Dose: 5 mg Omeprazole (Omeprazole 20 Mg Capsule) [address] [facility] Last Admin: 03/11/22 08:26 Dose: 20 mg Ondansetron HCl (Ondansetron 4 Mg/2 Ml Vial) 4 mg IV Q4HP PRN PRN Reason: Nausea And Vomiting Budesonide- Formoterol 10.2 Gm Hfa Aerosol Inhaler [address] [facility] Last Admin: 03/11/22 08:26 Dose: Not Given Polyethylene Glycol (Polyethylene Glycol 3350 17 Gm Packet) 17 gm PO DAILYP PRN PRN Reason: Constipation Last Admin: 02/22/22 08:43 Dose: 17 gm Potassium Chloride (Potassium Chloride 20 Meq Tablet) 40 meq PO UD PRN PRN Reason: Potssium is 3-3.5 Potassium Chloride (Potassium Chloride 20 Meq Tablet) 40 meq PO UD PRN PRN Reason: Potassium < 3 Quetiapine Fumarate (Quetiapine 25 Mg Tablet) [address] [facility] Last Admin: 03/10/22 20:52 Dose: 50 mg Quetiapine Fumarate (Quetiapine 25 Mg Tablet) 12.5 mg PO Q6HP PRN PRN Reason: agitation Last Admin: 03/06/22 20:00 Dose: 12.5 mg Quetiapine Fumarate (Quetiapine 25 Mg Tablet) [address] [facility] Last Admin: 03/11/22 08:22 Dose: 25 mg Senna (Sennosides 1 Tablet) 2 tab PO DAILYP PRN PRN Reason: Constipation Last Admin: 03/10/22 20:52 Dose: 2 tab Tamsulosin HCl (Tamsulosin 0.4 Mg Capsule) 0.[address] [facility] Last Admin: 03/11/22 08:24 Dose: 0.4 mg A/P Narrative A/P Narrative: A: *Generalized weakness/deconditioning/failure to thrive: *Encephalopathy, acute on chronic, underlying Dementia: 2/2 above *Dementia with behavioral disturbances: *CAP, likely Aspiration: *Oropharyngeal Dysphagia, Mod: *Acute hypoxic respiratory failure: resolved *Afib, paroxysmal (new diagnosis) w/RVR: improved -CHADSVASC=5-6 -echo with good EF *COPD(not on home O2): *h/o diastlic CHF: *Pre-Diabetes: a1c 6.4 *HTN: *CKD II: *Anemia, chronic: *LE wounds/ulcers/buttock decubitus: *Obesity: BMI 34 P: -Awaiting placement -IS/Acapella, home IH's and prn nebs, RT -Wound care -per telepsych, increased seroquel to 25@1400 and 50 qhs and 12.5 q6h prn -Eliquis inpt, will defer further decision making to f/u between family/PCP, pt unable to participate in medical decision making -cont BB/norvasc -cont home lasix -SSI, restarted home basal at lower dose, significantly lower Lantus dose than prior to admission -PT/OT -ST [place], dysphagia diet -CM for placement -ppx: eliquis / ppi DNR Time Spent With Patient Time: Total time spent is greater than 50% in coordination of care (as documented) at patient's floor/unit and/or counseling patient:
[2022-03-11] MEDS: SENNOSIDES 1 TABLET PO PRN (20:17)
[2022-03-11] MEDS: INSULIN GLARGINE, HUMAN 1 UNIT/0.01 ML SQ SCH (20:17)
[2022-03-11] MEDS: ACETAMINOPHEN W/CODEINE #3 1 TABLET PO PRN (20:17)
[2022-03-12] MEDS: QUEtiapine 25 MG TABLET PO PRN (00:45)
[2022-03-12] MEDS: INSULIN LISPRO 1 UNIT/0.01 ML UNIT SQ SCH ×4 (07:32→21:00)
[2022-03-12] MEDS: BISOPROLOL 5 MG TABLET PO SCH (08:30)
[2022-03-12] MEDS: amLODIPine 5 MG TABLET PO SCH (08:30)
[2022-03-12] MEDS: APIXABAN 5 MG TABLET PO SCH ×2 (08:30→21:01)
[2022-03-12] MEDS: OMEPRAZOLE 20 MG CAPSULE PO SCH (08:31)
[2022-03-12] MEDS: FLUoxetine HCL 20 MG CAPSULE PO SCH (08:31)
[2022-03-12] MEDS: FUROSEMIDE 20 MG TABLET PO SCH (08:31)
[2022-03-12] MEDS: QUEtiapine 25 MG TABLET PO SCH ×2 (08:31→21:01)
[2022-03-12] MEDS: DOCUSATE SODIUM 100 MG CAPSULE PO SCH ×2 (08:32→21:01)
[2022-03-12] MEDS: Budesonide-Formoterol 10.2 GM HFA aerosol inhaler INH SCH ×2 (08:32→20:50)
[2022-03-12] MEDS: METHOCARBAMOL 750 MG TABLET PO SCH (08:32)
[2022-03-12] MEDS: TAMSULOSIN 0.4 MG CAPSULE PO SCH ×2 (08:32→21:01)
[2022-03-12] MEDS: MEMANTINE 10 MG TABLET PO SCH ×2 (08:32→21:01)
--- NOTE | 2022-03-12 08:34 | Internal Med Progress Note ---
SUBJECTIVE Subjective Patient information: Note initiated : 03/12/22 at 8:34 am Service Date, if different from initiated Date: [] Patient: Edmond Salas a 86 y/o M admitted on 02/18/22 for Weakness/Eval for assisted living-PNA,Sepsis. Chief Complaint: [] Interval history: History of present illness: Mr. Salas is a 86 year old M Presents the ED with worsening confusion on top of dementia and weakness. Recently treated for UTI but the urine looks clear here. Original plan was for home with hospice out of the ED. But it sounds like the family was not comfortable with patient being home felt to be unsafe conditions and they have been try to get APS involved. Further work-up in the ED today they got a chest x-ray which showed infiltrate on left side and mild right. Was noted to have some transient mild hypoxia, unknown baseline but has copd. Sounds like after further discussion with family hospice does not think finally decided on and is reported that they would prefer treatment for anything if possible first. Patient reports a chronic cough and some shortness of breath but at baseline. Patient is a poor historian most history obtained from the chart. Medical history includes dementia COPD hypertension chronic anemia and diastolic heart failure grade 1 with good ejection fraction on an echo in 2019. 02/19 Patient sleeping. Likely result from Haldol last night. Haldol was given for and severe agitation and pulling at lines. Nurse also reports that she feels he is aspirating with liquids. We will place on dysphagia diet order speech therapy evaluation. Likely is infiltrates on chest x-ray from aspiration. 02/20 Patient sitting up in bed eating breakfast. Did get some Zyprexa last night for agitation. No new complaints this morning. Try to talk with him about his atrial fibrillation but given his dementia patient does not seem to comprehend. 02/21 Patient sitting up in bed eating breakfast. More talkative today. No overnight event or new complaints. Did not require any Zyprexa last night. 02/22 Patient sleeping. Calm overnight. Started Seroquel yesterday evening seem to respond well to it. 02/23: Afebrile overnight. No major overnight events. Subjective not obtained due to patient's clinical situations. Medically stable awaiting placement. 02/24: Afebrile overnight. No major overnight events. Subjective not obtained due to patient's clinical situations. Medically stable awaiting placement. 02/25: Afebrile overnight. No major overnight events. Subjective not obtained due to patient's clinical situations. Medically stable awaiting placement. 02/26: Afebrile overnight. No major overnight events. Subjective not obtained due to patient's clinical situations. Medically stable awaiting placement. 02/27: Afebrile overnight. No major overnight events. Subjective not obtained due to patient's clinical situations. Medically stable awaiting placement. 02/28: Afebrile overnight. No major overnight events. Subjective not obtained due to patient's clinical situations. Medically stable awaiting placement. 03/01: Patient is very pleasant to stuffs. Not posting danger to self or stuffs. Medically ready to be discharged to SNF. 03/02 No overnight event or new complaints. 03/03 No new complaints. No overnight events. Vital signs stable. Blood pressure occasionally a bit soft. Decrease Norvasc. 03/04 No change overnight. Vital signs stable. Blood pressure good after decreasing Norvasc. 03/05 Patient stable seems to be doing well. No overnight event or new complaints. Blood pressure good. 03/06 Patient sitting up in bed eating breakfast. Pleasant. Although he does not like his breakfast. 03/07 No significant events overnight, awaiting placement. 03/08 Resting comfortably, awaiting placement. 03/09 Awaiting placement. 03/10 The patient pulled out his Willis yesterday evening, replaced. Still awaiting placement. 03/11 No significant events overnight, occasionally agitated however redirectable. Awaiting placement. 03/12 No issues overnight. No new complaints. Awaiting placement. Review of Systems: denies headache/fever/chills/nausea/vomiting/chest or abdominal pain/cough/dyspnea/diarrhea. Otherwise see above. Constitutional Vitals: Vital Signs Temp Pulse Resp BP Pulse Ox O2 Del Method O2 Flow Rate 98.2 F 75 16 119/71 97 0 03/12/22 03:50 03/12/22 03:50 03/12/22 03:50 03/12/22 03:50 03/12/22 03:50 03/12/22 03:50 02/25/22 04:00 Period Temp Pulse Resp BP Sys/Meza Pulse Ox O2 Del Method O2 Flow Rate Last 24 Hr 97.6 F-98.5 F 74-90 12-16 102-123/52-71 94-98 Room Air-Room Air Intake and Output 03/11/22 03/12/22 03/12/22 19:59 03:59 11:59 Intake Total 480 Output Total 350 500 Balance -350 -20 Weight 116.664 kg Intake & Output: Intake & Output 03/11/22 03/12/22 03/12/22 19:59 03:59 11:59 Intake Total 480 Output Total 350 500 Balance -350 -20 Weight 116.664 kg Intake: Oral 480 Output: Urine Catheter Amount 350 500 Other: Meal Ice cream Diet cranberry juice x2 Percent of Meal Consumed 100% 100% Feeding Ability Independent Total Assistance Urine Appearance Cloudy Clear Willis Clear Urine Color Dark Joan Light Joan Willis Dark Yellow Stool Size Small Stool Color Brown Exam: General: awake, no acute Distress, obese Eyes/N/T: EOMI, Head/Neck: neck supple, CV: irreg irreg, No murmurs, Pulm: Clear b/l, no wheezing/rhonchi/rales Abd: soft, nontender, +BS x4 Ext: no clubbing/cyanosis, b/l LE edema improved and LE chronic wounds/ulcers Neuro: alert, no focal deficits, spontaneously moves all extremities, Skin: warm/dry OBJ DATA Labs CBC & Chem 7: 02/28/22 05:49 02/28/22 05:49 Meds: Medications Acetaminophen (Acetaminophen 325 Mg Tablet) 650 mg PO Q6HP PRN; Protocol PRN Reason: Per Pain Protocol/Fever > 101 Last Admin: 03/11/22 06:38 Dose: 650 mg Acetaminophen/Codeine Phosphate (Acetaminophen W/Codeine #3 1 Tablet) 1 tab PO BIDP PRN; Protocol PRN Reason: Pain Last Admin: 03/11/22 20:17 Dose: 1 tab Albuterol/Ipratropium (Ipratropium/Albuterol 3 Ml Ampul.Neb) 3 ml NEB Q4HP PRN PRN Reason: Shortness Of Breath Last Admin: 03/06/22 20:44 Dose: 3 ml Amlodipine Besylate (Amlodipine 5 Mg Tablet) 2.5 mg PO DAILY GAIL Last Admin: 03/12/22 08:30 Dose: 2.5 mg Apixaban (Apixaban 5 Mg Tablet) 5 mg PO BID GAIL Last Admin: 03/12/22 08:30 Dose: 5 mg Bisoprolol Fumarate (Bisoprolol 5 Mg Tablet) 10 mg PO DAILY [facility] Last Admin: 03/12/22 08:30 Dose: 10 mg Dextrose (Dextrose 50% 50 Ml Vial) 0 ml IV UD PRN PRN Reason: Per Sliding Scale Diagnostic Test (Pha) (Accu-Chek 1 Each Strip) 1 each FS ACHS [facility] Last Admin: 03/12/22 07:32 Dose: 1 each Docusate Sodium (Docusate Sodium 100 Mg Capsule) 100 mg PO BID [facility] Last Admin: 03/12/22 08:32 Dose: 100 mg Fluoxetine HCl (Fluoxetine Hcl 20 Mg Capsule) 20 mg PO DAILY [facility] Last Admin: 03/12/22 08:31 Dose: 20 mg Furosemide (Furosemide 20 Mg Tablet) 40 mg PO DAILY [facility] Last Admin: 03/12/22 08:31 Dose: 40 mg Glucose (Dextrose 31 Gm Oral.Susp) 15 gm PO PRN PRN PRN Reason: Hypoglycemia Potassium Chloride 40 meq/ (Dextrose) 520 mls @ 130 mls/hr IV UD PRN PRN Reason: Potassium < 3 Magnesium Sulfate (Magnesium Sulfate) 2 gm in 50 mls @ 50 mls/hr IV UD PRN PRN Reason: Magnesium </= 1.6 Insulin Glargine (Insulin Glargine, Human 1 Unit/0.01 Ml) 10 unit SQ QPM [facility] Last Admin: 03/11/22 20:17 Dose: 10 units Insulin Human Lispro (Insulin Lispro 1 Unit/0.01 Ml Unit) 0 unit SQ ACHS [facility]; Protocol Last Admin: 03/12/22 07:32 Dose: Not Given Memantine (Memantine 10 Mg Tablet) 5 mg PO BID [facility] Last Admin: 03/12/22 08:32 Dose: 5 mg Methocarbamol (Methocarbamol 750 Mg Tablet) 750 mg PO DAILY [facility] Last Admin: 03/12/22 08:32 Dose: 750 mg Metoprolol Tartrate (Metoprolol Tartrate 5 Mg/5 Ml Vial) 5 mg IV Q2HP PRN PRN Reason: Tachyarrhythmias HR>110 Last Admin: 02/19/22 22:21 Dose: 5 mg Omeprazole (Omeprazole 20 Mg Capsule) 20 mg PO ACB [facility] Last Admin: 03/12/22 08:31 Dose: 20 mg Ondansetron HCl (Ondansetron 4 Mg/2 Ml Vial) 4 mg IV Q4HP PRN PRN Reason: Nausea And Vomiting Budesonide- Formoterol 10.2 Gm Hfa Aerosol Inhaler 2 dose INH BID [facility] Last Admin: 03/12/22 08:32 Dose: Not Given Polyethylene Glycol (Polyethylene Glycol 3350 17 Gm Packet) 17 gm PO DAILYP PRN PRN Reason: Constipation Last Admin: 02/22/22 08:43 Dose: 17 gm Potassium Chloride (Potassium Chloride 20 Meq Tablet) 40 meq PO UD PRN PRN Reason: Potssium is 3-3.5 Potassium Chloride (Potassium Chloride 20 Meq Tablet) 40 meq PO UD PRN PRN Reason: Potassium < 3 Quetiapine Fumarate (Quetiapine 25 Mg Tablet) 50 mg PO HS [facility] Last Admin: 03/11/22 20:18 Dose: 50 mg Quetiapine Fumarate (Quetiapine 25 Mg Tablet) 12.5 mg PO Q6HP PRN PRN Reason: agitation Last Admin: 03/12/22 00:45 Dose: 12.5 mg Quetiapine Fumarate (Quetiapine 25 Mg Tablet) 25 mg PO 0900 [facility] Last Admin: 03/12/22 08:31 Dose: 25 mg Senna (Sennosides 1 Tablet) 2 tab PO DAILYP PRN PRN Reason: Constipation Last Admin: 03/11/22 20:17 Dose: 2 tab Tamsulosin HCl (Tamsulosin 0.4 Mg Capsule) 0.4 mg PO BID [facility] Last Admin: 03/12/22 08:32 Dose: 0.4 mg A/P Narrative A/P Narrative: A: *Generalized weakness/deconditioning/failure to thrive: *Encephalopathy, acute on chronic, underlying Dementia: 2/2 above *Dementia with behavioral disturbances: *CAP, likely Aspiration: *Oropharyngeal Dysphagia, Mod: *Acute hypoxic respiratory failure: resolved *Afib, paroxysmal (new diagnosis) w/RVR: improved -CHADSVASC=5-6 -echo with good EF *COPD(not on home O2): *h/o diastlic CHF: *Pre-Diabetes: a1c 6.4 *HTN: *CKD II: *Anemia, chronic: *LE wounds/ulcers/buttock decubitus: *Obesity: BMI 34 P: -Awaiting placement -IS/Acapella, home IH's and prn nebs, RT -Wound care -per telepsych, increased seroquel to 25@1400 and 50 qhs and 12.5 q6h prn -Eliquis inpt, will defer further decision making to f/u between family/PCP, pt unable to participate in medical decision making -cont BB/norvasc -cont home lasix -SSI, restarted home basal at lower dose, significantly lower Lantus dose than prior to admission -PT/OT -ST cordovaal, dysphagia diet -CM for placement -ppx: eliquis / ppi DNR Time Spent With Patient Time: Total time spent is greater than 50% in coordination of care (as documented) at patient's floor/unit and/or counseling patient:
[2022-03-12] MEDS: INSULIN GLARGINE, HUMAN 1 UNIT/0.01 ML SQ SCH (21:00)
[2022-03-12] MEDS: ACETAMINOPHEN W/CODEINE #3 1 TABLET PO PRN (21:05)
--- NOTE | 2022-03-13 08:33 | Internal Med Progress Note ---
SUBJECTIVE Subjective Patient information: Note initiated : 03/13/22 at 8:33 am Service Date, if different from initiated Date: [] Patient: Edmond Salas a 86 y/o M admitted on 02/18/22 for Weakness/Eval for assisted living-PNA,Sepsis. Chief Complaint: [] Interval history: History of present illness: Mr. Salas is a 86 year old M Presents the ED with worsening confusion on top of dementia and weakness. Recently treated for UTI but the urine looks clear here. Original plan was for home with hospice out of the ED. But it sounds like the family was not comfortable with patient being home felt to be unsafe conditions and they have been try to get APS involved. Further work-up in the ED today they got a chest x-ray which showed infiltrate on left side and mild right. Was noted to have some transient mild hypoxia, unknown baseline but has copd. Sounds like after further discussion with family hospice does not think finally decided on and is reported that they would prefer treatment for anything if possible first. Patient reports a chronic cough and some shortness of breath but at baseline. Patient is a poor historian most history obtained from the chart. Medical history includes dementia COPD hypertension chronic anemia and diastolic heart failure grade 1 with good ejection fraction on an echo in 2019. 02/19 Patient sleeping. Likely result from Haldol last night. Haldol was given for and severe agitation and pulling at lines. Nurse also reports that she feels he is aspirating with liquids. We will place on dysphagia diet order speech therapy evaluation. Likely is infiltrates on chest x-ray from aspiration. 02/20 Patient sitting up in bed eating breakfast. Did get some Zyprexa last night for agitation. No new complaints this morning. Try to talk with him about his atrial fibrillation but given his dementia patient does not seem to comprehend. 02/21 Patient sitting up in bed eating breakfast. More talkative today. No overnight event or new complaints. Did not require any Zyprexa last night. 02/22 Patient sleeping. Calm overnight. Started Seroquel yesterday evening seem to respond well to it. 02/23: Afebrile overnight. No major overnight events. Subjective not obtained due to patient's clinical situations. Medically stable awaiting placement. 02/24: Afebrile overnight. No major overnight events. Subjective not obtained due to patient's clinical situations. Medically stable awaiting placement. 02/25: Afebrile overnight. No major overnight events. Subjective not obtained due to patient's clinical situations. Medically stable awaiting placement. 02/26: Afebrile overnight. No major overnight events. Subjective not obtained due to patient's clinical situations. Medically stable awaiting placement. 02/27: Afebrile overnight. No major overnight events. Subjective not obtained due to patient's clinical situations. Medically stable awaiting placement. 02/28: Afebrile overnight. No major overnight events. Subjective not obtained due to patient's clinical situations. Medically stable awaiting placement. 03/01: Patient is very pleasant to stuffs. Not posting danger to self or stuffs. Medically ready to be discharged to SNF. 03/02 No overnight event or new complaints. 03/03 No new complaints. No overnight events. Vital signs stable. Blood pressure occasionally a bit soft. Decrease Norvasc. 03/04 No change overnight. Vital signs stable. Blood pressure good after decreasing Norvasc. 03/05 Patient stable seems to be doing well. No overnight event or new complaints. Blood pressure good. 03/06 Patient sitting up in bed eating breakfast. Pleasant. Although he does not like his breakfast. 03/07 No significant events overnight, awaiting placement. 03/08 Resting comfortably, awaiting placement. 03/09 Awaiting placement. 03/10 The patient pulled out his Willis yesterday evening, replaced. Still awaiting placement. 03/11 No significant events overnight, occasionally agitated however redirectable. Awaiting placement. 03/12 No issues overnight. No new complaints. Awaiting placement. 03/13 No real changes. Patient sitting up in bed eating breakfast. No new complaints. Review of Systems: denies headache/fever/chills/nausea/vomiting/chest or abdominal pain/cough/dyspnea/diarrhea. Otherwise see above. Constitutional Vitals: Vital Signs Temp Pulse Resp BP Pulse Ox O2 Del Method O2 Flow Rate 97.0 F 73 16 131/68 94 0 03/13/22 03:25 03/13/22 03:25 03/13/22 03:25 03/13/22 03:25 03/13/22 03:25 03/13/22 03:25 02/25/22 04:00 Period Temp Pulse Resp BP Sys/Meza Pulse Ox O2 Del Method O2 Flow Rate Last 24 Hr 97.0 F-98.4 F 72-81 16-20 112-131/60-82 92-96 Room Air-Room A ir Intake and Output 03/12/22 03/13/22 03/13/22 19:59 03:59 11:59 Intake Total 680 120 Output Total 700 300 Balance -20 -180 Weight 117.208 kg Intake & Output: Intake & Output 03/12/22 03/13/22 03/13/22 19:59 03:59 11:59 Intake Total 680 120 Output Total 700 300 Balance -20 -180 Weight 117.208 kg Intake: Nourishment/Supplement quantity 120 (ml) Oral 560 120 Output: Urine Catheter Amount 700 300 Other: Meal Lunch Percent of Meal Consumed 25% Feeding Ability Needs Supervision Nourishment/Supplement name Magic cup Urine Appearance Clear Clear Willis Clear Urine Color Dark Yellow Light Joan Willis Dark Yellow Stool Size Small Stool Color Brown Stool Consistency Soft Exam: General: awake, no acute Distress, obese Eyes/N/T: EOMI, Head/Neck: neck supple, CV: irreg irreg, No murmurs, Pulm: Clear b/l, no wheezing/rhonchi/rales Abd: soft, nontender, +BS x4 Ext: no clubbing/cyanosis, b/l LE edema improved and LE chronic wounds/ulcers Neuro: alert, no focal deficits, spontaneously moves all extremities, Skin: warm/dry OBJ DATA Labs CBC & Chem 7: 02/28/22 05:49 02/28/22 05:49 Meds: Medications Acetaminophen (Acetaminophen 325 Mg Tablet) 650 mg PO Q6HP PRN; Protocol PRN Reason: Per Pain Protocol/Fever > 101 Last Admin: 03/11/22 06:38 Dose: 650 mg Acetaminophen/Codeine Phosphate (Acetaminophen W/Codeine #3 1 Tablet) 1 tab PO BIDP PRN; Protocol PRN Reason: Pain Last Admin: 03/12/22 21:05 Dose: 1 tab Albuterol/Ipratropium (Ipratropium/Albuterol 3 Ml Ampul.Neb) 3 ml NEB Q4HP PRN PRN Reason: Shortness Of Breath Last Admin: 03/06/22 20:44 Dose: 3 ml Amlodipine Besylate (Amlodipine 5 Mg Tablet) 2.5 mg PO DAILY GAIL Last Admin: 03/12/22 08:30 Dose: 2.5 mg Apixaban (Apixaban 5 Mg Tablet) 5 mg PO BID [facility] Last Admin: 03/12/22 21:01 Dose: 5 mg Bisoprolol Fumarate (Bisoprolol 5 Mg Tablet) 10 mg PO DAILY [facility] Last Admin: 03/12/22 08:30 Dose: 10 mg Dextrose (Dextrose 50% 50 Ml Vial) 0 ml IV UD PRN PRN Reason: Per Sliding Scale Diagnostic Test (Pha) (Accu-Chek 1 Each Strip) 1 each FS ACHS [facility] Last Admin: 03/12/22 20:50 Dose: 1 each Docusate Sodium (Docusate Sodium 100 Mg Capsule) 100 mg PO BID [facility] Last Admin: 03/12/22 21:01 Dose: 100 mg Fluoxetine HCl (Fluoxetine Hcl 20 Mg Capsule) 20 mg PO DAILY [facility] Last Admin: 03/12/22 08:31 Dose: 20 mg Furosemide (Furosemide 20 Mg Tablet) 40 mg PO DAILY [facility] Last Admin: 03/12/22 08:31 Dose: 40 mg Glucose (Dextrose 31 Gm Oral.Susp) 15 gm PO PRN PRN PRN Reason: Hypoglycemia Potassium Chloride 40 meq/ (Dextrose) 520 mls @ 130 mls/hr IV UD PRN PRN Reason: Potassium < 3 Magnesium Sulfate (Magnesium Sulfate) 2 gm in 50 mls @ 50 mls/hr IV UD PRN PRN Reason: Magnesium </= 1.6 Insulin Glargine (Insulin Glargine, Human 1 Unit/0.01 Ml) 10 unit SQ QPM [facility] Last Admin: 03/12/22 21:00 Dose: 10 units Insulin Human Lispro (Insulin Lispro 1 Unit/0.01 Ml Unit) 0 unit SQ ACHS [facility]; Protocol Last Admin: 03/12/22 21:00 Dose: 6 units Memantine (Memantine 10 Mg Tablet) 5 mg PO BID [facility] Last Admin: 03/12/22 21:01 Dose: 5 mg Methocarbamol (Methocarbamol 750 Mg Tablet) 750 mg PO DAILY [facility] Last Admin: 03/12/22 08:32 Dose: 750 mg Metoprolol Tartrate (Metoprolol Tartrate 5 Mg/5 Ml Vial) 5 mg IV Q2HP PRN PRN Reason: Tachyarrhythmias HR>110 Last Admin: 02/19/22 22:21 Dose: 5 mg Omeprazole (Omeprazole 20 Mg Capsule) 20 mg PO ACB [facility] Last Admin: 03/12/22 08:31 Dose: 20 mg Ondansetron HCl (Ondansetron 4 Mg/2 Ml Vial) 4 mg IV Q4HP PRN PRN Reason: Nausea And Vomiting Budesonide- Formoterol 10.2 Gm Hfa Aerosol Inhaler 2 dose INH BID [facility] Last Admin: 03/12/22 20:50 Dose: Not Given Polyethylene Glycol (Polyethylene Glycol 3350 17 Gm Packet) 17 gm PO DAILYP PRN PRN Reason: Constipation Last Admin: 02/22/22 08:43 Dose: 17 gm Potassium Chloride (Potassium Chloride 20 Meq Tablet) 40 meq PO UD PRN PRN Reason: Potssium is 3-3.5 Potassium Chloride (Potassium Chloride 20 Meq Tablet) 40 meq PO UD PRN PRN Reason: Potassium < 3 Quetiapine Fumarate (Quetiapine 25 Mg Tablet) 50 mg PO HS [facility] Last Admin: 03/12/22 21:01 Dose: 50 mg Quetiapine Fumarate (Quetiapine 25 Mg Tablet) 12.5 mg PO Q6HP PRN PRN Reason: agitation Last Admin: 03/12/22 00:45 Dose: 12.5 mg Quetiapine Fumarate (Quetiapine 25 Mg Tablet) 25 mg PO 0900 [facility] Last Admin: 03/12/22 08:31 Dose: 25 mg Senna (Sennosides 1 Tablet) 2 tab PO DAILYP PRN PRN Reason: Constipation Last Admin: 03/11/22 20:17 Dose: 2 tab Tamsulosin HCl (Tamsulosin 0.4 Mg Capsule) 0.4 mg PO BID [facility] Last Admin: 03/12/22 21:01 Dose: 0.4 mg A/P Narrative A/P Narrative: A: *Generalized weakness/deconditioning/failure to thrive: *Encephalopathy, acute on chronic, underlying Dementia: 2/2 above *Dementia with behavioral disturbances: *CAP, likely Aspiration: *Oropharyngeal Dysphagia, Mod: *Acute hypoxic respiratory failure: resolved *Afib, paroxysmal (new diagnosis) w/RVR: improved -CHADSVASC=5-6 -echo with good EF *COPD(not on home O2): *h/o diastlic CHF: *Pre-Diabetes: a1c 6.4 *HTN: *CKD II: *Anemia, chronic: *LE wounds/ulcers/buttock decubitus: *Obesity: BMI 34 P: -Awaiting placement -IS/Acapella, home IH's and prn nebs, RT -Wound care -per telepsych, increased seroquel to 25@1400 and 50 qhs and 12.5 q6h prn -Eliquis inpt, will defer further decision making to f/u between family/PCP, pt unable to participate in medical decision making -cont BB/norvasc -cont home lasix -SSI, restarted home basal at lower dose, significantly lower Lantus dose than prior to admission -PT/OT -ST eval, dysphagia diet -CM for placement -ppx: eliquis / ppi DNR Time Spent With Patient Time: Total time spent is greater than 50% in coordination of care (as documented) at patient's floor/unit and/or counseling patient:
[2022-03-13] MEDS: INSULIN LISPRO 1 UNIT/0.01 ML UNIT SQ SCH ×4 (08:53→21:55)
[2022-03-13] MEDS: OMEPRAZOLE 20 MG CAPSULE PO SCH (08:53)
[2022-03-13] MEDS: DOCUSATE SODIUM 100 MG CAPSULE PO SCH ×2 (08:54→21:41)
[2022-03-13] MEDS: FLUoxetine HCL 20 MG CAPSULE PO SCH (08:54)
[2022-03-13] MEDS: QUEtiapine 25 MG TABLET PO SCH ×2 (08:54→21:41)
[2022-03-13] MEDS: APIXABAN 5 MG TABLET PO SCH ×2 (08:54→21:41)
[2022-03-13] MEDS: Budesonide-Formoterol 10.2 GM HFA aerosol inhaler INH SCH ×2 (08:54→21:48)
[2022-03-13] MEDS: MEMANTINE 10 MG TABLET PO SCH ×2 (08:54→21:41)
[2022-03-13] MEDS: METHOCARBAMOL 750 MG TABLET PO SCH (08:54)
[2022-03-13] MEDS: amLODIPine 5 MG TABLET PO SCH (08:54)
[2022-03-13] MEDS: FUROSEMIDE 20 MG TABLET PO SCH (08:54)
[2022-03-13] MEDS: TAMSULOSIN 0.4 MG CAPSULE PO SCH ×2 (08:54→21:39)
[2022-03-13] MEDS: BISOPROLOL 5 MG TABLET PO SCH (08:55)
[2022-03-13] MEDS: ACETAMINOPHEN 325 MG TABLET PO PRN ×2 (12:02→21:39)
[2022-03-13] MEDS: INSULIN GLARGINE, HUMAN 1 UNIT/0.01 ML SQ SCH (21:55)
[2022-03-14] MEDS: INSULIN LISPRO 1 UNIT/0.01 ML UNIT SQ SCH ×4 (07:19→21:49)
[2022-03-14] MEDS: OMEPRAZOLE 20 MG CAPSULE PO SCH (07:21)
--- NOTE | 2022-03-14 07:47 | Internal Med Progress Note ---
SUBJECTIVE Subjective Patient information: Note initiated : 03/14/22 at 7:46 am Service Date, if different from initiated Date: [] Patient: Edmond Salas a 86 y/o M admitted on 02/18/22 for Weakness/Eval for assisted living-PNA,Sepsis. Chief Complaint: [] Interval history: History of present illness: Mr. Salas is a 86 year old M Presents the ED with worsening confusion on top of dementia and weakness. Recently treated for UTI but the urine looks clear here. Original plan was for home with hospice out of the ED. But it sounds like the family was not comfortable with patient being home felt to be unsafe conditions and they have been try to get APS involved. Further work-up in the ED today they got a chest x-ray which showed infiltrate on left side and mild right. Was noted to have some transient mild hypoxia, unknown baseline but has copd. Sounds like after further discussion with family hospice does not think finally decided on and is reported that they would prefer treatment for anything if possible first. Patient reports a chronic cough and some shortness of breath but at baseline. Patient is a poor historian most history obtained from the chart. Medical history includes dementia COPD hypertension chronic anemia and diastolic heart failure grade 1 with good ejection fraction on an echo in 2019. 02/19 Patient sleeping. Likely result from Haldol last night. Haldol was given for and severe agitation and pulling at lines. Nurse also reports that she feels he is aspirating with liquids. We will place on dysphagia diet order speech therapy evaluation. Likely is infiltrates on chest x-ray from aspiration. 02/20 Patient sitting up in bed eating breakfast. Did get some Zyprexa last night for agitation. No new complaints this morning. Try to talk with him about his atrial fibrillation but given his dementia patient does not seem to comprehend. 02/21 Patient sitting up in bed eating breakfast. More talkative today. No overnight event or new complaints. Did not require any Zyprexa last night. 02/22 Patient sleeping. Calm overnight. Started Seroquel yesterday evening seem to respond well to it. 02/23: Afebrile overnight. No major overnight events. Subjective not obtained due to patient's clinical situations. Medically stable awaiting placement. 02/24: Afebrile overnight. No major overnight events. Subjective not obtained due to patient's clinical situations. Medically stable awaiting placement. 02/25: Afebrile overnight. No major overnight events. Subjective not obtained due to patient's clinical situations. Medically stable awaiting placement. 02/26: Afebrile overnight. No major overnight events. Subjective not obtained due to patient's clinical situations. Medically stable awaiting placement. 02/27: Afebrile overnight. No major overnight events. Subjective not obtained due to patient's clinical situations. Medically stable awaiting placement. 02/28: Afebrile overnight. No major overnight events. Subjective not obtained due to patient's clinical situations. Medically stable awaiting placement. 03/01: Patient is very pleasant to stuffs. Not posting danger to self or stuffs. Medically ready to be discharged to SNF. 03/02 No overnight event or new complaints. 03/03 No new complaints. No overnight events. Vital signs stable. Blood pressure occasionally a bit soft. Decrease Norvasc. 03/04 No change overnight. Vital signs stable. Blood pressure good after decreasing Norvasc. 03/05 Patient stable seems to be doing well. No overnight event or new complaints. Blood pressure good. 03/06 Patient sitting up in bed eating breakfast. Pleasant. Although he does not like his breakfast. 03/07 No significant events overnight, awaiting placement. 03/08 Resting comfortably, awaiting placement. 03/09 Awaiting placement. 03/10 The patient pulled out his Willis yesterday evening, replaced. Still awaiting placement. 03/11 No significant events overnight, occasionally agitated however redirectable. Awaiting placement. 03/12 No issues overnight. No new complaints. Awaiting placement. 03/13 No real changes. Patient sitting up in bed eating breakfast. No new complaints. 03/14 No change. Patient is seen to be feeling well. No behavioral changes overnight per nurses note. Review of Systems: denies headache/fever/chills/nausea/vomiting/chest or abdominal pain/cough/dyspnea/diarrhea. Otherwise see above. Constitutional Vitals: Vital Signs Temp Pulse Resp BP Pulse Ox O2 Del Method O2 Flow Rate 98.4 F 73 16 118/60 96 0 03/14/22 04:02 03/14/22 04:02 03/14/22 04:02 03/14/22 04:02 03/14/22 04:02 03/14/22 04:02 02/25/22 04:00 Period Temp Pulse Resp BP Sys/Meza Pulse Ox O2 Del Method O2 Flow Rate Last 24 Hr 97.4 F-98.9 F 73-82 16-20 118-130/60-82 94-96 Room Air-Room Air Intake and Output 03/13/22 03/14/22 03/14/22 19:59 03:59 11:59 Intake Total 520 420 Output Total 600 650 Balance -80 420 -650 Weight 118.206 kg Intake & Output: Intake & Output 03/13/22 03/14/22 03/14/22 19:59 03:59 11:59 Intake Total 520 420 Output Total 600 650 Balance -80 420 -650 Weight 118.206 kg Intake: Oral 520 420 Output: Urine Catheter Amount 600 650 Other: Meal Lunch Percent of Meal Consumed 75% Urine Appearance Clear Clear Sediment Urine Color Dark Yellow Dark Joan Willis Dark Yellow Urine Odor Normal Stool Size Smear Stool Color Brown Stool Consistency Soft Exam: General: awake, no acute Distress, obese Eyes/N/T: EOMI, Head/Neck: neck supple, CV: irreg irreg, No murmurs, Pulm: Clear b/l, no wheezing/rhonchi/rales Abd: soft, nontender, +BS x4 Ext: no clubbing/cyanosis, b/l LE edema improved and LE chronic wounds/ulcers Neuro: alert, no focal deficits, spontaneously moves all extremities, Skin: warm/dry OBJ DATA Labs CBC & Chem 7: 02/28/22 05:49 02/28/22 05:49 Meds: Medications Acetaminophen (Acetaminophen 325 Mg Tablet) 650 mg PO Q6HP PRN; Protocol PRN Reason: Per Pain Protocol/Fever > 101 Last Admin: 03/13/22 21:39 Dose: 650 mg Acetaminophen/Codeine Phosphate (Acetaminophen W/Codeine #3 1 Tablet) 1 tab PO BIDP PRN; Protocol PRN Reason: Pain Last Admin: 03/12/22 21:05 Dose: 1 tab Albuterol/Ipratropium (Ipratropium/Albuterol 3 Ml Ampul.Neb) 3 ml NEB Q4HP PRN PRN Reason: Shortness Of Breath Last Admin: 03/06/22 20:44 Dose: 3 ml Amlodipine Besylate (Amlodipine 5 Mg Tablet) 2.5 mg PO DAILY GAIL Last Admin: 03/13/22 08:54 Dose: 2.5 mg Apixaban (Apixaban 5 Mg Tablet) 5 mg PO BID COUNTS INCLUDE 234 BEDS AT THE [facility] Last Admin: 03/13/22 21:41 Dose: 5 mg Bisoprolol Fumarate (Bisoprolol 5 Mg Tablet) 10 mg PO DAILY COUNTS INCLUDE 234 BEDS AT THE [facility] Last Admin: 03/13/22 08:55 Dose: 10 mg Dextrose (Dextrose 50% 50 Ml Vial) 0 ml IV UD PRN PRN Reason: Per Sliding Scale Diagnostic Test (Pha) (Accu-Chek 1 Each Strip) 1 each FS ACHS COUNTS INCLUDE 234 BEDS AT THE [facility] Last Admin: 03/14/22 07:19 Dose: 1 each Docusate Sodium (Docusate Sodium 100 Mg Capsule) 100 mg PO BID COUNTS INCLUDE 234 BEDS AT THE [facility] Last Admin: 03/13/22 21:41 Dose: 100 mg Fluoxetine HCl (Fluoxetine Hcl 20 Mg Capsule) 20 mg PO DAILY COUNTS INCLUDE 234 BEDS AT THE [facility] Last Admin: 03/13/22 08:54 Dose: 20 mg Furosemide (Furosemide 20 Mg Tablet) 40 mg PO DAILY COUNTS INCLUDE 234 BEDS AT THE [facility] Last Admin: 03/13/22 08:54 Dose: 40 mg Glucose (Dextrose 31 Gm Oral.Susp) 15 gm PO PRN PRN PRN Reason: Hypoglycemia Potassium Chloride 40 meq/ (Dextrose) 520 mls @ 130 mls/hr IV UD PRN PRN Reason: Potassium < 3 Magnesium Sulfate (Magnesium Sulfate) 2 gm in 50 mls @ 50 mls/hr IV UD PRN PRN Reason: Magnesium </= 1.6 Insulin Glargine (Insulin Glargine, Human 1 Unit/0.01 Ml) 10 unit SQ QPM COUNTS INCLUDE 234 BEDS AT THE [facility] Last Admin: 03/13/22 21:55 Dose: 10 units Insulin Human Lispro (Insulin Lispro 1 Unit/0.01 Ml Unit) 0 unit SQ ACHS COUNTS INCLUDE 234 BEDS AT THE [facility]; Protocol Last Admin: 03/14/22 07:19 Dose: Not Given Memantine (Memantine 10 Mg Tablet) 5 mg PO BID COUNTS INCLUDE 234 BEDS AT THE [facility] Last Admin: 03/13/22 21:41 Dose: 5 mg Methocarbamol (Methocarbamol 750 Mg Tablet) 750 mg PO DAILY COUNTS INCLUDE 234 BEDS AT THE [facility] Last Admin: 03/13/22 08:54 Dose: 750 mg Metoprolol Tartrate (Metoprolol Tartrate 5 Mg/5 Ml Vial) 5 mg IV Q2HP PRN PRN Reason: Tachyarrhythmias HR>110 Last Admin: 02/19/22 22:21 Dose: 5 mg Omeprazole (Omeprazole 20 Mg Capsule) 20 mg PO ACB COUNTS INCLUDE 234 BEDS AT THE [facility] Last Admin: 03/14/22 07:21 Dose: 20 mg Ondansetron HCl (Ondansetron 4 Mg/2 Ml Vial) 4 mg IV Q4HP PRN PRN Reason: Nausea And Vomiting Budesonide- Formoterol 10.2 Gm Hfa Aerosol Inhaler 2 dose INH BID COUNTS INCLUDE 234 BEDS AT THE [facility] Last Admin: 03/13/22 21:48 Dose: Not Given Polyethylene Glycol (Polyethylene Glycol 3350 17 Gm Packet) 17 gm PO DAILYP PRN PRN Reason: Constipation Last Admin: 02/22/22 08:43 Dose: 17 gm Potassium Chloride (Potassium Chloride 20 Meq Tablet) 40 meq PO UD PRN PRN Reason: Potssium is 3-3.5 Potassium Chloride (Potassium Chloride 20 Meq Tablet) 40 meq PO UD PRN PRN Reason: Potassium < 3 Quetiapine Fumarate (Quetiapine 25 Mg Tablet) 50 mg PO HS COUNTS INCLUDE 234 BEDS AT THE [facility] Last Admin: 03/13/22 21:41 Dose: 50 mg Quetiapine Fumarate (Quetiapine 25 Mg Tablet) 12.5 mg PO Q6HP PRN PRN Reason: agitation Last Admin: 03/12/22 00:45 Dose: 12.5 mg Quetiapine Fumarate (Quetiapine 25 Mg Tablet) 25 mg PO 0900 COUNTS INCLUDE 234 BEDS AT THE [facility] Last Admin: 03/13/22 08:54 Dose: 25 mg Senna (Sennosides 1 Tablet) 2 tab PO DAILYP PRN PRN Reason: Constipation Last Admin: 03/11/22 20:17 Dose: 2 tab Tamsulosin HCl (Tamsulosin 0.4 Mg Capsule) 0.4 mg PO BID COUNTS INCLUDE 234 BEDS AT THE [facility] Last Admin: 03/13/22 21:39 Dose: 0.4 mg A/P Narrative A/P Narrative: A: *Generalized weakness/deconditioning/failure to thrive: *Encephalopathy, acute on chronic, underlying Dementia: 2/2 above *Dementia with behavioral disturbances: *CAP, likely Aspiration: *Oropharyngeal Dysphagia, Mod: *Acute hypoxic respiratory failure: resolved *Afib, paroxysmal (new diagnosis) w/RVR: improved -CHADSVASC=5-6 -echo with good EF *COPD(not on home O2): *h/o diastlic CHF: *Pre-Diabetes: a1c 6.4 *HTN: *CKD II: *Anemia, chronic: *LE wounds/ulcers/buttock decubitus: *Obesity: BMI 34 P: -Awaiting placement -IS/Acapella, home IH's and prn nebs, RT -Wound care -per telepsych, increased seroquel to 25@1400 and 50 qhs and 12.5 q6h prn -Eliquis inpt, will defer further decision making to f/u between family/PCP, pt unable to participate in medical decision making -cont BB/norvasc -cont home lasix -SSI, restarted home basal at lower dose, significantly lower Lantus dose than prior to admission -PT/OT -ST eval, dysphagia diet -CM for placement -ppx: eliquis / ppi DNR Time Spent With Patient Time: Total time spent is greater than 50% in coordination of care (as documented) at patient's floor/unit and/or counseling patient:
[2022-03-14] MEDS: FUROSEMIDE 20 MG TABLET PO SCH (08:04)
[2022-03-14] MEDS: FLUoxetine HCL 20 MG CAPSULE PO SCH (08:04)
[2022-03-14] MEDS: DOCUSATE SODIUM 100 MG CAPSULE PO SCH ×2 (08:04→21:35)
[2022-03-14] MEDS: APIXABAN 5 MG TABLET PO SCH ×2 (08:05→21:35)
[2022-03-14] MEDS: BISOPROLOL 5 MG TABLET PO SCH (08:05)
[2022-03-14] MEDS: METHOCARBAMOL 750 MG TABLET PO SCH (08:05)
[2022-03-14] MEDS: QUEtiapine 25 MG TABLET PO SCH ×2 (08:05→21:35)
[2022-03-14] MEDS: amLODIPine 5 MG TABLET PO SCH (08:05)
[2022-03-14] MEDS: MEMANTINE 10 MG TABLET PO SCH ×2 (08:05→21:35)
[2022-03-14] MEDS: TAMSULOSIN 0.4 MG CAPSULE PO SCH ×2 (08:05→21:35)
[2022-03-14] MEDS: Budesonide-Formoterol 10.2 GM HFA aerosol inhaler INH SCH ×2 (08:06→21:35)
[2022-03-14] MEDS: INSULIN GLARGINE, HUMAN 1 UNIT/0.01 ML SQ SCH (21:49)
[2022-03-15] MEDS: INSULIN LISPRO 1 UNIT/0.01 ML UNIT SQ SCH ×4 (07:48→20:37)
[2022-03-15] MEDS: DOCUSATE SODIUM 100 MG CAPSULE PO SCH ×2 (07:57→20:31)
[2022-03-15] MEDS: FUROSEMIDE 20 MG TABLET PO SCH (07:57)
[2022-03-15] MEDS: FLUoxetine HCL 20 MG CAPSULE PO SCH (07:57)
[2022-03-15] MEDS: QUEtiapine 25 MG TABLET PO SCH ×2 (07:57→20:31)
[2022-03-15] MEDS: METHOCARBAMOL 750 MG TABLET PO SCH (07:57)
[2022-03-15] MEDS: APIXABAN 5 MG TABLET PO SCH ×2 (07:57→20:31)
[2022-03-15] MEDS: BISOPROLOL 5 MG TABLET PO SCH (07:58)
[2022-03-15] MEDS: ACETAMINOPHEN W/CODEINE #3 1 TABLET PO PRN (07:58)
[2022-03-15] MEDS: OMEPRAZOLE 20 MG CAPSULE PO SCH (07:58)
[2022-03-15] MEDS: TAMSULOSIN 0.4 MG CAPSULE PO SCH ×2 (07:58→20:31)
[2022-03-15] MEDS: Budesonide-Formoterol 10.2 GM HFA aerosol inhaler INH SCH ×2 (07:59→20:47)
[2022-03-15] MEDS: amLODIPine 5 MG TABLET PO SCH (07:59)
[2022-03-15] MEDS: MEMANTINE 10 MG TABLET PO SCH ×2 (07:59→20:31)
--- NOTE | 2022-03-15 08:15 | Internal Med Progress Note ---
SUBJECTIVE Subjective Patient information: Note initiated : 03/15/22 at 8:14 am Service Date, if different from initiated Date: [] Patient: Edmond Salas a 86 y/o M admitted on 02/18/22 for Weakness/Eval for assisted living-PNA,Sepsis. Chief Complaint: [] Interval history: History of present illness: Mr. Salas is a 86 year old M Presents the ED with worsening confusion on top of dementia and weakness. Recently treated for UTI but the urine looks clear here. Original plan was for home with hospice out of the ED. But it sounds like the family was not comfortable with patient being home felt to be unsafe conditions and they have been try to get APS involved. Further work-up in the ED today they got a chest x-ray which showed infiltrate on left side and mild right. Was noted to have some transient mild hypoxia, unknown baseline but has copd. Sounds like after further discussion with family hospice does not think finally decided on and is reported that they would prefer treatment for anything if possible first. Patient reports a chronic cough and some shortness of breath but at baseline. Patient is a poor historian most history obtained from the chart. Medical history includes dementia COPD hypertension chronic anemia and diastolic heart failure grade 1 with good ejection fraction on an echo in 2019. 02/19 Patient sleeping. Likely result from Haldol last night. Haldol was given for and severe agitation and pulling at lines. Nurse also reports that she feels he is aspirating with liquids. We will place on dysphagia diet order speech therapy evaluation. Likely is infiltrates on chest x-ray from aspiration. 02/20 Patient sitting up in bed eating breakfast. Did get some Zyprexa last night for agitation. No new complaints this morning. Try to talk with him about his atrial fibrillation but given his dementia patient does not seem to comprehend. 02/21 Patient sitting up in bed eating breakfast. More talkative today. No overnight event or new complaints. Did not require any Zyprexa last night. 02/22 Patient sleeping. Calm overnight. Started Seroquel yesterday evening seem to respond well to it. 02/23: Afebrile overnight. No major overnight events. Subjective not obtained due to patient's clinical situations. Medically stable awaiting placement. 02/24: Afebrile overnight. No major overnight events. Subjective not obtained due to patient's clinical situations. Medically stable awaiting placement. 02/25: Afebrile overnight. No major overnight events. Subjective not obtained due to patient's clinical situations. Medically stable awaiting placement. 02/26: Afebrile overnight. No major overnight events. Subjective not obtained due to patient's clinical situations. Medically stable awaiting placement. 02/27: Afebrile overnight. No major overnight events. Subjective not obtained due to patient's clinical situations. Medically stable awaiting placement. 02/28: Afebrile overnight. No major overnight events. Subjective not obtained due to patient's clinical situations. Medically stable awaiting placement. 03/01: Patient is very pleasant to stuffs. Not posting danger to self or stuffs. Medically ready to be discharged to SNF. 03/02 No overnight event or new complaints. 03/03 No new complaints. No overnight events. Vital signs stable. Blood pressure occasionally a bit soft. Decrease Norvasc. 03/04 No change overnight. Vital signs stable. Blood pressure good after decreasing Norvasc. 03/05 Patient stable seems to be doing well. No overnight event or new complaints. Blood pressure good. 03/06 Patient sitting up in bed eating breakfast. Pleasant. Although he does not like his breakfast. 03/07 No significant events overnight, awaiting placement. 03/08 Resting comfortably, awaiting placement. 03/09 Awaiting placement. 03/10 The patient pulled out his Willis yesterday evening, replaced. Still awaiting placement. 03/11 No significant events overnight, occasionally agitated however redirectable. Awaiting placement. 03/12 No issues overnight. No new complaints. Awaiting placement. 03/13 No real changes. Patient sitting up in bed eating breakfast. No new complaints. 03/14 No change. Patient is seen to be feeling well. No behavioral changes overnight per nurses note. 03/15 No overnight event or new complaints. Patient is noted to be in good spirits. Review of Systems: denies headache/fever/chills/nausea/vomiting/chest or abdominal pain/cough/dyspnea/diarrhea. Otherwise see above. Constitutional Vitals: Vital Signs Temp Pulse Resp BP Pulse Ox O2 Del Method O2 Flow Rate 97.9 F 78 14 121/62 98 0 03/15/22 04:25 03/15/22 04:25 03/15/22 04:25 03/15/22 04:25 03/15/22 04:25 03/15/22 04:25 02/25/22 04:00 Period Temp Pulse Resp BP Sys/Meza Pulse Ox O2 Del Method O2 Flow Rate Last 24 Hr 97.9 F-98.2 F 78-95 14-20 109-123/58-66 96-98 Room Air-Room Air Intake and Output 03/14/22 03/15/22 03/15/22 19:59 03:59 11:59 Intake Total 240 200 Output Total 500 1150 Balance -260 200 -1150 Weight 118.206 kg 117.072 kg Intake & Output: Intake & Output 03/14/22 03/15/22 03/15/22 19:59 03:59 11:59 Intake Total 240 200 Output Total 500 1150 Balance -260 200 -1150 Weight 118.206 kg 117.072 kg Intake: Oral 240 200 Output: Urine Catheter Amount 500 1150 Other: Urine Appearance Clear Clear Clear Sediment Sediment Willis Clear Sediment Urine Color Dark Yellow Yellow Yellow Willis Yellow Urine Odor Normal Stool Size Small Large Stool Color Brown Brown Stool Consistency Soft Soft # Bowel Movements 1 # of times incontinent of 1 Bowels Exam: General: awake, no acute Distress, obese Eyes/N/T: EOMI, Head/Neck: neck supple, CV: irreg irreg, No murmurs, Pulm: Clear b/l, no wheezing/rhonchi/rales Abd: soft, nontender, +BS x4 Ext: no clubbing/cyanosis, b/l LE edema improved and LE chronic wounds/ulcers Neuro: alert, no focal deficits, spontaneously moves all extremities, Skin: warm/dry OBJ DATA Labs CBC & Chem 7: 02/28/22 05:49 02/28/22 05:49 Meds: Medications Acetaminophen (Acetaminophen 325 Mg Tablet) 650 mg PO Q6HP PRN; Protocol PRN Reason: Per Pain Protocol/Fever > 101 Last Admin: 03/13/22 21:39 Dose: 650 mg Acetaminophen/Codeine Phosphate (Acetaminophen W/Codeine #3 1 Tablet) 1 tab PO BIDP PRN; Protocol PRN Reason: Pain Last Admin: 03/15/22 07:58 Dose: 1 tab Albuterol/Ipratropium (Ipratropium/Albuterol 3 Ml Ampul.Neb) 3 ml NEB Q4HP PRN PRN Reason: Shortness Of Breath Last Admin: 03/06/22 20:44 Dose: 3 ml Amlodipine Besylate (Amlodipine 5 Mg Tablet) 2.5 mg PO DAILY [facility] Last Admin: 03/15/22 07:59 Dose: 2.5 mg Apixaban (Apixaban 5 Mg Tablet) 5 mg PO BID [facility] Last Admin: 03/15/22 07:57 Dose: 5 mg Bisoprolol Fumarate (Bisoprolol 5 Mg Tablet) 10 mg PO DAILY [facility] Last Admin: 03/15/22 07:58 Dose: 10 mg Dextrose (Dextrose 50% 50 Ml Vial) 0 ml IV UD PRN PRN Reason: Per Sliding Scale Diagnostic Test (Pha) (Accu-Chek 1 Each Strip) 1 each FS ACHS [facility] Last Admin: 03/15/22 07:48 Dose: 1 each Docusate Sodium (Docusate Sodium 100 Mg Capsule) 100 mg PO BID [facility] Last Admin: 03/15/22 07:57 Dose: 100 mg Fluoxetine HCl (Fluoxetine Hcl 20 Mg Capsule) 20 mg PO DAILY [facility] Last Admin: 03/15/22 07:57 Dose: 20 mg Furosemide (Furosemide 20 Mg Tablet) 40 mg PO DAILY [facility] Last Admin: 03/15/22 07:57 Dose: 40 mg Glucose (Dextrose 31 Gm Oral.Susp) 15 gm PO PRN PRN PRN Reason: Hypoglycemia Potassium Chloride 40 meq/ (Dextrose) 520 mls @ 130 mls/hr IV UD PRN PRN Reason: Potassium < 3 Magnesium Sulfate (Magnesium Sulfate) 2 gm in 50 mls @ 50 mls/hr IV UD PRN PRN Reason: Magnesium </= 1.6 Insulin Glargine (Insulin Glargine, Human 1 Unit/0.01 Ml) 10 unit SQ QPM [facility] Last Admin: 03/14/22 21:49 Dose: 10 units Insulin Human Lispro (Insulin Lispro 1 Unit/0.01 Ml Unit) 0 unit SQ ACHS [facility]; Protocol Last Admin: 03/15/22 07:48 Dose: 2 units Memantine (Memantine 10 Mg Tablet) 5 mg PO BID [facility] Last Admin: 03/15/22 07:59 Dose: 5 mg Methocarbamol (Methocarbamol 750 Mg Tablet) 750 mg PO DAILY [facility] Last Admin: 03/15/22 07:57 Dose: 750 mg Metoprolol Tartrate (Metoprolol Tartrate 5 Mg/5 Ml Vial) 5 mg IV Q2HP PRN PRN Reason: Tachyarrhythmias HR>110 Last Admin: 02/19/22 22:21 Dose: 5 mg Omeprazole (Omeprazole 20 Mg Capsule) 20 mg PO ACB [facility] Last Admin: 03/15/22 07:58 Dose: 20 mg Ondansetron HCl (Ondansetron 4 Mg/2 Ml Vial) 4 mg IV Q4HP PRN PRN Reason: Nausea And Vomiting Budesonide- Formoterol 10.2 Gm Hfa Aerosol Inhaler 2 dose INH BID [facility] Last Admin: 03/15/22 07:59 Dose: Not Given Polyethylene Glycol (Polyethylene Glycol 3350 17 Gm Packet) 17 gm PO DAILYP PRN PRN Reason: Constipation Last Admin: 02/22/22 08:43 Dose: 17 gm Potassium Chloride (Potassium Chloride 20 Meq Tablet) 40 meq PO UD PRN PRN Reason: Potssium is 3-3.5 Potassium Chloride (Potassium Chloride 20 Meq Tablet) 40 meq PO UD PRN PRN Reason: Potassium < 3 Quetiapine Fumarate (Quetiapine 25 Mg Tablet) 50 mg PO HS [facility] Last Admin: 03/14/22 21:35 Dose: 50 mg Quetiapine Fumarate (Quetiapine 25 Mg Tablet) 12.5 mg PO Q6HP PRN PRN Reason: agitation Last Admin: 03/12/22 00:45 Dose: 12.5 mg Quetiapine Fumarate (Quetiapine 25 Mg Tablet) 25 mg PO 0900 [facility] Last Admin: 03/15/22 07:57 Dose: 25 mg Senna (Sennosides 1 Tablet) 2 tab PO DAILYP PRN PRN Reason: Constipation Last Admin: 03/11/22 20:17 Dose: 2 tab Tamsulosin HCl (Tamsulosin 0.4 Mg Capsule) 0.4 mg PO BID [facility] Last Admin: 03/15/22 07:58 Dose: 0.4 mg A/P Narrative A/P Narrative: A: *Generalized weakness/deconditioning/failure to thrive: *Encephalopathy, acute on chronic, underlying Dementia: 2/2 above *Dementia with behavioral disturbances: better last several nights *CAP, likely Aspiration: resolved *Oropharyngeal Dysphagia, Mod: *Acute hypoxic respiratory failure: resolved *Afib, paroxysmal (new diagnosis) w/RVR: improved -CHADSVASC=5-6, echo with good EF *COPD(not on home O2): *h/o diastlic CHF: *Pre-Diabetes: a1c 6.4 *HTN: *CKD II: *Anemia, chronic: *LE wounds/ulcers/buttock decubitus: *Obesity: BMI 34 P: -Awaiting placement -IS/Acapella, home IH's and prn nebs, RT -Wound care -per telepsych, increased seroquel to 25@1400 and 50 qhs and 12.5 q6h prn -Eliquis inpt, will defer further decision making to f/u between family/PCP, pt unable to participate in medical decision making -cont BB/norvasc -cont home lasix -SSI, restarted home basal at lower dose, significantly lower Lantus dose than prior to admission -PT/OT -ST eval, dysphagia diet -CM for placement -ppx: eliquis / ppi DNR Time Spent With Patient Time: Total time spent is greater than 50% in coordination of care (as documented) at patient's floor/unit and/or counseling patient:
[2022-03-15] MEDS: INSULIN GLARGINE, HUMAN 1 UNIT/0.01 ML SQ SCH (20:43)
[2022-03-16] MEDS: INSULIN LISPRO 1 UNIT/0.01 ML UNIT SQ SCH ×4 (06:56→21:00)
--- NOTE | 2022-03-16 06:56 | Internal Med Progress Note ---
SUBJECTIVE Subjective Patient information: Note initiated : 03/16/22 at 6:56 am Service Date, if different from initiated Date: [] Patient: Edmond Salas a 86 y/o M admitted on 02/18/22 for Weakness/Eval for assisted living-PNA,Sepsis. Chief Complaint: [] Interval history: History of present illness: Mr. Salas is a 86 year old M Presents the ED with worsening confusion on top of dementia and weakness. Recently treated for UTI but the urine looks clear here. Original plan was for home with hospice out of the ED. But it sounds like the family was not comfortable with patient being home felt to be unsafe conditions and they have been try to get APS involved. Further work-up in the ED today they got a chest x-ray which showed infiltrate on left side and mild right. Was noted to have some transient mild hypoxia, unknown baseline but has copd. Sounds like after further discussion with family hospice does not think finally decided on and is reported that they would prefer treatment for anything if possible first. Patient reports a chronic cough and some shortness of breath but at baseline. Patient is a poor historian most history obtained from the chart. Medical history includes dementia COPD hypertension chronic anemia and diastolic heart failure grade 1 with good ejection fraction on an echo in 2019. 02/19 Patient sleeping. Likely result from Haldol last night. Haldol was given for and severe agitation and pulling at lines. Nurse also reports that she feels he is aspirating with liquids. We will place on dysphagia diet order speech therapy evaluation. Likely is infiltrates on chest x-ray from aspiration. 02/20 Patient sitting up in bed eating breakfast. Did get some Zyprexa last night for agitation. No new complaints this morning. Try to talk with him about his atrial fibrillation but given his dementia patient does not seem to comprehend. 02/21 Patient sitting up in bed eating breakfast. More talkative today. No overnight event or new complaints. Did not require any Zyprexa last night. 02/22 Patient sleeping. Calm overnight. Started Seroquel yesterday evening seem to respond well to it. 02/23: Afebrile overnight. No major overnight events. Subjective not obtained due to patient's clinical situations. Medically stable awaiting placement. 02/24: Afebrile overnight. No major overnight events. Subjective not obtained due to patient's clinical situations. Medically stable awaiting placement. 02/25: Afebrile overnight. No major overnight events. Subjective not obtained due to patient's clinical situations. Medically stable awaiting placement. 02/26: Afebrile overnight. No major overnight events. Subjective not obtained due to patient's clinical situations. Medically stable awaiting placement. 02/27: Afebrile overnight. No major overnight events. Subjective not obtained due to patient's clinical situations. Medically stable awaiting placement. 02/28: Afebrile overnight. No major overnight events. Subjective not obtained due to patient's clinical situations. Medically stable awaiting placement. 03/01: Patient is very pleasant to stuffs. Not posting danger to self or stuffs. Medically ready to be discharged to SNF. 03/02 No overnight event or new complaints. 03/03 No new complaints. No overnight events. Vital signs stable. Blood pressure occasionally a bit soft. Decrease Norvasc. 03/04 No change overnight. Vital signs stable. Blood pressure good after decreasing Norvasc. 03/05 Patient stable seems to be doing well. No overnight event or new complaints. Blood pressure good. 03/06 Patient sitting up in bed eating breakfast. Pleasant. Although he does not like his breakfast. 03/07 No significant events overnight, awaiting placement. 03/08 Resting comfortably, awaiting placement. 03/09 Awaiting placement. 03/10 The patient pulled out his Willis yesterday evening, replaced. Still awaiting placement. 03/11 No significant events overnight, occasionally agitated however redirectable. Awaiting placement. 03/12 No issues overnight. No new complaints. Awaiting placement. 03/13 No real changes. Patient sitting up in bed eating breakfast. No new complaints. 03/14 No change. Patient is seen to be feeling well. No behavioral changes overnight per nurses note. 03/15 No overnight event or new complaints. Patient is noted to be in good spirits. 03/16 No reports of behavioral disturbance overnight. No new complaints overnight events. Review of Systems: denies headache/fever/chills/nausea/vomiting/chest or abdominal pain/cough/dyspnea/diarrhea. Otherwise see above. Constitutional Vitals: Vital Signs Temp Pulse Resp BP Pulse Ox O2 Del Method O2 Flow Rate 97.3 F 77 18 98/54 96 0 03/16/22 02:53 03/16/22 02:53 03/16/22 02:53 03/16/22 02:53 03/16/22 02:53 03/16/22 02:53 02/25/22 04:00 Period Temp Pulse Resp BP Sys/Meza Pulse Ox O2 Del Method O2 Flow Rate Last 24 Hr 97.3 F-97.7 F 67-83 18-20 98-122/54-67 90-96 Room Air-Room Air Intake and Output 03/15/22 03/16/22 03/16/22 19:59 03:59 11:59 Intake Total 240 400 Output Total 550 350 Balance -310 50 Weight 116.573 kg Intake & Output: Intake & Output 03/15/22 03/16/22 03/16/22 19:59 03:59 11:59 Intake Total 240 400 Output Total 550 350 Balance -310 50 Weight 116.573 kg Intake: Oral 240 400 Output: Urine Catheter Amount 550 350 Other: Meal Lunch Percent of Meal Consumed 75% Urine Appearance Clear Clear Sediment Willis Clear Sediment Urine Color Yellow Dark Yellow Willis Yellow Stool Size Large Small Stool Color Brown Brown Stool Consistency Soft Soft # Bowel Movements 1 # of times incontinent of 1 Bowels Exam: General: awake, no acute Distress, obese Eyes/N/T: EOMI, Head/Neck: neck supple, CV: irreg irreg, No murmurs, Pulm: Clear b/l, no wheezing/rhonchi/rales Abd: soft, nontender, +BS x4 Ext: no clubbing/cyanosis, b/l LE edema improved and LE chronic wounds/ulcers Neuro: alert, no focal deficits, spontaneously moves all extremities, Skin: warm/dry OBJ DATA Labs CBC & Chem 7: 02/28/22 05:49 02/28/22 05:49 Meds: Medications Acetaminophen (Acetaminophen 325 Mg Tablet) 650 mg PO Q6HP PRN; Protocol PRN Reason: Per Pain Protocol/Fever > 101 Last Admin: 03/13/22 21:39 Dose: 650 mg Acetaminophen/Codeine Phosphate (Acetaminophen W/Codeine #3 1 Tablet) 1 tab PO BIDP PRN; Protocol PRN Reason: Pain Last Admin: 03/15/22 07:58 Dose: 1 tab Albuterol/Ipratropium (Ipratropium/Albuterol 3 Ml Ampul.Neb) 3 ml NEB Q4HP PRN PRN Reason: Shortness Of Breath Last Admin: 03/06/22 20:44 Dose: 3 ml Amlodipine Besylate (Amlodipine 5 Mg Tablet) 2.5 mg PO DAILY [facility] Last Admin: 03/15/22 07:59 Dose: 2.5 mg Apixaban (Apixaban 5 Mg Tablet) 5 mg PO BID [facility] Last Admin: 03/15/22 20:31 Dose: 5 mg Bisoprolol Fumarate (Bisoprolol 5 Mg Tablet) 10 mg PO DAILY [facility] Last Admin: 03/15/22 07:58 Dose: 10 mg Dextrose (Dextrose 50% 50 Ml Vial) 0 ml IV UD PRN PRN Reason: Per Sliding Scale Diagnostic Test (Pha) (Accu-Chek 1 Each Strip) 1 each FS ACHS [facility] Last Admin: 03/15/22 20:37 Dose: 1 each Docusate Sodium (Docusate Sodium 100 Mg Capsule) 100 mg PO BID [facility] Last Admin: 03/15/22 20:31 Dose: 100 mg Fluoxetine HCl (Fluoxetine Hcl 20 Mg Capsule) 20 mg PO DAILY [facility] Last Admin: 03/15/22 07:57 Dose: 20 mg Furosemide (Furosemide 20 Mg Tablet) 40 mg PO DAILY [facility] Last Admin: 03/15/22 07:57 Dose: 40 mg Glucose (Dextrose 31 Gm Oral.Susp) 15 gm PO PRN PRN PRN Reason: Hypoglycemia Potassium Chloride 40 meq/ (Dextrose) 520 mls @ 130 mls/hr IV UD PRN PRN Reason: Potassium < 3 Magnesium Sulfate (Magnesium Sulfate) 2 gm in 50 mls @ 50 mls/hr IV UD PRN PRN Reason: Magnesium </= 1.6 Insulin Glargine (Insulin Glargine, Human 1 Unit/0.01 Ml) 10 unit SQ QPM [facility] Last Admin: 03/15/22 20:43 Dose: 10 units Insulin Human Lispro (Insulin Lispro 1 Unit/0.01 Ml Unit) 0 unit SQ ACHS [facility]; Protocol Last Admin: 03/15/22 20:37 Dose: Not Given Memantine (Memantine 10 Mg Tablet) 5 mg PO BID [facility] Last Admin: 03/15/22 20:31 Dose: 5 mg Methocarbamol (Methocarbamol 750 Mg Tablet) 750 mg PO DAILY [facility] Last Admin: 03/15/22 07:57 Dose: 750 mg Metoprolol Tartrate (Metoprolol Tartrate 5 Mg/5 Ml Vial) 5 mg IV Q2HP PRN PRN Reason: Tachyarrhythmias HR>110 Last Admin: 02/19/22 22:21 Dose: 5 mg Omeprazole (Omeprazole 20 Mg Capsule) 20 mg PO ACB [facility] Last Admin: 03/15/22 07:58 Dose: 20 mg Ondansetron HCl (Ondansetron 4 Mg/2 Ml Vial) 4 mg IV Q4HP PRN PRN Reason: Nausea And Vomiting Budesonide- Formoterol 10.2 Gm Hfa Aerosol Inhaler 2 dose INH BID [facility] Last Admin: 03/15/22 20:47 Dose: Not Given Polyethylene Glycol (Polyethylene Glycol 3350 17 Gm Packet) 17 gm PO DAILYP PRN PRN Reason: Constipation Last Admin: 02/22/22 08:43 Dose: 17 gm Potassium Chloride (Potassium Chloride 20 Meq Tablet) 40 meq PO UD PRN PRN Reason: Potssium is 3-3.5 Potassium Chloride (Potassium Chloride 20 Meq Tablet) 40 meq PO UD PRN PRN Reason: Potassium < 3 Quetiapine Fumarate (Quetiapine 25 Mg Tablet) 50 mg PO HS [facility] Last Admin: 03/15/22 20:31 Dose: 50 mg Quetiapine Fumarate (Quetiapine 25 Mg Tablet) 12.5 mg PO Q6HP PRN PRN Reason: agitation Last Admin: 03/12/22 00:45 Dose: 12.5 mg Quetiapine Fumarate (Quetiapine 25 Mg Tablet) 25 mg PO 0900 [facility] Last Admin: 03/15/22 07:57 Dose: 25 mg Senna (Sennosides 1 Tablet) 2 tab PO DAILYP PRN PRN Reason: Constipation Last Admin: 03/11/22 20:17 Dose: 2 tab Tamsulosin HCl (Tamsulosin 0.4 Mg Capsule) 0.4 mg PO BID [facility] Last Admin: 03/15/22 20:31 Dose: 0.4 mg A/P Narrative A/P Narrative: A: *Generalized weakness/deconditioning/failure to thrive: *Encephalopathy, acute on chronic, underlying Dementia: 2/2 above *Dementia with behavioral disturbances: better last several nights *CAP, likely Aspiration: resolved *Oropharyngeal Dysphagia, Mod: *Acute hypoxic respiratory failure: resolved *Afib, paroxysmal (new diagnosis) w/RVR: improved -CHADSVASC=5-6, echo with good EF *COPD(not on home O2): *h/o diastlic CHF: *Pre-Diabetes: a1c 6.4 *HTN: *CKD II: *Anemia, chronic: *LE wounds/ulcers/buttock decubitus: *Obesity: BMI 34 P: -Awaiting placement -IS/Acapella, home IH's and prn nebs, RT -Wound care -cont per telepsych, increased seroquel to 25@1400 and 50 qhs and 12.5 q6h prn -Eliquis inpt, will defer further decision making to f/u between family/PCP, pt unable to participate in medical decision making -cont BB/norvasc -cont home lasix -SSI, restarted home basal at lower dose, significantly lower Lantus dose than prior to admission -PT/OT -ST eval, dysphagia diet -CM for placement -ppx: eliquis / ppi DNR Time Spent With Patient Time: Total time spent is greater than 50% in coordination of care (as documented) at patient's floor/unit and/or counseling patient:
[2022-03-16] MEDS: OMEPRAZOLE 20 MG CAPSULE PO SCH (06:57)
[2022-03-16] MEDS: MEMANTINE 10 MG TABLET PO SCH ×2 (08:37→21:01)
[2022-03-16] MEDS: METHOCARBAMOL 750 MG TABLET PO SCH (08:37)
[2022-03-16] MEDS: QUEtiapine 25 MG TABLET PO SCH ×2 (08:37→21:01)
[2022-03-16] MEDS: BISOPROLOL 5 MG TABLET PO SCH (08:38)
[2022-03-16] MEDS: TAMSULOSIN 0.4 MG CAPSULE PO SCH ×2 (08:39→21:01)
[2022-03-16] MEDS: FLUoxetine HCL 20 MG CAPSULE PO SCH (08:39)
[2022-03-16] MEDS: DOCUSATE SODIUM 100 MG CAPSULE PO SCH ×2 (08:39→21:01)
[2022-03-16] MEDS: FUROSEMIDE 20 MG TABLET PO SCH (08:39)
[2022-03-16] MEDS: APIXABAN 5 MG TABLET PO SCH ×2 (08:39→21:01)
[2022-03-16] MEDS: amLODIPine 5 MG TABLET PO SCH (08:39)
[2022-03-16] MEDS: Budesonide-Formoterol 10.2 GM HFA aerosol inhaler INH SCH ×2 (08:47→23:31)
--- NOTE | 2022-03-16 12:24 | Internal Med Progress Note ---
SUBJECTIVE Subjective Patient information: Note initiated : 03/16/22 at 12:23 pm Service Date, if different from initiated Date: [] Patient: Edmond Salas 86 y/o M admitted on 02/18/22 for Weakness/Eval for assisted living-PNA,Sepsis. Chief Complaint: [] Interval history: 03/17 No significant events overnight, awaiting placement. Physical exam Head: Atraumatic, normal inspection. Eyes: normal appearance, no scleral icterus. Neck: full ROM Respiratory: no respiratory distress. Cardiovascular: normal rate and rhythm, S1, S2. GI/Abdominal: soft, nontender, no guarding. : Indwelling Willis catheter. Extremities: full range of motion, nontender. Neurological: CN II-XII intact, intact motor, intact sensation. Psychiatric: Impaired cognition. Skin: warm, normal color Constitutional Vitals: Vital Signs Temp Pulse Resp BP Pulse Ox O2 Del Method O2 Flow Rate 98.1 F 79 20 106/45 97 0 03/16/22 08:00 03/16/22 08:00 03/16/22 08:00 03/16/22 08:00 03/16/22 08:00 03/16/22 08:00 02/25/22 04:00 Period Temp Pulse Resp BP Sys/Meza Pulse Ox O2 Del Method O2 Flow Rate Last 24 Hr 97.3 F-98.1 F 67-83 18-20 98-122/45-67 90-97 Room Air-Room Air Intake and Output 03/16/22 03/16/22 03/16/22 03:59 11:59 19:59 Intake Total 400 480 Output Total 350 Balance 50 480 Intake & Output: Intake & Output 03/16/22 03/16/22 03/16/22 03:59 11:59 19:59 Intake Total 400 480 Output Total 350 Balance 50 480 Intake: Oral 400 480 Output: Urine Catheter Amount 350 Other: Meal Breakfast Percent of Meal Consumed 75% Feeding Ability Assist with Tray Set Up Urine Appearance Clear Willis Clear Sediment Urine Color Dark Yellow Willis Yellow Stool Size Small Stool Color Brown Stool Consistency Soft # Bowel Movements 1 # of times incontinent of 1 Bowels OBJ DATA Labs CBC & Chem 7: 02/28/22 05:49 02/28/22 05:49 Meds: Medications Acetaminophen (Acetaminophen 325 Mg Tablet) 650 mg PO Q6HP PRN; Protocol PRN Reason: Per Pain Protocol/Fever > 101 Last Admin: 03/13/22 21:39 Dose: 650 mg Acetaminophen/Codeine Phosphate (Acetaminophen W/Codeine #3 1 Tablet) 1 tab PO BIDP PRN; Protocol PRN Reason: Pain Last Admin: 03/15/22 07:58 Dose: 1 tab Albuterol/Ipratropium (Ipratropium/Albuterol 3 Ml Ampul.Neb) 3 ml NEB Q4HP PRN PRN Reason: Shortness Of Breath Last Admin: 03/06/22 20:44 Dose: 3 ml Amlodipine Besylate (Amlodipine 5 Mg Tablet) 2.5 mg PO DAILY [facility] Last Admin: 03/16/22 08:39 Dose: 2.5 mg Apixaban (Apixaban 5 Mg Tablet) 5 mg PO BID [facility] Last Admin: 03/16/22 08:39 Dose: 5 mg Bisoprolol Fumarate (Bisoprolol 5 Mg Tablet) 10 mg PO DAILY [facility] Last Admin: 03/16/22 08:38 Dose: 10 mg Dextrose (Dextrose 50% 50 Ml Vial) 0 ml IV UD PRN PRN Reason: Per Sliding Scale Diagnostic Test (Pha) (Accu-Chek 1 Each Strip) 1 each FS ACHS [facility] Last Admin: 03/16/22 11:52 Dose: 1 each Docusate Sodium (Docusate Sodium 100 Mg Capsule) 100 mg PO BID [facility] Last Admin: 03/16/22 08:39 Dose: Not Given Fluoxetine HCl (Fluoxetine Hcl 20 Mg Capsule) 20 mg PO DAILY [facility] Last Admin: 03/16/22 08:39 Dose: 20 mg Furosemide (Furosemide 20 Mg Tablet) 40 mg PO DAILY [facility] Last Admin: 03/16/22 08:39 Dose: 40 mg Glucose (Dextrose 31 Gm Oral.Susp) 15 gm PO PRN PRN PRN Reason: Hypoglycemia Potassium Chloride 40 meq/ (Dextrose) 520 mls @ 130 mls/hr IV UD PRN PRN Reason: Potassium < 3 Magnesium Sulfate (Magnesium Sulfate) 2 gm in 50 mls @ 50 mls/hr IV UD PRN PRN Reason: Magnesium </= 1.6 Insulin Glargine (Insulin Glargine, Human 1 Unit/0.01 Ml) 10 unit SQ QPM [facility] Last Admin: 03/15/22 20:43 Dose: 10 units Insulin Human Lispro (Insulin Lispro 1 Unit/0.01 Ml Unit) 0 unit SQ ACHS [facility]; Protocol Last Admin: 03/16/22 12:01 Dose: 6 units Memantine (Memantine 10 Mg Tablet) 5 mg PO BID [facility] Last Admin: 03/16/22 08:37 Dose: 5 mg Methocarbamol (Methocarbamol 750 Mg Tablet) 750 mg PO DAILY [facility] Last Admin: 03/16/22 08:37 Dose: 750 mg Metoprolol Tartrate (Metoprolol Tartrate 5 Mg/5 Ml Vial) 5 mg IV Q2HP PRN PRN Reason: Tachyarrhythmias HR>110 Last Admin: 02/19/22 22:21 Dose: 5 mg Omeprazole (Omeprazole 20 Mg Capsule) 20 mg PO ACB [facility] Last Admin: 03/16/22 06:57 Dose: 20 mg Ondansetron HCl (Ondansetron 4 Mg/2 Ml Vial) 4 mg IV Q4HP PRN PRN Reason: Nausea And Vomiting Budesonide- Formoterol 10.2 Gm Hfa Aerosol Inhaler 2 dose INH BID [facility] Last Admin: 03/16/22 08:47 Dose: Not Given Polyethylene Glycol (Polyethylene Glycol 3350 17 Gm Packet) 17 gm PO DAILYP PRN PRN Reason: Constipation Last Admin: 02/22/22 08:43 Dose: 17 gm Potassium Chloride (Potassium Chloride 20 Meq Tablet) 40 meq PO UD PRN PRN Reason: Potssium is 3-3.5 Potassium Chloride (Potassium Chloride 20 Meq Tablet) 40 meq PO UD PRN PRN Reason: Potassium < 3 Quetiapine Fumarate (Quetiapine 25 Mg Tablet) 50 mg PO HS [facility] Last Admin: 03/15/22 20:31 Dose: 50 mg Quetiapine Fumarate (Quetiapine 25 Mg Tablet) 12.5 mg PO Q6HP PRN PRN Reason: agitation Last Admin: 03/12/22 00:45 Dose: 12.5 mg Quetiapine Fumarate (Quetiapine 25 Mg Tablet) 25 mg PO 0900 [facility] Last Admin: 03/16/22 08:37 Dose: 25 mg Senna (Sennosides 1 Tablet) 2 tab PO DAILYP PRN PRN Reason: Constipation Last Admin: 03/11/22 20:17 Dose: 2 tab Tamsulosin HCl (Tamsulosin 0.4 Mg Capsule) 0.4 mg PO BID [facility] Last Admin: 03/16/22 08:39 Dose: 0.4 mg A/P Narrative A/P Narrative: A: *Generalized weakness/deconditioning/failure to thrive: *Encephalopathy, acute on chronic, underlying Dementia: 2/2 above *Dementia with behavioral disturbances: better last several nights *CAP, likely Aspiration: resolved *Oropharyngeal Dysphagia, Mod: *Acute hypoxic respiratory failure: resolved *Afib, paroxysmal (new diagnosis) w/RVR: improved -CHADSVASC=5-6, echo with good EF *COPD(not on home O2): *h/o diastlic CHF: *Pre-Diabetes: a1c 6.4 *HTN: *CKD II: *Anemia, chronic: *LE wounds/ulcers/buttock decubitus: *Obesity: BMI 34 P: -Awaiting placement -IS/Acapella, home IH's and prn nebs, RT -Wound care -cont per telepsych, increased seroquel to 25@1400 and 50 qhs and 12.5 q6h prn -Eliquis inpt, will defer further decision making to f/u between family/PCP, pt unable to participate in medical decision making -cont BB/norvasc -cont home lasix -SSI, restarted home basal at lower dose, significantly lower Lantus dose than prior to admission -PT/OT -ST contreras, dysphagia diet -CM for placement -ppx: eliquis / ppi DNR Time Spent With Patient Time: Total time spent is greater than 50% in coordination of care (as documented) at patient's floor/unit and/or counseling patient:
[2022-03-16] MEDS: INSULIN GLARGINE, HUMAN 1 UNIT/0.01 ML SQ SCH (21:00)
[2022-03-16] MEDS: SENNOSIDES 1 TABLET PO PRN (21:01)
[2022-03-16] MEDS: ACETAMINOPHEN W/CODEINE #3 1 TABLET PO PRN (21:08)
[2022-03-17] MEDS: INSULIN LISPRO 1 UNIT/0.01 ML UNIT SQ SCH ×4 (06:59→21:15)
[2022-03-17] MEDS: FUROSEMIDE 20 MG TABLET PO SCH (08:26)
[2022-03-17] MEDS: TAMSULOSIN 0.4 MG CAPSULE PO SCH ×2 (08:26→21:16)
[2022-03-17] MEDS: FLUoxetine HCL 20 MG CAPSULE PO SCH (08:26)
[2022-03-17] MEDS: QUEtiapine 25 MG TABLET PO SCH ×2 (08:26→21:16)
[2022-03-17] MEDS: BISOPROLOL 5 MG TABLET PO SCH (08:27)
[2022-03-17] MEDS: OMEPRAZOLE 20 MG CAPSULE PO SCH (08:27)
[2022-03-17] MEDS: DOCUSATE SODIUM 100 MG CAPSULE PO SCH ×2 (08:27→21:15)
[2022-03-17] MEDS: amLODIPine 5 MG TABLET PO SCH (08:27)
[2022-03-17] MEDS: APIXABAN 5 MG TABLET PO SCH ×2 (08:27→21:16)
[2022-03-17] MEDS: MEMANTINE 10 MG TABLET PO SCH ×2 (08:27→21:16)
[2022-03-17] MEDS: METHOCARBAMOL 750 MG TABLET PO SCH (08:27)
[2022-03-17] MEDS: Budesonide-Formoterol 10.2 GM HFA aerosol inhaler INH SCH ×2 (08:31→21:06)
[2022-03-17] MEDS: ACETAMINOPHEN W/CODEINE #3 1 TABLET PO PRN ×2 (15:34→21:15)
[2022-03-17] MEDS: INSULIN GLARGINE, HUMAN 1 UNIT/0.01 ML SQ SCH (21:15)
[2022-03-17] MEDS: SENNOSIDES 1 TABLET PO PRN (21:16)
[2022-03-18] MEDS: FUROSEMIDE 20 MG TABLET PO SCH (08:26)
[2022-03-18] MEDS: TAMSULOSIN 0.4 MG CAPSULE PO SCH ×2 (08:27→20:34)
[2022-03-18] MEDS: MEMANTINE 10 MG TABLET PO SCH ×2 (08:27→20:34)
[2022-03-18] MEDS: OMEPRAZOLE 20 MG CAPSULE PO SCH (08:28)
[2022-03-18] MEDS: FLUoxetine HCL 20 MG CAPSULE PO SCH (08:28)
[2022-03-18] MEDS: APIXABAN 5 MG TABLET PO SCH ×2 (08:28→20:34)
[2022-03-18] MEDS: DOCUSATE SODIUM 100 MG CAPSULE PO SCH ×2 (08:29→20:34)
[2022-03-18] MEDS: METHOCARBAMOL 750 MG TABLET PO SCH (08:29)
[2022-03-18] MEDS: amLODIPine 5 MG TABLET PO SCH (08:29)
[2022-03-18] MEDS: BISOPROLOL 5 MG TABLET PO SCH (08:30)
[2022-03-18] MEDS: QUEtiapine 25 MG TABLET PO SCH ×2 (08:31→20:34)
[2022-03-18] MEDS: Budesonide-Formoterol 10.2 GM HFA aerosol inhaler INH SCH ×2 (08:31→20:37)
[2022-03-18] MEDS: INSULIN LISPRO 1 UNIT/0.01 ML UNIT SQ SCH ×4 (09:00→20:35)
[2022-03-18] MEDS: ACETAMINOPHEN W/CODEINE #3 1 TABLET PO PRN (14:34)
--- NOTE | 2022-03-18 14:49 | Internal Med Progress Note ---
SUBJECTIVE Subjective Patient information: Note initiated : 03/18/22 at 2:48 pm Service Date, if different from initiated Date: [] Patient: Edmond Salas 86 y/o M admitted on 02/18/22 for Weakness/Eval for assisted living-PNA,Sepsis. Chief Complaint: [] Interval history: 03/17 No significant events overnight, awaiting placement. 03/18 Pleasantly confused, redirectable. Awaiting placement Physical exam Head: Atraumatic, normal inspection. Eyes: normal appearance, no scleral icterus. Neck: full ROM Respiratory: no respiratory distress. Cardiovascular: normal rate and rhythm, S1, S2. GI/Abdominal: soft, nontender, no guarding. : Indwelling Willis catheter. Extremities: full range of motion, nontender. Neurological: CN II-XII intact, intact motor, intact sensation. Psychiatric: Impaired cognition. Skin: warm, normal color Constitutional Vitals: Vital Signs Temp Pulse Resp BP Pulse Ox O2 Del Method O2 Flow Rate 97.9 F 75 20 118/74 98 0 03/18/22 11:56 03/18/22 11:56 03/18/22 11:56 03/18/22 11:56 03/18/22 11:56 03/18/22 11:56 02/25/22 04:00 Period Temp Pulse Resp BP Sys/Meza Pulse Ox O2 Del Method O2 Flow Rate Last 24 Hr 97.7 F-98.6 F 75-83 16-20 118-133/62-74 95-98 Room Air-Room Air Intake and Output 03/18/22 03/18/22 03/18/22 03:59 11:59 19:59 Intake Total 480 480 240 Output Total 425 Balance 55 480 240 Weight 117.163 kg Patient Weight 03/19/22 03:59 Weight 117.163 kg Intake & Output: Intake & Output 03/18/22 03/18/22 03/18/22 03:59 11:59 19:59 Intake Total 480 480 240 Output Total 425 Balance 55 480 240 Weight 117.163 kg Intake: Nourishment/Supplement quantity 240 (ml) Oral 480 240 240 Output: Urine Catheter Amount 425 Other: Meal applesauce & diet cranberry x2 Breakfast Percent of Meal Consumed 100% 50% Feeding Ability Needs Supervision Assist with Tray Set Up Nourishment/Supplement name Ensure Urine Appearance Clear Sediment Willis Sediment Urine Color Dark Yellow Willis Dark Yellow Stool Size Small Stool Color Brown Stool Consistency Soft OBJ DATA Labs CBC & Chem 7: 02/28/22 05:49 02/28/22 05:49 Meds: Medications Acetaminophen (Acetaminophen 325 Mg Tablet) 650 mg PO Q6HP PRN; Protocol PRN Reason: Per Pain Protocol/Fever > 101 Last Admin: 03/13/22 21:39 Dose: 650 mg Acetaminophen/Codeine Phosphate (Acetaminophen W/Codeine #3 1 Tablet) 1 tab PO BIDP PRN; Protocol PRN Reason: Pain Last Admin: 03/18/22 14:34 Dose: 1 tab Albuterol/Ipratropium (Ipratropium/Albuterol 3 Ml Ampul.Neb) 3 ml NEB Q4HP PRN PRN Reason: Shortness Of Breath Last Admin: 03/06/22 20:44 Dose: 3 ml Amlodipine Besylate (Amlodipine 5 Mg Tablet) 2.5 mg PO DAILY [facility] Last Admin: 03/18/22 08:29 Dose: 2.5 mg Apixaban (Apixaban 5 Mg Tablet) 5 mg PO BID [facility] Last Admin: 03/18/22 08:28 Dose: 5 mg Bisoprolol Fumarate (Bisoprolol 5 Mg Tablet) 10 mg PO DAILY [facility] Last Admin: 03/18/22 08:30 Dose: 10 mg Dextrose (Dextrose 50% 50 Ml Vial) 0 ml IV UD PRN PRN Reason: Per Sliding Scale Diagnostic Test (Pha) (Accu-Chek 1 Each Strip) 1 each FS ACHS [facility] Last Admin: 03/18/22 11:31 Dose: 1 each Docusate Sodium (Docusate Sodium 100 Mg Capsule) 100 mg PO BID [facility] Last Admin: 03/18/22 08:29 Dose: 100 mg Fluoxetine HCl (Fluoxetine Hcl 20 Mg Capsule) 20 mg PO DAILY [facility] Last Admin: 03/18/22 08:28 Dose: 20 mg Furosemide (Furosemide 20 Mg Tablet) 40 mg PO DAILY [facility] Last Admin: 03/18/22 08:26 Dose: 40 mg Glucose (Dextrose 31 Gm Oral.Susp) 15 gm PO PRN PRN PRN Reason: Hypoglycemia Potassium Chloride 40 meq/ (Dextrose) 520 mls @ 130 mls/hr IV UD PRN PRN Reason: Potassium < 3 Magnesium Sulfate (Magnesium Sulfate) 2 gm in 50 mls @ 50 mls/hr IV UD PRN PRN Reason: Magnesium </= 1.6 Insulin Glargine (Insulin Glargine, Human 1 Unit/0.01 Ml) 10 unit SQ QPM [facility] Last Admin: 03/17/22 21:15 Dose: 10 units Insulin Human Lispro (Insulin Lispro 1 Unit/0.01 Ml Unit) 0 unit SQ ACHS [facility]; Protocol Last Admin: 03/18/22 11:32 Dose: 6 unit Memantine (Memantine 10 Mg Tablet) 5 mg PO BID [facility] Last Admin: 03/18/22 08:27 Dose: 5 mg Methocarbamol (Methocarbamol 750 Mg Tablet) 750 mg PO DAILY [facility] Last Admin: 03/18/22 08:29 Dose: 750 mg Metoprolol Tartrate (Metoprolol Tartrate 5 Mg/5 Ml Vial) 5 mg IV Q2HP PRN PRN Reason: Tachyarrhythmias HR>110 Last Admin: 02/19/22 22:21 Dose: 5 mg Omeprazole (Omeprazole 20 Mg Capsule) 20 mg PO ACB [facility] Last Admin: 03/18/22 08:28 Dose: 20 mg Ondansetron HCl (Ondansetron 4 Mg/2 Ml Vial) 4 mg IV Q4HP PRN PRN Reason: Nausea And Vomiting Budesonide- Formoterol 10.2 Gm Hfa Aerosol Inhaler 2 dose INH BID [facility] Last Admin: 03/18/22 08:31 Dose: Not Given Polyethylene Glycol (Polyethylene Glycol 3350 17 Gm Packet) 17 gm PO DAILYP PRN PRN Reason: Constipation Last Admin: 02/22/22 08:43 Dose: 17 gm Potassium Chloride (Potassium Chloride 20 Meq Tablet) 40 meq PO UD PRN PRN Reason: Potssium is 3-3.5 Potassium Chloride (Potassium Chloride 20 Meq Tablet) 40 meq PO UD PRN PRN Reason: Potassium < 3 Quetiapine Fumarate (Quetiapine 25 Mg Tablet) 50 mg PO HS [facility] Last Admin: 03/17/22 21:16 Dose: 50 mg Quetiapine Fumarate (Quetiapine 25 Mg Tablet) 12.5 mg PO Q6HP PRN PRN Reason: agitation Last Admin: 03/12/22 00:45 Dose: 12.5 mg Quetiapine Fumarate (Quetiapine 25 Mg Tablet) 25 mg PO 0900 [facility] Last Admin: 03/18/22 08:31 Dose: 25 mg Senna (Sennosides 1 Tablet) 2 tab PO DAILYP PRN PRN Reason: Constipation Last Admin: 03/17/22 21:16 Dose: 2 tab Tamsulosin HCl (Tamsulosin 0.4 Mg Capsule) 0.4 mg PO BID [facility] Last Admin: 03/18/22 08:27 Dose: 0.4 mg A/P Narrative A/P Narrative: A: *Generalized weakness/deconditioning/failure to thrive: *Encephalopathy, acute on chronic, underlying Dementia: 2/2 above *Dementia with behavioral disturbances: better last several nights *CAP, likely Aspiration: resolved *Oropharyngeal Dysphagia, Mod: *Acute hypoxic respiratory failure: resolved *Afib, paroxysmal (new diagnosis) w/RVR: improved -CHADSVASC=5-6, echo with good EF *COPD(not on home O2): *h/o diastlic CHF: *Pre-Diabetes: a1c 6.4 *HTN: *CKD II: *Anemia, chronic: *LE wounds/ulcers/buttock decubitus: *Obesity: BMI 34 P: -Awaiting placement -IS/Acapella, home IH's and prn nebs, RT -Wound care -cont per telepsych, increased seroquel to 25@1400 and 50 qhs and 12.5 q6h prn -Eliquis inpt, will defer further decision making to f/u between family/PCP, pt unable to participate in medical decision making -cont BB/norvasc -cont home lasix -SSI, restarted home basal at lower dose, significantly lower Lantus dose than prior to admission -PT/OT -ST contreras, dysphagia diet -CM for placement -ppx: eliquis / ppi DNR Time Spent With Patient Time: Total time spent is greater than 50% in coordination of care (as documented) at patient's floor/unit and/or counseling patient:
[2022-03-18] MEDS: INSULIN GLARGINE, HUMAN 1 UNIT/0.01 ML SQ SCH (20:35)
[2022-03-19] MEDS: INSULIN LISPRO 1 UNIT/0.01 ML UNIT SQ SCH ×4 (06:44→20:53)
[2022-03-19] MEDS: OMEPRAZOLE 20 MG CAPSULE PO SCH (07:19)
[2022-03-19] MEDS: BISOPROLOL 5 MG TABLET PO SCH (09:20)
[2022-03-19] MEDS: DOCUSATE SODIUM 100 MG CAPSULE PO SCH ×2 (09:21→20:53)
[2022-03-19] MEDS: MEMANTINE 10 MG TABLET PO SCH ×2 (09:22→20:52)
[2022-03-19] MEDS: amLODIPine 5 MG TABLET PO SCH (09:22)
[2022-03-19] MEDS: QUEtiapine 25 MG TABLET PO SCH ×2 (09:23→20:53)
[2022-03-19] MEDS: FLUoxetine HCL 20 MG CAPSULE PO SCH (09:23)
[2022-03-19] MEDS: FUROSEMIDE 20 MG TABLET PO SCH (09:24)
[2022-03-19] MEDS: APIXABAN 5 MG TABLET PO SCH ×2 (09:24→20:53)
[2022-03-19] MEDS: TAMSULOSIN 0.4 MG CAPSULE PO SCH ×2 (09:25→20:53)
[2022-03-19] MEDS: METHOCARBAMOL 750 MG TABLET PO SCH (09:25)
[2022-03-19] MEDS: Budesonide-Formoterol 10.2 GM HFA aerosol inhaler INH SCH ×2 (09:26→19:14)
--- NOTE | 2022-03-19 11:16 | Internal Med Progress Note ---
SUBJECTIVE Subjective Patient information: Note initiated : 03/19/22 at 11:12 am Service Date, if different from initiated Date: [] Patient: Edmond Salas 86 y/o M admitted on 02/18/22 for Weakness/Eval for assisted living-PNA,Sepsis. Chief Complaint: [] Interval history: 03/17 No significant events overnight, awaiting placement. 03/18 Pleasantly confused, redirectable. Awaiting placement. 03/19 Vitals stable overnight, pleasant and cooperative this morning. Awaiting placement. Physical exam Head: Atraumatic, normal inspection. Eyes: normal appearance, no scleral icterus. Neck: full ROM Respiratory: no respiratory distress. Cardiovascular: normal rate and rhythm, S1, S2. GI/Abdominal: soft, nontender, no guarding. : Indwelling Willis catheter. Extremities: full range of motion, nontender. Neurological: CN II-XII intact, intact motor, intact sensation. Psychiatric: Impaired cognition. Skin: warm, normal color Constitutional Vitals: Vital Signs Temp Pulse Resp BP Pulse Ox O2 Del Method O2 Flow Rate 98.7 F 87 16 127/68 96 0 03/19/22 06:43 03/19/22 06:43 03/19/22 06:43 03/19/22 06:43 03/19/22 06:43 03/19/22 06:43 02/25/22 04:00 Period Temp Pulse Resp BP Sys/Meza Pulse Ox O2 Del Method O2 Flow Rate Last 24 Hr 97.4 F-98.7 F 73-87 15-20 112-132/61-74 94-99 Room Air-Room Air Intake and Output 03/18/22 03/19/22 03/19/22 19:59 03:59 11:59 Intake Total 240 880 Output Total 550 1450 Balance -310 -570 Weight 116.437 kg Intake & Output: Intake & Output 03/18/22 03/19/22 03/19/22 19:59 03:59 11:59 Intake Total 240 880 Output Total 550 1450 Balance -310 -570 Weight 116.437 kg Intake: Oral 240 880 Output: Urine Catheter Amount 550 1450 Willis 1000 Other: Meal Breakfast Percent of Meal Consumed 25% Feeding Ability Total Assistance Urine Appearance Clear Cloudy Willis Clear Clear Urine Color Dark Yellow Yellow Light Joan Willis Dark Yellow Bright Yellow Urine Odor Strong Stool Size Smear Stool Color Brown Stool Consistency Formed OBJ DATA Labs CBC & Chem 7: 02/28/22 05:49 02/28/22 05:49 Meds: Medications Acetaminophen (Acetaminophen 325 Mg Tablet) 650 mg PO Q6HP PRN; Protocol PRN Reason: Per Pain Protocol/Fever > 101 Last Admin: 03/13/22 21:39 Dose: 650 mg Acetaminophen/Codeine Phosphate (Acetaminophen W/Codeine #3 1 Tablet) 1 tab PO BIDP PRN; Protocol PRN Reason: Pain Last Admin: 03/18/22 14:34 Dose: 1 tab Albuterol/Ipratropium (Ipratropium/Albuterol 3 Ml Ampul.Neb) 3 ml NEB Q4HP PRN PRN Reason: Shortness Of Breath Last Admin: 03/06/22 20:44 Dose: 3 ml Amlodipine Besylate (Amlodipine 5 Mg Tablet) 2.5 mg PO DAILY [facility] Last Admin: 03/19/22 09:22 Dose: 2.5 mg Apixaban (Apixaban 5 Mg Tablet) 5 mg PO BID [facility] Last Admin: 03/19/22 09:24 Dose: 5 mg Bisoprolol Fumarate (Bisoprolol 5 Mg Tablet) 10 mg PO DAILY [facility] Last Admin: 03/19/22 09:20 Dose: 10 mg Dextrose (Dextrose 50% 50 Ml Vial) 0 ml IV UD PRN PRN Reason: Per Sliding Scale Diagnostic Test (Pha) (Accu-Chek 1 Each Strip) 1 each FS ACHS [facility] Last Admin: 03/19/22 06:44 Dose: 1 each Docusate Sodium (Docusate Sodium 100 Mg Capsule) 100 mg PO BID [facility] Last Admin: 03/19/22 09:21 Dose: 100 mg Fluoxetine HCl (Fluoxetine Hcl 20 Mg Capsule) 20 mg PO DAILY [facility] Last Admin: 03/19/22 09:23 Dose: 20 mg Furosemide (Furosemide 20 Mg Tablet) 40 mg PO DAILY [facility] Last Admin: 03/19/22 09:24 Dose: 40 mg Glucose (Dextrose 31 Gm Oral.Susp) 15 gm PO PRN PRN PRN Reason: Hypoglycemia Potassium Chloride 40 meq/ (Dextrose) 520 mls @ 130 mls/hr IV UD PRN PRN Reason: Potassium < 3 Magnesium Sulfate (Magnesium Sulfate) 2 gm in 50 mls @ 50 mls/hr IV UD PRN PRN Reason: Magnesium </= 1.6 Insulin Glargine (Insulin Glargine, Human 1 Unit/0.01 Ml) 10 unit SQ QPM [facility] Last Admin: 03/18/22 20:35 Dose: 10 units Insulin Human Lispro (Insulin Lispro 1 Unit/0.01 Ml Unit) 0 unit SQ [facility]; Protocol Last Admin: 03/19/22 06:44 Dose: Not Given Memantine (Memantine 10 Mg Tablet) 5 mg PO BID [facility] Last Admin: 03/19/22 09:22 Dose: 5 mg Methocarbamol (Methocarbamol 750 Mg Tablet) 750 mg PO DAILY [facility] Last Admin: 03/19/22 09:25 Dose: 750 mg Metoprolol Tartrate (Metoprolol Tartrate 5 Mg/5 Ml Vial) 5 mg IV Q2HP PRN PRN Reason: Tachyarrhythmias HR>110 Last Admin: 02/19/22 22:21 Dose: 5 mg Omeprazole (Omeprazole 20 Mg Capsule) 20 mg PO ACB [facility] Last Admin: 03/19/22 07:19 Dose: 20 mg Ondansetron HCl (Ondansetron 4 Mg/2 Ml Vial) 4 mg IV Q4HP PRN PRN Reason: Nausea And Vomiting Budesonide- Formoterol 10.2 Gm Hfa Aerosol Inhaler 2 dose INH BID [facility] Last Admin: 03/19/22 09:26 Dose: Not Given Polyethylene Glycol (Polyethylene Glycol 3350 17 Gm Packet) 17 gm PO DAILYP PRN PRN Reason: Constipation Last Admin: 02/22/22 08:43 Dose: 17 gm Potassium Chloride (Potassium Chloride 20 Meq Tablet) 40 meq PO UD PRN PRN Reason: Potssium is 3-3.5 Potassium Chloride (Potassium Chloride 20 Meq Tablet) 40 meq PO UD PRN PRN Reason: Potassium < 3 Quetiapine Fumarate (Quetiapine 25 Mg Tablet) 50 mg PO HS [facility] Last Admin: 03/18/22 20:34 Dose: 50 mg Quetiapine Fumarate (Quetiapine 25 Mg Tablet) 12.5 mg PO Q6HP PRN PRN Reason: agitation Last Admin: 03/12/22 00:45 Dose: 12.5 mg Quetiapine Fumarate (Quetiapine 25 Mg Tablet) 25 mg PO 0900 [facility] Last Admin: 03/19/22 09:23 Dose: 25 mg Senna (Sennosides 1 Tablet) 2 tab PO DAILYP PRN PRN Reason: Constipation Last Admin: 03/17/22 21:16 Dose: 2 tab Tamsulosin HCl (Tamsulosin 0.4 Mg Capsule) 0.4 mg PO BID [facility] Last Admin: 03/19/22 09:25 Dose: 0.4 mg A/P Narrative A/P Narrative: A: *Generalized weakness/deconditioning/failure to thrive: *Dementia with improving behavioral disturbances *CAP, likely Aspiration: resolved *Oropharyngeal Dysphagia, Mod: *Resolved acute hypoxic respiratory failure *Afib, paroxysmal (new diagnosis): Resolved RVR -CHADSVASC=5-6, echo with good EF *COPD(not on home O2): *h/o diastlic CHF: *Pre-Diabetes: a1c 6.4 *HTN: *CKD II: *Anemia, chronic: *LE wounds/ulcers/buttock decubitus: Indwelling Willis catheter for improved wound healing *Obesity: BMI 34 P: -Awaiting placement -IS/Acapella, home IH's and prn nebs, RT -Wound care -cont per telepsych, increased seroquel to 25@1400 and 50 qhs and 12.5 q6h prn -Eliquis while inpatient, defer further decision making to f/u between family/PCP, pt unable to participate in medical decision making -cont BB/norvasc -cont home lasix -SSI and Lantus 10 units HS, significantly lower than Lantus dose prior to admission. -PT/OT -Dysphagia diet per speech therapy recommendations -CM for placement -ppx: eliquis / ppi DNR Time Spent With Patient Time: Total time spent is greater than 50% in coordination of care (as documented) at patient's floor/unit and/or counseling patient:
[2022-03-19] MEDS: INSULIN GLARGINE, HUMAN 1 UNIT/0.01 ML SQ SCH (20:53)
[2022-03-20] MEDS: QUEtiapine 25 MG TABLET PO PRN (03:46)
[2022-03-20] MEDS: OMEPRAZOLE 20 MG CAPSULE PO SCH (07:27)
[2022-03-20] MEDS: INSULIN LISPRO 1 UNIT/0.01 ML UNIT SQ SCH ×4 (07:27→21:25)
[2022-03-20] MEDS: FLUoxetine HCL 20 MG CAPSULE PO SCH (07:44)
[2022-03-20] MEDS: MEMANTINE 10 MG TABLET PO SCH ×2 (07:44→21:23)
[2022-03-20] MEDS: ACETAMINOPHEN W/CODEINE #3 1 TABLET PO PRN (07:45)
[2022-03-20] MEDS: QUEtiapine 25 MG TABLET PO SCH ×2 (07:45→21:24)
[2022-03-20] MEDS: FUROSEMIDE 20 MG TABLET PO SCH (07:45)
[2022-03-20] MEDS: TAMSULOSIN 0.4 MG CAPSULE PO SCH ×2 (07:45→21:24)
[2022-03-20] MEDS: Budesonide-Formoterol 10.2 GM HFA aerosol inhaler INH SCH ×2 (07:45→21:26)
[2022-03-20] MEDS: METHOCARBAMOL 750 MG TABLET PO SCH (07:45)
[2022-03-20] MEDS: amLODIPine 5 MG TABLET PO SCH (07:52)
[2022-03-20] MEDS: APIXABAN 5 MG TABLET PO SCH ×2 (07:52→21:24)
[2022-03-20] MEDS: BISOPROLOL 5 MG TABLET PO SCH (07:52)
[2022-03-20] MEDS: DOCUSATE SODIUM 100 MG CAPSULE PO SCH ×2 (07:52→21:24)
--- NOTE | 2022-03-20 14:42 | Internal Med Progress Note ---
SUBJECTIVE Subjective Patient information: Note initiated : 03/20/22 at 2:40 pm Service Date, if different from initiated Date: [] Patient: Edmond Salas 86 y/o M admitted on 02/18/22 for Weakness/Eval for assisted living-PNA,Sepsis. Chief Complaint: [] Interval history: 03/17 No significant events overnight, awaiting placement. 03/18 Pleasantly confused, redirectable. Awaiting placement. 03/19 Vitals stable overnight, pleasant and cooperative this morning. Awaiting placement. 03/20 No significant events overnight, cooperative with staff. Evaluated buttock wound with staff, much improved since a couple weeks ago. Continues with Willis catheter. Physical exam Head: Atraumatic, normal inspection. Eyes: normal appearance, no scleral icterus. Neck: full ROM Respiratory: no respiratory distress. Cardiovascular: normal rate and rhythm, S1, S2. GI/Abdominal: soft, nontender, no guarding. : Indwelling Willis catheter. Extremities: full range of motion, nontender. Neurological: CN II-XII intact, intact motor, intact sensation. Psychiatric: Impaired cognition. Skin: Improved erythema on sacrum and posterior groin region. Constitutional Vitals: Vital Signs Temp Pulse Resp BP Pulse Ox O2 Del Method O2 Flow Rate 98.2 F 105 H 12 147/96 100 0 03/20/22 12:00 03/20/22 12:00 03/20/22 12:00 03/20/22 12:00 03/20/22 12:00 03/20/22 12:00 02/25/22 04:00 Period Temp Pulse Resp BP Sys/Meza Pulse Ox O2 Del Method O2 Flow Rate Last 24 Hr 97.6 F-98.2 F 78-105 12-20 95-147/52-96 95-100 Room Air-Room Air Intake and Output 03/20/22 03/20/22 03/20/22 03:59 11:59 19:59 Intake Total 360 240 Output Total 525 Balance -165 240 Weight 115.439 kg Intake & Output: Intake & Output 03/20/22 03/20/22 03/20/22 03:59 11:59 19:59 Intake Total 360 240 Output Total 525 Balance -165 240 Weight 115.439 kg Intake: Oral 360 240 Output: Urine Catheter Amount 525 Other: Meal Breakfast Lunch Percent of Meal Consumed 75% 25% Feeding Ability Assist with Tray Set Up Assist with Tray Set Up Urine Appearance Clear Willis Clear Urine Color Dark Yellow Willis Bright Yellow Dark Yellow Urine Odor Normal Stool Size Moderate Stool Color Brown Stool Consistency Soft # Bowel Movements 1 # of times incontinent of 1 Bowels OBJ DATA Labs CBC & Chem 7: 02/28/22 05:49 02/28/22 05:49 Meds: Medications Acetaminophen (Acetaminophen 325 Mg Tablet) 650 mg PO Q6HP PRN; Protocol PRN Reason: Per Pain Protocol/Fever > 101 Last Admin: 03/13/22 21:39 Dose: 650 mg Acetaminophen/Codeine Phosphate (Acetaminophen W/Codeine #3 1 Tablet) 1 tab PO BIDP PRN; Protocol PRN Reason: Pain Last Admin: 03/20/22 07:45 Dose: 1 tab Albuterol/Ipratropium (Ipratropium/Albuterol 3 Ml Ampul.Neb) 3 ml NEB Q4HP PRN PRN Reason: Shortness Of Breath Last Admin: 03/06/22 20:44 Dose: 3 ml Amlodipine Besylate (Amlodipine 5 Mg Tablet) 2.5 mg PO DAILY [facility] Last Admin: 03/20/22 07:52 Dose: 2.5 mg Apixaban (Apixaban 5 Mg Tablet) 5 mg PO BID [facility] Last Admin: 03/20/22 07:52 Dose: 5 mg Bisoprolol Fumarate (Bisoprolol 5 Mg Tablet) 10 mg PO DAILY [facility] Last Admin: 03/20/22 07:52 Dose: 10 mg Dextrose (Dextrose 50% 50 Ml Vial) 0 ml IV UD PRN PRN Reason: Per Sliding Scale Diagnostic Test (Pha) (Accu-Chek 1 Each Strip) 1 each FS ACHS [facility] Last Admin: 03/20/22 11:35 Dose: 1 each Docusate Sodium (Docusate Sodium 100 Mg Capsule) 100 mg PO BID [facility] Last Admin: 03/20/22 07:52 Dose: 100 mg Fluoxetine HCl (Fluoxetine Hcl 20 Mg Capsule) 20 mg PO DAILY [facility] Last Admin: 03/20/22 07:44 Dose: 20 mg Furosemide (Furosemide 20 Mg Tablet) 40 mg PO DAILY [facility] Last Admin: 03/20/22 07:45 Dose: 40 mg Glucose (Dextrose 31 Gm Oral.Susp) 15 gm PO PRN PRN PRN Reason: Hypoglycemia Potassium Chloride 40 meq/ (Dextrose) 520 mls @ 130 mls/hr IV UD PRN PRN Reason: Potassium < 3 Magnesium Sulfate (Magnesium Sulfate) 2 gm in 50 mls @ 50 mls/hr IV UD PRN PRN Reason: Magnesium </= 1.6 Insulin Glargine (Insulin Glargine, Human 1 Unit/0.01 Ml) 10 unit SQ QPM [facility] Last Admin: 03/19/22 20:53 Dose: 10 units Insulin Human Lispro (Insulin Lispro 1 Unit/0.01 Ml Unit) 0 unit SQ ACHS [facility]; Protocol Last Admin: 03/20/22 11:35 Dose: 9 unit Memantine (Memantine 10 Mg Tablet) 5 mg PO BID [facility] Last Admin: 03/20/22 07:44 Dose: 5 mg Methocarbamol (Methocarbamol 750 Mg Tablet) 750 mg PO DAILY [facility] Last Admin: 03/20/22 07:45 Dose: 750 mg Metoprolol Tartrate (Metoprolol Tartrate 5 Mg/5 Ml Vial) 5 mg IV Q2HP PRN PRN Reason: Tachyarrhythmias HR>110 Last Admin: 02/19/22 22:21 Dose: 5 mg Omeprazole (Omeprazole 20 Mg Capsule) 20 mg PO ACB [facility] Last Admin: 03/20/22 07:27 Dose: 20 mg Ondansetron HCl (Ondansetron 4 Mg/2 Ml Vial) 4 mg IV Q4HP PRN PRN Reason: Nausea And Vomiting Budesonide- Formoterol 10.2 Gm Hfa Aerosol Inhaler 2 dose INH BID [facility] Last Admin: 03/20/22 07:45 Dose: Not Given Polyethylene Glycol (Polyethylene Glycol 3350 17 Gm Packet) 17 gm PO DAILYP PRN PRN Reason: Constipation Last Admin: 02/22/22 08:43 Dose: 17 gm Potassium Chloride (Potassium Chloride 20 Meq Tablet) 40 meq PO UD PRN PRN Reason: Potssium is 3-3.5 Potassium Chloride (Potassium Chloride 20 Meq Tablet) 40 meq PO UD PRN PRN Reason: Potassium < 3 Quetiapine Fumarate (Quetiapine 25 Mg Tablet) 50 mg PO HS [facility] Last Admin: 03/19/22 20:53 Dose: 50 mg Quetiapine Fumarate (Quetiapine 25 Mg Tablet) 12.5 mg PO Q6HP PRN PRN Reason: agitation Last Admin: 03/20/22 03:46 Dose: 12.5 mg Quetiapine Fumarate (Quetiapine 25 Mg Tablet) 25 mg PO 0900 [facility] Last Admin: 03/20/22 07:45 Dose: 25 mg Senna (Sennosides 1 Tablet) 2 tab PO DAILYP PRN PRN Reason: Constipation Last Admin: 03/17/22 21:16 Dose: 2 tab Tamsulosin HCl (Tamsulosin 0.4 Mg Capsule) 0.4 mg PO BID [facility] Last Admin: 03/20/22 07:45 Dose: 0.4 mg A/P Narrative A/P Narrative: A: *Generalized weakness/deconditioning/failure to thrive: *Dementia with improving behavioral disturbances *CAP, likely Aspiration: resolved *Oropharyngeal Dysphagia, Mod: *Resolved acute hypoxic respiratory failure *Afib, paroxysmal (new diagnosis): Resolved RVR -CHADSVASC=5-6, echo with good EF *COPD(not on home O2): *h/o diastlic CHF: *Pre-Diabetes: a1c 6.4 *HTN: *CKD II: *Anemia, chronic: *LE wounds/ulcers/buttock decubitus: Indwelling Willis catheter for improved wound healing *Obesity: BMI 34 P: -Awaiting placement -IS/Acapella, home IH's and prn nebs, RT -Wound care -cont per telepsych, increased seroquel to 25@1400 and 50 qhs and 12.5 q6h prn -Eliquis while inpatient, defer further decision making to f/u between family/PCP, pt unable to participate in medical decision making -cont BB/norvasc -cont home lasix -SSI and Lantus 10 units HS, significantly lower than Lantus dose prior to admission. -PT/OT -Dysphagia diet per speech therapy recommendations. -Willis catheter for wound healing, could potentially remove soon as wound has improved. -CM for placement -ppx: eliquis / ppi DNR Time Spent With Patient Time: Total time spent is greater than 50% in coordination of care (as documented) at patient's floor/unit and/or counseling patient:
[2022-03-20] MEDS: INSULIN GLARGINE, HUMAN 1 UNIT/0.01 ML SQ SCH (21:24)
[2022-03-21] MEDS: INSULIN LISPRO 1 UNIT/0.01 ML UNIT SQ SCH ×4 (07:34→21:34)
[2022-03-21] MEDS: ACETAMINOPHEN 325 MG TABLET PO PRN ×2 (07:34→16:57)
[2022-03-21] MEDS: OMEPRAZOLE 20 MG CAPSULE PO SCH (07:36)
[2022-03-21] MEDS: METHOCARBAMOL 750 MG TABLET PO SCH (08:31)
[2022-03-21] MEDS: amLODIPine 5 MG TABLET PO SCH (08:31)
[2022-03-21] MEDS: APIXABAN 5 MG TABLET PO SCH ×2 (08:31→21:35)
[2022-03-21] MEDS: DOCUSATE SODIUM 100 MG CAPSULE PO SCH ×2 (08:31→21:35)
[2022-03-21] MEDS: FLUoxetine HCL 20 MG CAPSULE PO SCH (08:32)
[2022-03-21] MEDS: QUEtiapine 25 MG TABLET PO SCH ×2 (08:32→21:33)
[2022-03-21] MEDS: MEMANTINE 10 MG TABLET PO SCH ×2 (08:32→21:32)
[2022-03-21] MEDS: BISOPROLOL 5 MG TABLET PO SCH (08:32)
[2022-03-21] MEDS: TAMSULOSIN 0.4 MG CAPSULE PO SCH ×2 (08:32→21:33)
[2022-03-21] MEDS: FUROSEMIDE 20 MG TABLET PO SCH (08:32)
[2022-03-21] MEDS: Budesonide-Formoterol 10.2 GM HFA aerosol inhaler INH SCH ×2 (08:33→21:33)
--- NOTE | 2022-03-21 09:08 | Internal Med Progress Note ---
SUBJECTIVE Subjective Patient information: Note initiated : 03/21/22 at 9:06 am Service Date, if different from initiated Date: [] Patient: Edmond Salas 86 y/o M admitted on 02/18/22 for Weakness/Eval for assisted living-PNA,Sepsis. Chief Complaint: [] Interval history: 03/17 No significant events overnight, awaiting placement. 03/18 Pleasantly confused, easily redirectable by staff. Awaiting placement. 03/19 Vitals stable overnight, pleasant and cooperative this morning. Awaiting placement. 03/20 No significant events overnight, cooperative with staff. Evaluated buttock wound with staff, much improved since a couple weeks ago. Continues with Willis catheter. 03/21 Resting comfortably, no significant events overnight. No issues with agitation for several days. Awaiting placement. Physical exam Head: Atraumatic, normal inspection. Eyes: normal appearance, no scleral icterus. Respiratory: no respiratory distress. Cardiovascular: normal rate and rhythm, S1, S2. GI/Abdominal: soft, nontender, no guarding. : Indwelling Willis catheter. Extremities: full range of motion, nontender. Neurological: CN II-XII intact, intact motor, intact sensation. Psychiatric: Impaired cognition. Constitutional Vitals: Vital Signs Temp Pulse Resp BP Pulse Ox O2 Del Method O2 Flow Rate 97.7 F 83 14 124/70 94 0 03/21/22 07:39 03/21/22 07:39 03/21/22 07:39 03/21/22 07:39 03/21/22 07:39 03/21/22 07:39 02/25/22 04:00 Period Temp Pulse Resp BP Sys/Meza Pulse Ox O2 Del Method O2 Flow Rate Last 24 Hr 96.9 F-98.7 F 67-105 12-18 103-147/47-96 94-100 Room Air-Room Air Intake and Output 03/20/22 03/21/22 03/21/22 19:59 03:59 11:59 Intake Total 720 Output Total 450 475 Balance 270 -475 Weight 115.575 kg Intake & Output: Intake & Output 03/20/22 03/21/22 03/21/22 19:59 03:59 11:59 Intake Total 720 Output Total 450 475 Balance 270 -475 Weight 115.575 kg Intake: Oral 720 Output: Urine Catheter Amount 450 475 Other: Meal Dinner Percent of Meal Consumed 50% Feeding Ability Assist with Tray Set Up Urine Appearance Clear Clear Willis Clear Urine Color Light Joan Dark Yellow Willis Dark Yellow Urine Odor Normal Stool Size Small Stool Color Brown Stool Consistency Soft OBJ DATA Labs CBC & Chem 7: 02/28/22 05:49 02/28/22 05:49 Meds: Medications Acetaminophen (Acetaminophen 325 Mg Tablet) 650 mg PO Q6HP PRN; Protocol PRN Reason: Per Pain Protocol/Fever > 101 Last Admin: 03/21/22 07:34 Dose: 650 mg Acetaminophen/Codeine Phosphate (Acetaminophen W/Codeine #3 1 Tablet) 1 tab PO BIDP PRN; Protocol PRN Reason: Pain Last Admin: 03/20/22 07:45 Dose: 1 tab Albuterol/Ipratropium (Ipratropium/Albuterol 3 Ml Ampul.Neb) 3 ml NEB Q4HP PRN PRN Reason: Shortness Of Breath Last Admin: 03/06/22 20:44 Dose: 3 ml Amlodipine Besylate (Amlodipine 5 Mg Tablet) 2.5 mg PO DAILY [facility] Last Admin: 03/21/22 08:31 Dose: 2.5 mg Apixaban (Apixaban 5 Mg Tablet) 5 mg PO BID [facility] Last Admin: 03/21/22 08:31 Dose: 5 mg Bisoprolol Fumarate (Bisoprolol 5 Mg Tablet) 10 mg PO DAILY [facility] Last Admin: 03/21/22 08:32 Dose: 10 mg Dextrose (Dextrose 50% 50 Ml Vial) 0 ml IV UD PRN PRN Reason: Per Sliding Scale Diagnostic Test (Pha) (Accu-Chek 1 Each Strip) 1 each FS ACHS [facility] Last Admin: 03/21/22 07:34 Dose: 1 each Docusate Sodium (Docusate Sodium 100 Mg Capsule) 100 mg PO BID [facility] Last Admin: 03/21/22 08:31 Dose: 100 mg Fluoxetine HCl (Fluoxetine Hcl 20 Mg Capsule) 20 mg PO DAILY [facility] Last Admin: 03/21/22 08:32 Dose: 20 mg Furosemide (Furosemide 20 Mg Tablet) 40 mg PO DAILY [facility] Last Admin: 03/21/22 08:32 Dose: 40 mg Glucose (Dextrose 31 Gm Oral.Susp) 15 gm PO PRN PRN PRN Reason: Hypoglycemia Potassium Chloride 40 meq/ (Dextrose) 520 mls @ 130 mls/hr IV UD PRN PRN Reason: Potassium < 3 Magnesium Sulfate (Magnesium Sulfate) 2 gm in 50 mls @ 50 mls/hr IV UD PRN PRN Reason: Magnesium </= 1.6 Insulin Glargine (Insulin Glargine, Human 1 Unit/0.01 Ml) 10 unit SQ QPM [facility] Last Admin: 03/20/22 21:24 Dose: 10 units Insulin Human Lispro (Insulin Lispro 1 Unit/0.01 Ml Unit) 0 unit SQ ACHS [facility]; Protocol Last Admin: 03/21/22 07:34 Dose: 3 unit Memantine (Memantine 10 Mg Tablet) 5 mg PO BID [facility] Last Admin: 03/21/22 08:32 Dose: 5 mg Methocarbamol (Methocarbamol 750 Mg Tablet) 750 mg PO DAILY [facility] Last Admin: 03/21/22 08:31 Dose: 750 mg Metoprolol Tartrate (Metoprolol Tartrate 5 Mg/5 Ml Vial) 5 mg IV Q2HP PRN PRN Reason: Tachyarrhythmias HR>110 Last Admin: 02/19/22 22:21 Dose: 5 mg Omeprazole (Omeprazole 20 Mg Capsule) 20 mg PO ACB [facility] Last Admin: 03/21/22 07:36 Dose: 20 mg Ondansetron HCl (Ondansetron 4 Mg/2 Ml Vial) 4 mg IV Q4HP PRN PRN Reason: Nausea And Vomiting Budesonide- Formoterol 10.2 Gm Hfa Aerosol Inhaler 2 dose INH BID [facility] Last Admin: 03/21/22 08:33 Dose: Not Given Polyethylene Glycol (Polyethylene Glycol 3350 17 Gm Packet) 17 gm PO DAILYP PRN PRN Reason: Constipation Last Admin: 02/22/22 08:43 Dose: 17 gm Potassium Chloride (Potassium Chloride 20 Meq Tablet) 40 meq PO UD PRN PRN Reason: Potssium is 3-3.5 Potassium Chloride (Potassium Chloride 20 Meq Tablet) 40 meq PO UD PRN PRN Reason: Potassium < 3 Quetiapine Fumarate (Quetiapine 25 Mg Tablet) 50 mg PO HS [facility] Last Admin: 03/20/22 21:24 Dose: 50 mg Quetiapine Fumarate (Quetiapine 25 Mg Tablet) 12.5 mg PO Q6HP PRN PRN Reason: agitation Last Admin: 03/20/22 03:46 Dose: 12.5 mg Quetiapine Fumarate (Quetiapine 25 Mg Tablet) 25 mg PO 0900 [facility] Last Admin: 03/21/22 08:32 Dose: 25 mg Senna (Sennosides 1 Tablet) 2 tab PO DAILYP PRN PRN Reason: Constipation Last Admin: 03/17/22 21:16 Dose: 2 tab Tamsulosin HCl (Tamsulosin 0.4 Mg Capsule) 0.4 mg PO BID [facility] Last Admin: 03/21/22 08:32 Dose: 0.4 mg A/P Narrative A/P Narrative: A: *Generalized weakness/deconditioning/failure to thrive: *Dementia with improving remittent behavioral disturbances *CAP, likely Aspiration: resolved *Oropharyngeal Dysphagia, Mod: *Resolved acute hypoxic respiratory failure *Afib, paroxysmal (new diagnosis): Resolved RVR -CHADSVASC=5-6, echo with good EF *COPD(not on home O2): *h/o diastlic CHF: *Pre-Diabetes: a1c 6.4 *HTN: *CKD II: *Anemia, chronic: *LE wounds/ulcers/buttock decubitus: Indwelling Willis catheter for improved wound healing *Obesity: BMI 34 P: -Awaiting placement -IS/Acapella, home IH's and prn nebs, RT -Wound care -cont per telepsych, increased seroquel to 25@1400 and 50 qhs and 12.5 q6h prn -Eliquis while inpatient, defer further decision making to f/u between family/PCP, pt unable to participate in medical decision making -cont BB/norvasc -cont home lasix -SSI and Lantus 10 units HS, significantly lower than Lantus dose prior to admission. -PT/OT -Dysphagia diet per speech therapy recommendations. -Willis catheter for wound healing, could potentially remove soon as wound has improved. -CM for placement -ppx: eliquis / ppi DNR Time Spent With Patient Time: Total time spent is greater than 50% in coordination of care (as documented) at patient's floor/unit and/or counseling patient:
[2022-03-21] MEDS: INSULIN GLARGINE, HUMAN 1 UNIT/0.01 ML SQ SCH (21:33)
[2022-03-22] MEDS: INSULIN LISPRO 1 UNIT/0.01 ML UNIT SQ SCH ×4 (07:42→21:13)
[2022-03-22] MEDS: OMEPRAZOLE 20 MG CAPSULE PO SCH (07:42)
[2022-03-22] MEDS: BISOPROLOL 5 MG TABLET PO SCH (08:37)
[2022-03-22] MEDS: METHOCARBAMOL 750 MG TABLET PO SCH (08:37)
[2022-03-22] MEDS: amLODIPine 5 MG TABLET PO SCH (08:38)
[2022-03-22] MEDS: QUEtiapine 25 MG TABLET PO SCH ×2 (08:38→21:25)
[2022-03-22] MEDS: TAMSULOSIN 0.4 MG CAPSULE PO SCH ×2 (08:38→21:04)
[2022-03-22] MEDS: FUROSEMIDE 20 MG TABLET PO SCH (08:38)
[2022-03-22] MEDS: APIXABAN 5 MG TABLET PO SCH ×2 (08:38→21:25)
[2022-03-22] MEDS: MEMANTINE 10 MG TABLET PO SCH ×2 (08:38→21:04)
[2022-03-22] MEDS: DOCUSATE SODIUM 100 MG CAPSULE PO SCH ×2 (08:39→21:04)
[2022-03-22] MEDS: FLUoxetine HCL 20 MG CAPSULE PO SCH (08:39)
[2022-03-22] MEDS: Budesonide-Formoterol 10.2 GM HFA aerosol inhaler INH SCH ×2 (08:39→21:05)
--- NOTE | 2022-03-22 13:19 | Internal Med Progress Note ---
SUBJECTIVE Subjective Patient information: Note initiated : 03/22/22 at 1:17 pm Service Date, if different from initiated Date: [] Patient: Edmond Salas 86 y/o M admitted on 02/18/22 for Weakness/Eval for assisted living-PNA,Sepsis. Chief Complaint: [] Interval history: 03/17 No significant events overnight, awaiting placement. 03/18 Pleasantly confused, easily redirectable by staff. Awaiting placement. 03/19 Vitals stable overnight, pleasant and cooperative this morning. Awaiting placement. 03/20 No significant events overnight, cooperative with staff. Evaluated buttock wound with staff, much improved since a couple weeks ago. Continues with Willis catheter. 03/21 Resting comfortably, no significant events overnight. No issues with agitation for several days. Awaiting placement. 03/22-no overnight events. Ongoing coordination for SNF. Ongoing wound care, patient tested positive for COVID during routine discharge and hence unable to transfer to SNF today. Willis is discontinued however remains incontinent of bowel and bladder, remains bedbound Constitutional Vitals: Vital Signs Temp Pulse Resp BP Pulse Ox O2 Del Method O2 Flow Rate 98.7 F 93 H 14 103/58 94 0 03/22/22 08:00 03/22/22 08:00 03/22/22 08:00 03/22/22 08:00 03/22/22 08:00 03/22/22 08:00 02/25/22 04:00 Period Temp Pulse Resp BP Sys/Meza Pulse Ox O2 Del Method O2 Flow Rate Last 24 Hr 97.3 F-98.8 F 74-104 14-16 98-126/58-76 93-98 Room Air-Room Air Intake and Output 03/22/22 03/22/22 03/22/22 03:59 11:59 19:59 Intake Total 150 Output Total 1 Balance 149 Remains bedbound Respond to commands, disoriented to time and place Remains incontinent Intake & Output: Intake & Output 03/22/22 03/22/22 03/22/22 03:59 11:59 19:59 Intake Total 150 Output Total 1 Balance 149 Intake: Oral 150 Output: # of times incontinent of urine 1 Other: Stool Size Small Stool Color Brown Stool Consistency Soft # Voids 0 # of times incontinent of 1 Bowels OBJ DATA Labs CBC & Chem 7: 02/28/22 05:49 10/31/22 05:49 Meds: Medications Acetaminophen (Acetaminophen 325 Mg Tablet) 650 mg PO Q6HP PRN; Protocol PRN Reason: Per Pain Protocol/Fever > 101 Last Admin: 03/21/22 16:57 Dose: 650 mg Acetaminophen/Codeine Phosphate (Acetaminophen W/Codeine #3 1 Tablet) 1 tab PO BIDP PRN; Protocol PRN Reason: Pain Last Admin: 03/20/22 07:45 Dose: 1 tab Albuterol/Ipratropium (Ipratropium/Albuterol 3 Ml Ampul.Neb) 3 ml NEB Q4HP PRN PRN Reason: Shortness Of Breath Last Admin: 03/06/22 20:44 Dose: 3 ml Amlodipine Besylate (Amlodipine 5 Mg Tablet) 2.5 mg PO DAILY [facility] Last Admin: 03/22/22 08:38 Dose: 2.5 mg Apixaban (Apixaban 5 Mg Tablet) 5 mg PO BID [facility] Last Admin: 03/22/22 08:38 Dose: 5 mg Bisoprolol Fumarate (Bisoprolol 5 Mg Tablet) 10 mg PO DAILY [facility] Last Admin: 03/22/22 08:37 Dose: 10 mg Dextrose (Dextrose 50% 50 Ml Vial) 0 ml IV UD PRN PRN Reason: Per Sliding Scale Diagnostic Test (Pha) (Accu-Chek 1 Each Strip) 1 each FS ACHS [facility] Last Admin: 03/22/22 11:51 Dose: 1 each Docusate Sodium (Docusate Sodium 100 Mg Capsule) 100 mg PO BID [facility] Last Admin: 03/22/22 08:39 Dose: 100 mg Fluoxetine HCl (Fluoxetine Hcl 20 Mg Capsule) 20 mg PO DAILY [facility] Last Admin: 03/22/22 08:39 Dose: 20 mg Furosemide (Furosemide 20 Mg Tablet) 40 mg PO DAILY [facility] Last Admin: 03/22/22 08:38 Dose: 40 mg Glucose (Dextrose 31 Gm Oral.Susp) 15 gm PO PRN PRN PRN Reason: Hypoglycemia Potassium Chloride 40 meq/ (Dextrose) 520 mls @ 130 mls/hr IV UD PRN PRN Reason: Potassium < 3 Magnesium Sulfate (Magnesium Sulfate) 2 gm in 50 mls @ 50 mls/hr IV UD PRN PRN Reason: Magnesium </= 1.6 Insulin Glargine (Insulin Glargine, Human 1 Unit/0.01 Ml) 10 unit SQ QPM [facility] Last Admin: 03/21/22 21:33 Dose: 10 units Insulin Human Lispro (Insulin Lispro 1 Unit/0.01 Ml Unit) 0 unit SQ [facility]; Protocol Last Admin: 03/22/22 11:52 Dose: Not Given Memantine (Memantine 10 Mg Tablet) 5 mg PO BID [facility] Last Admin: 03/22/22 08:38 Dose: 5 mg Methocarbamol (Methocarbamol 750 Mg Tablet) 750 mg PO DAILY [facility] Last Admin: 03/22/22 08:37 Dose: 750 mg Metoprolol Tartrate (Metoprolol Tartrate 5 Mg/5 Ml Vial) 5 mg IV Q2HP PRN PRN Reason: Tachyarrhythmias HR>110 Last Admin: 02/19/22 22:21 Dose: 5 mg Omeprazole (Omeprazole 20 Mg Capsule) 20 mg PO ACB [facility] Last Admin: 03/22/22 07:42 Dose: 20 mg Ondansetron HCl (Ondansetron 4 Mg/2 Ml Vial) 4 mg IV Q4HP PRN PRN Reason: Nausea And Vomiting Budesonide- Formoterol 10.2 Gm Hfa Aerosol Inhaler 2 dose INH BID [facility] Last Admin: 03/22/22 08:39 Dose: Not Given Polyethylene Glycol (Polyethylene Glycol 3350 17 Gm Packet) 17 gm PO DAILYP PRN PRN Reason: Constipation Last Admin: 02/22/22 08:43 Dose: 17 gm Potassium Chloride (Potassium Chloride 20 Meq Tablet) 40 meq PO UD PRN PRN Reason: Potssium is 3-3.5 Potassium Chloride (Potassium Chloride 20 Meq Tablet) 40 meq PO UD PRN PRN Reason: Potassium < 3 Quetiapine Fumarate (Quetiapine 25 Mg Tablet) 50 mg PO HS [facility] Last Admin: 03/21/22 21:33 Dose: 50 mg Quetiapine Fumarate (Quetiapine 25 Mg Tablet) 12.5 mg PO Q6HP PRN PRN Reason: agitation Last Admin: 03/20/22 03:46 Dose: 12.5 mg Quetiapine Fumarate (Quetiapine 25 Mg Tablet) 25 mg PO 0900 [facility] Last Admin: 03/22/22 08:38 Dose: 25 mg Senna (Sennosides 1 Tablet) 2 tab PO DAILYP PRN PRN Reason: Constipation Last Admin: 03/17/22 21:16 Dose: 2 tab Tamsulosin HCl (Tamsulosin 0.4 Mg Capsule) 0.4 mg PO BID [facility] Last Admin: 03/22/22 08:38 Dose: 0.4 mg A/P Narrative A/P Narrative: [id number]-old with profound dementia admitted with worsening confusion/inability of the family to take care of him at home. Patient has progressively become incapacitated incontinent of bowel bladder, unable to ambulate, developed decubitus buttock and lower extremity wounds and ulcer and concurrent failure to thrive. Has been hospitalized for a month awaiting placement to SNF for following reasons as below *Generalized weakness/deconditioning/failure to thrive: *Dementia with improving remittent behavioral disturbances *CAP, likely Aspiration: resolved *Oropharyngeal Dysphagia, Mod: *Resolved acute hypoxic respiratory failure *Afib, paroxysmal (new diagnosis): Resolved RVR -CHADSVASC=5-6, echo with good EF *COPD(not on home O2): *h/o diastlic CHF: *Pre-Diabetes: a1c 6.4 *HTN: *CKD II: *Anemia, chronic: *LE wounds/ulcers/buttock decubitus: Indwelling Willis catheter for improved wound healing *Obesity: BMI 34 Plan -No significant changes since previous day other than Willis is discontinued and remains incontinent of bowels and bladder -Awaiting placement, tested positive for COVID 03/22 and hence cannot be transferred to SNF for 10 days -IS/Acapella, home IH's and prn nebs, RT -Wound care -cont per telepsych, increased seroquel to 25@1400 and 50 qhs and 12.5 q6h prn -Eliquis while inpatient, defer further decision making to f/u between family/PCP, pt unable to participate in medical decision making -cont BB/norvasc -cont home lasix -SSI and Lantus 10 units HS, significantly lower than Lantus dose prior to admission. -PT/OT -Dysphagia diet per speech therapy recommendations. -Willis catheter for wound healing, could potentially remove soon as wound has improved. -CM for placement -ppx: eliquis / ppi DNR Time Spent With Patient Time: Total time spent is greater than 50% in coordination of care (as documented) at patient's floor/unit and/or counseling patient:
[2022-03-22] MEDS: INSULIN GLARGINE, HUMAN 1 UNIT/0.01 ML SQ SCH (21:25)
[2022-03-23] MEDS: INSULIN LISPRO 1 UNIT/0.01 ML UNIT SQ SCH ×4 (06:50→20:21)
[2022-03-23] MEDS: OMEPRAZOLE 20 MG CAPSULE PO SCH (06:51)
[2022-03-23] MEDS: DOCUSATE SODIUM 100 MG CAPSULE PO SCH ×2 (08:37→20:11)
[2022-03-23] MEDS: FUROSEMIDE 20 MG TABLET PO SCH (08:37)
[2022-03-23] MEDS: BISOPROLOL 5 MG TABLET PO SCH (08:37)
[2022-03-23] MEDS: TAMSULOSIN 0.4 MG CAPSULE PO SCH ×2 (08:37→20:11)
[2022-03-23] MEDS: amLODIPine 5 MG TABLET PO SCH (08:37)
[2022-03-23] MEDS: FLUoxetine HCL 20 MG CAPSULE PO SCH (08:37)
--- NOTE | 2022-03-23 08:37 | Internal Med Progress Note ---
SUBJECTIVE Subjective Patient information: Note initiated : 03/23/22 at 8:30 am Service Date, if different from initiated Date: [] Patient: Edmond Salas 86 y/o M admitted on 02/18/22 for Weakness/Eval for assisted living-PNA,Sepsis. Chief Complaint: [] Interval history: 03/17 No significant events overnight, awaiting placement. 03/18 Pleasantly confused, easily redirectable by staff. Awaiting placement. 03/19 Vitals stable overnight, pleasant and cooperative this morning. Awaiting placement. 03/20 No significant events overnight, cooperative with staff. Evaluated buttock wound with staff, much improved since a couple weeks ago. Continues with Willis catheter. 03/21 Resting comfortably, no significant events overnight. No issues with agitation for several days. Awaiting placement. 03/22-no overnight events. Ongoing coordination for SNF. Ongoing wound care, patient tested positive for COVID during routine discharge and hence unable to transfer to SNF today. Willis is discontinued however remains incontinent of bowel and bladder, remains bedbound Constitutional Vitals: Vital Signs Temp Pulse Resp BP Pulse Ox O2 Del Method O2 Flow Rate 97.6 F 77 16 119/58 96 0 03/23/22 06:51 03/23/22 06:51 03/23/22 06:51 03/23/22 06:51 03/23/22 06:51 03/23/22 06:51 02/25/22 04:00 Period Temp Pulse Resp BP Sys/Meza Pulse Ox O2 Del Method O2 Flow Rate Last 24 Hr 97.6 F-98.8 F 77-91 14-20 96-121/53-67 92-98 Room Air-Room Air Intake and Output 03/22/22 03/23/22 03/23/22 19:59 03:59 11:59 Intake Total 720 0 Output Total 2 2 Balance 718 -2 Weight 115.893 kg Dysarthric and oriented to self Nonlabored breathing Scrotal wound improving along with sacral and buttock area Lower extremity wound/scabs with dressing Remains incontinent Intake & Output: Intake & Output 03/22/22 03/23/22 03/23/22 19:59 03:59 11:59 Intake Total 720 0 Output Total 2 2 Balance 718 -2 Weight 115.893 kg Intake: Oral 720 0 Output: # of times incontinent of urine 2 2 Other: Meal Breakfast Percent of Meal Consumed 50% Stool Size Moderate Small Stool Color Brown Brown Stool Consistency Soft Soft # of times incontinent of 1 Bowels OBJ DATA Labs CBC & Chem 7: 02/28/22 05:49 02/28/22 05:49 Meds: Medications Acetaminophen (Acetaminophen 325 Mg Tablet) 650 mg PO Q6HP PRN; Protocol PRN Reason: Per Pain Protocol/Fever > 101 Last Admin: 03/21/22 16:57 Dose: 650 mg Acetaminophen/Codeine Phosphate (Acetaminophen W/Codeine #3 1 Tablet) 1 tab PO BIDP PRN; Protocol PRN Reason: Pain Last Admin: 03/20/22 07:45 Dose: 1 tab Albuterol/Ipratropium (Ipratropium/Albuterol 3 Ml Ampul.Neb) 3 ml NEB Q4HP PRN PRN Reason: Shortness Of Breath Last Admin: 03/06/22 20:44 Dose: 3 ml Amlodipine Besylate (Amlodipine 5 Mg Tablet) 2.5 mg PO DAILY [facility] Last Admin: 03/22/22 08:38 Dose: 2.5 mg Apixaban (Apixaban 5 Mg Tablet) 5 mg PO BID [facility] Last Admin: 03/22/22 21:25 Dose: 5 mg Bisoprolol Fumarate (Bisoprolol 5 Mg Tablet) 10 mg PO DAILY [facility] Last Admin: 03/22/22 08:37 Dose: 10 mg Dextrose (Dextrose 50% 50 Ml Vial) 0 ml IV UD PRN PRN Reason: Per Sliding Scale Diagnostic Test (Pha) (Accu-Chek 1 Each Strip) 1 each FS ACHS [facility] Last Admin: 03/23/22 06:47 Dose: 1 each Docusate Sodium (Docusate Sodium 100 Mg Capsule) 100 mg PO BID [facility] Last Admin: 03/22/22 21:04 Dose: 100 mg Fluoxetine HCl (Fluoxetine Hcl 20 Mg Capsule) 20 mg PO DAILY [facility] Last Admin: 03/22/22 08:39 Dose: 20 mg Furosemide (Furosemide 20 Mg Tablet) 40 mg PO DAILY [facility] Last Admin: 03/22/22 08:38 Dose: 40 mg Glucose (Dextrose 31 Gm Oral.Susp) 15 gm PO PRN PRN PRN Reason: Hypoglycemia Potassium Chloride 40 meq/ (Dextrose) 520 mls @ 130 mls/hr IV UD PRN PRN Reason: Potassium < 3 Magnesium Sulfate (Magnesium Sulfate) 2 gm in 50 mls @ 50 mls/hr IV UD PRN PRN Reason: Magnesium </= 1.6 Insulin Glargine (Insulin Glargine, Human 1 Unit/0.01 Ml) 10 unit SQ QPM [facility] Last Admin: 03/22/22 21:25 Dose: 10 units Insulin Human Lispro (Insulin Lispro 1 Unit/0.01 Ml Unit) 0 unit SQ ACHS [facility]; Protocol Last Admin: 03/23/22 06:50 Dose: Not Given Memantine (Memantine 10 Mg Tablet) 5 mg PO BID [facility] Last Admin: 03/22/22 21:04 Dose: 5 mg Methocarbamol (Methocarbamol 750 Mg Tablet) 750 mg PO DAILY [facility] Last Admin: 03/22/22 08:37 Dose: 750 mg Metoprolol Tartrate (Metoprolol Tartrate 5 Mg/5 Ml Vial) 5 mg IV Q2HP PRN PRN Reason: Tachyarrhythmias HR>110 Last Admin: 02/19/22 22:21 Dose: 5 mg Omeprazole (Omeprazole 20 Mg Capsule) 20 mg PO ACB [facility] Last Admin: 03/23/22 06:51 Dose: 20 mg Ondansetron HCl (Ondansetron 4 Mg/2 Ml Vial) 4 mg IV Q4HP PRN PRN Reason: Nausea And Vomiting Budesonide- Formoterol 10.2 Gm Hfa Aerosol Inhaler 2 dose INH BID [facility] Last Admin: 03/22/22 21:05 Dose: Not Given Polyethylene Glycol (Polyethylene Glycol 3350 17 Gm Packet) 17 gm PO DAILYP PRN PRN Reason: Constipation Last Admin: 02/22/22 08:43 Dose: 17 gm Potassium Chloride (Potassium Chloride 20 Meq Tablet) 40 meq PO UD PRN PRN Reason: Potssium is 3-3.5 Potassium Chloride (Potassium Chloride 20 Meq Tablet) 40 meq PO UD PRN PRN Reason: Potassium < 3 Quetiapine Fumarate (Quetiapine 25 Mg Tablet) 50 mg PO HS [facility] Last Admin: 03/22/22 21:25 Dose: 50 mg Quetiapine Fumarate (Quetiapine 25 Mg Tablet) 12.5 mg PO Q6HP PRN PRN Reason: agitation Last Admin: 03/20/22 03:46 Dose: 12.5 mg Quetiapine Fumarate (Quetiapine 25 Mg Tablet) 25 mg PO 0900 [facility] Last Admin: 03/22/22 08:38 Dose: 25 mg Senna (Sennosides 1 Tablet) 2 tab PO DAILYP PRN PRN Reason: Constipation Last Admin: 03/17/22 21:16 Dose: 2 tab Tamsulosin HCl (Tamsulosin 0.4 Mg Capsule) 0.4 mg PO BID [facility] Last Admin: 03/22/22 21:04 Dose: 0.4 mg A/P Narrative A/P Narrative: [id number]-old with profound dementia admitted with worsening confusion/inability of the family to take care of him at home. Patient has progressively become incapacitated incontinent of bowel bladder, unable to ambulate, developed decubitus buttock and lower extremity wounds and ulcer and concurrent failure to thrive. Has been hospitalized for a month awaiting placement to SNF for following reasons as below Active issues * Generalized weakness/deconditioning/failure to thrive: * Dementia with improving remittent behavioral disturbances on quetiapine/memantine * Oropharyngeal dysphagia on modified diet * Lower extremity wounds/sacral decubitus ulcer managed by wound care Stable/resolved issues * Pneumonia likely aspiration resolved * Hypoxic respiratory failure resolved, Now on room air * Afib, paroxysmal (new diagnosis): Resolved RVR, on apixaban, bisoprolol * COPD, on bronchodilators, room air * h/o diastlic CHF: On bisoprolol/diuretics * DM type II on basal prandial insulin * HTN: On amlodipine * Anxiety disorder on fluoxetine * CKD II: * Anemia, chronic * GERD PPI Plan -No significant changes since previous day other than Willis is discontinued and remains incontinent of bowels and bladder -Awaiting placement, tested positive for COVID 03/22 and hence cannot be transferred to SNF for 10 days -Wound care/frequent offloading -cont per telepsych, increased seroquel to 25@1400 and 50 qhs and 12.5 q6h prn -PT/OT -Dysphagia diet per speech therapy recommendations. DNR Time Spent With Patient Time: Total time spent is greater than 50% in coordination of care (as documented) at patient's floor/unit and/or counseling patient: Total time spent with greater than 50% in coordination of care (as documented) at patient's floor/unit and/or counseling patient:: 25 - 35 minutes
[2022-03-23] MEDS: QUEtiapine 25 MG TABLET PO SCH ×2 (08:38→20:11)
[2022-03-23] MEDS: MEMANTINE 10 MG TABLET PO SCH ×2 (08:38→20:11)
[2022-03-23] MEDS: Budesonide-Formoterol 10.2 GM HFA aerosol inhaler INH SCH ×2 (08:38→20:12)
[2022-03-23] MEDS: METHOCARBAMOL 750 MG TABLET PO SCH (08:38)
[2022-03-23] MEDS: APIXABAN 5 MG TABLET PO SCH ×2 (08:38→20:11)
[2022-03-23] MEDS: INSULIN GLARGINE, HUMAN 1 UNIT/0.01 ML SQ SCH (20:21)
[2022-03-24] MEDS: ACETAMINOPHEN W/CODEINE #3 1 TABLET PO PRN (00:20)
[2022-03-24] MEDS: INSULIN LISPRO 1 UNIT/0.01 ML UNIT SQ SCH ×4 (06:54→20:34)
[2022-03-24] MEDS: BISOPROLOL 5 MG TABLET PO SCH (08:10)
[2022-03-24] MEDS: QUEtiapine 25 MG TABLET PO SCH ×2 (08:11→20:33)
[2022-03-24] MEDS: amLODIPine 5 MG TABLET PO SCH (08:11)
[2022-03-24] MEDS: OMEPRAZOLE 20 MG CAPSULE PO SCH (08:11)
[2022-03-24] MEDS: DOCUSATE SODIUM 100 MG CAPSULE PO SCH ×2 (08:11→20:33)
[2022-03-24] MEDS: MEMANTINE 10 MG TABLET PO SCH ×2 (08:11→20:34)
[2022-03-24] MEDS: METHOCARBAMOL 750 MG TABLET PO SCH (08:12)
[2022-03-24] MEDS: FUROSEMIDE 20 MG TABLET PO SCH (08:12)
[2022-03-24] MEDS: TAMSULOSIN 0.4 MG CAPSULE PO SCH ×2 (08:12→20:33)
[2022-03-24] MEDS: Budesonide-Formoterol 10.2 GM HFA aerosol inhaler INH SCH ×2 (08:12→20:35)
[2022-03-24] MEDS: APIXABAN 5 MG TABLET PO SCH ×2 (08:12→20:33)
[2022-03-24] MEDS: FLUoxetine HCL 20 MG CAPSULE PO SCH (08:12)
--- NOTE | 2022-03-24 11:32 | Internal Med Progress Note ---
SUBJECTIVE Subjective Patient information: Note initiated : 03/24/22 at 11:29 am Service Date, if different from initiated Date: [] Patient: Edmond Salas 86 y/o M admitted on 02/18/22 for Weakness/Eval for assisted living-PNA,Sepsis. Chief Complaint: [] Interval history: 03/24: There was no major overnight events. No new complaints. Currently on 10 days CoVID quarantine before SNF placement becomes possible. Constitutional Vitals: Vital Signs Temp Pulse Resp BP Pulse Ox O2 Del Method O2 Flow Rate 36.6 C 86 18 133/69 98 0 03/24/22 06:53 03/24/22 06:53 03/24/22 06:53 03/24/22 06:53 03/24/22 06:53 03/24/22 06:53 02/25/22 04:00 Period Temp Pulse Resp BP Sys/Meza Pulse Ox O2 Del Method O2 Flow Rate Last 24 Hr 36.6 C-37.1 C 72-88 18-20 108-133/61-75 94-99 Room Air-Room Air Intake and Output 03/23/22 03/24/22 03/24/22 19:59 03:59 11:59 Intake Total 480 400 Output Total 1 1 2 Balance 479 399 -2 Weight 115.893 kg 112.582 kg Intake & Output: Intake & Output 03/23/22 03/24/22 03/24/22 19:59 03:59 11:59 Intake Total 480 400 Output Total 1 1 2 Balance 479 399 -2 Weight 115.893 kg 112.582 kg Intake: Oral 480 400 Output: # of times incontinent of urine 1 1 2 Other: Meal Breakfast Percent of Meal Consumed 100% Feeding Ability Assist with Tray Set Up Urine Color Dark Yellow Stool Size Small Smear Stool Color Brown Brown Stool Consistency Soft Soft # Voids 1 # of times incontinent of 1 1 Bowels Head Head exam: Present atraumatic and normal inspection Eye Eye exam: Present normal appearance ENT ENT exam: Present mucous membranes moist, normal exam and normal external ear exam Neck Neck exam: Present normal inspection Respiratory Respiratory exam: Present normal respiratory exam Cardiovascular Cardiovascular exam: Present irregular rhythm GI/Abdominal GI/Abdominal exam: Present normal bowel sounds Back Exam Back exam: Present normal inspection Neurological Exam Neurological exam: Present alert and altered; Absent oriented X3 Additional comments: oriented X1 to person Skin Skin exam: Present intact and warm OBJ DATA Labs CBC & Chem 7: 02/28/22 05:49 02/28/22 05:49 Meds: Medications Acetaminophen (Acetaminophen 325 Mg Tablet) 650 mg PO Q6HP PRN; Protocol PRN Reason: Per Pain Protocol/Fever > 101 Last Admin: 03/21/22 16:57 Dose: 650 mg Acetaminophen/Codeine Phosphate (Acetaminophen W/Codeine #3 1 Tablet) 1 tab PO BIDP PRN; Protocol PRN Reason: Pain Last Admin: 03/24/22 00:20 Dose: 1 tab Albuterol/Ipratropium (Ipratropium/Albuterol 3 Ml Ampul.Neb) 3 ml NEB Q4HP PRN PRN Reason: Shortness Of Breath Last Admin: 03/06/22 20:44 Dose: 3 ml Amlodipine Besylate (Amlodipine 5 Mg Tablet) 2.5 mg PO DAILY [facility] Last Admin: 03/24/22 08:11 Dose: 2.5 mg Apixaban (Apixaban 5 Mg Tablet) 5 mg PO BID [facility] Last Admin: 03/24/22 08:12 Dose: 5 mg Bisoprolol Fumarate (Bisoprolol 5 Mg Tablet) 10 mg PO DAILY [facility] Last Admin: 03/24/22 08:10 Dose: 10 mg Dextrose (Dextrose 50% 50 Ml Vial) 0 ml IV UD PRN PRN Reason: Per Sliding Scale Diagnostic Test (Pha) (Accu-Chek 1 Each Strip) 1 each FS ACHS [facility] Last Admin: 03/24/22 06:54 Dose: 1 each Docusate Sodium (Docusate Sodium 100 Mg Capsule) 100 mg PO BID [facility] Last Admin: 03/24/22 08:11 Dose: 100 mg Fluoxetine HCl (Fluoxetine Hcl 20 Mg Capsule) 20 mg PO DAILY [facility] Last Admin: 03/24/22 08:12 Dose: 20 mg Furosemide (Furosemide 20 Mg Tablet) 40 mg PO DAILY [facility] Last Admin: 03/24/22 08:12 Dose: 40 mg Glucose (Dextrose 31 Gm Oral.Susp) 15 gm PO PRN PRN PRN Reason: Hypoglycemia Potassium Chloride 40 meq/ (Dextrose) 520 mls @ 130 mls/hr IV UD PRN PRN Reason: Potassium < 3 Magnesium Sulfate (Magnesium Sulfate) 2 gm in 50 mls @ 50 mls/hr IV UD PRN PRN Reason: Magnesium </= 1.6 Insulin Glargine (Insulin Glargine, Human 1 Unit/0.01 Ml) 10 unit SQ QPM [facility] Last Admin: 03/23/22 20:21 Dose: 10 units Insulin Human Lispro (Insulin Lispro 1 Unit/0.01 Ml Unit) 0 unit SQ [facility]; Protocol Last Admin: 03/24/22 06:54 Dose: Not Given Memantine (Memantine 10 Mg Tablet) 5 mg PO BID [facility] Last Admin: 03/24/22 08:11 Dose: 5 mg Methocarbamol (Methocarbamol 750 Mg Tablet) 750 mg PO DAILY [facility] Last Admin: 03/24/22 08:12 Dose: 750 mg Metoprolol Tartrate (Metoprolol Tartrate 5 Mg/5 Ml Vial) 5 mg IV Q2HP PRN PRN Reason: Tachyarrhythmias HR>110 Last Admin: 02/19/22 22:21 Dose: 5 mg Omeprazole (Omeprazole 20 Mg Capsule) 20 mg PO ACB [facility] Last Admin: 03/24/22 08:11 Dose: 20 mg Ondansetron HCl (Ondansetron 4 Mg/2 Ml Vial) 4 mg IV Q4HP PRN PRN Reason: Nausea And Vomiting Budesonide- Formoterol 10.2 Gm Hfa Aerosol Inhaler 2 dose INH BID [facility] Last Admin: 03/24/22 08:12 Dose: Not Given Polyethylene Glycol (Polyethylene Glycol 3350 17 Gm Packet) 17 gm PO DAILYP PRN PRN Reason: Constipation Last Admin: 02/22/22 08:43 Dose: 17 gm Potassium Chloride (Potassium Chloride 20 Meq Tablet) 40 meq PO UD PRN PRN Reason: Potssium is 3-3.5 Potassium Chloride (Potassium Chloride 20 Meq Tablet) 40 meq PO UD PRN PRN Reason: Potassium < 3 Quetiapine Fumarate (Quetiapine 25 Mg Tablet) 50 mg PO HS [facility] Last Admin: 03/23/22 20:11 Dose: 50 mg Quetiapine Fumarate (Quetiapine 25 Mg Tablet) 12.5 mg PO Q6HP PRN PRN Reason: agitation Last Admin: 03/20/22 03:46 Dose: 12.5 mg Quetiapine Fumarate (Quetiapine 25 Mg Tablet) 25 mg PO 0900 [facility] Last Admin: 03/24/22 08:11 Dose: 25 mg Senna (Sennosides 1 Tablet) 2 tab PO DAILYP PRN PRN Reason: Constipation Last Admin: 03/17/22 21:16 Dose: 2 tab Tamsulosin HCl (Tamsulosin 0.4 Mg Capsule) 0.4 mg PO BID [facility] Last Admin: 03/24/22 08:12 Dose: 0.4 mg A/P Assessment and plan (1) COVID-19: Status: Acute (2) Failure to thrive in adult: Status: Acute (3) Paroxysmal atrial fibrillation with RVR: Status: Acute (4) Diastolic CHF: Status: Acute (5) Essential hypertension: Status: Acute (6) Dementia: Status: Acute (7) COPD (chronic obstructive pulmonary disease): Status: Acute (8) Chronic kidney disease (CKD) stage G2/A1, mildly decreased glomerular filtration rate (GFR) between 60-89 mL/min/1.73 square meter and albuminuria creatinine ratio less than 30 mg/g: Status: Acute (9) Anemia, normocytic normochromic: Status: Acute (10) Obesity (BMI 30.0-34.9): Status: Acute (11) Prediabetes: Status: Acute Narrative A/P Narrative: Assessment and Plans: 1. Adult failure to thrive: Pending SNF placement once CoVID quarantine is over 2. Asymptomatic CoVID infection: Currently on room air Pending SNF placement once CoVID quarantine is over 3. Dementia: Memantine Continue to monitor 4. h/o diastolic CHF: Bisoprolol Oral Lasix 5. Essential hypertension: Amlodipine Bisoprolol Oral Lasix 6. Atrial fibrillation: Bisoprolol Eliquis 7. Anemia, normocytic normochromic: Stable 8. Chronic kidney disease II: Stable Continue saline lock with oral Lasix 9. Obesity BMI 30.0-39.9: Due to dementia, cannot queen's counsel patient on life style modifications 10. Prediabetes: HgA1c 6.4 Lantus 10 unit qPM Insulin Lispro SSI AC HS Accu Check AC HS Hypoglycemia protocol Dysphagia level 6 diet GI ppx: Prilosec DVT ppx: Eliquis Code status: DNR Prognosis: stable Disposition: inpatient med surg; pending SNF once CoVID quarantine is over Time Spent With Patient Time: Total time spent is greater than 50% in coordination of care (as documented) at patient's floor/unit and/or counseling patient: Total time spent with greater than 50% in coordination of care (as documented) at patient's floor/unit and/or counseling patient:: 35 - 50 minutes
[2022-03-24] MEDS: INSULIN GLARGINE, HUMAN 1 UNIT/0.01 ML SQ SCH (20:34)
[2022-03-25] MEDS: INSULIN LISPRO 1 UNIT/0.01 ML UNIT SQ SCH ×4 (07:11→20:38)
[2022-03-25] MEDS: OMEPRAZOLE 20 MG CAPSULE PO SCH (07:12)
[2022-03-25] MEDS: METHOCARBAMOL 750 MG TABLET PO SCH (08:18)
[2022-03-25] MEDS: MEMANTINE 10 MG TABLET PO SCH ×2 (08:18→21:05)
[2022-03-25] MEDS: FUROSEMIDE 20 MG TABLET PO SCH (08:19)
[2022-03-25] MEDS: FLUoxetine HCL 20 MG CAPSULE PO SCH (08:19)
[2022-03-25] MEDS: DOCUSATE SODIUM 100 MG CAPSULE PO SCH ×2 (08:19→21:05)
[2022-03-25] MEDS: APIXABAN 5 MG TABLET PO SCH ×2 (08:19→21:05)
[2022-03-25] MEDS: amLODIPine 5 MG TABLET PO SCH (08:19)
[2022-03-25] MEDS: BISOPROLOL 5 MG TABLET PO SCH (08:19)
[2022-03-25] MEDS: TAMSULOSIN 0.4 MG CAPSULE PO SCH ×2 (08:19→21:05)
[2022-03-25] MEDS: Budesonide-Formoterol 10.2 GM HFA aerosol inhaler INH SCH ×2 (08:20→20:38)
[2022-03-25] MEDS: ACETAMINOPHEN W/CODEINE #3 1 TABLET PO PRN (10:06)
--- NOTE | 2022-03-25 12:52 | Internal Med Progress Note ---
SUBJECTIVE Subjective Patient information: Note initiated : 03/25/22 at 12:50 pm Service Date, if different from initiated Date: [] Patient: Edmond Salas 86 y/o M admitted on 02/18/22 for Weakness/Eval for assisted living-PNA,Sepsis. Chief Complaint: [] Interval history: 03/24: There was no major overnight events. No new complaints. Currently on 10 days CoVID quarantine before SNF placement becomes possible. 03/25: Patient is complaining of mild left shoulder pain. He denies any shortness of breath. His appetite is not the greatest. He is on room air. Currently on 10 days CoVID quarantine before SNF placement becomes possible. Constitutional Vitals: Vital Signs Temp Pulse Resp BP Pulse Ox O2 Del Method O2 Flow Rate 36.3 C 76 18 115/66 97 0 03/25/22 11:00 03/25/22 11:00 03/25/22 11:00 03/25/22 11:00 03/25/22 11:00 03/25/22 11:00 02/25/22 04:00 Period Temp Pulse Resp BP Sys/Meza Pulse Ox O2 Del Method O2 Flow Rate Last 24 Hr 36.3 C-36.9 C 75-82 16-18 106-149/66-74 94-97 Room Air-Room Air Intake and Output 03/25/22 03/25/22 03/25/22 03:59 11:59 19:59 Intake Total 1420 Output Total 1 1 Balance -1 1419 Intake & Output: Intake & Output 03/25/22 03/25/22 03/25/22 03:59 11:59 19:59 Intake Total 1420 Output Total 1 1 Balance -1 1419 Intake: Oral 1420 Output: # of times incontinent of urine 1 1 Other: Meal Breakfast Percent of Meal Consumed 25% Feeding Ability Assist with Tray Set Up Stool Size Moderate Smear Stool Color Brown Brown Stool Consistency Soft Soft # of times incontinent of 1 1 Bowels Head Head exam: Present atraumatic and normal inspection Eye Eye exam: Present normal appearance ENT ENT exam: Present mucous membranes moist, normal exam and normal external ear exam Neck Neck exam: Present normal inspection Respiratory Respiratory exam: Present normal respiratory exam Cardiovascular Cardiovascular exam: Present irregular rhythm GI/Abdominal GI/Abdominal exam: Present normal bowel sounds Back Exam Back exam: Present normal inspection Neurological Exam Neurological exam: Present alert and oriented X3 Skin Skin exam: Present intact and warm OBJ DATA Labs CBC & Chem 7: 02/28/22 05:49 02/28/22 05:49 Meds: Medications Acetaminophen (Acetaminophen 325 Mg Tablet) 650 mg PO Q6HP PRN; Protocol PRN Reason: Per Pain Protocol/Fever > 101 Last Admin: 03/21/22 16:57 Dose: 650 mg Acetaminophen/Codeine Phosphate (Acetaminophen W/Codeine #3 1 Tablet) 1 tab PO BIDP PRN; Protocol PRN Reason: Pain Last Admin: 03/25/22 10:06 Dose: 1 tab Albuterol/Ipratropium (Ipratropium/Albuterol 3 Ml Ampul.Neb) 3 ml NEB Q4HP PRN PRN Reason: Shortness Of Breath Last Admin: 03/06/22 20:44 Dose: 3 ml Amlodipine Besylate (Amlodipine 5 Mg Tablet) 2.5 mg PO DAILY [facility] Last Admin: 03/25/22 08:19 Dose: 2.5 mg Apixaban (Apixaban 5 Mg Tablet) 5 mg PO BID [facility] Last Admin: 03/25/22 08:19 Dose: 5 mg Bisoprolol Fumarate (Bisoprolol 5 Mg Tablet) 10 mg PO DAILY [facility] Last Admin: 03/25/22 08:19 Dose: 10 mg Dextrose (Dextrose 50% 50 Ml Vial) 0 ml IV UD PRN PRN Reason: Per Sliding Scale Diagnostic Test (Pha) (Accu-Chek 1 Each Strip) 1 each FS ACHS [facility] Last Admin: 03/25/22 11:43 Dose: 1 each Docusate Sodium (Docusate Sodium 100 Mg Capsule) 100 mg PO BID [facility] Last Admin: 03/25/22 08:19 Dose: 100 mg Fluoxetine HCl (Fluoxetine Hcl 20 Mg Capsule) 20 mg PO DAILY [facility] Last Admin: 03/25/22 08:19 Dose: 20 mg Furosemide (Furosemide 20 Mg Tablet) 40 mg PO DAILY [facility] Last Admin: 03/25/22 08:19 Dose: 40 mg Glucose (Dextrose 31 Gm Oral.Susp) 15 gm PO PRN PRN PRN Reason: Hypoglycemia Potassium Chloride 40 meq/ (Dextrose) 520 mls @ 130 mls/hr IV UD PRN PRN Reason: Potassium < 3 Magnesium Sulfate (Magnesium Sulfate) 2 gm in 50 mls @ 50 mls/hr IV UD PRN PRN Reason: Magnesium </= 1.6 Insulin Glargine (Insulin Glargine, Human 1 Unit/0.01 Ml) 10 unit SQ QPM [facility] Last Admin: 03/24/22 20:34 Dose: 10 units Insulin Human Lispro (Insulin Lispro 1 Unit/0.01 Ml Unit) 0 unit SQ ACHS [facility]; Protocol Last Admin: 03/25/22 11:59 Dose: 9 unit Memantine (Memantine 10 Mg Tablet) 5 mg PO BID [facility] Last Admin: 03/25/22 08:18 Dose: 5 mg Methocarbamol (Methocarbamol 750 Mg Tablet) 750 mg PO DAILY [facility] Last Admin: 03/25/22 08:18 Dose: 750 mg Metoprolol Tartrate (Metoprolol Tartrate 5 Mg/5 Ml Vial) 5 mg IV Q2HP PRN PRN Reason: Tachyarrhythmias HR>110 Last Admin: 02/19/22 22:21 Dose: 5 mg Omeprazole (Omeprazole 20 Mg Capsule) 20 mg PO ACB [facility] Last Admin: 03/25/22 07:12 Dose: 20 mg Ondansetron HCl (Ondansetron 4 Mg/2 Ml Vial) 4 mg IV Q4HP PRN PRN Reason: Nausea And Vomiting Budesonide- Formoterol 10.2 Gm Hfa Aerosol Inhaler 2 dose INH BID [facility] Last Admin: 03/25/22 08:20 Dose: Not Given Polyethylene Glycol (Polyethylene Glycol 3350 17 Gm Packet) 17 gm PO DAILYP PRN PRN Reason: Constipation Last Admin: 02/22/22 08:43 Dose: 17 gm Potassium Chloride (Potassium Chloride 20 Meq Tablet) 40 meq PO UD PRN PRN Reason: Potssium is 3-3.5 Potassium Chloride (Potassium Chloride 20 Meq Tablet) 40 meq PO UD PRN PRN Reason: Potassium < 3 Quetiapine Fumarate (Quetiapine 25 Mg Tablet) 50 mg PO HS [facility] Last Admin: 03/24/22 20:33 Dose: 50 mg Quetiapine Fumarate (Quetiapine 25 Mg Tablet) 12.5 mg PO Q6HP PRN PRN Reason: agitation Last Admin: 03/20/22 03:46 Dose: 12.5 mg Quetiapine Fumarate (Quetiapine 25 Mg Tablet) 25 mg PO DAILY@1400 [facility] Senna (Sennosides 1 Tablet) 2 tab PO DAILYP PRN PRN Reason: Constipation Last Admin: 03/17/22 21:16 Dose: 2 tab Tamsulosin HCl (Tamsulosin 0.4 Mg Capsule) 0.4 mg PO BID [facility] Last Admin: 03/25/22 08:19 Dose: 0.4 mg A/P Assessment and plan (1) COVID-19: Status: Acute (2) Failure to thrive in adult: Status: Acute (3) Paroxysmal atrial fibrillation with RVR: Status: Acute (4) Diastolic CHF: Status: Acute (5) Essential hypertension: Status: Acute (6) Dementia: Status: Acute (7) COPD (chronic obstructive pulmonary disease): Status: Acute (8) Chronic kidney disease (CKD) stage G2/A1, mildly decreased glomerular filtration rate (GFR) between 60-89 mL/min/1.73 square meter and albuminuria creatinine ratio less than 30 mg/g: Status: Acute (9) Anemia, normocytic normochromic: Status: Acute (10) Obesity (BMI 30.0-34.9): Status: Acute (11) Prediabetes: Status: Acute Narrative A/P Narrative: Assessment and Plans: 1. Adult failure to thrive: Pending SNF placement once CoVID quarantine is over 2. Asymptomatic CoVID infection: Currently on room air Pending SNF placement once CoVID quarantine is over 3. Dementia: Memantine Continue to monitor 4. h/o diastolic CHF: Bisoprolol Oral Lasix 5. Essential hypertension: Amlodipine Bisoprolol Oral Lasix 6. Atrial fibrillation: Bisoprolol Eliquis 7. Anemia, normocytic normochromic: Stable 8. Chronic kidney disease II: Stable Continue saline lock with oral Lasix 9. Obesity BMI 30.0-39.9: Due to dementia, cannot behavioral health counselor patient on life style modifications 10. Prediabetes: HgA1c 6.4 Lantus 10 unit qPM Insulin Lispro SSI AC HS Accu Check AC HS Hypoglycemia protocol Dysphagia level 6 diet GI ppx: Prilosec DVT ppx: Eliquis Code status: DNR Prognosis: stable Disposition: inpatient med surg; pending SNF once CoVID quarantine is over Time Spent With Patient Time: Total time spent is greater than 50% in coordination of care (as documented) at patient's floor/unit and/or counseling patient: Total time spent with greater than 50% in coordination of care (as documented) at patient's floor/unit and/or counseling patient:: 25 - 35 minutes
[2022-03-25] MEDS: ACETAMINOPHEN 325 MG TABLET PO PRN (12:59)
[2022-03-25] MEDS: QUEtiapine 25 MG TABLET PO SCH ×2 (14:25→21:05)
[2022-03-25] MEDS: INSULIN GLARGINE, HUMAN 1 UNIT/0.01 ML SQ SCH (20:37)
[2022-03-26] MEDS: INSULIN LISPRO 1 UNIT/0.01 ML UNIT SQ SCH ×4 (07:06→20:47)
[2022-03-26] MEDS: OMEPRAZOLE 20 MG CAPSULE PO SCH (07:36)
[2022-03-26] MEDS: MEMANTINE 10 MG TABLET PO SCH ×2 (08:08→20:43)
[2022-03-26] MEDS: amLODIPine 5 MG TABLET PO SCH (08:08)
[2022-03-26] MEDS: BISOPROLOL 5 MG TABLET PO SCH (08:08)
[2022-03-26] MEDS: APIXABAN 5 MG TABLET PO SCH ×2 (08:09→20:43)
[2022-03-26] MEDS: ACETAMINOPHEN 325 MG TABLET PO PRN (08:09)
[2022-03-26] MEDS: FUROSEMIDE 20 MG TABLET PO SCH (08:09)
[2022-03-26] MEDS: DOCUSATE SODIUM 100 MG CAPSULE PO SCH ×2 (08:09→20:47)
[2022-03-26] MEDS: Budesonide-Formoterol 10.2 GM HFA aerosol inhaler INH SCH ×2 (08:10→20:47)
[2022-03-26] MEDS: METHOCARBAMOL 750 MG TABLET PO SCH (08:10)
[2022-03-26] MEDS: FLUoxetine HCL 20 MG CAPSULE PO SCH (08:10)
[2022-03-26] MEDS: TAMSULOSIN 0.4 MG CAPSULE PO SCH ×2 (08:10→20:43)
[2022-03-26] MEDS: QUEtiapine 25 MG TABLET PO SCH ×2 (13:40→20:44)
--- NOTE | 2022-03-26 14:51 | Internal Med Progress Note ---
SUBJECTIVE Subjective Patient information: Note initiated : 03/26/22 at 2:49 pm Service Date, if different from initiated Date: [] Patient: Edmond Salas 86 y/o M admitted on 02/18/22 for Weakness/Eval for assisted living-PNA,Sepsis. Chief Complaint: [] Interval history: 03/24: There was no major overnight events. No new complaints. Currently on 10 days CoVID quarantine before SNF placement becomes possible. 03/25: Patient is complaining of mild left shoulder pain. He denies any shortness of breath. His appetite is not the greatest. He is on room air. Currently on 10 days CoVID quarantine before SNF placement becomes possible. 03/26: There was no major overnight events. Patient has no new complaints. Currently on CoVID quarantine before SNF placement becomes possible. Constitutional Vitals: Vital Signs Temp Pulse Resp BP Pulse Ox O2 Del Method O2 Flow Rate 36.4 C 82 16 108/65 95 0 03/26/22 11:00 03/26/22 11:00 03/26/22 11:00 03/26/22 11:00 03/26/22 11:00 03/26/22 11:00 02/25/22 04:00 Period Temp Pulse Resp BP Sys/Meza Pulse Ox O2 Del Method O2 Flow Rate Last 24 Hr 36.3 C-36.6 C 73-90 14-17 96-128/57-70 94-98 Room Air-Room Air Intake and Output 03/26/22 03/26/22 03/26/22 03:59 11:59 19:59 Intake Total 480 480 240 Output Total 2 Balance 480 478 240 Intake & Output: Intake & Output 03/26/22 03/26/22 03/26/22 03:59 11:59 19:59 Intake Total 480 480 240 Output Total 2 Balance 480 478 240 Intake: Oral 480 480 240 Output: # of times incontinent of urine 2 Other: Meal Breakfast Lunch Percent of Meal Consumed bites bites Feeding Ability Assist with Tray Set Up Stool Color Brown Stool Consistency Soft # Voids 1 # of times incontinent of 1 Bowels OBJ DATA Labs CBC & Chem 7: 02/28/22 05:49 02/28/22 05:49 Meds: Medications Acetaminophen (Acetaminophen 325 Mg Tablet) 650 mg PO Q6HP PRN; Protocol PRN Reason: Per Pain Protocol/Fever > 101 Last Admin: 03/26/22 08:09 Dose: 650 mg Acetaminophen/Codeine Phosphate (Acetaminophen W/Codeine #3 1 Tablet) 1 tab PO BIDP PRN; Protocol PRN Reason: Pain Last Admin: 03/25/22 10:06 Dose: 1 tab Albuterol/Ipratropium (Ipratropium/Albuterol 3 Ml Ampul.Neb) 3 ml NEB Q4HP PRN PRN Reason: Shortness Of Breath Last Admin: 03/06/22 20:44 Dose: 3 ml Amlodipine Besylate (Amlodipine 5 Mg Tablet) 2.5 mg PO DAILY [facility] Last Admin: 03/26/22 08:08 Dose: 2.5 mg Apixaban (Apixaban 5 Mg Tablet) 5 mg PO BID [facility] Last Admin: 03/26/22 08:09 Dose: 5 mg Bisoprolol Fumarate (Bisoprolol 5 Mg Tablet) 10 mg PO DAILY [facility] Last Admin: 03/26/22 08:08 Dose: 10 mg Dextrose (Dextrose 50% 50 Ml Vial) 0 ml IV UD PRN PRN Reason: Per Sliding Scale Diagnostic Test (Pha) (Accu-Chek 1 Each Strip) 1 each FS ACHS [facility] Last Admin: 03/26/22 11:21 Dose: 1 each Docusate Sodium (Docusate Sodium 100 Mg Capsule) 100 mg PO BID [facility] Last Admin: 03/26/22 08:09 Dose: 100 mg Fluoxetine HCl (Fluoxetine Hcl 20 Mg Capsule) 20 mg PO DAILY [facility] Last Admin: 03/26/22 08:10 Dose: 20 mg Furosemide (Furosemide 20 Mg Tablet) 40 mg PO DAILY [facility] Last Admin: 03/26/22 08:09 Dose: 40 mg Glucose (Dextrose 31 Gm Oral.Susp) 15 gm PO PRN PRN PRN Reason: Hypoglycemia Potassium Chloride 40 meq/ (Dextrose) 520 mls @ 130 mls/hr IV UD PRN PRN Reason: Potassium < 3 Magnesium Sulfate (Magnesium Sulfate) 2 gm in 50 mls @ 50 mls/hr IV UD PRN PRN Reason: Magnesium </= 1.6 Insulin Glargine (Insulin Glargine, Human 1 Unit/0.01 Ml) 10 unit SQ QPM [facility] Last Admin: 03/25/22 20:37 Dose: 10 units Insulin Human Lispro (Insulin Lispro 1 Unit/0.01 Ml Unit) 0 unit SQ ACHS [facility]; Protocol Last Admin: 03/26/22 11:31 Dose: 12 unit Memantine (Memantine 10 Mg Tablet) 5 mg PO BID [facility] Last Admin: 03/26/22 08:08 Dose: 5 mg Methocarbamol (Methocarbamol 750 Mg Tablet) 750 mg PO DAILY [facility] Last Admin: 03/26/22 08:10 Dose: 750 mg Metoprolol Tartrate (Metoprolol Tartrate 5 Mg/5 Ml Vial) 5 mg IV Q2HP PRN PRN Reason: Tachyarrhythmias HR>110 Last Admin: 02/19/22 22:21 Dose: 5 mg Omeprazole (Omeprazole 20 Mg Capsule) 20 mg PO ACB [facility] Last Admin: 03/26/22 07:36 Dose: 20 mg Ondansetron HCl (Ondansetron 4 Mg/2 Ml Vial) 4 mg IV Q4HP PRN PRN Reason: Nausea And Vomiting Budesonide- Formoterol 10.2 Gm Hfa Aerosol Inhaler 2 dose INH BID [facility] Last Admin: 03/26/22 08:10 Dose: Not Given Polyethylene Glycol (Polyethylene Glycol 3350 17 Gm Packet) 17 gm PO DAILYP PRN PRN Reason: Constipation Last Admin: 02/22/22 08:43 Dose: 17 gm Potassium Chloride (Potassium Chloride 20 Meq Tablet) 40 meq PO UD PRN PRN Reason: Potssium is 3-3.5 Potassium Chloride (Potassium Chloride 20 Meq Tablet) 40 meq PO UD PRN PRN Reason: Potassium < 3 Quetiapine Fumarate (Quetiapine 25 Mg Tablet) 50 mg PO HS [facility] Last Admin: 03/25/22 21:05 Dose: 50 mg Quetiapine Fumarate (Quetiapine 25 Mg Tablet) 12.5 mg PO Q6HP PRN PRN Reason: agitation Last Admin: 03/20/22 03:46 Dose: 12.5 mg Quetiapine Fumarate (Quetiapine 25 Mg Tablet) 25 mg PO DAILY@1400 [facility] Last Admin: 03/26/22 13:40 Dose: 25 mg Senna (Sennosides 1 Tablet) 2 tab PO DAILYP PRN PRN Reason: Constipation Last Admin: 03/17/22 21:16 Dose: 2 tab Tamsulosin HCl (Tamsulosin 0.4 Mg Capsule) 0.4 mg PO BID [facility] Last Admin: 03/26/22 08:10 Dose: 0.4 mg A/P Assessment and plan (1) COVID-19: Status: Acute (2) Failure to thrive in adult: Status: Acute (3) Paroxysmal atrial fibrillation with RVR: Status: Acute (4) Diastolic CHF: Status: Acute (5) Essential hypertension: Status: Acute (6) Dementia: Status: Acute (7) COPD (chronic obstructive pulmonary disease): Status: Acute (8) Chronic kidney disease (CKD) stage G2/A1, mildly decreased glomerular filtration rate (GFR) between 60-89 mL/min/1.73 square meter and albuminuria creatinine ratio less than 30 mg/g: Status: Acute (9) Anemia, normocytic normochromic: Status: Acute (10) Obesity (BMI 30.0-34.9): Status: Acute (11) Prediabetes: Status: Acute Narrative A/P Narrative: Assessment and Plans: 1. Adult failure to thrive: Pending SNF placement once CoVID quarantine is over 2. Asymptomatic CoVID infection: Currently on room air Pending SNF placement once CoVID quarantine is over 3. Dementia: Memantine Continue to monitor 4. h/o diastolic CHF: Bisoprolol Oral Lasix 5. Essential hypertension: Amlodipine Bisoprolol Oral Lasix 6. Atrial fibrillation: Bisoprolol Eliquis 7. Anemia, normocytic normochromic: Stable 8. Chronic kidney disease II: Stable Continue saline lock with oral Lasix 9. Obesity BMI 30.0-39.9: Due to dementia, cannot day camp counselor patient on life style modifications 10. Prediabetes: HgA1c 6.4 Lantus 10 unit qPM Insulin Lispro SSI AC HS Accu Check AC HS Hypoglycemia protocol Dysphagia level 6 diet GI ppx: Prilosec DVT ppx: Eliquis Code status: DNR Prognosis: stable Disposition: inpatient med surg; pending SNF once CoVID quarantine is over Time Spent With Patient Time: Total time spent is greater than 50% in coordination of care (as documented) at patient's floor/unit and/or counseling patient: Total time spent with greater than 50% in coordination of care (as documented) at patient's floor/unit and/or counseling patient:: 25 - 35 minutes
[2022-03-26] MEDS: ACETAMINOPHEN W/CODEINE #3 1 TABLET PO PRN (17:46)
[2022-03-26] MEDS: INSULIN GLARGINE, HUMAN 1 UNIT/0.01 ML SQ SCH (20:46)
[2022-03-27] MEDS: INSULIN LISPRO 1 UNIT/0.01 ML UNIT SQ SCH ×4 (07:35→20:24)
[2022-03-27] MEDS: OMEPRAZOLE 20 MG CAPSULE PO SCH (07:35)
[2022-03-27] MEDS: amLODIPine 5 MG TABLET PO SCH (08:25)
[2022-03-27] MEDS: APIXABAN 5 MG TABLET PO SCH ×2 (08:25→20:25)
[2022-03-27] MEDS: DOCUSATE SODIUM 100 MG CAPSULE PO SCH ×2 (08:25→20:24)
[2022-03-27] MEDS: TAMSULOSIN 0.4 MG CAPSULE PO SCH ×2 (08:25→20:25)
[2022-03-27] MEDS: MEMANTINE 10 MG TABLET PO SCH ×2 (08:25→20:24)
[2022-03-27] MEDS: FUROSEMIDE 20 MG TABLET PO SCH (08:25)
[2022-03-27] MEDS: Budesonide-Formoterol 10.2 GM HFA aerosol inhaler INH SCH ×2 (08:25→20:25)
[2022-03-27] MEDS: METHOCARBAMOL 750 MG TABLET PO SCH (08:26)
[2022-03-27] MEDS: FLUoxetine HCL 20 MG CAPSULE PO SCH (08:26)
[2022-03-27] MEDS: BISOPROLOL 5 MG TABLET PO SCH (08:26)
[2022-03-27] MEDS: ACETAMINOPHEN W/CODEINE #3 1 TABLET PO PRN (10:52)
--- NOTE | 2022-03-27 13:45 | Internal Med Progress Note ---
SUBJECTIVE Subjective Patient information: Note initiated : 03/27/22 at 1:44 pm Service Date, if different from initiated Date: [] Patient: Edmond Salas 86 y/o M admitted on 02/18/22 for Weakness/Eval for assisted living-PNA,Sepsis. Chief Complaint: [] Interval history: 03/24: There was no major overnight events. No new complaints. Currently on 10 days [facility] quarantine before SNF placement becomes possible. 03/25: Patient is complaining of mild left shoulder pain. He denies any shortness of breath. His appetite is not the greatest. He is on room air. Currently on 10 days [facility] quarantine before SNF placement becomes possible. 03/26: There was no major overnight events. Patient has no new complaints. Currently on [facility] quarantine before SNF placement becomes possible. 03/27: There was no major overnight events. Patient has no new complaints. Currently on [facility] quarantine before SNF placement becomes possible. Constitutional Vitals: Vital Signs Temp Pulse Resp BP Pulse Ox O2 Del Method O2 Flow Rate 36.8 C 72 16 117/63 97 0 03/27/22 11:31 03/27/22 11:31 03/27/22 11:31 03/27/22 11:31 03/27/22 11:31 03/27/22 11:31 02/25/22 04:00 Period Temp Pulse Resp BP Sys/Meza Pulse Ox O2 Del Method O2 Flow Rate Last 24 Hr 36.6 C-36.9 C 70-87 14-20 101-125/60-69 95-97 Room Air-Room Air Intake and Output 03/27/22 03/27/22 03/27/22 03:59 11:59 19:59 Intake Total 420 360 Output Total 4 Balance 420 356 Intake & Output: Intake & Output 03/27/22 03/27/22 03/27/22 03:59 11:59 19:59 Intake Total 420 360 Output Total 4 Balance 420 356 Intake: Oral 420 360 Output: # of times incontinent of urine 4 Other: Meal Breakfast Percent of Meal Consumed 75% Feeding Ability Assist with Tray Set Up # Voids 1 Head Head exam: Present atraumatic and normal inspection Eye Eye exam: Present normal appearance ENT ENT exam: Present mucous membranes moist, normal exam and normal external ear exam Neck Neck exam: Present normal inspection Respiratory Respiratory exam: Present normal respiratory exam Cardiovascular Cardiovascular exam: Present irregular rhythm GI/Abdominal GI/Abdominal exam: Present normal bowel sounds Back Exam Back exam: Present normal inspection Neurological Exam Neurological exam: Present alert; Absent oriented X3 Skin Skin exam: Present intact and warm OBJ DATA Labs CBC & Chem 7: 02/28/22 05:49 02/28/22 05:49 Meds: Medications Acetaminophen (Acetaminophen 325 Mg Tablet) 650 mg PO Q6HP PRN; Protocol PRN Reason: Per Pain Protocol/Fever > 101 Last Admin: 03/26/22 08:09 Dose: 650 mg Acetaminophen/Codeine Phosphate (Acetaminophen W/Codeine #3 1 Tablet) 1 tab PO BIDP PRN; Protocol PRN Reason: Pain Last Admin: 03/27/22 10:52 Dose: 1 tab Albuterol/Ipratropium (Ipratropium/Albuterol 3 Ml Ampul.Neb) 3 ml NEB Q4HP PRN PRN Reason: Shortness Of Breath Last Admin: 03/06/22 20:44 Dose: 3 ml Amlodipine Besylate (Amlodipine 5 Mg Tablet) 2.5 mg PO DAILY [facility] Last Admin: 03/27/22 08:25 Dose: 2.5 mg Apixaban (Apixaban 5 Mg Tablet) 5 mg PO BID [facility] Last Admin: 03/27/22 08:25 Dose: 5 mg Bisoprolol Fumarate (Bisoprolol 5 Mg Tablet) 10 mg PO DAILY [facility] Last Admin: 03/27/22 08:26 Dose: 10 mg Dextrose (Dextrose 50% 50 Ml Vial) 0 ml IV UD PRN PRN Reason: Per Sliding Scale Diagnostic Test (Pha) (Accu-Chek 1 Each Strip) 1 each FS ACHS [facility] Last Admin: 03/27/22 10:52 Dose: 1 each Docusate Sodium (Docusate Sodium 100 Mg Capsule) 100 mg PO BID [facility] Last Admin: 03/27/22 08:25 Dose: Not Given Fluoxetine HCl (Fluoxetine Hcl 20 Mg Capsule) 20 mg PO DAILY [facility] Last Admin: 03/27/22 08:26 Dose: 20 mg Furosemide (Furosemide 20 Mg Tablet) 40 mg PO DAILY [facility] Last Admin: 03/27/22 08:25 Dose: 40 mg Glucose (Dextrose 31 Gm Oral.Susp) 15 gm PO PRN PRN PRN Reason: Hypoglycemia Potassium Chloride 40 meq/ (Dextrose) 520 mls @ 130 mls/hr IV UD PRN PRN Reason: Potassium < 3 Magnesium Sulfate (Magnesium Sulfate) 2 gm in 50 mls @ 50 mls/hr IV UD PRN PRN Reason: Magnesium </= 1.6 Insulin Glargine (Insulin Glargine, Human 1 Unit/0.01 Ml) 10 unit SQ QPM [facility] Last Admin: 03/26/22 20:46 Dose: 10 units Insulin Human Lispro (Insulin Lispro 1 Unit/0.01 Ml Unit) 0 unit SQ ACHS [facility]; Protocol Last Admin: 03/27/22 10:52 Dose: Not Given Memantine (Memantine 10 Mg Tablet) 5 mg PO BID [facility] Last Admin: 03/27/22 08:25 Dose: 5 mg Methocarbamol (Methocarbamol 750 Mg Tablet) 750 mg PO DAILY [facility] Last Admin: 03/27/22 08:26 Dose: 750 mg Metoprolol Tartrate (Metoprolol Tartrate 5 Mg/5 Ml Vial) 5 mg IV Q2HP PRN PRN Reason: Tachyarrhythmias HR>110 Last Admin: 02/19/22 22:21 Dose: 5 mg Omeprazole (Omeprazole 20 Mg Capsule) 20 mg PO ACB [facility] Last Admin: 03/27/22 07:35 Dose: 20 mg Ondansetron HCl (Ondansetron 4 Mg/2 Ml Vial) 4 mg IV Q4HP PRN PRN Reason: Nausea And Vomiting Budesonide- Formoterol 10.2 Gm Hfa Aerosol Inhaler 2 dose INH BID [facility] Last Admin: 03/27/22 08:25 Dose: Not Given Polyethylene Glycol (Polyethylene Glycol 3350 17 Gm Packet) 17 gm PO DAILYP PRN PRN Reason: Constipation Last Admin: 02/22/22 08:43 Dose: 17 gm Potassium Chloride (Potassium Chloride 20 Meq Tablet) 40 meq PO UD PRN PRN Reason: Potssium is 3-3.5 Potassium Chloride (Potassium Chloride 20 Meq Tablet) 40 meq PO UD PRN PRN Reason: Potassium < 3 Quetiapine Fumarate (Quetiapine 25 Mg Tablet) 50 mg PO HS [facility] Last Admin: 03/26/22 20:44 Dose: 50 mg Quetiapine Fumarate (Quetiapine 25 Mg Tablet) 12.5 mg PO Q6HP PRN PRN Reason: agitation Last Admin: 03/20/22 03:46 Dose: 12.5 mg Quetiapine Fumarate (Quetiapine 25 Mg Tablet) 25 mg PO DAILY@1400 [facility] Last Admin: 03/26/22 13:40 Dose: 25 mg Senna (Sennosides 1 Tablet) 2 tab PO DAILYP PRN PRN Reason: Constipation Last Admin: 03/17/22 21:16 Dose: 2 tab Tamsulosin HCl (Tamsulosin 0.4 Mg Capsule) 0.4 mg PO BID [facility] Last Admin: 03/27/22 08:25 Dose: 0.4 mg A/P Assessment and plan (1) COVID-19: Status: Acute (2) Failure to thrive in adult: Status: Acute (3) Paroxysmal atrial fibrillation with RVR: Status: Acute (4) Diastolic CHF: Status: Acute (5) Essential hypertension: Status: Acute (6) Dementia: Status: Acute (7) COPD (chronic obstructive pulmonary disease): Status: Acute (8) Chronic kidney disease (CKD) stage G2/A1, mildly decreased glomerular filtration rate (GFR) between 60-89 mL/min/1.73 square meter and albuminuria creatinine ratio less than 30 mg/g: Status: Acute (9) Anemia, normocytic normochromic: Status: Acute (10) Obesity (BMI 30.0-34.9): Status: Acute (11) Prediabetes: Status: Acute Narrative A/P Narrative: Assessment and Plans: 1. Adult failure to thrive: Pending SNF placement once Co[facility] quarantine is over 2. Asymptomatic CoVID infection: Currently on room air Pending SNF placement once [facility] quarantine is over 3. Dementia: Memantine Continue to monitor 4. h/o diastolic CHF: Bisoprolol Oral Lasix 5. Essential hypertension: Amlodipine Bisoprolol Oral Lasix 6. Atrial fibrillation: Bisoprolol Eliquis 7. Anemia, normocytic normochromic: Stable 8. Chronic kidney disease II: Stable Continue saline lock with oral Lasix 9. Obesity BMI 30.0-39.9: Due to dementia, cannot rehabilitation counselor patient on life style modifications 10. Prediabetes: HgA1c 6.4 Lantus 10 unit qPM Insulin Lispro SSI AC HS Accu Check AC HS Hypoglycemia protocol Dysphagia level 6 diet GI ppx: Prilosec DVT ppx: Eliquis Code status: DNR Prognosis: stable Disposition: inpatient med surg; pending SNF once [facility] quarantine is over Time Spent With Patient Time: Total time spent is greater than 50% in coordination of care (as documented) at patient's floor/unit and/or counseling patient: Total time spent with greater than 50% in coordination of care (as documented) at patient's floor/unit and/or counseling patient:: 25 - 35 minutes
[2022-03-27] MEDS: QUEtiapine 25 MG TABLET PO SCH ×2 (14:22→20:25)
[2022-03-27] MEDS: INSULIN GLARGINE, HUMAN 1 UNIT/0.01 ML SQ SCH (20:23)
[2022-03-28] MEDS: OMEPRAZOLE 20 MG CAPSULE PO SCH (07:22)
[2022-03-28] MEDS: INSULIN LISPRO 1 UNIT/0.01 ML UNIT SQ SCH ×4 (07:49→21:06)
[2022-03-28] MEDS: BISOPROLOL 5 MG TABLET PO SCH (08:31)
[2022-03-28] MEDS: MEMANTINE 10 MG TABLET PO SCH ×2 (08:32→21:08)
[2022-03-28] MEDS: FUROSEMIDE 20 MG TABLET PO SCH (08:32)
[2022-03-28] MEDS: amLODIPine 5 MG TABLET PO SCH (08:33)
[2022-03-28] MEDS: DOCUSATE SODIUM 100 MG CAPSULE PO SCH ×2 (08:33→21:07)
[2022-03-28] MEDS: APIXABAN 5 MG TABLET PO SCH ×2 (08:33→21:08)
[2022-03-28] MEDS: TAMSULOSIN 0.4 MG CAPSULE PO SCH ×2 (08:33→21:08)
[2022-03-28] MEDS: Budesonide-Formoterol 10.2 GM HFA aerosol inhaler INH SCH ×2 (08:33→21:15)
[2022-03-28] MEDS: METHOCARBAMOL 750 MG TABLET PO SCH (08:33)
[2022-03-28] MEDS: FLUoxetine HCL 20 MG CAPSULE PO SCH (08:33)
--- NOTE | 2022-03-28 09:24 | Internal Med Progress Note ---
SUBJECTIVE Subjective Patient information: Note initiated : 03/28/22 at 9:22 am Service Date, if different from initiated Date: [] Patient: Edmond Salas 86 y/o M admitted on 02/18/22 for Weakness/Eval for assisted living-PNA,Sepsis. Chief Complaint: [] Interval history: 03/24: There was no major overnight events. No new complaints. Currently on 10 days [facility] quarantine before SNF placement becomes possible. 03/25: Patient is complaining of mild left shoulder pain. He denies any shortness of breath. His appetite is not the greatest. He is on room air. Currently on 10 days [facility] quarantine before SNF placement becomes possible. 03/26: There was no major overnight events. Patient has no new complaints. Currently on [facility] quarantine before SNF placement becomes possible. 03/27: There was no major overnight events. Patient has no new complaints. Currently on [facility] quarantine before SNF placement becomes possible. 03/28: There was no major overnight events. Patient has no new complaints. Currently on [facility] quarantine before SNF placement becomes possible. Constitutional Vitals: Vital Signs Temp Pulse Resp BP Pulse Ox O2 Del Method O2 Flow Rate 36.6 C 75 18 107/57 97 0 03/28/22 04:38 03/28/22 04:38 03/28/22 04:38 03/28/22 04:38 03/28/22 04:38 03/28/22 06:49 02/25/22 04:00 Period Temp Pulse Resp BP Sys/Meza Pulse Ox O2 Del Method O2 Flow Rate Last 24 Hr 36.6 C-36.8 C 71-78 16-18 101-117/52-64 95-97 Room Air-Room Air Intake and Output 03/27/22 03/28/22 03/28/22 19:59 03:59 11:59 Intake Total 1320 0 Output Total 3 1 Balance 1317 -1 0 Weight 115.575 kg Intake & Output: Intake & Output 03/27/22 03/28/22 03/28/22 19:59 03:59 11:59 Intake Total 1320 0 Output Total 3 1 Balance 1317 -1 0 Weight 115.575 kg Intake: Oral 1320 0 Output: # of times incontinent of urine 3 1 Other: Meal Lunch Percent of Meal Consumed 75% Feeding Ability Assist with Tray Set Up Stool Size Small Smear Stool Color Brown Brown Stool Consistency Soft # Voids 1 1 Head Head exam: Present atraumatic and normal inspection Eye Eye exam: Present normal appearance ENT ENT exam: Present mucous membranes moist, normal exam and normal external ear exam Neck Neck exam: Present normal inspection Respiratory Respiratory exam: Present normal respiratory exam Cardiovascular Cardiovascular exam: Present irregular rhythm GI/Abdominal GI/Abdominal exam: Present normal bowel sounds Back Exam Back exam: Present normal inspection Neurological Exam Neurological exam: Present alert and altered; Absent oriented X3 Skin Skin exam: Present intact and warm OBJ DATA Labs CBC & Chem 7: 02/28/22 05:49 02/28/22 05:49 Meds: Medications Acetaminophen (Acetaminophen 325 Mg Tablet) 650 mg PO Q6HP PRN; Protocol PRN Reason: Per Pain Protocol/Fever > 101 Last Admin: 03/26/22 08:09 Dose: 650 mg Acetaminophen/Codeine Phosphate (Acetaminophen W/Codeine #3 1 Tablet) 1 tab PO BIDP PRN; Protocol PRN Reason: Pain Last Admin: 03/27/22 10:52 Dose: 1 tab Albuterol/Ipratropium (Ipratropium/Albuterol 3 Ml Ampul.Neb) 3 ml NEB Q4HP PRN PRN Reason: Shortness Of Breath Last Admin: 03/06/22 20:44 Dose: 3 ml Amlodipine Besylate (Amlodipine 5 Mg Tablet) 2.5 mg PO DAILY [facility] Last Admin: 03/28/22 08:33 Dose: 2.5 mg Apixaban (Apixaban 5 Mg Tablet) 5 mg PO BID [facility] Last Admin: 03/28/22 08:33 Dose: 5 mg Bisoprolol Fumarate (Bisoprolol 5 Mg Tablet) 10 mg PO DAILY [facility] Last Admin: 03/28/22 08:31 Dose: 10 mg Dextrose (Dextrose 50% 50 Ml Vial) 0 ml IV UD PRN PRN Reason: Per Sliding Scale Diagnostic Test (Pha) (Accu-Chek 1 Each Strip) 1 each FS ACHS [facility] Last Admin: 03/28/22 07:22 Dose: 1 each Docusate Sodium (Docusate Sodium 100 Mg Capsule) 100 mg PO BID [facility] Last Admin: 03/28/22 08:33 Dose: Not Given Fluoxetine HCl (Fluoxetine Hcl 20 Mg Capsule) 20 mg PO DAILY [facility] Last Admin: 03/28/22 08:33 Dose: 20 mg Furosemide (Furosemide 20 Mg Tablet) 40 mg PO DAILY [facility] Last Admin: 03/28/22 08:32 Dose: 40 mg Glucose (Dextrose 31 Gm Oral.Susp) 15 gm PO PRN PRN PRN Reason: Hypoglycemia Potassium Chloride 40 meq/ (Dextrose) 520 mls @ 130 mls/hr IV UD PRN PRN Reason: Potassium < 3 Magnesium Sulfate (Magnesium Sulfate) 2 gm in 50 mls @ 50 mls/hr IV UD PRN PRN Reason: Magnesium </= 1.6 Insulin Glargine (Insulin Glargine, Human 1 Unit/0.01 Ml) 10 unit SQ QPM [facility] Last Admin: 03/27/22 20:23 Dose: 10 units Insulin Human Lispro (Insulin Lispro 1 Unit/0.01 Ml Unit) 0 unit SQ ACHS [facility]; Protocol Last Admin: 03/28/22 07:49 Dose: 6 unit Memantine (Memantine 10 Mg Tablet) 5 mg PO BID [facility] Last Admin: 03/28/22 08:32 Dose: 5 mg Methocarbamol (Methocarbamol 750 Mg Tablet) 750 mg PO DAILY [facility] Last Admin: 03/28/22 08:33 Dose: 750 mg Metoprolol Tartrate (Metoprolol Tartrate 5 Mg/5 Ml Vial) 5 mg IV Q2HP PRN PRN Reason: Tachyarrhythmias HR>110 Last Admin: 02/19/22 22:21 Dose: 5 mg Omeprazole (Omeprazole 20 Mg Capsule) 20 mg PO ACB [facility] Last Admin: 03/28/22 07:22 Dose: 20 mg Ondansetron HCl (Ondansetron 4 Mg/2 Ml Vial) 4 mg IV Q4HP PRN PRN Reason: Nausea And Vomiting Budesonide- Formoterol 10.2 Gm Hfa Aerosol Inhaler 2 dose INH BID [facility] Last Admin: 03/28/22 08:33 Dose: Not Given Polyethylene Glycol (Polyethylene Glycol 3350 17 Gm Packet) 17 gm PO DAILYP PRN PRN Reason: Constipation Last Admin: 02/22/22 08:43 Dose: 17 gm Potassium Chloride (Potassium Chloride 20 Meq Tablet) 40 meq PO UD PRN PRN Reason: Potssium is 3-3.5 Potassium Chloride (Potassium Chloride 20 Meq Tablet) 40 meq PO UD PRN PRN Reason: Potassium < 3 Quetiapine Fumarate (Quetiapine 25 Mg Tablet) 50 mg PO HS [facility] Last Admin: 03/27/22 20:25 Dose: 50 mg Quetiapine Fumarate (Quetiapine 25 Mg Tablet) 12.5 mg PO Q6HP PRN PRN Reason: agitation Last Admin: 03/20/22 03:46 Dose: 12.5 mg Quetiapine Fumarate (Quetiapine 25 Mg Tablet) 25 mg PO DAILY@1400 [facility] Last Admin: 03/27/22 14:22 Dose: Not Given Senna (Sennosides 1 Tablet) 2 tab PO DAILYP PRN PRN Reason: Constipation Last Admin: 03/17/22 21:16 Dose: 2 tab Tamsulosin HCl (Tamsulosin 0.4 Mg Capsule) 0.4 mg PO BID [facility] Last Admin: 03/28/22 08:33 Dose: 0.4 mg A/P Assessment and plan (1) COVID-19: Status: Acute (2) Failure to thrive in adult: Status: Acute (3) Paroxysmal atrial fibrillation with RVR: Status: Acute (4) Diastolic CHF: Status: Acute (5) Essential hypertension: Status: Acute (6) Dementia: Status: Acute (7) COPD (chronic obstructive pulmonary disease): Status: Acute (8) Chronic kidney disease (CKD) stage G2/A1, mildly decreased glomerular filtration rate (GFR) between 60-89 mL/min/1.73 square meter and albuminuria creatinine ratio less than 30 mg/g: Status: Acute (9) Anemia, normocytic normochromic: Status: Acute (10) Obesity (BMI 30.0-34.9): Status: Acute (11) Prediabetes: Status: Acute Narrative A/P Narrative: Assessment and Plans: 1. Adult failure to thrive: Pending SNF placement once CoVID quarantine is over 2. Asymptomatic CoVID infection: Currently on room air Pending SNF placement once CoVID quarantine is over 3. Dementia: Memantine Continue to monitor 4. h/o diastolic CHF: Bisoprolol Oral Lasix 5. Essential hypertension: Amlodipine Bisoprolol Oral Lasix 6. Atrial fibrillation: Bisoprolol Eliquis 7. Anemia, normocytic normochromic: Stable 8. Chronic kidney disease II: Stable Continue saline lock with oral Lasix 9. Obesity BMI 30.0-39.9: Due to dementia, cannot rehab/pre vocational counselor patient on life style modifications 10. Prediabetes: HgA1c 6.4 Lantus 10 unit qPM Insulin Lispro SSI AC HS Accu Check AC HS Hypoglycemia protocol Dysphagia level 6 diet GI ppx: Prilosec DVT ppx: Eliquis Code status: DNR Prognosis: stable Disposition: inpatient med surg; pending SNF once CoVID quarantine is over Time Spent With Patient Time: Total time spent is greater than 50% in coordination of care (as documented) at patient's floor/unit and/or counseling patient: Total time spent with greater than 50% in coordination of care (as documented) at patient's floor/unit and/or counseling patient:: 25 - 35 minutes
[2022-03-28] MEDS: QUEtiapine 25 MG TABLET PO SCH ×2 (14:18→21:08)
[2022-03-28] MEDS: INSULIN GLARGINE, HUMAN 1 UNIT/0.01 ML SQ SCH (21:06)
[2022-03-28] MEDS: ACETAMINOPHEN W/CODEINE #3 1 TABLET PO PRN (21:07)
[2022-03-29] MEDS: INSULIN LISPRO 1 UNIT/0.01 ML UNIT SQ SCH ×4 (07:03→20:24)
[2022-03-29] MEDS: OMEPRAZOLE 20 MG CAPSULE PO SCH (07:03)
[2022-03-29] MEDS: DOCUSATE SODIUM 100 MG CAPSULE PO SCH ×2 (08:42→20:25)
[2022-03-29] MEDS: FUROSEMIDE 20 MG TABLET PO SCH (08:43)
[2022-03-29] MEDS: MEMANTINE 10 MG TABLET PO SCH ×2 (08:43→20:25)
[2022-03-29] MEDS: amLODIPine 5 MG TABLET PO SCH (08:43)
[2022-03-29] MEDS: TAMSULOSIN 0.4 MG CAPSULE PO SCH ×2 (08:43→20:25)
[2022-03-29] MEDS: BISOPROLOL 5 MG TABLET PO SCH (08:43)
[2022-03-29] MEDS: Budesonide-Formoterol 10.2 GM HFA aerosol inhaler INH SCH ×2 (08:44→20:25)
[2022-03-29] MEDS: METHOCARBAMOL 750 MG TABLET PO SCH (08:44)
[2022-03-29] MEDS: FLUoxetine HCL 20 MG CAPSULE PO SCH (08:44)
[2022-03-29] MEDS: APIXABAN 5 MG TABLET PO SCH ×2 (08:44→20:25)
--- NOTE | 2022-03-29 10:28 | Internal Med Progress Note ---
SUBJECTIVE Subjective Patient information: Note initiated : 03/29/22 at 10:27 am Service Date, if different from initiated Date: [] Patient: Edmond Salas 86 y/o M admitted on 02/18/22 for Weakness/Eval for assisted living-PNA,Sepsis. Chief Complaint: [] Interval history: 03/24: There was no major overnight events. No new complaints. Currently on 10 days [facility] quarantine before SNF placement becomes possible. 03/25: Patient is complaining of mild left shoulder pain. He denies any shortness of breath. His appetite is not the greatest. He is on room air. Currently on 10 days [facility] quarantine before SNF placement becomes possible. 03/26: There was no major overnight events. Patient has no new complaints. Currently on [facility] quarantine before SNF placement becomes possible. 03/27: There was no major overnight events. Patient has no new complaints. Currently on [facility] quarantine before SNF placement becomes possible. 03/28: There was no major overnight events. Patient has no new complaints. Currently on [facility] quarantine before SNF placement becomes possible. 03/29: There was no major overnight events. Patient has no new complaints. Currently on [facility] quarantine before SNF placement becomes possible. Constitutional Vitals: Vital Signs Temp Pulse Resp BP Pulse Ox O2 Del Method O2 Flow Rate 36.4 C 77 20 115/62 95 0 03/29/22 07:06 03/29/22 07:06 03/29/22 07:06 03/29/22 07:06 03/29/22 07:06 03/29/22 07:06 02/25/22 04:00 Period Temp Pulse Resp BP Sys/Meza Pulse Ox O2 Del Method O2 Flow Rate Last 24 Hr 36.2 C-36.7 C 71-80 14-20 101-123/56-74 94-97 Room Air-Room Air Intake and Output 03/28/22 03/29/22 03/29/22 19:59 03:59 11:59 Intake Total 447 149 9460 Output Total 2 2 1 Balance 162 132 5437 Weight 114.487 kg Intake & Output: Intake & Output 03/28/22 03/29/22 03/29/22 19:59 03:59 11:59 Intake Total 388 571 1694 Output Total 2 2 1 Balance 877 446 0649 Weight 114.487 kg Intake: Oral 802 481 9444 Output: # of times incontinent of urine 2 2 1 Other: Meal Lunch Breakfast Percent of Meal Consumed 50% 100% Feeding Ability Assist with Tray Set Up Total Assistance Stool Size Large Smear Smear Stool Color Brown Brown Brown Stool Consistency Soft Soft Soft # Voids 1 1 1 # Bowel Movements 1 1 # of times incontinent of 1 1 1 Bowels Head Head exam: Present atraumatic and normal inspection Eye Eye exam: Present normal appearance ENT ENT exam: Present mucous membranes moist, normal exam and normal external ear exam Neck Neck exam: Present normal inspection Respiratory Respiratory exam: Present normal respiratory exam Cardiovascular Cardiovascular exam: Present irregular rhythm GI/Abdominal GI/Abdominal exam: Present normal bowel sounds Back Exam Back exam: Present normal inspection Neurological Exam Neurological exam: Present alert; Absent oriented X3 Skin Skin exam: Present intact and warm OBJ DATA Labs CBC & Chem 7: 02/28/22 05:49 02/28/22 05:49 Meds: Medications Acetaminophen (Acetaminophen 325 Mg Tablet) 650 mg PO Q6HP PRN; Protocol PRN Reason: Per Pain Protocol/Fever > 101 Last Admin: 03/26/22 08:09 Dose: 650 mg Acetaminophen/Codeine Phosphate (Acetaminophen W/Codeine #3 1 Tablet) 1 tab PO BIDP PRN; Protocol PRN Reason: Pain Last Admin: 03/28/22 21:07 Dose: 1 tab Albuterol/Ipratropium (Ipratropium/Albuterol 3 Ml Ampul.Neb) 3 ml NEB Q4HP PRN PRN Reason: Shortness Of Breath Last Admin: 03/06/22 20:44 Dose: 3 ml Amlodipine Besylate (Amlodipine 5 Mg Tablet) 2.5 mg PO DAILY [facility] Last Admin: 03/29/22 08:43 Dose: 2.5 mg Apixaban (Apixaban 5 Mg Tablet) 5 mg PO BID [facility] Last Admin: 03/29/22 08:44 Dose: 5 mg Bisoprolol Fumarate (Bisoprolol 5 Mg Tablet) 10 mg PO DAILY [facility] Last Admin: 03/29/22 08:43 Dose: 10 mg Dextrose (Dextrose 50% 50 Ml Vial) 0 ml IV UD PRN PRN Reason: Per Sliding Scale Diagnostic Test (Pha) (Accu-Chek 1 Each Strip) 1 each FS ACHS [facility] Last Admin: 03/29/22 06:59 Dose: 1 each Docusate Sodium (Docusate Sodium 100 Mg Capsule) 100 mg PO BID [facility] Last Admin: 03/29/22 08:42 Dose: 100 mg Fluoxetine HCl (Fluoxetine Hcl 20 Mg Capsule) 20 mg PO DAILY [facility] Last Admin: 03/29/22 08:44 Dose: 20 mg Furosemide (Furosemide 20 Mg Tablet) 40 mg PO DAILY [facility] Last Admin: 03/29/22 08:43 Dose: 40 mg Glucose (Dextrose 31 Gm Oral.Susp) 15 gm PO PRN PRN PRN Reason: Hypoglycemia Potassium Chloride 40 meq/ (Dextrose) 520 mls @ 130 mls/hr IV UD PRN PRN Reason: Potassium < 3 Magnesium Sulfate (Magnesium Sulfate) 2 gm in 50 mls @ 50 mls/hr IV UD PRN PRN Reason: Magnesium </= 1.6 Insulin Glargine (Insulin Glargine, Human 1 Unit/0.01 Ml) 10 unit SQ QPM [facility] Last Admin: 03/28/22 21:06 Dose: 10 units Insulin Human Lispro (Insulin Lispro 1 Unit/0.01 Ml Unit) 0 unit SQ ACHS [facility]; Protocol Last Admin: 03/29/22 07:03 Dose: Not Given Memantine (Memantine 10 Mg Tablet) 5 mg PO BID [facility] Last Admin: 03/29/22 08:43 Dose: 5 mg Methocarbamol (Methocarbamol 750 Mg Tablet) 750 mg PO DAILY [facility] Last Admin: 03/29/22 08:44 Dose: 750 mg Metoprolol Tartrate (Metoprolol Tartrate 5 Mg/5 Ml Vial) 5 mg IV Q2HP PRN PRN Reason: Tachyarrhythmias HR>110 Last Admin: 02/19/22 22:21 Dose: 5 mg Omeprazole (Omeprazole 20 Mg Capsule) 20 mg PO ACB [facility] Last Admin: 03/29/22 07:03 Dose: 20 mg Ondansetron HCl (Ondansetron 4 Mg/2 Ml Vial) 4 mg IV Q4HP PRN PRN Reason: Nausea And Vomiting Budesonide- Formoterol 10.2 Gm Hfa Aerosol Inhaler 2 dose INH BID [facility] Last Admin: 03/29/22 08:44 Dose: Not Given Polyethylene Glycol (Polyethylene Glycol 3350 17 Gm Packet) 17 gm PO DAILYP PRN PRN Reason: Constipation Last Admin: 02/22/22 08:43 Dose: 17 gm Potassium Chloride (Potassium Chloride 20 Meq Tablet) 40 meq PO UD PRN PRN Reason: Potssium is 3-3.5 Potassium Chloride (Potassium Chloride 20 Meq Tablet) 40 meq PO UD PRN PRN Reason: Potassium < 3 Quetiapine Fumarate (Quetiapine 25 Mg Tablet) 50 mg PO HS [facility] Last Admin: 03/28/22 21:08 Dose: 50 mg Quetiapine Fumarate (Quetiapine 25 Mg Tablet) 12.5 mg PO Q6HP PRN PRN Reason: agitation Last Admin: 03/20/22 03:46 Dose: 12.5 mg Quetiapine Fumarate (Quetiapine 25 Mg Tablet) 25 mg PO DAILY@1400 [facility] Last Admin: 03/28/22 14:18 Dose: Not Given Senna (Sennosides 1 Tablet) 2 tab PO DAILYP PRN PRN Reason: Constipation Last Admin: 03/17/22 21:16 Dose: 2 tab Tamsulosin HCl (Tamsulosin 0.4 Mg Capsule) 0.4 mg PO BID [facility] Last Admin: 03/29/22 08:43 Dose: 0.4 mg A/P Assessment and plan (1) COVID-19: Status: Acute (2) Failure to thrive in adult: Status: Acute (3) Paroxysmal atrial fibrillation with RVR: Status: Acute (4) Diastolic CHF: Status: Acute (5) Essential hypertension: Status: Acute (6) Dementia: Status: Acute (7) COPD (chronic obstructive pulmonary disease): Status: Acute (8) Chronic kidney disease (CKD) stage G2/A1, mildly decreased glomerular filtration rate (GFR) between 60-89 mL/min/1.73 square meter and albuminuria creatinine ratio less than 30 mg/g: Status: Acute (9) Anemia, normocytic normochromic: Status: Acute (10) Obesity (BMI 30.0-34.9): Status: Acute (11) Prediabetes: Status: Acute Narrative A/P Narrative: Assessment and Plans: 1. Adult failure to thrive: Pending SNF placement once [facility] quarantine is over 2. Asymptomatic CoVID infection: Currently on room air Pending SNF placement once [facility] quarantine is over 3. Dementia: Memantine Continue to monitor 4. h/o diastolic CHF: Bisoprolol Oral Lasix 5. Essential hypertension: Amlodipine Bisoprolol Oral Lasix 6. Atrial fibrillation: Bisoprolol Eliquis 7. Anemia, normocytic normochromic: Stable 8. Chronic kidney disease II: Stable Continue saline lock with oral Lasix 9. Obesity BMI 30.0-39.9: Due to dementia, cannot assistant corporation counsel patient on life style modifications 10. Prediabetes: HgA1c 6.4 Lantus 10 unit qPM Insulin Lispro SSI AC HS Accu Check AC HS Hypoglycemia protocol Dysphagia level 6 diet GI ppx: Prilosec DVT ppx: Eliquis Code status: DNR Prognosis: stable Disposition: inpatient med surg; pending SNF once [facility] quarantine is over Time Spent With Patient Time: Total time spent is greater than 50% in coordination of care (as documented) at patient's floor/unit and/or counseling patient: Total time spent with greater than 50% in coordination of care (as documented) at patient's floor/unit and/or counseling patient:: 25 - 35 minutes
[2022-03-29] MEDS: QUEtiapine 25 MG TABLET PO SCH ×2 (16:02→20:24)
[2022-03-29] MEDS: INSULIN GLARGINE, HUMAN 1 UNIT/0.01 ML SQ SCH (20:23)
[2022-03-30] MEDS: OMEPRAZOLE 20 MG CAPSULE PO SCH (07:39)
[2022-03-30] MEDS: INSULIN LISPRO 1 UNIT/0.01 ML UNIT SQ SCH ×4 (07:41→21:38)
--- NOTE | 2022-03-30 08:28 | Internal Med Progress Note ---
SUBJECTIVE Subjective Patient information: Note initiated : 03/30/22 at 8:27 am Service Date, if different from initiated Date: [] Patient: Edmond Salas 86 y/o M admitted on 02/18/22 for Weakness/Eval for assisted living-PNA,Sepsis. Chief Complaint: [] Interval history: 03/24: There was no major overnight events. No new complaints. Currently on 10 days [facility] quarantine before SNF placement becomes possible. 03/25: Patient is complaining of mild left shoulder pain. He denies any shortness of breath. His appetite is not the greatest. He is on room air. Currently on 10 days [facility] quarantine before SNF placement becomes possible. 03/26: There was no major overnight events. Patient has no new complaints. Currently on [facility] quarantine before SNF placement becomes possible. 03/27: There was no major overnight events. Patient has no new complaints. Currently on [facility] quarantine before SNF placement becomes possible. 03/28: There was no major overnight events. Patient has no new complaints. Currently on [facility] quarantine before SNF placement becomes possible. 03/29: There was no major overnight events. Patient has no new complaints. Currently on [facility] quarantine before SNF placement becomes possible. 03/30: There was no major overnight events. Patient has no new complaints. Currently on [facility] quarantine before SNF placement becomes possible. Constitutional Vitals: Vital Signs Temp Pulse Resp BP Pulse Ox O2 Del Method O2 Flow Rate 36.3 C 81 20 123/66 96 0 03/30/22 07:39 03/30/22 07:39 03/30/22 07:39 03/30/22 07:39 03/30/22 07:39 03/30/22 07:39 02/25/22 04:00 Period Temp Pulse Resp BP Sys/Meza Pulse Ox O2 Del Method O2 Flow Rate Last 24 Hr 36.3 C-36.7 C 74-81 16-20 93-125/58-72 95-99 Room Air-Room Air Intake and Output 03/29/22 03/30/22 03/30/22 19:59 03:59 11:59 Intake Total 720 240 Output Total 1 1 1 Balance 719 239 -1 Weight 117.537 kg Intake & Output: Intake & Output 03/29/22 03/30/22 03/30/22 19:59 03:59 11:59 Intake Total 720 240 Output Total 1 1 1 Balance 719 239 -1 Weight 117.537 kg Intake: Oral 720 240 Output: # of times incontinent of urine 1 1 1 Other: Meal Dinner Percent of Meal Consumed 50% Feeding Ability Needs Supervision Stool Size Small Moderate Small Stool Color Brown Brown Brown Stool Consistency Soft Soft Soft # of times incontinent of 1 1 1 Bowels Head Head exam: Present atraumatic and normal inspection Eye Eye exam: Present normal appearance ENT ENT exam: Present mucous membranes moist, normal exam and normal external ear exam Neck Neck exam: Present normal inspection Respiratory Respiratory exam: Present normal respiratory exam Cardiovascular Cardiovascular exam: Present irregular rhythm GI/Abdominal GI/Abdominal exam: Present normal bowel sounds Back Exam Back exam: Present normal inspection Neurological Exam Neurological exam: Present alert and altered; Absent oriented X3 Skin Skin exam: Present intact and warm OBJ DATA Labs CBC & Chem 7: 02/28/22 05:49 02/28/22 05:49 Meds: Medications Acetaminophen (Acetaminophen 325 Mg Tablet) 650 mg PO Q6HP PRN; Protocol PRN Reason: Per Pain Protocol/Fever > 101 Last Admin: 03/26/22 08:09 Dose: 650 mg Acetaminophen/Codeine Phosphate (Acetaminophen W/Codeine #3 1 Tablet) 1 tab PO BIDP PRN; Protocol PRN Reason: Pain Last Admin: 03/28/22 21:07 Dose: 1 tab Albuterol/Ipratropium (Ipratropium/Albuterol 3 Ml Ampul.Neb) 3 ml NEB Q4HP PRN PRN Reason: Shortness Of Breath Last Admin: 03/06/22 20:44 Dose: 3 ml Amlodipine Besylate (Amlodipine 5 Mg Tablet) 2.5 mg PO DAILY [facility] Last Admin: 03/29/22 08:43 Dose: 2.5 mg Apixaban (Apixaban 5 Mg Tablet) 5 mg PO BID [facility] Last Admin: 03/29/22 20:25 Dose: 5 mg Bisoprolol Fumarate (Bisoprolol 5 Mg Tablet) 10 mg PO DAILY [facility] Last Admin: 03/29/22 08:43 Dose: 10 mg Dextrose (Dextrose 50% 50 Ml Vial) 0 ml IV UD PRN PRN Reason: Per Sliding Scale Diagnostic Test (Pha) (Accu-Chek 1 Each Strip) 1 each FS ACHS [facility] Last Admin: 03/30/22 07:41 Dose: 1 each Docusate Sodium (Docusate Sodium 100 Mg Capsule) 100 mg PO BID [facility] Last Admin: 03/29/22 20:25 Dose: 100 mg Fluoxetine HCl (Fluoxetine Hcl 20 Mg Capsule) 20 mg PO DAILY [facility] Last Admin: 03/29/22 08:44 Dose: 20 mg Furosemide (Furosemide 20 Mg Tablet) 40 mg PO DAILY [facility] Last Admin: 03/29/22 08:43 Dose: 40 mg Glucose (Dextrose 31 Gm Oral.Susp) 15 gm PO PRN PRN PRN Reason: Hypoglycemia Potassium Chloride 40 meq/ (Dextrose) 520 mls @ 130 mls/hr IV UD PRN PRN Reason: Potassium < 3 Magnesium Sulfate (Magnesium Sulfate) 2 gm in 50 mls @ 50 mls/hr IV UD PRN PRN Reason: Magnesium </= 1.6 Insulin Glargine (Insulin Glargine, Human 1 Unit/0.01 Ml) 10 unit SQ QPM [facility] Last Admin: 03/29/22 20:23 Dose: 10 units Insulin Human Lispro (Insulin Lispro 1 Unit/0.01 Ml Unit) 0 unit SQ ACHS [facility]; Protocol Last Admin: 03/30/22 07:41 Dose: Not Given Memantine (Memantine 10 Mg Tablet) 5 mg PO BID [facility] Last Admin: 03/29/22 20:25 Dose: 5 mg Methocarbamol (Methocarbamol 750 Mg Tablet) 750 mg PO DAILY [facility] Last Admin: 03/29/22 08:44 Dose: 750 mg Metoprolol Tartrate (Metoprolol Tartrate 5 Mg/5 Ml Vial) 5 mg IV Q2HP PRN PRN Reason: Tachyarrhythmias HR>110 Last Admin: 02/19/22 22:21 Dose: 5 mg Omeprazole (Omeprazole 20 Mg Capsule) 20 mg PO ACB [facility] Last Admin: 03/30/22 07:39 Dose: 20 mg Ondansetron HCl (Ondansetron 4 Mg/2 Ml Vial) 4 mg IV Q4HP PRN PRN Reason: Nausea And Vomiting Budesonide- Formoterol 10.2 Gm Hfa Aerosol Inhaler 2 dose INH BID [facility] Last Admin: 03/29/22 20:25 Dose: Not Given Polyethylene Glycol (Polyethylene Glycol 3350 17 Gm Packet) 17 gm PO DAILYP PRN PRN Reason: Constipation Last Admin: 02/22/22 08:43 Dose: 17 gm Potassium Chloride (Potassium Chloride 20 Meq Tablet) 40 meq PO UD PRN PRN Reason: Potssium is 3-3.5 Potassium Chloride (Potassium Chloride 20 Meq Tablet) 40 meq PO UD PRN PRN Reason: Potassium < 3 Quetiapine Fumarate (Quetiapine 25 Mg Tablet) 50 mg PO HS [facility] Last Admin: 03/29/22 20:24 Dose: 50 mg Quetiapine Fumarate (Quetiapine 25 Mg Tablet) 12.5 mg PO Q6HP PRN PRN Reason: agitation Last Admin: 03/20/22 03:46 Dose: 12.5 mg Quetiapine Fumarate (Quetiapine 25 Mg Tablet) 25 mg PO DAILY@1400 [facility] Last Admin: 03/29/22 16:02 Dose: Not Given Senna (Sennosides 1 Tablet) 2 tab PO DAILYP PRN PRN Reason: Constipation Last Admin: 03/17/22 21:16 Dose: 2 tab Tamsulosin HCl (Tamsulosin 0.4 Mg Capsule) 0.4 mg PO BID [facility] Last Admin: 03/29/22 20:25 Dose: 0.4 mg A/P Assessment and plan (1) COVID-19: Status: Acute (2) Failure to thrive in adult: Status: Acute (3) Paroxysmal atrial fibrillation with RVR: Status: Acute (4) Diastolic CHF: Status: Acute (5) Essential hypertension: Status: Acute (6) Dementia: Status: Acute (7) COPD (chronic obstructive pulmonary disease): Status: Acute (8) Chronic kidney disease (CKD) stage G2/A1, mildly decreased glomerular filtr ation rate (GFR) between 60-89 mL/min/1.73 square meter and albuminuria creatinine ratio less than 30 mg/g: Status: Acute (9) Anemia, normocytic normochromic: Status: Acute (10) Obesity (BMI 30.0-34.9): Status: Acute (11) Prediabetes: Status: Acute Narrative A/P Narrative: Assessment and Plans: 1. Adult failure to thrive: Pending SNF placement once CoVID quarantine is over 2. Asymptomatic CoVID infection: Currently on room air Pending SNF placement once CoVID quarantine is over 3. Dementia: Memantine Continue to monitor 4. h/o diastolic CHF: Bisoprolol Oral Lasix 5. Essential hypertension: Amlodipine Bisoprolol Oral Lasix 6. Atrial fibrillation: Bisoprolol Eliquis 7. Anemia, normocytic normochromic: Stable 8. Chronic kidney disease II: Stable Continue saline lock with oral Lasix 9. Obesity BMI 30.0-39.9: Due to dementia, cannot student counselor patient on life style modifications 10. Prediabetes: HgA1c 6.4 Lantus 10 unit qPM Insulin Lispro SSI AC HS Accu Check AC HS Hypoglycemia protocol Dysphagia level 6 diet GI ppx: Prilosec DVT ppx: Eliquis Code status: DNR Prognosis: stable Disposition: inpatient med surg; pending SNF once Co[facility]ID quarantine is over Time Spent With Patient Time: Total time spent is greater than 50% in coordination of care (as documented) at patient's floor/unit and/or counseling patient: Total time spent with greater than 50% in coordination of care (as documented) at patient's floor/unit and/or counseling patient:: 25 - 35 minutes
[2022-03-30] MEDS: BISOPROLOL 5 MG TABLET PO SCH (08:30)
[2022-03-30] MEDS: amLODIPine 5 MG TABLET PO SCH (08:31)
[2022-03-30] MEDS: DOCUSATE SODIUM 100 MG CAPSULE PO SCH ×3 (08:31→21:33)
[2022-03-30] MEDS: METHOCARBAMOL 750 MG TABLET PO SCH (08:31)
[2022-03-30] MEDS: FUROSEMIDE 20 MG TABLET PO SCH (08:31)
[2022-03-30] MEDS: APIXABAN 5 MG TABLET PO SCH ×2 (08:32→21:33)
[2022-03-30] MEDS: TAMSULOSIN 0.4 MG CAPSULE PO SCH ×2 (08:32→21:33)
[2022-03-30] MEDS: MEMANTINE 10 MG TABLET PO SCH ×2 (08:32→21:33)
[2022-03-30] MEDS: FLUoxetine HCL 20 MG CAPSULE PO SCH (08:32)
[2022-03-30] MEDS: Budesonide-Formoterol 10.2 GM HFA aerosol inhaler INH SCH ×2 (09:58→21:13)
[2022-03-30] MEDS: ACETAMINOPHEN 325 MG TABLET PO PRN ×2 (10:53→21:39)
--- NOTE | 2022-03-30 13:31 | Internal Med Progress Note ---
SUBJECTIVE Subjective Patient information: Note initiated : 03/30/22 at 1:29 pm Service Date, if different from initiated Date: [] Patient: Edmond Salas a 86 y/o M admitted on 02/18/22 for Weakness/Eval for assisted living-PNA,Sepsis. Chief Complaint: [] Interval history: History of present illness: Mr. Salas is a 86 year old M Presents the ED with worsening confusion on top of dementia and weakness. Recently treated for UTI but the urine looks clear here. Original plan was for home with hospice out of the ED. But it sounds like the family was not comfortable with patient being home felt to be unsafe conditions and they have been try to get APS involved. Further work-up in the ED today they got a chest x-ray which showed infiltrate on left side and mild right. Was noted to have some transient mild hypoxia, unknown baseline but has copd. Sounds like after further discussion with family hospice does not think finally decided on and is reported that they would prefer treatment for anything if possible first. Patient reports a chronic cough and some shortness of breath but at baseline. Patient is a poor historian most history obtained from the chart. Medical history includes dementia COPD hypertension chronic anemia and diastolic heart failure grade 1 with good ejection fraction on an echo in 2019. 02/19 Patient sleeping. Likely result from Haldol last night. Haldol was given for and severe agitation and pulling at lines. Nurse also reports that she feels he is aspirating with liquids. We will place on dysphagia diet order speech therapy evaluation. Likely is infiltrates on chest x-ray from aspiration. 02/20 Patient sitting up in bed eating breakfast. Did get some Zyprexa last night for agitation. No new complaints this morning. Try to talk with him about his atrial fibrillation but given his dementia patient does not seem to comprehend. 02/21 Patient sitting up in bed eating breakfast. More talkative today. No overnight event or new complaints. Did not require any Zyprexa last night. 02/22 Patient sleeping. Calm overnight. Started Seroquel yesterday evening seem to respond well to it. 02/23: Afebrile overnight. No major overnight events. Subjective not obtained due to patient's clinical situations. Medically stable awaiting placement. 02/24: Afebrile overnight. No major overnight events. Subjective not obtained due to patient's clinical situations. Medically stable awaiting placement. 02/25: Afebrile overnight. No major overnight events. Subjective not obtained due to patient's clinical situations. Medically stable awaiting placement. 02/26: Afebrile overnight. No major overnight events. Subjective not obtained due to patient's clinical situations. Medically stable awaiting placement. 02/27: Afebrile overnight. No major overnight events. Subjective not obtained due to patient's clinical situations. Medically stable awaiting placement. 02/28: Afebrile overnight. No major overnight events. Subjective not obtained due to patient's clinical situations. Medically stable awaiting placement. 03/01: Patient is very pleasant to stuffs. Not posting danger to self or stuffs. Medically ready to be discharged to SNF. 03/02 No overnight event or new complaints. 03/03 No new complaints. No overnight events. Vital signs stable. Blood pressure occasionally a bit soft. Decrease Norvasc. 03/04 No change overnight. Vital signs stable. Blood pressure good after decreasing Norvasc. 03/05 Patient stable seems to be doing well. No overnight event or new complaints. Blood pressure good. 03/06 Patient sitting up in bed eating breakfast. Pleasant. Although he does not like his breakfast. 03/07 No significant events overnight, awaiting placement. 03/08 Resting comfortably, awaiting placement. 03/09 Awaiting placement. 03/10 The patient pulled out his Willis yesterday evening, replaced. Still awaiting placement. 03/11 No significant events overnight, occasionally agitated however redirectable. Awaiting placement. 03/12 No issues overnight. No new complaints. Awaiting placement. 03/13 No real changes. Patient sitting up in bed eating breakfast. No new complaints. 03/14 No change. Patient is seen to be feeling well. No behavioral changes overnight per nurses note. 03/15 No overnight event or new complaints. Patient is noted to be in good spirits. 03/16 No reports of behavioral disturbance overnight. No new complaints overnight events. 03/17 No significant events overnight, awaiting placement. 03/18 Pleasantly confused, easily redirectable by staff. Awaiting placement. 03/19 Vitals stable overnight, pleasant and cooperative this morning. Awaiting placement. 03/20 No significant events overnight, cooperative with staff. Evaluated buttock wound with staff, much improved since a couple weeks ago. Continues with Willis catheter. 03/21 Resting comfortably, no significant events overnight. No issues with agitation for several days. Awaiting placement. 03/22-no overnight events. Ongoing coordination for SNF. Ongoing wound care, patient tested positive for COVID during routine discharge and hence unable to transfer to SNF today. Willis is discontinued however remains incontinent of bowel and bladder, remains bedbound 03/23-patient status quo, no overnight events. Ongoing wound care/frequent offl oading, currently on room air, no active concerns expressed with nursing staff, remains incontinent of bowel and bladder, oriented to self, frequent repositioning ongoing. No family at bedside. Was unable to discharge to SNF yesterday due to COVID-positive status. Case management coordinating. 03/24: There was no major overnight events. No new complaints. Currently on 10 days CoV[facility] quarantine before SNF placement becomes possible. 03/25: Patient is complaining of mild left shoulder pain. He denies any shortness of breath. His appetite is not the greatest. He is on room air. Currently on 10 days CoVID quarantine before SNF placement becomes possible. 03/26: There was no major overnight events. Patient has no new complaints. Currently on CoVID quarantine before SNF placement becomes possible. 03/27: There was no major overnight events. Patient has no new complaints. Currently on CoVID quarantine before SNF placement becomes possible. 03/28: There was no major overnight events. Patient has no new complaints. Currently on CoVID quarantine before SNF placement becomes possible. 03/29: There was no major overnight events. Patient has no new complaints. Currently on CoVID quarantine before SNF placement becomes possible. 03/30: There was no major overnight events. Patient has no new complaints. Currently on CoVID quarantine before SNF placement becomes possible. 03/31 Review of Systems: denies headache/fever/chills/nausea/vomiting/chest or abdominal pain/cough/dyspnea/diarrhea. Otherwise see above. Constitutional Vitals: Vital Signs Temp Pulse Resp BP Pulse Ox O2 Del Method O2 Flow Rate 97.4 F 79 20 105/58 96 0 03/30/22 12:00 03/30/22 12:00 03/30/22 12:00 03/30/22 12:00 03/30/22 12:00 03/30/22 12:00 02/25/22 04:00 Period Temp Pulse Resp BP Sys/Meza Pulse Ox O2 Del Method O2 Flow Rate Last 24 Hr 97.3 F-98.0 F 74-81 16-20 93-125/58-72 95-99 Room Air-Room Air Intake and Output 03/30/22 03/30/22 03/30/22 03:59 11:59 19:59 Intake Total 240 Output Total 1 1 1 Balance 239 -1 - Intake & Output: Intake & Output 03/30/22 03/30/22 03/30/22 03:59 11:59 19:59 Intake Total 240 Output Total 1 1 1 Balance 239 -1 - Intake: Oral 240 Output: # of times incontinent of urine 1 1 1 Other: Stool Size Moderate Small Smear Stool Color Brown Brown Stool Consistency Soft Soft # Bowel Movements 1 # of times incontinent of 1 1 Bowels Exam: General: awake, no acute Distress, obese Eyes/N/T: EOMI, Head/Neck: neck supple, CV: irreg irreg, No murmurs, Pulm: Clear b/l, no wheezing/rhonchi/rales Abd: soft, nontender, +BS x4 Ext: no clubbing/cyanosis, b/l LE edema improved and LE chronic wounds/ulcers Neuro: alert, no focal deficits, spontaneously moves all extremities, Skin: warm/dry OBJ DATA Labs CBC & Chem 7: 02/28/22 05:49 02/28/22 05:49 Meds: Medications Acetaminophen (Acetaminophen 325 Mg Tablet) 650 mg PO Q6HP PRN; Protocol PRN Reason: Per Pain Protocol/Fever > 101 Last Admin: 03/30/22 10:53 Dose: 650 mg Acetaminophen/Codeine Phosphate (Acetaminophen W/Codeine #3 1 Tablet) 1 tab PO BIDP PRN; Protocol PRN Reason: Pain Last Admin: 03/28/22 21:07 Dose: 1 tab Albuterol/Ipratropium (Ipratropium/Albuterol 3 Ml Ampul.Neb) 3 ml NEB Q4HP PRN PRN Reason: Shortness Of Breath Last Admin: 03/06/22 20:44 Dose: 3 ml Amlodipine Besylate (Amlodipine 5 Mg Tablet) 2.5 mg PO DAILY GAIL Last Admin: 03/30/22 08:31 Dose: 2.5 mg Apixaban (Apixaban 5 Mg Tablet) 5 mg PO BID [facility] Last Admin: 03/30/22 08:32 Dose: 5 mg Bisoprolol Fumarate (Bisoprolol 5 Mg Tablet) 10 mg PO DAILY [facility] Last Admin: 03/30/22 08:30 Dose: 10 mg Dextrose (Dextrose 50% 50 Ml Vial) 0 ml IV UD PRN PRN Reason: Per Sliding Scale Diagnostic Test (Pha) (Accu-Chek 1 Each Strip) 1 each FS ACHS [facility] Last Admin: 03/30/22 12:26 Dose: 1 each Docusate Sodium (Docusate Sodium 100 Mg Capsule) 100 mg PO BID [facility] Last Admin: 03/30/22 09:58 Dose: Not Given Fluoxetine HCl (Fluoxetine Hcl 20 Mg Capsule) 20 mg PO DAILY [facility] Last Admin: 03/30/22 08:32 Dose: 20 mg Furosemide (Furosemide 20 Mg Tablet) 40 mg PO DAILY [facility] Last Admin: 03/30/22 08:31 Dose: 40 mg Glucose (Dextrose 31 Gm Oral.Susp) 15 gm PO PRN PRN PRN Reason: Hypoglycemia Potassium Chloride 40 meq/ (Dextrose) 520 mls @ 130 mls/hr IV UD PRN PRN Reason: Potassium < 3 Magnesium Sulfate (Magnesium Sulfate) 2 gm in 50 mls @ 50 mls/hr IV UD PRN PRN Reason: Magnesium </= 1.6 Insulin Glargine (Insulin Glargine, Human 1 Unit/0.01 Ml) 10 unit SQ QPM [facility] Last Admin: 03/29/22 20:23 Dose: 10 units Insulin Human Lispro (Insulin Lispro 1 Unit/0.01 Ml Unit) 0 unit SQ ACHS [facility]; Protocol Last Admin: 03/30/22 12:26 Dose: 9 unit Memantine (Memantine 10 Mg Tablet) 5 mg PO BID [facility] Last Admin: 03/30/22 08:32 Dose: 5 mg Methocarbamol (Methocarbamol 750 Mg Tablet) 750 mg PO DAILY [facility] Last Admin: 03/30/22 08:31 Dose: 750 mg Metoprolol Tartrate (Metoprolol Tartrate 5 Mg/5 Ml Vial) 5 mg IV Q2HP PRN PRN Reason: Tachyarrhythmias HR>110 Last Admin: 02/19/22 22:21 Dose: 5 mg Omeprazole (Omeprazole 20 Mg Capsule) 20 mg PO ACB [facility] Last Admin: 03/30/22 07:39 Dose: 20 mg Ondansetron HCl (Ondansetron 4 Mg/2 Ml Vial) 4 mg IV Q4HP PRN PRN Reason: Nausea And Vomiting Budesonide- Formoterol 10.2 Gm Hfa Aerosol Inhaler 2 dose INH BID [facility] Last Admin: 03/30/22 09:58 Dose: Not Given Polyethylene Glycol (Polyethylene Glycol 3350 17 Gm Packet) 17 gm PO DAILYP PRN PRN Reason: Constipation Last Admin: 02/22/22 08:43 Dose: 17 gm Potassium Chloride (Potassium Chloride 20 Meq Tablet) 40 meq PO UD PRN PRN Reason: Potssium is 3-3.5 Potassium Chloride (Potassium Chloride 20 Meq Tablet) 40 meq PO UD PRN PRN Reason: Potassium < 3 Quetiapine Fumarate (Quetiapine 25 Mg Tablet) 50 mg PO HS [facility] Last Admin: 03/29/22 20:24 Dose: 50 mg Quetiapine Fumarate (Quetiapine 25 Mg Tablet) 12.5 mg PO Q6HP PRN PRN Reason: agitation Last Admin: 03/20/22 03:46 Dose: 12.5 mg Quetiapine Fumarate (Quetiapine 25 Mg Tablet) 25 mg PO DAILY@1400 [facility] Last Admin: 03/29/22 16:02 Dose: Not Given Senna (Sennosides 1 Tablet) 2 tab PO DAILYP PRN PRN Reason: Constipation Last Admin: 03/17/22 21:16 Dose: 2 tab Tamsulosin HCl (Tamsulosin 0.4 Mg Capsule) 0.4 mg PO BID [facility] Last Admin: 03/30/22 08:32 Dose: 0.4 mg A/P Narrative A/P Narrative: A: *Generalized weakness/deconditioning/failure to thrive: *Encephalopathy, acute on chronic, underlying Dementia: 2/2 above, improved *Dementia with behavioral disturbances: better *CAP, likely Aspiration: resolved *Oropharyngeal Dysphagia, Mod: *Acute hypoxic respiratory failure: resolved *Afib, paroxysmal (new diagnosis) w/RVR: improved -CHADSVASC=5-6, echo with good EF *COPD(not on home O2): *h/o diastlic CHF: *Pre-Diabetes: a1c 6.4 *HTN: *CKD II: *Anemia, chronic: *LE wounds/ulcers/buttock decubitus: *Obesity: BMI 34 P: -Awaiting placement -IS/Acapella, home IH's and prn nebs, RT -Wound care -cont per telepsych, increased seroquel to 25@1400 and 50 qhs and 12.5 q6h prn -Eliquis inpt, will defer further decision making to f/u between family/PCP, pt unable to participate in medical decision making -cont BB/norvasc -cont home lasix -SSI, restarted home basal at lower dose, significantly lower Lantus dose than prior to admission -PT/OT -ST eval, dysphagia diet -CM for placement -ppx: eliquis / ppi DNR Time Spent With Patient Time: Total time spent is greater than 50% in coordination of care (as documented) at patient's floor/unit and/or counseling patient:
[2022-03-30] MEDS: QUEtiapine 25 MG TABLET PO SCH ×2 (14:34→21:33)
[2022-03-30] MEDS: INSULIN GLARGINE, HUMAN 1 UNIT/0.01 ML SQ SCH (21:38)
[2022-03-31] MEDS: INSULIN LISPRO 1 UNIT/0.01 ML UNIT SQ SCH ×4 (08:48→20:44)
--- NOTE | 2022-03-31 08:51 | Internal Med Progress Note ---
SUBJECTIVE Subjective Patient information: Note initiated : 03/31/22 at 8:51 am Service Date, if different from initiated Date: [] Patient: Edmond Salas a 86 y/o M admitted on 02/18/22 for Weakness/Eval for assisted living-PNA,Sepsis. Chief Complaint: [] Interval history: History of present illness: Mr. Salas is a 86 year old M Presents the ED with worsening confusion on top of dementia and weakness. Recently treated for UTI but the urine looks clear here. Original plan was for home with hospice out of the ED. But it sounds like the family was not comfortable with patient being home felt to be unsafe conditions and they have been try to get APS involved. Further work-up in the ED today they got a chest x-ray which showed infiltrate on left side and mild right. Was noted to have some transient mild hypoxia, unknown baseline but has copd. Sounds like after further discussion with family hospice does not think finally decided on and is reported that they would prefer treatment for anything if possible first. Patient reports a chronic cough and some shortness of breath but at baseline. Patient is a poor historian most history obtained from the chart. Medical history includes dementia COPD hypertension chronic anemia and diastolic heart failure grade 1 with good ejection fraction on an echo in 2019. 02/19 Patient sleeping. Likely result from Haldol last night. Haldol was given for and severe agitation and pulling at lines. Nurse also reports that she feels he is aspirating with liquids. We will place on dysphagia diet order speech therapy evaluation. Likely is infiltrates on chest x-ray from aspiration. 02/20 Patient sitting up in bed eating breakfast. Did get some Zyprexa last night for agitation. No new complaints this morning. Try to talk with him about his atrial fibrillation but given his dementia patient does not seem to comprehend. 02/21 Patient sitting up in bed eating breakfast. More talkative today. No overnight event or new complaints. Did not require any Zyprexa last night. 02/22 Patient sleeping. Calm overnight. Started Seroquel yesterday evening seem to respond well to it. 02/23: Afebrile overnight. No major overnight events. Subjective not obtained due to patient's clinical situations. Medically stable awaiting placement. 02/24: Afebrile overnight. No major overnight events. Subjective not obtained due to patient's clinical situations. Medically stable awaiting placement. 02/25: Afebrile overnight. No major overnight events. Subjective not obtained due to patient's clinical situations. Medically stable awaiting placement. 02/26: Afebrile overnight. No major overnight events. Subjective not obtained due to patient's clinical situations. Medically stable awaiting placement. 02/27: Afebrile overnight. No major overnight events. Subjective not obtained due to patient's clinical situations. Medically stable awaiting placement. 02/28: Afebrile overnight. No major overnight events. Subjective not obtained due to patient's clinical situations. Medically stable awaiting placement. 03/01: Patient is very pleasant to stuffs. Not posting danger to self or stuffs. Medically ready to be discharged to SNF. 03/02 No overnight event or new complaints. 03/03 No new complaints. No overnight events. Vital signs stable. Blood pressure occasionally a bit soft. Decrease Norvasc. 03/04 No change overnight. Vital signs stable. Blood pressure good after decreasing Norvasc. 03/05 Patient stable seems to be doing well. No overnight event or new complaints. Blood pressure good. 03/06 Patient sitting up in bed eating breakfast. Pleasant. Although he does not like his breakfast. 03/07 No significant events overnight, awaiting placement. 03/08 Resting comfortably, awaiting placement. 03/09 Awaiting placement. 03/10 The patient pulled out his Willis yesterday evening, replaced. Still awaiting placement. 03/11 No significant events overnight, occasionally agitated however redirectable. Awaiting placement. 03/12 No issues overnight. No new complaints. Awaiting placement. 03/13 No real changes. Patient sitting up in bed eating breakfast. No new complaints. 03/14 No change. Patient is seen to be feeling well. No behavioral changes overnight per nurses note. 03/15 No overnight event or new complaints. Patient is noted to be in good spirits. 03/16 No reports of behavioral disturbance overnight. No new complaints overnight events. 03/17 No significant events overnight, awaiting placement. 03/18 Pleasantly confused, easily redirectable by staff. Awaiting placement. 03/19 Vitals stable overnight, pleasant and cooperative this morning. Awaiting placement. 03/20 No significant events overnight, cooperative with staff. Evaluated buttock wound with staff, much improved since a couple weeks ago. Continues with Willis catheter. 03/21 Resting comfortably, no significant events overnight. No issues with agitation for several days. Awaiting placement. 03/22-no overnight events. Ongoing coordination for SNF. Ongoing wound care, patient tested positive for COVID during routine discharge and hence unable to transfer to SNF today. Willis is discontinued however remains incontinent of bowel and bladder, remains bedbound 03/23-patient status quo, no overnight events. Ongoing wound care/frequent offl oading, currently on room air, no active concerns expressed with nursing staff, remains incontinent of bowel and bladder, oriented to self, frequent repositioning ongoing. No family at bedside. Was unable to discharge to SNF yesterday due to COVID-positive status. Case management coordinating. 03/24: There was no major overnight events. No new complaints. Currently on 10 days CoVID quarantine before SNF placement becomes possible. 03/25: Patient is complaining of mild left shoulder pain. He denies any shortness of breath. His appetite is not the greatest. He is on room air. Currently on 10 days CoVID quarantine before SNF placement becomes possible. 03/26: There was no major overnight events. Patient has no new complaints. Currently on CoVID quarantine before SNF placement becomes possible. 03/27: There was no major overnight events. Patient has no new complaints. Currently on CoVID quarantine before SNF placement becomes possible. 03/28: There was no major overnight events. Patient has no new complaints. Currently on CoVID quarantine before SNF placement becomes possible. 03/29: There was no major overnight events. Patient has no new complaints. Currently on CoVID quarantine before SNF placement becomes possible. 03/30: There was no major overnight events. Patient has no new complaints. Currently on CoVID quarantine before SNF placement becomes possible. 03/31 No overnight event or new complaints. Mood a little depressed this morning. Review of Systems: denies headache/fever/chills/nausea/vomiting/chest or abdominal pain/cough/dyspnea/diarrhea. Otherwise see above. Constitutional Vitals: Vital Signs Temp Pulse Resp BP Pulse Ox O2 Del Method O2 Flow Rate 98.7 F 88 16 113/68 94 0 03/31/22 08:00 03/31/22 08:00 03/31/22 08:00 03/31/22 08:00 03/31/22 08:00 03/31/22 08:00 02/25/22 04:00 Period Temp Pulse Resp BP Sys/Meza Pulse Ox O2 Del Method O2 Flow Rate Last 24 Hr 97.3 F-98.7 F 75-88 14-20 91-114/52-68 94-97 Room Air-Room Air Intake and Output 03/30/22 03/31/22 03/31/22 19:59 03:59 11:59 Intake Total 1040 0 Output Total 5 1 Balance 1035 -1 Weight 114.986 kg Intake & Output: Intake & Output 03/30/22 03/31/22 03/31/22 19:59 03:59 11:59 Intake Total 1040 0 Output Total 5 1 Balance 1035 -1 Weight 114.986 kg Intake: Oral 1040 0 Output: # of times incontinent of urine 5 1 Other: Meal Nourishment/Supplement Percent of Meal Consumed 100% Feeding Ability Needs Supervision Stool Size Moderate Large Stool Color Brown Brown Stool Consistency Soft Soft # Bowel Movements 1 # of times incontinent of 1 Bowels Exam: General: awake, no acute Distress, obese Eyes/N/T: EOMI, Head/Neck: neck supple, CV: irreg irreg, No murmurs, Pulm: Clear b/l, no wheezing/rhonchi/rales Abd: soft, nontender, +BS x4 Ext: no clubbing/cyanosis, b/l LE edema improved and LE chronic wounds/ulcers Neuro: alert, no focal deficits, spontaneously moves all extremities, Skin: warm/dry OBJ DATA Labs CBC & Chem 7: 02/28/22 05:49 02/28/22 05:49 Meds: Medications Acetaminophen (Acetaminophen 325 Mg Tablet) 650 mg PO Q6HP PRN; Protocol PRN Reason: Per Pain Protocol/Fever > 101 Last Admin: 03/30/22 21:39 Dose: 650 mg Acetaminophen/Codeine Phosphate (Acetaminophen W/Codeine #3 1 Tablet) 1 tab PO BIDP PRN; Protocol PRN Reason: Pain Last Admin: 03/28/22 21:07 Dose: 1 tab Albuterol/Ipratropium (Ipratropium/Albuterol 3 Ml Ampul.Neb) 3 ml NEB Q4HP PRN PRN Reason: Shortness Of Breath Last Admin: 03/06/22 20:44 Dose: 3 ml Amlodipine Besylate (Amlodipine 5 Mg Tablet) 2.5 mg PO DAILY [facility] Last Admin: 03/30/22 08:31 Dose: 2.5 mg Apixaban (Apixaban 5 Mg Tablet) 5 mg PO BID [facility] Last Admin: 03/30/22 21:33 Dose: 5 mg Bisoprolol Fumarate (Bisoprolol 5 Mg Tablet) 10 mg PO DAILY [facility] Last Admin: 03/30/22 08:30 Dose: 10 mg Dextrose (Dextrose 50% 50 Ml Vial) 0 ml IV UD PRN PRN Reason: Per Sliding Scale Diagnostic Test (Pha) (Accu-Chek 1 Each Strip) 1 each FS ACHS [facility] Last Admin: 03/31/22 08:47 Dose: 1 each Docusate Sodium (Docusate Sodium 100 Mg Capsule) 100 mg PO BID [facility] Last Admin: 03/30/22 21:33 Dose: 100 mg Fluoxetine HCl (Fluoxetine Hcl 20 Mg Capsule) 20 mg PO DAILY [facility] Last Admin: 03/30/22 08:32 Dose: 20 mg Furosemide (Furosemide 20 Mg Tablet) 40 mg PO DAILY [facility] Last Admin: 03/30/22 08:31 Dose: 40 mg Glucose (Dextrose 31 Gm Oral.Susp) 15 gm PO PRN PRN PRN Reason: Hypoglycemia Potassium Chloride 40 meq/ (Dextrose) 520 mls @ 130 mls/hr IV UD PRN PRN Reason: Potassium < 3 Magnesium Sulfate (Magnesium Sulfate) 2 gm in 50 mls @ 50 mls/hr IV UD PRN PRN Reason: Magnesium </= 1.6 Insulin Glargine (Insulin Glargine, Human 1 Unit/0.01 Ml) 10 unit SQ QPM [facility] Last Admin: 03/30/22 21:38 Dose: 10 units Insulin Human Lispro (Insulin Lispro 1 Unit/0.01 Ml Unit) 0 unit SQ ACHS [facility]; Protocol Last Admin: 03/31/22 08:48 Dose: Not Given Memantine (Memantine 10 Mg Tablet) 5 mg PO BID [facility] Last Admin: 03/30/22 21:33 Dose: 5 mg Methocarbamol (Methocarbamol 750 Mg Tablet) 750 mg PO DAILY [facility] Last Admin: 03/30/22 08:31 Dose: 750 mg Metoprolol Tartrate (Metoprolol Tartrate 5 Mg/5 Ml Vial) 5 mg IV Q2HP PRN PRN Reason: Tachyarrhythmias HR>110 Last Admin: 02/19/22 22:21 Dose: 5 mg Omeprazole (Omeprazole 20 Mg Capsule) 20 mg PO ACB [facility] Last Admin: 03/30/22 07:39 Dose: 20 mg Ondansetron HCl (Ondansetron 4 Mg/2 Ml Vial) 4 mg IV Q4HP PRN PRN Reason: Nausea And Vomiting Budesonide- Formoterol 10.2 Gm Hfa Aerosol Inhaler 2 dose INH BID [facility] Last Admin: 03/30/22 21:13 Dose: Not Given Polyethylene Glycol (Polyethylene Glycol 3350 17 Gm Packet) 17 gm PO DAILYP PRN PRN Reason: Constipation Last Admin: 02/22/22 08:43 Dose: 17 gm Potassium Chloride (Potassium Chloride 20 Meq Tablet) 40 meq PO UD PRN PRN Reason: Potssium is 3-3.5 Potassium Chloride (Potassium Chloride 20 Meq Tablet) 40 meq PO UD PRN PRN Reason: Potassium < 3 Quetiapine Fumarate (Quetiapine 25 Mg Tablet) 50 mg PO HS [facility] Last Admin: 03/30/22 21:33 Dose: 50 mg Quetiapine Fumarate (Quetiapine 25 Mg Tablet) 12.5 mg PO Q6HP PRN PRN Reason: agitation Last Admin: 03/20/22 03:46 Dose: 12.5 mg Quetiapine Fumarate (Quetiapine 25 Mg Tablet) 25 mg PO DAILY@1400 [facility] Last Admin: 03/30/22 14:34 Dose: 25 mg Senna (Sennosides 1 Tablet) 2 tab PO DAILYP PRN PRN Reason: Constipation Last Admin: 03/17/22 21:16 Dose: 2 tab Tamsulosin HCl (Tamsulosin 0.4 Mg Capsule) 0.4 mg PO BID [facility] Last Admin: 03/30/22 21:33 Dose: 0.4 mg A/P Narrative A/P Narrative: A: *Generalized weakness/deconditioning/failure to thrive: *Encephalopathy, acute on chronic, underlying Dementia: 2/2 above, improved *Dementia with behavioral disturbances: better *CAP, likely Aspiration: resolved *Oropharyngeal Dysphagia, Mod: *Acute hypoxic respiratory failure: resolved *Afib, paroxysmal (new diagnosis) w/RVR: improved -CHADSVASC=5-6, echo with good EF *COPD(not on home O2): *h/o diastlic CHF: *Pre-Diabetes: a1c 6.4 *HTN: *CKD II: *Anemia, chronic: *LE wounds/ulcers/buttock decubitus: *Obesity: BMI 34 P: -Awaiting placement -IS/Acapella, home IH's and prn nebs, RT -Wound care -cont per telepsych, increased seroquel to 25@1400 and 50 qhs and 12.5 q6h prn -Eliquis inpt, will defer further decision making to f/u between family/PCP, pt unable to participate in medical decision making -cont BB/norvasc -cont home lasix -SSI, restarted home basal at lower dose, significantly lower Lantus dose than prior to admission -PT/OT -ST eval, dysphagia diet -CM for placement -ppx: eliquis / ppi DNR Time Spent With Patient Time: Total time spent is greater than 50% in coordination of care (as documented) at patient's floor/unit and/or counseling patient: Total time spent with greater than 50% in coordination of care (as documented) at patient's floor/unit and/or counseling patient:: 35 - 50 minutes
[2022-03-31] MEDS: BISOPROLOL 5 MG TABLET PO SCH (11:07)
[2022-03-31] MEDS: FUROSEMIDE 20 MG TABLET PO SCH (11:07)
[2022-03-31] MEDS: DOCUSATE SODIUM 100 MG CAPSULE PO SCH ×2 (11:09→20:46)
[2022-03-31] MEDS: OMEPRAZOLE 20 MG CAPSULE PO SCH (11:09)
[2022-03-31] MEDS: METHOCARBAMOL 750 MG TABLET PO SCH (11:09)
[2022-03-31] MEDS: TAMSULOSIN 0.4 MG CAPSULE PO SCH ×2 (11:09→20:46)
[2022-03-31] MEDS: MEMANTINE 10 MG TABLET PO SCH ×2 (11:10→20:44)
[2022-03-31] MEDS: APIXABAN 5 MG TABLET PO SCH ×2 (11:10→20:46)
[2022-03-31] MEDS: amLODIPine 5 MG TABLET PO SCH (11:10)
[2022-03-31] MEDS: Budesonide-Formoterol 10.2 GM HFA aerosol inhaler INH SCH ×2 (11:11→20:50)
[2022-03-31] MEDS: FLUoxetine HCL 20 MG CAPSULE PO SCH (11:11)
[2022-03-31] MEDS: QUEtiapine 25 MG TABLET PO SCH ×2 (15:55→20:46)
--- NOTE | 2022-03-31 16:01 | Discharge Summary ---
Discharge Provider Provider IMPORTANT FOLLOW-UP INFORMATION FOR PCP: Patient information: Note initiated : 03/31/22 at 3:59 pm Service Date, if different from initiated Date: [] Patient: Edmond Salas 86 y/o M admitted on 02/18/22 for Weakness/Eval for assisted living-PNA,Sepsis. Chief Complaint: [] Date of admission: 02/18/22 13:16 Discharge date: 04/04/22 Primary care physician: Tessa Gayle Consults: 02/18/22 Consult to Physician [CONS] Stat Comment: Consulting Provider: Ferny Ibarra Reason For Exam: Physician to Consult Consult to Physician [CONS] Stat Comment: Consulting Provider: Ferny Ibarra Reason For Exam: Physician to Consult 02/21/22 11:25 Consult to Physician [CONS] Routine Comment: Consulting Provider: Jermaine Soares Reason For Exam: Physician to Consult 02/24/22 09:19 Consult to Physician [CONS] Routine Comment: snf referral Consulting Provider: [facility] Reason For Exam: Physician to Consult 03/03/22 10:16 Consult to Physician [CONS] Routine Comment: Consulting Provider: [facility] Reason For Exam: Physician to Consult COURSE Hospital Course Hospital course: History of present illness: Mr. Salas is a 86 year old M Presents the ED with worsening confusion on top of dementia and weakness. Recently treated for UTI but the urine looks clear here. Original plan was for home with hospice out of the ED. But it sounds like the family was not comfortable with patient being home felt to be unsafe conditions and they have been try to get APS involved. Further work-up in the ED today they got a chest x-ray which showed infiltrate on left side and mild right. Was noted to have some transient mild hypoxia, unknown baseline but has copd. Sounds like after further discussion with family hospice does not think finally decided on and is reported that they would prefer treatment for anything if possible first. Patient reports a chronic cough and some shortness of breath but at baseline. Patient is a poor historian most history obtained from the chart. Medical history includes dementia COPD hypertension chronic anemia and diastolic heart failure grade 1 with good ejection fraction on an echo in 2019. 02/19 Patient sleeping. Likely result from Haldol last night. Haldol was given for sundowning and severe agitation and pulling at lines. Nurse also reports that she feels he is aspirating with liquids. We will place on dysphagia diet order speech therapy evaluation. Likely is infiltrates on chest x-ray from aspiration. 02/20 Patient sitting up in bed eating breakfast. Did get some Zyprexa last night for agitation. No new complaints this morning. Try to talk with him about his atrial fibrillation but given his dementia patient does not seem to comprehend. 02/21 Patient sitting up in bed eating breakfast. More talkative today. No overnight event or new complaints. Did not require any Zyprexa last night. 02/22 Patient sleeping. Calm overnight. Started Seroquel yesterday evening seem to respond well to it. 02/23: Afebrile overnight. No major overnight events. Subjective not obtained due to patient's clinical situations. Medically stable awaiting placement. 02/24: Afebrile overnight. No major overnight events. Subjective not obtained due to patient's clinical situations. Medically stable awaiting placement. 02/25: Afebrile overnight. No major overnight events. Subjective not obtained due to patient's clinical situations. Medically stable awaiting placement. 02/26: Afebrile overnight. No major overnight events. Subjective not obtained due to patient's clinical situations. Medically stable awaiting placement. 02/27: Afebrile overnight. No major overnight events. Subjective not obtained due to patient's clinical situations. Medically stable awaiting placement. 02/28: Afebrile overnight. No major overnight events. Subjective not obtained due to patient's clinical situations. Medically stable awaiting placement. 03/01: Patient is very pleasant to stuffs. Not posting danger to self or stuffs. Medically ready to be discharged to SNF. 03/02 No overnight event or new complaints. 03/03 No new complaints. No overnight events. Vital signs stable. Blood pressure occasionally a bit soft. Decrease Norvasc. 03/04 No change overnight. Vital signs stable. Blood pressure good after decreasing Norvasc. 03/05 Patient stable seems to be doing well. No overnight event or new complaints. Blood pressure good. 03/06 Patient sitting up in bed eating breakfast. Pleasant. Although he does not like his breakfast. 03/07 No significant events overnight, awaiting placement. 03/08 Resting comfortably, awaiting placement. 03/09 Awaiting placement. 03/10 The patient pulled out his Willis yesterday evening, replaced. Still awaiting placement. 03/11 No significant events overnight, occasionally agitated however redirectable. Awaiting placement. 03/12 No issues overnight. No new complaints. Awaiting placement. 03/13 No real changes. Patient sitting up in bed eating breakfast. No new complaints. 03/14 No change. Patient is seen to be feeling well. No behavioral changes overnight per nurses note. 03/15 No overnight event or new complaints. Patient is noted to be in good spirits. 03/16 No reports of behavioral disturbance overnight. No new complaints overnight events. 03/17 No significant events overnight, awaiting placement. 03/18 Pleasantly confused, easily redirectable by staff. Awaiting placement. 03/19 Vitals stable overnight, pleasant and cooperative this morning. Awaiting placement. 03/20 No significant events overnight, cooperative with staff. Evaluated buttock wound with staff, much improved since a couple weeks ago. Continues with Willis catheter. 03/21 Resting comfortably, no significant events overnight. No issues with agitation for several days. Awaiting placement. 03/22-no overnight events. Ongoing coordination for SNF. Ongoing wound care, patient tested positive for COVID during routine discharge and hence unable to transfer to SNF today. Willis is discontinued however remains incontinent of bowel and bladder, remains bedbound 03/23-patient status quo, no overnight events. Ongoing wound care/frequent offloading, currently on room air, no active concerns expressed with nursing staff, remains incontinent of bowel and bladder, oriented to self, frequent repositioning ongoing. No family at bedside. Was unable to discharge to SNF yesterday due to COVID-positive status. Case management coordinating. 03/24: There was no major overnight events. No new complaints. Currently on 10 days CoVID quarantine before SNF placement becomes possible. 03/25: Patient is complaining of mild left shoulder pain. He denies any shortness of breath. His appetite is not the greatest. He is on room air. Currently on 10 days CoVID quarantine before SNF placement becomes possible. 03/26: There was no major overnight events. Patient has no new complaints. Currently on CoVID quarantine before SNF placement becomes possible. 03/27: There was no major overnight events. Patient has no new complaints. Currently on CoVID quarantine before SNF placement becomes possible. 03/28: There was no major overnight events. Patient has no new complaints. Currently on CoVID quarantine before SNF placement becomes possible. 03/29: There was no major overnight events. Patient has no new complaints. Currently on CoVID quarantine before SNF placement becomes possible. 03/30: There was no major overnight events. Patient has no new complaints. Currently on CoVID quarantine before SNF placement becomes possible. 03/31 No overnight event or new complaints. Mood a little depressed this morning. 04/01 No behavioral disturbances overnight. Sleeping when I entered room but awakens. No new complaints. 04/02 No overnight event or new complaints. No reported behavioral instances. 04/03 No new complaints or change overnight. 04/04 No overnight event or new complaints. Stable for discharge. follow-up with hospice recommended Patient high risk for readmission given age and comorbidities, A: *Generalized weakness/deconditioning/failure to thrive: *Encephalopathy, acute on chronic, underlying Dementia: 2/2 above, improved *Dementia with behavioral disturbances: better *CAP, likely Aspiration: resolved *Oropharyngeal Dysphagia, Mod: *Acute hypoxic respiratory failure: resolved *Afib, paroxysmal (new diagnosis) w/RVR: improved -CHADSVASC=5-6, echo with good EF *COPD(not on home O2): *h/o diastlic CHF: *Pre-Diabetes: a1c 6.4 *HTN: *CKD II: *Anemia, chronic: *LE wounds/ulcers/buttock decubitus: *Obesity: BMI 34 P: -cont per telepsych, increased seroquel to 25@1400 and 50 qhs -Eliquis inpt, will defer further decision making to f/u between family/PCP, pt unable to participate in medical decision making -restarted home basal at lower dose, significantly lower Lantus dose than prior to admission -ST eval, dysphagia diet Discharge diagnosis: Generalized weakness deconditioning failure to thrive Encephalopathy moe Secondary discharge diagnosis: Pneumonia dysphagia hypoxic respiratory failure paroxysmal atrial fibrillation COPD history of diastolic heart failure prediabetes hypertension chronic kidney disease anemia wounds obesity Time Spent with Patient Time attestation: Total time spent providing and/or coordinating discharge services: Time spent: Greater than 30 minutes EXAM Constitutional Vitals: Temp Pulse Resp BP Pulse Ox O2 Del Method O2 Flow Rate 97.4 F 65 20 116/64 94 0 03/31/22 12:00 03/31/22 12:00 03/31/22 12:00 03/31/22 12:00 03/31/22 12:00 03/31/22 12:00 02/25/22 04:00 Discharge Plan Patient/Caregiver Discharge Instructions Activity: increase activity as tolerated Diet: Consistent Carbohydrate Instructions: Weakness (ED) Activity Restrictions/Additional Instructions: Follow-up with hospice outpatient Prescriptions: New Eliquis 5 mg Tablet 5 mg PO BID Qty: 60 0RF quetiapine 25 mg Tablet 50 mg PO HS Qty: 30 0RF quetiapine 25 mg Tablet 25 mg PO DAILY@1400 Qty: 30 0RF Continued methocarbamol [Robaxin-750] 750 MG tablet 750 mg PO DAILY amlodipine 10 MG tablet 5 mg PO DAILY fluoxetine [Sarafem] 20 MG tablet 20 mg PO TID pravastatin [Pravachol] 20 MG tablet 40 mg PO DAILY furosemide [Lasix] 20 MG tablet 40 mg PO DAILY Super B Complex + C 150 MG tablet 150 mg PO WEEKLY Combivent Respimat 1 PUFF mist 2 puff INH TIDP PRN (Reason: Shortness Of Breath) Century Mature 1 EACH tablet 1 ea PO DAILY acetaminophen-codeine 1 TAB tablet 1 tab PO BID PRN (Reason: Pain) tiotropium bromide 18 MCG capsule, w/inhalation device 18 mcg INH BID budesonide-formoterol 10.2 GM HFA aerosol inhaler 2 puff IH BID Vitamin D3 400 UNIT tablet 400 unit PO WEEKLY tamsulosin 0.4 mg Capsule 0.4 mg PO BID memantine [Namenda] 5 mg Tablet 5 mg PO BID omeprazole 20 mg Tablet,Delayed Release (Dr/Ec) 20 mg PO QDAY duloxetine 20 mg Capsule, Delayed Rel Sprinkle 20 mg PO BID bisoprolol fumarate 10 mg Tablet 10 mg PO DAILY Changed insulin glargine [Lantus U-100 Insulin] 100 unit/mL Solution 15 unit SUBCUT QPM Qty: 10 0RF Discontinued losartan [Cozaar] 100 MG tablet 100 mg PO DAILY cephalexin 500 mg capsule 1 cap PO Q6 Follow Up Plan Patient Disposition: Xfer SNF Prognosis: Undetermined Rehab Potential: Fair I certify that the patient requires SNF services: Yes Overall status at discharge: patient is progressing back to baseline Discharge Orders: Discharge Order (Routine); Ordered 04/04/22 Ordered By: Ferny Ibarra
[2022-03-31] MEDS: ACETAMINOPHEN 325 MG TABLET PO PRN (20:46)
[2022-03-31] MEDS: INSULIN GLARGINE, HUMAN 1 UNIT/0.01 ML SQ SCH (20:50)
--- NOTE | 2022-04-01 08:31 | Internal Med Progress Note ---
SUBJECTIVE Subjective Patient information: Note initiated : 04/01/22 at 8:30 am Service Date, if different from initiated Date: [] Patient: Edmond Salas a 86 y/o M admitted on 02/18/22 for Weakness/Eval for assisted living-PNA,Sepsis. Chief Complaint: [] Interval history: History of present illness: Mr. Salas is a 86 year old M Presents the ED with worsening confusion on top of dementia and weakness. Recently treated for UTI but the urine looks clear here. Original plan was for home with hospice out of the ED. But it sounds like the family was not comfortable with patient being home felt to be unsafe conditions and they have been try to get APS involved. Further work-up in the ED today they got a chest x-ray which showed infiltrate on left side and mild right. Was noted to have some transient mild hypoxia, unknown baseline but has copd. Sounds like after further discussion with family hospice does not think finally decided on and is reported that they would prefer treatment for anything if possible first. Patient reports a chronic cough and some shortness of breath but at baseline. Patient is a poor historian most history obtained from the chart. Medical history includes dementia COPD hypertension chronic anemia and diastolic heart failure grade 1 with good ejection fraction on an echo in 2019. 02/19 Patient sleeping. Likely result from Haldol last night. Haldol was given for and severe agitation and pulling at lines. Nurse also reports that she feels he is aspirating with liquids. We will place on dysphagia diet order speech therapy evaluation. Likely is infiltrates on chest x-ray from aspiration. 02/20 Patient sitting up in bed eating breakfast. Did get some Zyprexa last night for agitation. No new complaints this morning. Try to talk with him about his atrial fibrillation but given his dementia patient does not seem to comprehend. 02/21 Patient sitting up in bed eating breakfast. More talkative today. No overnight event or new complaints. Did not require any Zyprexa last night. 02/22 Patient sleeping. Calm overnight. Started Seroquel yesterday evening seem to respond well to it. 02/23: Afebrile overnight. No major overnight events. Subjective not obtained due to patient's clinical situations. Medically stable awaiting placement. 02/24: Afebrile overnight. No major overnight events. Subjective not obtained due to patient's clinical situations. Medically stable awaiting placement. 02/25: Afebrile overnight. No major overnight events. Subjective not obtained due to patient's clinical situations. Medically stable awaiting placement. 02/26: Afebrile overnight. No major overnight events. Subjective not obtained due to patient's clinical situations. Medically stable awaiting placement. 02/27: Afebrile overnight. No major overnight events. Subjective not obtained due to patient's clinical situations. Medically stable awaiting placement. 02/28: Afebrile overnight. No major overnight events. Subjective not obtained due to patient's clinical situations. Medically stable awaiting placement. 03/01: Patient is very pleasant to stuffs. Not posting danger to self or stuffs. Medically ready to be discharged to SNF. 03/02 No overnight event or new complaints. 03/03 No new complaints. No overnight events. Vital signs stable. Blood pressure occasionally a bit soft. Decrease Norvasc. 03/04 No change overnight. Vital signs stable. Blood pressure good after decreasing Norvasc. 03/05 Patient stable seems to be doing well. No overnight event or new complaints. Blood pressure good. 03/06 Patient sitting up in bed eating breakfast. Pleasant. Although he does not like his breakfast. 03/07 No significant events overnight, awaiting placement. 03/08 Resting comfortably, awaiting placement. 03/09 Awaiting placement. 03/10 The patient pulled out his Willis yesterday evening, replaced. Still awaiting placement. 03/11 No significant events overnight, occasionally agitated however redirectable. Awaiting placement. 03/12 No issues overnight. No new complaints. Awaiting placement. 03/13 No real changes. Patient sitting up in bed eating breakfast. No new complaints. 03/14 No change. Patient is seen to be feeling well. No behavioral changes overnight per nurses note. 03/15 No overnight event or new complaints. Patient is noted to be in good spirits. 03/16 No reports of behavioral disturbance overnight. No new complaints overnight events. 03/17 No significant events overnight, awaiting placement. 03/18 Pleasantly confused, easily redirectable by staff. Awaiting placement. 03/19 Vitals stable overnight, pleasant and cooperative this morning. Awaiting placement. 03/20 No significant events overnight, cooperative with staff. Evaluated buttock wound with staff, much improved since a couple weeks ago. Continues with Willis catheter. 03/21 Resting comfortably, no significant events overnight. No issues with agitation for several days. Awaiting placement. 03/22-no overnight events. Ongoing coordination for SNF. Ongoing wound care, patient tested positive for COVID during routine discharge and hence unable to transfer to SNF today. Willis is discontinued however remains incontinent of bowel and bladder, remains bedbound 03/23-patient status quo, no overnight events. Ongoing wound care/frequent offl oading, currently on room air, no active concerns expressed with nursing staff, remains incontinent of bowel and bladder, oriented to self, frequent repositioning ongoing. No family at bedside. Was unable to discharge to SNF yesterday due to COVID-positive status. Case management coordinating. 03/24: There was no major overnight events. No new complaints. Currently on 10 days CoVID quarantine before SNF placement becomes possible. 03/25: Patient is complaining of mild left shoulder pain. He denies any shortness of breath. His appetite is not the greatest. He is on room air. Currently on 10 days CoVID quarantine before SNF placement becomes possible. 03/26: There was no major overnight events. Patient has no new complaints. Currently on CoVID quarantine before SNF placement becomes possible. 03/27: There was no major overnight events. Patient has no new complaints. Currently on CoVID quarantine before SNF placement becomes possible. 03/28: There was no major overnight events. Patient has no new complaints. Currently on CoVID quarantine before SNF placement becomes possible. 03/29: There was no major overnight events. Patient has no new complaints. Currently on CoVID quarantine before SNF placement becomes possible. 03/30: There was no major overnight events. Patient has no new complaints. Currently on CoVID quarantine before SNF placement becomes possible. 03/31 No overnight event or new complaints. Mood a little depressed this morning. 04/01 No behavioral disturbances overnight. Sleeping when I entered room but awakens. No new complaints. Review of Systems: denies headache/fever/chills/nausea/vomiting/chest or abdominal pain/cough/dyspnea/diarrhea. Otherwise see above. Constitutional Vitals: Vital Signs Temp Pulse Resp BP Pulse Ox O2 Del Method O2 Flow Rate 98.0 F 64 20 129/60 97 0 04/01/22 04:40 04/01/22 04:40 04/01/22 04:40 04/01/22 04:40 04/01/22 04:40 04/01/22 04:40 02/25/22 04:00 Period Temp Pulse Resp BP Sys/Meza Pulse Ox O2 Del Method O2 Flow Rate Last 24 Hr 97.4 F-98.0 F 64-89 18-20 100-129/56-66 94-97 Room Air-Room Air Intake and Output 03/31/22 04/01/22 04/01/22 19:59 03:59 11:59 Intake Total 200 100 Output Total 1 1 Balance 199 99 Weight 114.305 kg Intake & Output: Intake & Output 03/31/22 04/01/22 04/01/22 19:59 03:59 11:59 Intake Total 200 100 Output Total 1 1 Balance 199 99 Weight 114.305 kg Intake: Oral 200 100 Output: # of times incontinent of urine 1 1 Other: Meal Lunch Percent of Meal Consumed 25% Urine Odor Strong Normal Stool Size Small Small Stool Color Brown Brown Stool Consistency Soft Soft # Bowel Movements 1 1 # of times incontinent of 1 Bowels Exam: General: awake, no acute Distress, obese Eyes/N/T: EOMI, Head/Neck: neck supple, CV: irreg irreg, No murmurs, Pulm: Clear b/l, no wheezing/rhonchi/rales Abd: soft, nontender, +BS x4 Ext: no clubbing/cyanosis, b/l LE edema improved and LE chronic wounds/ulcers Neuro: alert, no focal deficits, spontaneously moves all extremities, Skin: warm/dry OBJ DATA Labs CBC & Chem 7: 02/28/22 05:49 02/28/22 05:49 Meds: Medications Acetaminophen (Acetaminophen 325 Mg Tablet) 650 mg PO Q6HP PRN; Protocol PRN Reason: Per Pain Protocol/Fever > 101 Last Admin: 03/31/22 20:46 Dose: 650 mg Acetaminophen/Codeine Phosphate (Acetaminophen W/Codeine #3 1 Tablet) 1 tab PO BIDP PRN; Protocol PRN Reason: Pain Last Admin: 03/28/22 21:07 Dose: 1 tab Albuterol/Ipratropium (Ipratropium/Albuterol 3 Ml Ampul.Neb) 3 ml NEB Q4HP PRN PRN Reason: Shortness Of Breath Last Admin: 03/06/22 20:44 Dose: 3 ml Amlodipine Besylate (Amlodipine 5 Mg Tablet) 2.5 mg PO DAILY [facility] Last Admin: 03/31/22 11:10 Dose: 2.5 mg Apixaban (Apixaban 5 Mg Tablet) 5 mg PO BID [facility] Last Admin: 03/31/22 20:46 Dose: 5 mg Bisoprolol Fumarate (Bisoprolol 5 Mg Tablet) 10 mg PO DAILY [facility] Last Admin: 03/31/22 11:07 Dose: 10 mg Dextrose (Dextrose 50% 50 Ml Vial) 0 ml IV UD PRN PRN Reason: Per Sliding Scale Diagnostic Test (Pha) (Accu-Chek 1 Each Strip) 1 each FS ACHS [facility] Last Admin: 03/31/22 20:44 Dose: 1 each Docusate Sodium (Docusate Sodium 100 Mg Capsule) 100 mg PO BID [facility] Last Admin: 03/31/22 20:46 Dose: 100 mg Fluoxetine HCl (Fluoxetine Hcl 20 Mg Capsule) 20 mg PO DAILY [facility] Last Admin: 03/31/22 11:11 Dose: 20 mg Furosemide (Furosemide 20 Mg Tablet) 40 mg PO DAILY [facility] Last Admin: 03/31/22 11:07 Dose: 40 mg Glucose (Dextrose 31 Gm Oral.Susp) 15 gm PO PRN PRN PRN Reason: Hypoglycemia Potassium Chloride 40 meq/ (Dextrose) 520 mls @ 130 mls/hr IV UD PRN PRN Reason: Potassium < 3 Magnesium Sulfate (Magnesium Sulfate) 2 gm in 50 mls @ 50 mls/hr IV UD PRN PRN Reason: Magnesium </= 1.6 Insulin Glargine (Insulin Glargine, Human 1 Unit/0.01 Ml) 10 unit SQ QPM [facility] Last Admin: 03/31/22 20:50 Dose: 10 units Insulin Human Lispro (Insulin Lispro 1 Unit/0.01 Ml Unit) 0 unit SQ ACHS [facility]; Protocol Last Admin: 03/31/22 20:44 Dose: Not Given Memantine (Memantine 10 Mg Tablet) 5 mg PO BID [facility] Last Admin: 03/31/22 20:44 Dose: 5 mg Methocarbamol (Methocarbamol 750 Mg Tablet) 750 mg PO DAILY [facility] Last Admin: 03/31/22 11:09 Dose: 750 mg Metoprolol Tartrate (Metoprolol Tartrate 5 Mg/5 Ml Vial) 5 mg IV Q2HP PRN PRN Reason: Tachyarrhythmias HR>110 Last Admin: 02/19/22 22:21 Dose: 5 mg Omeprazole (Omeprazole 20 Mg Capsule) 20 mg PO ACB [facility] Last Admin: 03/31/22 11:09 Dose: 20 mg Ondansetron HCl (Ondansetron 4 Mg/2 Ml Vial) 4 mg IV Q4HP PRN PRN Reason: Nausea And Vomiting Budesonide- Formoterol 10.2 Gm Hfa Aerosol Inhaler 2 dose INH BID [facility] Last Admin: 03/31/22 20:50 Dose: Not Given Polyethylene Glycol (Polyethylene Glycol 3350 17 Gm Packet) 17 gm PO DAILYP PRN PRN Reason: Constipation Last Admin: 02/22/22 08:43 Dose: 17 gm Potassium Chloride (Potassium Chloride 20 Meq Tablet) 40 meq PO UD PRN PRN Reason: Potssium is 3-3.5 Potassium Chloride (Potassium Chloride 20 Meq Tablet) 40 meq PO UD PRN PRN Reason: Potassium < 3 Quetiapine Fumarate (Quetiapine 25 Mg Tablet) 50 mg PO HS [facility] Last Admin: 03/31/22 20:46 Dose: 50 mg Quetiapine Fumarate (Quetiapine 25 Mg Tablet) 12.5 mg PO Q6HP PRN PRN Reason: agitation Last Admin: 03/20/22 03:46 Dose: 12.5 mg Quetiapine Fumarate (Quetiapine 25 Mg Tablet) 25 mg PO DAILY@1400 [facility] Last Admin: 03/31/22 15:55 Dose: 25 mg Senna (Sennosides 1 Tablet) 2 tab PO DAILYP PRN PRN Reason: Constipation Last Admin: 03/17/22 21:16 Dose: 2 tab Tamsulosin HCl (Tamsulosin 0.4 Mg Capsule) 0.4 mg PO BID [facility] Last Admin: 03/31/22 20:46 Dose: 0.4 mg A/P Narrative A/P Narrative: A: *Generalized weakness/deconditioning/failure to thrive: *Encephalopathy, acute on chronic, underlying Dementia: 2/2 above, improved *Dementia with behavioral disturbances: better *CAP, likely Aspiration: resolved *Oropharyngeal Dysphagia, Mod: *Acute hypoxic respiratory failure: resolved *Afib, paroxysmal (new diagnosis) w/RVR: improved -CHADSVASC=5-6, echo with good EF *COPD(not on home O2): *h/o diastlic CHF: *Pre-Diabetes: a1c 6.4 *HTN: *CKD II: *Anemia, chronic: *LE wounds/ulcers/buttock decubitus: *Obesity: BMI 34 P: -Awaiting placement -IS/Acapella, home IH's and prn nebs, RT -Wound care -cont per telepsych, increased seroquel to 25@1400 and 50 qhs and 12.5 q6h prn -Eliquis inpt, will defer further decision making to f/u between family/PCP, pt unable to participate in medical decision making -cont BB/norvasc -cont home lasix -SSI, restarted home basal at lower dose, significantly lower Lantus dose than prior to admission -PT/OT -ST contreras, dysphagia diet -CM for placement -ppx: eliquis / ppi Time Spent With Patient Time: Total time spent is greater than 50% in coordination of care (as documented) at patient's floor/unit and/or counseling patient: Total time spent with greater than 50% in coordination of care (as documented) at patient's floor/unit and/or counseling patient:: 35 - 50 minutes
[2022-04-01] MEDS: INSULIN LISPRO 1 UNIT/0.01 ML UNIT SQ SCH ×4 (09:05→20:45)
[2022-04-01] MEDS: FLUoxetine HCL 20 MG CAPSULE PO SCH (09:18)
[2022-04-01] MEDS: TAMSULOSIN 0.4 MG CAPSULE PO SCH ×2 (09:18→21:03)
[2022-04-01] MEDS: FUROSEMIDE 20 MG TABLET PO SCH (09:18)
[2022-04-01] MEDS: OMEPRAZOLE 20 MG CAPSULE PO SCH (09:18)
[2022-04-01] MEDS: DOCUSATE SODIUM 100 MG CAPSULE PO SCH ×2 (09:18→21:04)
[2022-04-01] MEDS: amLODIPine 5 MG TABLET PO SCH (09:19)
[2022-04-01] MEDS: APIXABAN 5 MG TABLET PO SCH ×2 (09:19→21:04)
[2022-04-01] MEDS: BISOPROLOL 5 MG TABLET PO SCH (09:21)
[2022-04-01] MEDS: METHOCARBAMOL 750 MG TABLET PO SCH (09:21)
[2022-04-01] MEDS: Budesonide-Formoterol 10.2 GM HFA aerosol inhaler INH SCH ×2 (09:22→20:45)
[2022-04-01] MEDS: MEMANTINE 10 MG TABLET PO SCH ×2 (09:22→21:03)
[2022-04-01] MEDS: ACETAMINOPHEN 325 MG TABLET PO PRN ×2 (12:30→21:02)
[2022-04-01] MEDS: QUEtiapine 25 MG TABLET PO SCH ×2 (12:31→21:03)
[2022-04-01] MEDS: INSULIN GLARGINE, HUMAN 1 UNIT/0.01 ML SQ SCH (21:02)
[2022-04-02] MEDS: INSULIN LISPRO 1 UNIT/0.01 ML UNIT SQ SCH ×4 (07:42→20:39)
--- NOTE | 2022-04-02 08:13 | Internal Med Progress Note ---
SUBJECTIVE Subjective Patient information: Note initiated : 04/02/22 at 8:13 am Service Date, if different from initiated Date: [] Patient: Edmond Salas a 86 y/o M admitted on 02/18/22 for Weakness/Eval for assisted living-PNA,Sepsis. Chief Complaint: [] Interval history: History of present illness: Mr. Salas is a 86 year old M Presents the ED with worsening confusion on top of dementia and weakness. Recently treated for UTI but the urine looks clear here. Original plan was for home with hospice out of the ED. But it sounds like the family was not comfortable with patient being home felt to be unsafe conditions and they have been try to get APS involved. Further work-up in the ED today they got a chest x-ray which showed infiltrate on left side and mild right. Was noted to have some transient mild hypoxia, unknown baseline but has copd. Sounds like after further discussion with family hospice does not think finally decided on and is reported that they would prefer treatment for anything if possible first. Patient reports a chronic cough and some shortness of breath but at baseline. Patient is a poor historian most history obtained from the chart. Medical history includes dementia COPD hypertension chronic anemia and diastolic heart failure grade 1 with good ejection fraction on an echo in 2019. 02/19 Patient sleeping. Likely result from Haldol last night. Haldol was given for and severe agitation and pulling at lines. Nurse also reports that she feels he is aspirating with liquids. We will place on dysphagia diet order speech therapy evaluation. Likely is infiltrates on chest x-ray from aspiration. 02/20 Patient sitting up in bed eating breakfast. Did get some Zyprexa last night for agitation. No new complaints this morning. Try to talk with him about his atrial fibrillation but given his dementia patient does not seem to comprehend. 02/21 Patient sitting up in bed eating breakfast. More talkative today. No overnight event or new complaints. Did not require any Zyprexa last night. 02/22 Patient sleeping. Calm overnight. Started Seroquel yesterday evening seem to respond well to it. 02/23: Afebrile overnight. No major overnight events. Subjective not obtained due to patient's clinical situations. Medically stable awaiting placement. 02/24: Afebrile overnight. No major overnight events. Subjective not obtained due to patient's clinical situations. Medically stable awaiting placement. 02/25: Afebrile overnight. No major overnight events. Subjective not obtained due to patient's clinical situations. Medically stable awaiting placement. 02/26: Afebrile overnight. No major overnight events. Subjective not obtained due to patient's clinical situations. Medically stable awaiting placement. 02/27: Afebrile overnight. No major overnight events. Subjective not obtained due to patient's clinical situations. Medically stable awaiting placement. 02/28: Afebrile overnight. No major overnight events. Subjective not obtained due to patient's clinical situations. Medically stable awaiting placement. 03/01: Patient is very pleasant to stuffs. Not posting danger to self or stuffs. Medically ready to be discharged to SNF. 03/02 No overnight event or new complaints. 03/03 No new complaints. No overnight events. Vital signs stable. Blood pressure occasionally a bit soft. Decrease Norvasc. 03/04 No change overnight. Vital signs stable. Blood pressure good after decreasing Norvasc. 03/05 Patient stable seems to be doing well. No overnight event or new complaints. Blood pressure good. 03/06 Patient sitting up in bed eating breakfast. Pleasant. Although he does not like his breakfast. 03/07 No significant events overnight, awaiting placement. 03/08 Resting comfortably, awaiting placement. 03/09 Awaiting placement. 03/10 The patient pulled out his Willis yesterday evening, replaced. Still awaiting placement. 03/11 No significant events overnight, occasionally agitated however redirectable. Awaiting placement. 03/12 No issues overnight. No new complaints. Awaiting placement. 03/13 No real changes. Patient sitting up in bed eating breakfast. No new complaints. 03/14 No change. Patient is seen to be feeling well. No behavioral changes overnight per nurses note. 03/15 No overnight event or new complaints. Patient is noted to be in good spirits. 03/16 No reports of behavioral disturbance overnight. No new complaints overnight events. 03/17 No significant events overnight, awaiting placement. 03/18 Pleasantly confused, easily redirectable by staff. Awaiting placement. 03/19 Vitals stable overnight, pleasant and cooperative this morning. Awaiting placement. 03/20 No significant events overnight, cooperative with staff. Evaluated buttock wound with staff, much improved since a couple weeks ago. Continues with Willis catheter. 03/21 Resting comfortably, no significant events overnight. No issues with agitation for several days. Awaiting placement. 03/22-no overnight events. Ongoing coordination for SNF. Ongoing wound care, patient tested positive for COVID during routine discharge and hence unable to transfer to SNF today. Willis is discontinued however remains incontinent of bowel and bladder, remains bedbound 03/23-patient status quo, no overnight events. Ongoing wound care/frequent offl oading, currently on room air, no active concerns expressed with nursing staff, remains incontinent of bowel and bladder, oriented to self, frequent repositioning ongoing. No family at bedside. Was unable to discharge to SNF yesterday due to COVID-positive status. Case management coordinating. 03/24: There was no major overnight events. No new complaints. Currently on 10 days Co[facility] quarantine before SNF placement becomes possible. 03/25: Patient is complaining of mild left shoulder pain. He denies any shortness of breath. His appetite is not the greatest. He is on room air. Currently on 10 days CoVID quarantine before SNF placement becomes possible. 03/26: There was no major overnight events. Patient has no new complaints. Currently on CoVID quarantine before SNF placement becomes possible. 03/27: There was no major overnight events. Patient has no new complaints. Currently on CoVID quarantine before SNF placement becomes possible. 03/28: There was no major overnight events. Patient has no new complaints. Currently on CoVID quarantine before SNF placement becomes possible. 03/29: There was no major overnight events. Patient has no new complaints. Currently on CoVID quarantine before SNF placement becomes possible. 03/30: There was no major overnight events. Patient has no new complaints. Currently on CoVID quarantine before SNF placement becomes possible. 03/31 No overnight event or new complaints. Mood a little depressed this morning. 04/01 No behavioral disturbances overnight. Sleeping when I entered room but awakens. No new complaints. 04/02 No overnight event or new complaints. No reported behavioral instances. Review of Systems: denies headache/fever/chills/nausea/vomiting/chest or abdominal pain/cough/dyspnea/diarrhea. Otherwise see above. Constitutional Vitals: Vital Signs Temp Pulse Resp BP Pulse Ox O2 Del Method O2 Flow Rate 97.6 F 77 14 102/60 98 0 04/02/22 07:36 04/02/22 07:36 04/02/22 07:36 04/02/22 07:36 04/02/22 07:36 04/02/22 07:36 02/25/22 04:00 Period Temp Pulse Resp BP Sys/Meza Pulse Ox O2 Del Method O2 Flow Rate Last 24 Hr 97.1 F-99.0 F 70-84 14-20 101-136/49-78 95-98 Room Air-Room Air Intake and Output 04/01/22 04/02/22 04/02/22 19:59 03:59 11:59 Intake Total 590 200 Output Total 1 1 Balance 589 199 Intake & Output: Intake & Output 04/01/22 04/02/22 04/02/22 19:59 03:59 11:59 Intake Total 590 200 Output Total 1 1 Balance 589 199 Intake: Oral 590 200 Output: # of times incontinent of urine 1 1 Other: Meal Lunch Percent of Meal Consumed 25% Feeding Ability Needs Supervision # Bowel Movements 0 Exam: General: awake, no acute Distress, obese Eyes/N/T: EOMI, Head/Neck: neck supple, CV: irreg irreg, No murmurs, Pulm: Clear b/l, no wheezing/rhonchi/rales Abd: soft, nontender, +BS x4 Ext: no clubbing/cyanosis, b/l LE edema improved and LE chronic wounds/ulcers Neuro: alert, no focal deficits, spontaneously moves all extremities, Skin: warm/dry OBJ DATA Labs CBC & Chem 7: 02/28/22 05:49 02/28/22 05:49 Meds: Medications Acetaminophen (Acetaminophen 325 Mg Tablet) 650 mg PO Q6HP PRN; Protocol PRN Reason: Per Pain Protocol/Fever > 101 Last Admin: 04/01/22 21:02 Dose: 650 mg Acetaminophen/Codeine Phosphate (Acetaminophen W/Codeine #3 1 Tablet) 1 tab PO BIDP PRN; Protocol PRN Reason: Pain Last Admin: 03/28/22 21:07 Dose: 1 tab Albuterol/Ipratropium (Ipratropium/Albuterol 3 Ml Ampul.Neb) 3 ml NEB Q4HP PRN PRN Reason: Shortness Of Breath Last Admin: 03/06/22 20:44 Dose: 3 ml Amlodipine Besylate (Amlodipine 5 Mg Tablet) 2.5 mg PO DAILY [facility] Last Admin: 04/01/22 09:19 Dose: 2.5 mg Apixaban (Apixaban 5 Mg Tablet) 5 mg PO BID [facility] Last Admin: 04/01/22 21:04 Dose: 5 mg Bisoprolol Fumarate (Bisoprolol 5 Mg Tablet) 10 mg PO DAILY [facility] Last Admin: 04/01/22 09:21 Dose: 10 mg Dextrose (Dextrose 50% 50 Ml Vial) 0 ml IV UD PRN PRN Reason: Per Sliding Scale Diagnostic Test (Pha) (Accu-Chek 1 Each Strip) 1 each FS ACHS [facility] Last Admin: 04/02/22 07:42 Dose: 1 each Docusate Sodium (Docusate Sodium 100 Mg Capsule) 100 mg PO BID [facility] Last Admin: 04/01/22 21:04 Dose: 100 mg Fluoxetine HCl (Fluoxetine Hcl 20 Mg Capsule) 20 mg PO DAILY [facility] Last Admin: 04/01/22 09:18 Dose: 20 mg Furosemide (Furosemide 20 Mg Tablet) 40 mg PO DAILY [facility] Last Admin: 04/01/22 09:18 Dose: 40 mg Glucose (Dextrose 31 Gm Oral.Susp) 15 gm PO PRN PRN PRN Reason: Hypoglycemia Potassium Chloride 40 meq/ (Dextrose) 520 mls @ 130 mls/hr IV UD PRN PRN Reason: Potassium < 3 Magnesium Sulfate (Magnesium Sulfate) 2 gm in 50 mls @ 50 mls/hr IV UD PRN PRN Reason: Magnesium </= 1.6 Insulin Glargine (Insulin Glargine, Human 1 Unit/0.01 Ml) 10 unit SQ QPM [facility] Last Admin: 04/01/22 21:02 Dose: 10 units Insulin Human Lispro (Insulin Lispro 1 Unit/0.01 Ml Unit) 0 unit SQ ACHS [facility]; Protocol Last Admin: 04/02/22 07:42 Dose: Not Given Memantine (Memantine 10 Mg Tablet) 5 mg PO BID [facility] Last Admin: 04/01/22 21:03 Dose: 5 mg Methocarbamol (Methocarbamol 750 Mg Tablet) 750 mg PO DAILY [facility] Last Admin: 04/01/22 09:21 Dose: 750 mg Metoprolol Tartrate (Metoprolol Tartrate 5 Mg/5 Ml Vial) 5 mg IV Q2HP PRN PRN Reason: Tachyarrhythmias HR>110 Last Admin: 02/19/22 22:21 Dose: 5 mg Omeprazole (Omeprazole 20 Mg Capsule) 20 mg PO ACB [facility] Last Admin: 04/01/22 09:18 Dose: 20 mg Ondansetron HCl (Ondansetron 4 Mg/2 Ml Vial) 4 mg IV Q4HP PRN PRN Reason: Nausea And Vomiting Budesonide- Formoterol 10.2 Gm Hfa Aerosol Inhaler 2 dose INH BID [facility] Last Admin: 04/01/22 20:45 Dose: Not Given Polyethylene Glycol (Polyethylene Glycol 3350 17 Gm Packet) 17 gm PO DAILYP PRN PRN Reason: Constipation Last Admin: 02/22/22 08:43 Dose: 17 gm Potassium Chloride (Potassium Chloride 20 Meq Tablet) 40 meq PO UD PRN PRN Reason: Potssium is 3-3.5 Potassium Chloride (Potassium Chloride 20 Meq Tablet) 40 meq PO UD PRN PRN Reason: Potassium < 3 Quetiapine Fumarate (Quetiapine 25 Mg Tablet) 50 mg PO HS [facility] Last Admin: 04/01/22 21:03 Dose: 50 mg Quetiapine Fumarate (Quetiapine 25 Mg Tablet) 12.5 mg PO Q6HP PRN PRN Reason: agitation Last Admin: 03/20/22 03:46 Dose: 12.5 mg Quetiapine Fumarate (Quetiapine 25 Mg Tablet) 25 mg PO DAILY@1400 [facility] Last Admin: 04/01/22 12:31 Dose: 25 mg Senna (Sennosides 1 Tablet) 2 tab PO DAILYP PRN PRN Reason: Constipation Last Admin: 03/17/22 21:16 Dose: 2 tab Tamsulosin HCl (Tamsulosin 0.4 Mg Capsule) 0.4 mg PO BID [facility] Last Admin: 04/01/22 21:03 Dose: 0.4 mg A/P Narrative A/P Narrative: A: *Generalized weakness/deconditioning/failure to thrive: *Encephalopathy, acute on chronic, underlying Dementia: 2/2 above, improved *Dementia with behavioral disturbances: better *CAP, likely Aspiration: resolved *Oropharyngeal Dysphagia, Mod: *Acute hypoxic respiratory failure: resolved *Afib, paroxysmal (new diagnosis) w/RVR: improved -CHADSVASC=5-6, echo with good EF *COPD(not on home O2): *h/o diastlic CHF: *Pre-Diabetes: a1c 6.4 *HTN: low-normal bps *CKD II: *Anemia, chronic: *LE wounds/ulcers/buttock decubitus: *Obesity: BMI 34 P: -Awaiting placement -IS/Acapella, home IH's and prn nebs, RT -Wound care -cont per telepsych, increased seroquel to 25@1400 and 50 qhs and 12.5 q6h prn -Eliquis inpt, will defer further decision making to f/u between family/PCP, pt unable to participate in medical decision making -cont BB, d/c norvasc for low-normal bp -cont home lasix -SSI, restarted home basal at lower dose, significantly lower Lantus dose than prior to admission -PT/OT -ST ben, dysphagia diet -CM for placement -ppx: eliquis / ppi Time Spent With Patient Time: Total time spent is greater than 50% in coordination of care (as documented) at patient's floor/unit and/or counseling patient: Total time spent with greater than 50% in coordination of care (as documented) at patient's floor/unit and/or counseling patient:: 35 - 50 minutes
[2022-04-02] MEDS: METHOCARBAMOL 750 MG TABLET PO SCH (08:53)
[2022-04-02] MEDS: MEMANTINE 10 MG TABLET PO SCH ×2 (08:54→20:32)
[2022-04-02] MEDS: BISOPROLOL 5 MG TABLET PO SCH (08:54)
[2022-04-02] MEDS: FLUoxetine HCL 20 MG CAPSULE PO SCH (08:54)
[2022-04-02] MEDS: APIXABAN 5 MG TABLET PO SCH ×2 (08:54→20:32)
[2022-04-02] MEDS: Budesonide-Formoterol 10.2 GM HFA aerosol inhaler INH SCH ×2 (08:55→20:37)
[2022-04-02] MEDS: TAMSULOSIN 0.4 MG CAPSULE PO SCH ×2 (08:55→20:31)
[2022-04-02] MEDS: OMEPRAZOLE 20 MG CAPSULE PO SCH (08:55)
[2022-04-02] MEDS: FUROSEMIDE 20 MG TABLET PO SCH (08:55)
[2022-04-02] MEDS: DOCUSATE SODIUM 100 MG CAPSULE PO SCH ×2 (08:55→20:31)
[2022-04-02] MEDS: QUEtiapine 25 MG TABLET PO SCH ×2 (13:20→20:32)
[2022-04-02] MEDS: INSULIN GLARGINE, HUMAN 1 UNIT/0.01 ML SQ SCH (20:40)
[2022-04-03] MEDS: INSULIN LISPRO 1 UNIT/0.01 ML UNIT SQ SCH ×4 (07:31→20:06)
[2022-04-03] MEDS: METHOCARBAMOL 750 MG TABLET PO SCH (08:35)
[2022-04-03] MEDS: OMEPRAZOLE 20 MG CAPSULE PO SCH (08:35)
[2022-04-03] MEDS: FLUoxetine HCL 20 MG CAPSULE PO SCH (08:35)
[2022-04-03] MEDS: BISOPROLOL 5 MG TABLET PO SCH (08:35)
[2022-04-03] MEDS: MEMANTINE 10 MG TABLET PO SCH ×2 (08:35→20:07)
[2022-04-03] MEDS: FUROSEMIDE 20 MG TABLET PO SCH (08:35)
[2022-04-03] MEDS: TAMSULOSIN 0.4 MG CAPSULE PO SCH ×2 (08:35→20:07)
[2022-04-03] MEDS: APIXABAN 5 MG TABLET PO SCH ×2 (08:36→20:07)
[2022-04-03] MEDS: DOCUSATE SODIUM 100 MG CAPSULE PO SCH ×2 (08:36→20:07)
[2022-04-03] MEDS: Budesonide-Formoterol 10.2 GM HFA aerosol inhaler INH SCH ×2 (08:36→20:08)
--- NOTE | 2022-04-03 08:43 | Internal Med Progress Note ---
SUBJECTIVE Subjective Patient information: Note initiated : 04/03/22 at 8:43 am Service Date, if different from initiated Date: [] Patient: Edmond Salas a 86 y/o M admitted on 02/18/22 for Weakness/Eval for assisted living-PNA,Sepsis. Chief Complaint: [] Interval history: History of present illness: Mr. Salas is a 86 year old M Presents the ED with worsening confusion on top of dementia and weakness. Recently treated for UTI but the urine looks clear here. Original plan was for home with hospice out of the ED. But it sounds like the family was not comfortable with patient being home felt to be unsafe conditions and they have been try to get APS involved. Further work-up in the ED today they got a chest x-ray which showed infiltrate on left side and mild right. Was noted to have some transient mild hypoxia, unknown baseline but has copd. Sounds like after further discussion with family hospice does not think finally decided on and is reported that they would prefer treatment for anything if possible first. Patient reports a chronic cough and some shortness of breath but at baseline. Patient is a poor historian most history obtained from the chart. Medical history includes dementia COPD hypertension chronic anemia and diastolic heart failure grade 1 with good ejection fraction on an echo in 2019. 02/19 Patient sleeping. Likely result from Haldol last night. Haldol was given for and severe agitation and pulling at lines. Nurse also reports that she feels he is aspirating with liquids. We will place on dysphagia diet order speech therapy evaluation. Likely is infiltrates on chest x-ray from aspiration. 02/20 Patient sitting up in bed eating breakfast. Did get some Zyprexa last night for agitation. No new complaints this morning. Try to talk with him about his atrial fibrillation but given his dementia patient does not seem to comprehend. 02/21 Patient sitting up in bed eating breakfast. More talkative today. No overnight event or new complaints. Did not require any Zyprexa last night. 02/22 Patient sleeping. Calm overnight. Started Seroquel yesterday evening seem to respond well to it. 02/23: Afebrile overnight. No major overnight events. Subjective not obtained due to patient's clinical situations. Medically stable awaiting placement. 02/24: Afebrile overnight. No major overnight events. Subjective not obtained due to patient's clinical situations. Medically stable awaiting placement. 02/25: Afebrile overnight. No major overnight events. Subjective not obtained due to patient's clinical situations. Medically stable awaiting placement. 02/26: Afebrile overnight. No major overnight events. Subjective not obtained due to patient's clinical situations. Medically stable awaiting placement. 02/27: Afebrile overnight. No major overnight events. Subjective not obtained due to patient's clinical situations. Medically stable awaiting placement. 02/28: Afebrile overnight. No major overnight events. Subjective not obtained due to patient's clinical situations. Medically stable awaiting placement. 03/01: Patient is very pleasant to stuffs. Not posting danger to self or stuffs. Medically ready to be discharged to SNF. 03/02 No overnight event or new complaints. 03/03 No new complaints. No overnight events. Vital signs stable. Blood pressure occasionally a bit soft. Decrease Norvasc. 03/04 No change overnight. Vital signs stable. Blood pressure good after decreasing Norvasc. 03/05 Patient stable seems to be doing well. No overnight event or new complaints. Blood pressure good. 03/06 Patient sitting up in bed eating breakfast. Pleasant. Although he does not like his breakfast. 03/07 No significant events overnight, awaiting placement. 03/08 Resting comfortably, awaiting placement. 03/09 Awaiting placement. 03/10 The patient pulled out his Willis yesterday evening, replaced. Still awaiting placement. 03/11 No significant events overnight, occasionally agitated however redirectable. Awaiting placement. 03/12 No issues overnight. No new complaints. Awaiting placement. 03/13 No real changes. Patient sitting up in bed eating breakfast. No new complaints. 03/14 No change. Patient is seen to be feeling well. No behavioral changes overnight per nurses note. 03/15 No overnight event or new complaints. Patient is noted to be in good spirits. 03/16 No reports of behavioral disturbance overnight. No new complaints overnight events. 03/17 No significant events overnight, awaiting placement. 03/18 Pleasantly confused, easily redirectable by staff. Awaiting placement. 03/19 Vitals stable overnight, pleasant and cooperative this morning. Awaiting placement. 03/20 No significant events overnight, cooperative with staff. Evaluated buttock wound with staff, much improved since a couple weeks ago. Continues with Willis catheter. 03/21 Resting comfortably, no significant events overnight. No issues with agitation for several days. Awaiting placement. 03/22-no overnight events. Ongoing coordination for SNF. Ongoing wound care, patient tested positive for COVID during routine discharge and hence unable to transfer to SNF today. Willis is discontinued however remains incontinent of bowel and bladder, remains bedbound 03/23-patient status quo, no overnight events. Ongoing wound care/frequent offl oading, currently on room air, no active concerns expressed with nursing staff, remains incontinent of bowel and bladder, oriented to self, frequent repositioning ongoing. No family at bedside. Was unable to discharge to SNF yesterday due to COVID-positive status. Case management coordinating. 03/24: There was no major overnight events. No new complaints. Currently on 10 days CoVID quarantine before SNF placement becomes possible. 03/25: Patient is complaining of mild left shoulder pain. He denies any shortness of breath. His appetite is not the greatest. He is on room air. Currently on 10 days CoVID quarantine before SNF placement becomes possible. 03/26: There was no major overnight events. Patient has no new complaints. Currently on CoVID quarantine before SNF placement becomes possible. 03/27: There was no major overnight events. Patient has no new complaints. Currently on CoVID quarantine before SNF placement becomes possible. 03/28: There was no major overnight events. Patient has no new complaints. Currently on CoVID quarantine before SNF placement becomes possible. 03/29: There was no major overnight events. Patient has no new complaints. Currently on CoVID quarantine before SNF placement becomes possible. 03/30: There was no major overnight events. Patient has no new complaints. Currently on CoVID quarantine before SNF placement becomes possible. 03/31 No overnight event or new complaints. Mood a little depressed this morning. 04/01 No behavioral disturbances overnight. Sleeping when I entered room but awakens. No new complaints. 04/02 No overnight event or new complaints. No reported behavioral instances. 04/03 No new complaints or change overnight. Review of Systems: denies headache/fever/chills/nausea/vomiting/chest or abdominal pain/cough/ dyspnea/diarrhea. Otherwise see above. Constitutional Vitals: Vital Signs Temp Pulse Resp BP Pulse Ox O2 Del Method O2 Flow Rate 98.3 F 78 16 111/59 94 0 04/03/22 07:54 04/03/22 07:54 04/03/22 07:54 04/03/22 07:54 04/03/22 07:54 04/03/22 07:54 02/25/22 04:00 Period Temp Pulse Resp BP Sys/Meza Pulse Ox O2 Del Method O2 Flow Rate Last 24 Hr 97.4 F-98.6 F 73-99 108-118/56-66 90-96 Room Air-Room Air Intake and Output 04/02/22 04/03/22 04/03/22 19:59 03:59 11:59 Intake Total 480 120 50 Output Total 1 2 Balance 479 118 50 Weight 114.623 kg Intake & Output: Intake & Output 04/02/22 04/03/22 04/03/22 19:59 03:59 11:59 Intake Total 480 120 50 Output Total 1 2 Balance 479 118 50 Weight 114.623 kg Intake: Nourishment/Supplement quantity 120 (ml) Oral 480 50 Output: # of times incontinent of urine 1 2 Other: Meal Lunch Nourishment/Supplement Percent of Meal Consumed 75% Feeding Ability Needs Supervision Nourishment/Supplement name Ensure Stool Size Small Stool Color Brown Stool Consistency Soft # Voids 1 # Bowel Movements 1 # of times incontinent of 1 Bowels Exam: General: awake, no acute Distress, obese Eyes/N/T: EOMI, Head/Neck: neck supple, CV: irreg irreg, No murmurs, Pulm: Clear b/l, no wheezing/rhonchi/rales Abd: soft, nontender, +BS x4 Ext: no clubbing/cyanosis, b/l LE edema improved and LE chronic wounds/ulcers Neuro: alert, no focal deficits, spontaneously moves all extremities, Skin: warm/dry OBJ DATA Labs CBC & Chem 7: 02/28/22 05:49 02/28/22 05:49 Meds: Medications Acetaminophen (Acetaminophen 325 Mg Tablet) 650 mg PO Q6HP PRN; Protocol PRN Reason: Per Pain Protocol/Fever > 101 Last Admin: 04/01/22 21:02 Dose: 650 mg Acetaminophen/Codeine Phosphate (Acetaminophen W/Codeine #3 1 Tablet) 1 tab PO BIDP PRN; Protocol PRN Reason: Pain Last Admin: 03/28/22 21:07 Dose: 1 tab Albuterol/Ipratropium (Ipratropium/Albuterol 3 Ml Ampul.Neb) 3 ml NEB Q4HP PRN PRN Reason: Shortness Of Breath Last Admin: 03/06/22 20:44 Dose: 3 ml Apixaban (Apixaban 5 Mg Tablet) 5 mg PO BID [facility] Last Admin: 04/03/22 08:36 Dose: 5 mg Bisoprolol Fumarate (Bisoprolol 5 Mg Tablet) 10 mg PO DAILY [facility] Last Admin: 04/03/22 08:35 Dose: 10 mg Dextrose (Dextrose 50% 50 Ml Vial) 0 ml IV UD PRN PRN Reason: Per Sliding Scale Diagnostic Test (Pha) (Accu-Chek 1 Each Strip) 1 each FS ACHS [facility] Last Admin: 04/03/22 07:31 Dose: 1 each Docusate Sodium (Docusate Sodium 100 Mg Capsule) 100 mg PO BID [facility] Last Admin: 04/03/22 08:36 Dose: 100 mg Fluoxetine HCl (Fluoxetine Hcl 20 Mg Capsule) 20 mg PO DAILY [facility] Last Admin: 04/03/22 08:35 Dose: 20 mg Furosemide (Furosemide 20 Mg Tablet) 40 mg PO DAILY [facility] Last Admin: 04/03/22 08:35 Dose: 40 mg Glucose (Dextrose 31 Gm Oral.Susp) 15 gm PO PRN PRN PRN Reason: Hypoglycemia Potassium Chloride 40 meq/ (Dextrose) 520 mls @ 130 mls/hr IV UD PRN PRN Reason: Potassium < 3 Magnesium Sulfate (Magnesium Sulfate) 2 gm in 50 mls @ 50 mls/hr IV UD PRN PRN Reason: Magnesium </= 1.6 Insulin Glargine (Insulin Glargine, Human 1 Unit/0.01 Ml) 10 unit SQ QPM [facility] Last Admin: 04/02/22 20:40 Dose: 10 units Insulin Human Lispro (Insulin Lispro 1 Unit/0.01 Ml Unit) 0 unit SQ ACHS [facility]; Protocol Last Admin: 04/03/22 07:31 Dose: Not Given Memantine (Memantine 10 Mg Tablet) 5 mg PO BID [facility] Last Admin: 04/03/22 08:35 Dose: 5 mg Methocarbamol (Methocarbamol 750 Mg Tablet) 750 mg PO DAILY [facility] Last Admin: 04/03/22 08:35 Dose: 750 mg Metoprolol Tartrate (Metoprolol Tartrate 5 Mg/5 Ml Vial) 5 mg IV Q2HP PRN PRN Reason: Tachyarrhythmias HR>110 Last Admin: 02/19/22 22:21 Dose: 5 mg Omeprazole (Omeprazole 20 Mg Capsule) 20 mg PO ACB [facility] Last Admin: 04/03/22 08:35 Dose: 20 mg Ondansetron HCl (Ondansetron 4 Mg/2 Ml Vial) 4 mg IV Q4HP PRN PRN Reason: Nausea And Vomiting Budesonide- Formoterol 10.2 Gm Hfa Aerosol Inhaler 2 dose INH BID [facility] Last Admin: 04/03/22 08:36 Dose: Not Given Polyethylene Glycol (Polyethylene Glycol 3350 17 Gm Packet) 17 gm PO DAILYP PRN PRN Reason: Constipation Last Admin: 02/22/22 08:43 Dose: 17 gm Potassium Chloride (Potassium Chloride 20 Meq Tablet) 40 meq PO UD PRN PRN Reason: Potssium is 3-3.5 Potassium Chloride (Potassium Chloride 20 Meq Tablet) 40 meq PO UD PRN PRN Reason: Potassium < 3 Quetiapine Fumarate (Quetiapine 25 Mg Tablet) 50 mg PO HS [facility] Last Admin: 04/02/22 20:32 Dose: 50 mg Quetiapine Fumarate (Quetiapine 25 Mg Tablet) 12.5 mg PO Q6HP PRN PRN Reason: agitation Last Admin: 03/20/22 03:46 Dose: 12.5 mg Quetiapine Fumarate (Quetiapine 25 Mg Tablet) 25 mg PO DAILY@1400 [facility] Last Admin: 04/02/22 13:20 Dose: 25 mg Senna (Sennosides 1 Tablet) 2 tab PO DAILYP PRN PRN Reason: Constipation Last Admin: 03/17/22 21:16 Dose: 2 tab Tamsulosin HCl (Tamsulosin 0.4 Mg Capsule) 0.4 mg PO BID [facility] Last Admin: 04/03/22 08:35 Dose: 0.4 mg A/P Narrative A/P Narrative: A: *Generalized weakness/deconditioning/failure to thrive: *Encephalopathy, acute on chronic, underlying Dementia: 2/2 above, improved *Dementia with behavioral disturbances: better *CAP, likely Aspiration: resolved *Oropharyngeal Dysphagia, Mod: *Acute hypoxic respiratory failure: resolved *Afib, paroxysmal (new diagnosis) w/RVR: improved -CHADSVASC=5-6, echo with good EF *COPD(not on home O2): *h/o diastlic CHF: *Pre-Diabetes: a1c 6.4 *HTN: low-normal bps *CKD II: *Anemia, chronic: *LE wounds/ulcers/buttock decubitus: *Obesity: BMI 34 P: -Awaiting placement -IS/Acapella, home IH's and prn nebs, RT -Wound care -cont per telepsych, increased seroquel to 25@1400 and 50 qhs and 12.5 q6h prn -Eliquis inpt, will defer further decision making to f/u between family/PCP, pt unable to participate in medical decision making -cont BB, d/c norvasc for low-normal bp -cont home lasix -SSI, restarted home basal at lower dose, significantly lower Lantus dose than prior to admission -PT/OT -ST eval, dysphagia diet -CM for placement -ppx: eliquis / ppi Time Spent With Patient Time: Total time spent is greater than 50% in coordination of care (as documented) at patient's floor/unit and/or counseling patient: Total time spent with greater than 50% in coordination of care (as documented) at patient's floor/unit and/or counseling patient:: 25 - 35 minutes
[2022-04-03] MEDS: QUEtiapine 25 MG TABLET PO SCH ×2 (13:48→20:07)
[2022-04-03] MEDS: INSULIN GLARGINE, HUMAN 1 UNIT/0.01 ML SQ SCH (20:06)
[2022-04-04] MEDS: INSULIN LISPRO 1 UNIT/0.01 ML UNIT SQ SCH ×2 (08:03→11:32)
[2022-04-04] MEDS: BISOPROLOL 5 MG TABLET PO SCH (08:18)
[2022-04-04] MEDS: METHOCARBAMOL 750 MG TABLET PO SCH (08:18)
[2022-04-04] MEDS: MEMANTINE 10 MG TABLET PO SCH (08:18)
[2022-04-04] MEDS: FLUoxetine HCL 20 MG CAPSULE PO SCH (08:19)
[2022-04-04] MEDS: Budesonide-Formoterol 10.2 GM HFA aerosol inhaler INH SCH (08:19)
[2022-04-04] MEDS: TAMSULOSIN 0.4 MG CAPSULE PO SCH (08:19)
[2022-04-04] MEDS: DOCUSATE SODIUM 100 MG CAPSULE PO SCH (08:19)
[2022-04-04] MEDS: FUROSEMIDE 20 MG TABLET PO SCH (08:19)
[2022-04-04] MEDS: APIXABAN 5 MG TABLET PO SCH (08:19)
[2022-04-04] MEDS: OMEPRAZOLE 20 MG CAPSULE PO SCH (08:19)
[2022-04-04] MEDS: ACETAMINOPHEN 325 MG TABLET PO PRN (08:31)
[2022-04-04] MEDS: QUEtiapine 25 MG TABLET PO SCH (13:39)
== END 2022-04-04 14:10 | DRG 871 ==
LOC: ED 16:32 → MEDSUR 02-18 13:16
PROVIDERS: ADMIT Internal Medicine; ATTEND Internal Medicine